=== PATIENT | female | born 1950 | race Caucasian/White ===

== ENCOUNTER 2017-04-24 10:08 | Inpatient (IN) | payer MEDICARE ==
[~2017-04-24] VITALS: Ht 157.5 cm; Wt 69.5 kg
[2017-04-24] VITALS (17 sets, daily range): BP systolic 115–152; BP diastolic 60–78; PULSE 86–97; RESP 18–38; TEMP 97.7–100.3; O2SAT 85–96
[~2017-04-24 10:08] MED LIST: AMLO5TAB2 PO; CYAN1DRO SL; FERR1TAB58 PO; FLUT50SP EACH NARE; LABE100T2 PO; LEVOTAB PO; LOSA100T PO; MACR100C2 PO; OMEP20TA PO; VITA500C9 CHEW; ZOSTINJ SQ
[2017-04-24] MEDS ORDERED: SODIUM CHLORIDE 0.9% FLUSH 10 ML FLUSH IVF PRN (10:30)
[2017-04-24] MEDS ORDERED: VITA250T3 PO (10:36)
[2017-04-24] MEDS ORDERED: FERR200T PO (10:36)
--- NOTE | 2017-04-24 10:42 | PD ---
HPI Chief Complaint: Respiratory Distress Time Seen by Provider: 10:21 Travel History International Travel<30 days: No Contact w/Intl Traveler<30days: No Traveled to known affect area: No History of Present Illness HPI 66yo F with PMH of HTN presents to the ED with c/o sob for 3 days. Also with midsternal chest tightness that is nonradiating. Intermittent fever. +Cough. Denies any n/v, abdominal pain, focal weakness or numbness. Pt went to urgent care on 04/21/17 and was diagnosed with sinusitis and bronchitis. Pt was discharged with cipro, albuterol and benzonatate. Pt has not been using albuterol because it makes her more anxious. Pt denies history of COPD and does not smoke cig. Denies any history of PE/DVT, recent travel or surgery. PFSH Past Medical History GERD: Yes Hypertension: Yes ?: Not Past Surgical History Surgical History: No Previous Surgery Social History Alcohol Use: No Tobacco Use: No Substance Use: No Allergies-Medications (Allergen,Severity, Reaction): Coded Allergies: Sulfa (Verified Allergy, Severe, rash, 04/24/17) Amoxicillin (Verified Allergy, Intermediate, Rash, 04/24/17) Dilaudid (Verified Adverse Reaction, Intermediate, short of breath when given IV push , 04/24/17) Reported Meds & Prescriptions Reported Meds & Active Scripts Active Levocetirizine 5 Mg Tab 5 Mg PO DAILY Losartan (Losartan Potassium) 100 Mg Tab 100 Mg PO HS needs to call office and speak with provider prior to more refills Omeprazole 20 Mg Tab 20 Mg PO DAILY Labetalol (Labetalol HCl) 100 Mg Tab 100 Mg PO BID Amlodipine (Amlodipine Besylate) 5 Mg Tab 5 Mg PO DAILY Reported Vitamin C (Ascorbic Acid) 250 Mg Tab 250 Mg PO DAILY Feosol (Ferrous Sulfate) 200 Mg Tab 200 Mg PO BIDPC Review of Systems Except as stated in HPI: all other systems reviewed are Neg Physical Exam Narrative GENERAL: 66yo F in moderate distress. SKIN: Focused skin assessment warm/dry. HEAD: Atraumatic. Normocephalic. EYES: Pupils equal and round. No scleral icterus. No injection or drainage. ENT: No nasal bleeding or discharge. Mucous membranes pink and moist. NECK: Trachea midline. No JVD. CARDIOVASCULAR: Regular rate and rhythm. No murmur appreciated. RESPIRATORY: + accessory muscle use. Clear to auscultation. Breath sounds equal bilaterally. GASTROINTESTINAL: Abdomen soft, non-tender, nondistended. MUSCULOSKELETAL: No obvious deformities. No clubbing. No cyanosis. Trace bilateral lower ext edema. NEUROLOGICAL: Awake and alert. No obvious cranial nerve deficits. Motor grossly within normal limits. Normal speech. PSYCHIATRIC: Appropriate mood and affect; insight and judgment normal. Data Data Last Documented VS Vital Signs Date Time Temp Pulse Resp B/P Pulse Ox O2 Delivery O2 Flow Rate FiO2 04/24/17 11:22 98.3 95 20 128/60 94 Nasal Cannula 3 Orders Complete Blood Count With Diff (04/24/17 10:29) Basic Metabolic Panel (Bmp) (04/24/17 10:29) Act Partial Throm Time (Ptt) (04/24/17 10:29) Prothrombin Time / Inr (Pt) (04/24/17 10:29) Ckmb (Isoenzyme) Profile (04/24/17 10:29) Troponin I (04/24/17 10:29) Arterial Blood Gas (Abg) (04/24/17 10:29) Blood Culture (04/24/17 10:29) Iv Access Insert/Monitor (04/24/17 10:29) Ecg Monitoring (04/24/17 10:29) Oximetry (04/24/17 10:29) Oxygen Administration (04/24/17 10:29) Chest, Single Ap (04/24/17 10:29) Sodium Chloride 0.9% Flush (Ns Flush) (04/24/17 10:30) Lactic Acid Sepsis Protocol (04/24/17 10:29) B-Type Natriuretic Peptide (04/24/17 11:20) Electrocardiogram (04/24/17 10:27) Type And Screen (04/24/17 11:38) Red Blood Cells (Rbc) (04/24/17 11:38) Blood Product Administration .UPON TRANSFUSION (04/24/17 11:38) Sodium Chlor 0.9% 250 Ml Inj (Ns 250 Ml (04/24/17 11:45) Admit Order (Ed Use Only) (04/24/17 11:51) Labs Laboratory Tests Test 04/24/17 04/24/17 04/24/17 10:43 10:45 11:50 White Blood Count 10.8 TH/MM3 Red Blood Count 3.06 MIL/MM3 Hemoglobin 7.9 GM/DL Hematocrit 24.9 % Mean Corpuscular Volume 81.3 FL Mean Corpuscular Hemoglobin 25.8 PG Mean Corpuscular Hemoglobin 31.7 % Concent Red Cell Distribution Width 16.1 % Platelet Count 352 TH/MM3 Mean Platelet Volume 7.2 FL Neutrophils (%) (Auto) % Lymphocytes (%) (Auto) % Monocytes (%) (Auto) % Eosinophils (%) (Auto) % Basophils (%) (Auto) % Neutrophils # (Auto) TH/MM3 Lymphocytes # (Auto) TH/MM3 Monocytes # (Auto) TH/MM3 Eosinophils # (Auto) TH/MM3 Basophils # (Auto) TH/MM3 CBC Comment AUTO DIFF Differential Total Cells 100 Counted Neutrophils % (Manual) 81 % Band Neutrophils % 2 % Lymphocytes % 13 % Monocytes % 1 % Eosinophils % 1 % Basophils % 2 % Neutrophils # (Manual) 9.0 TH/MM3 Differential Comment FINAL DIFF MANUAL Platelet Estimate NORMAL Platelet Morphology Comment NORMAL Ovalocytes 1+ Prothrombin Time 12.7 SEC Prothromb Time International 1.1 RATIO Ratio Activated Partial 24.4 SEC Thromboplast Time Sodium Level 138 MEQ/L Potassium Level 3.3 MEQ/L Chloride Level 100 MEQ/L Carbon Dioxide Level 25.8 MEQ/L Anion Gap 12 MEQ/L Blood Urea Nitrogen 9 MG/DL Creatinine 0.77 MG/DL Estimat Glomerular Filtration 75 ML/MIN Rate Random Glucose 251 MG/DL Lactic Acid Level 3.0 mmol/L Calcium Level 8.8 MG/DL Total Creatine Kinase 74 U/L Troponin I 1.58 NG/ML B-Type Natriuretic Peptide 582 PG/ML Blood Gas Puncture Site LT RADIAL Blood Gas Patient Temperature 98.6 Blood Gas HCO3 23 mmol/L Blood Gas Base Excess 0.5 mmol/L Blood Gas Oxygen Saturation 79 % Arterial Blood pH 7.51 Arterial Blood Partial 29 mmHG Pressure CO2 Arterial Blood Partial 48 mmHG Pressure O2 Arterial Blood Oxygen Content 8.5 Vol % Arterial Blood 3.3 % Carboxyhemoglobin Arterial Blood Methemoglobin 0.9 % Blood Gas Hemoglobin 7.6 G/DL Oxygen Delivery Device ROOM AIR Blood Gas Inspired Oxygen 21 % Blood Type A NEGATIVE Antibody Screen NEGATIVE Crossmatch Leukocyte-Reduced Red Blood Cells Blood Bank Comment MDM Medical Decision Making Medical Screen Exam Complete: Yes Emergency Medical Condition: Yes Interpretation(s) EKG: NSR 87bpm. LAD. Poor baseline. Q wave V1, V2. EKG: NSR 93bpm. LAD. ST depressions II, III, aVF, V5-V6. Differential Diagnosis Pneumonia vs. PE vs. COPD vs. ACS Narrative Course 66yo F with sob for a few days. Pt is hypoxic on room air in the high 70s but saturating at 96% on 4L NC. Labs reviewed, no leukocytosis. H/H 7.9/24.9. 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 Pt has not had endoscopy for a few years but gets iron transfusion and states last iron transfusion was last month. States hemoglobin was around 10. GI physician near [place]. ABG showed respiratory alkalosis, anemia with hemoglobin of 7.6. O2 sat 79%. Pt is tachypneic and CO2 is 29. Lactic acid is 3.0. Troponin is elevated at 1.58, likely from demand ischemia. BNP is elevated at 582. K: 3.3 , replaced orally. Glucose elevated at 251. Discussed with Dr. Chang and accepted to his service but with the elevated troponin, feel that pt should be transferred to [facility]. GI and cardiology consult placed. CT angio cancelled because I do not think pt is hypoxic from PE but rather from anemia from GI bleed. Hemaprompt positive. Place on prontix. Discussed with Dr. River who recommends transfer to [facility] and to inform Dr. Ashton when she arrives. Discussed with Dr. Hernandez from cardiology. Critical Care Narrative Aggregate critical care time was 60 minutes. Time to perform other separately billable procedures was not included in the critical care time. My time did not include minutes spent treating any other patients simultaneously or on activities that did not directly contribute to the patient's treatment. The services I provided to this patient were to treat and/or prevent clinically significant deterioration that could result in: cardiovascular collapse or . I provided critical care services requiring my management, as noted below: Chart data review, documentation time, medication orders and management, vital sign assessments/reviewing monitor data, ordering and reviewing lab tests, ordering and interpreting/reviewing x-rays and diagnostic studies, care of the patient and discussion of the patient with the admitting physicians. Diagnosis Primary Impression: GI bleed Qualified Code: K92.2 - Gastrointestinal hemorrhage, unspecified gastrointestinal hemorrhage type Admitting Information Admitting Physician Requests: Admit Olive Costa DO Apr 24, 2017 10:42 I provided critical care services requiring my management, as noted below: Chart data review, documentation time, medication orders and management, vital sign assessments/reviewing monitor data, ordering and reviewing lab tests, ordering and interpreting/reviewing x-rays and diagnostic studies, care of the patient and discussion of the patient with the admitting physicians. Diagnosis Primary Impression: GI bleed Olive Costa DO Apr 24, 2017 10:42
[2017-04-24 10:50] LABS: BLOOD GAS BASE EXCESS 0.5 mmol/L (-2-2); BLOOD GAS CARBOXYHEMOGLOBIN 3.3 % (0-4); BLOOD GAS HCO3 23 mmol/L (22-26); BLOOD GAS METHEMOGLOBIN 0.9 % (0-2); BLOOD GAS O2 HGB SATURATION 79 % (90-100); BLOOD GAS OXYGEN CONTENT 8.5 Vol % (12.0-20.0); BLOOD GAS PCO2 29 mmHG (38-42); BLOOD GAS PO2 48 mmHG (61-120); BLOOD GAS TOTAL HGB 7.6 G/DL (12.0-16.0); TEMP CORR TO 98.6
[2017-04-24 10:51] LABS: CRITICAL VALUE YES; DRAW SITE LT RADIAL; FIO2 21 %; NUMBER OF ARTERIAL PUNCTURES 1; OXYGEN DEVICE ROOM AIR; STAT YES; ULNAR PULSE PRESENT
[2017-04-24 10:54] LABS: HEMATOCRIT 24.9 % (35.0-46.0); MEAN CELL VOLUME 81.3 FL (80.0-100.0); MEAN CORPUSCULAR HEMOGLOBIN 25.8 PG (27.0-34.0); MEAN CORPUSCULAR HGB CONC 31.7 % (32.0-36.0); PLATELET COUNT 352 TH/MM3 (150-450); RED BLOOD COUNT 3.06 MIL/MM3 (4.00-5.30); RED CELL DISTRIBUTION WIDTH 16.1 % (11.6-17.2); WHITE BLOOD COUNT 10.8 TH/MM3 (4.0-11.0)
[2017-04-24 10:58] LABS: HEMO FLAGS AUTO DIFF
[2017-04-24 11:10] LABS: POTASSIUM 3.3 MEQ/L (3.5-5.1)
[2017-04-24 11:13] LABS: BICARBONATE 25.8 MEQ/L (21.0-32.0)
[2017-04-24 11:14] LABS: APTT (PATIENT) 24.4 SEC (24.3-30.1); INTERNATIONAL NORMALIZED RATIO 1.1 RATIO; PROTHROMBIN TIME - PATIENT 12.7 SEC (9.8-11.6)
--- NOTE | 2017-04-24 11:15 | RADHPO ---
EXAM DATE/TIME: 04/24/2017 10:53 [facility] COMPARISON: No previous studies available for comparison. INDICATIONS : Short of breath MEDICAL HISTORY : None. SURGICAL HISTORY : None. ENCOUNTER: Initial ACUITY: 3 days PAIN SCORE: 0/10 LOCATION: Bilateral chest FINDINGS: The heart is at the upper limits of normal in size. There is diffuse interstitial prominence and smal l effusions. Exam would suggest possible congestive failure. The visualized bony structures demonstra te degenerative changes but are otherwise intact. CONCLUSION: 1. Possible CHF. Max Capellan MD on April 24, 2017 at 11:12 Board Certified Radiologist. This report was verified electronically.
[2017-04-24] MEDS ORDERED: SODIUM CHLOR 0.9% 250 ML INJ 250 ML IV ONE (11:45)
[2017-04-24 11:50] LABS: BANDS 2 % (0-6); BASOPHILS 2 % (0-2); EOSINOPHILS 1 % (0-4); POLYS (SEG NEUTROPHILS) 81 % (16-70); WBC DIFF SAMPLE 100
[2017-04-24 11:51] LABS: OVALOCYTES 1+ (NORMAL)
[2017-04-24 11:52] LABS: PLATELET ESTIMATE SMEAR NORMAL (NORMAL); PLATELET MORPHOLOGY NORMAL (NORMAL); SCAN/DIFF FINAL DIFF MANUAL
[2017-04-24] MEDS ORDERED: SENNOSIDES 8.6 MG TAB PO PRN (12:00)
[2017-04-24] MEDS ORDERED: ONDANSETRON HCL 4 MG/2 ML VIAL IVP PRN (12:00)
[2017-04-24] MEDS ORDERED: MAGNESIUM HYDROXIDE SUSP 30 ML CUP PO PRN (12:00)
[2017-04-24] MEDS ORDERED: NALOXONE HCL 0.4 MG/ML AMP IV PRN (12:00)
[2017-04-24] MEDS ORDERED: BISACODYL 10 MG SUPP RECTAL PRN (12:00)
[2017-04-24] MEDS ORDERED: LACTULOSE SYRUP 20 GM/30 ML CUP PO PRN (12:00)
[2017-04-24] MEDS ORDERED: POTASSIUM CHLORIDE 20 MEQ CONTROLLED RELEASE TAB PO STA (12:09)
[2017-04-24 12:51] LABS: LACTIC ACID GHOST NOT REPORTABLE
[2017-04-24] MEDS: PANTOPRAZOLE INJ 80 MG in SODIUM CHLORIDE 0.9% INJ 100 ML IV SCH ×2 (13:21→23:40)
--- NOTE | 2017-04-24 13:38 | EKG ---
Date Performed: 04/24/2017 Time Performed: 11:46:34 PTAGE: 66 years EKG: Sinus rhythm NONSPECIFIC ST & T-WAVE ABNORMALITY ABNORMAL ECG INTERPRETATION BASED ON A DEFAULT AGE OF 40 YEARS W ithin the constraints of artifact no significant change. PREVIOUS TRACING : 04/24/2017 10.27 DOCTOR: Gio Preston Interpretating Date/Time 04/24/2017 13:37:08
--- NOTE | 2017-04-24 13:41 | EKG ---
Date Performed: 04/24/2017 Time Performed: 10:27:25 PTAGE: 66 years EKG: Marked baseline artifact Sinus rhythm SEPTAL MYOCARDIAL INFARCTION ABNORMAL ECG INTERPRETATION BASED ON A DEFAULT AGE OF 40 YEARS I cannot accurately compare EKGs because of the artifact NO PREVIOUS TRACING DOCTOR: Gio Preston Interpretating Date/Time 04/24/2017 13:39:36
--- NOTE | 2017-04-24 13:56 | HHI.HP ---
[facility] Service [facility] Physician Shahla Daniel, OBSTETRICS TECH Admission Diagnosis GI bleed, NSTEMI, symptomatic anemia Diagnoses: (1) GAVE (gastric antral vascular ectasia) (2) Hypertension (3) GI bleed (4) Elevated troponin I level (5) Hypokalemia (6) Anemia Chief Complaint: Dyspnea Travel History International Travel<30 Days: No Contact w/Intl Traveler <30 Da: No Traveled to Known Affected Are: No History of Present Illness The patient is a 66-year-old female who recently [place] She states for the last few days she has had worsening shortness of breath. She went to urgent care on 04/21/17 and was diagnosed with bronchitis. She was given prescription for ciprofloxacin and benzonatate. She was also given albuterol, stopped using it because of tachycardia. She states that this morning she was at work and became significantly short of breath. She contacted her PCP, who recommended that she go to the ER. She denies chest pain, but does report a pressure sensation throughout her chest. She has worsening of her shortness of breath with any exertion. Denies headache or blurred vision. Denies fever, chills, night sweats. No nausea, vomiting, abdominal pain. Review of Systems Constitutional: DENIES: Fever, Chills, Night Sweats Eyes: DENIES: Blurred vision, Vision loss Ears, nose, mouth, throat: DENIES: Hearing loss Respiratory: COMPLAINS OF: Cough, Sputum production, Shortness of breath, DENIES: Wheezing Cardiovascular: COMPLAINS OF: Dyspnea on Exertion, DENIES: Chest pain ( patient does report chest pressure as described in history of present illness), Palpitations, Lower Extremity Edema Gastrointestinal: DENIES: Abdominal pain, Constipation, Diarrhea, Nausea, Vomiting Genitourinary: DENIES: Urinary frequency, Urinary incontinence, Urgency, Hematuria, Dysuria, Nocturia Musculoskeletal: DENIES: Joint pain, Muscle aches Integumentary: DENIES: Pruritus, Rash Hematologic/lymphatic: DENIES: Bruising Neurologic: DENIES: Headache Past Family Social History Past Medical History GAVE syndrome Hypertension Past Surgical History Multiple endoscopies with cauterization Cervical spine surgery Reported Medications Levocetirizine 5 Mg Tab 5 Mg PO DAILY Losartan (Losartan Potassium) 100 Mg Tab 100 Mg PO HS needs to call office and speak with provider prior to more refills Omeprazole 20 Mg Tab 20 Mg PO DAILY Labetalol (Labetalol HCl) 100 Mg Tab 100 Mg PO BID Amlodipine (Amlodipine Besylate) 5 Mg Tab 5 Mg PO DAILY Vitamin C (Ascorbic Acid) 250 Mg Tab 250 Mg PO DAILY Feosol (Ferrous Sulfate) 200 Mg Tab 200 Mg PO BIDPC Allergies: Coded Allergies: Sulfa (Verified Allergy, Severe, rash, 04/24/17) Amoxicillin (Verified Allergy, Intermediate, Rash, 04/24/17) Dilaudid (Verified Adverse Reaction, Intermediate, short of breath when given IV push , 04/24/17) Family History Heart disease COPD Social History Denies alcohol, tobacco, or illicit drug use. Physical Exam Vital Signs Vital Signs Date Time Temp Pulse Resp B/P Pulse Ox O2 Delivery O2 Flow Rate FiO2 04/24/17 13:22 91 18 143/78 94 Nasal Cannula 3 04/24/17 12:05 95 Nasal Cannula 3.00 04/24/17 11:22 98.3 95 20 128/60 94 Nasal Cannula 3 04/24/17 10:50 94 Nasal Cannula 3 04/24/17 10:50 94 Nasal Cannula 3 04/24/17 10:28 97 22 115/64 96 Nasal Cannula 2 04/24/17 10:28 96 Nasal Cannula 2 04/24/17 10:13 97.7 96 20 134/68 85 Physical Exam GENERAL: Well-nourished, well-developed female in no acute distress. HEENT: Normocephalic, atraumatic. Pupils equal, round and reactive. Extraocular movements intact. No scleral icterus. No injection or drainage. Oropharynx is clear. Mucous membranes are moist. CARDIOVASCULAR: Regular rate and rhythm without murmurs, gallops, or rubs. RESPIRATORY: Clear to auscultation. No wheezes, rales, or rhonchi. Breathing is non-labored. GASTROINTESTINAL: Abdomen soft, non-tender, nondistended. EXTREMITIES: No lower extremity edema. No calf tenderness. PSYCH: Alert and oriented x 3. Laboratory Laboratory Tests Test 04/24/17 04/24/17 10:43 10:45 White Blood Count 10.8 Red Blood Count 3.06 Hemoglobin 7.9 Hematocrit 24.9 Mean Corpuscular Volume 81.3 Mean Corpuscular Hemoglobin 25.8 Mean Corpuscular Hemoglobin 31.7 Concent Red Cell Distribution Width 16.1 Platelet Count 352 Mean Platelet Volume 7.2 Neutrophils (%) (Auto) Lymphocytes (%) (Auto) Monocytes (%) (Auto) Eosinophils (%) (Auto) Basophils (%) (Auto) Neutrophils # (Auto) Lymphocytes # (Auto) Monocytes # (Auto) Eosinophils # (Auto) Basophils # (Auto) CBC Comment AUTO DIFF Differential Total Cells 100 Counted Neutrophils % (Manual) 81 Band Neutrophils % 2 Lymphocytes % 13 Monocytes % 1 Eosinophils % 1 Basophils % 2 Neutrophils # (Manual) 9.0 Differential Comment FINAL DIFF MANUAL Platelet Estimate NORMAL Platelet Morphology Comment NORMAL Ovalocytes 1+ Prothrombin Time 12.7 Prothromb Time International 1.1 Ratio Activated Partial 24.4 Thromboplast Time Sodium Level 138 Potassium Level 3.3 Chloride Level 100 Carbon Dioxide Level 25.8 Anion Gap 12 Blood Urea Nitrogen 9 Creatinine 0.77 Estimat Glomerular Filtration 75 Rate Random Glucose 251 Lactic Acid Level 3.0 Calcium Level 8.8 Total Creatine Kinase 74 Troponin I 1.58 B-Type Natriuretic Peptide 582 Blood Gas Puncture Site LT RADIAL Blood Gas Patient Temperature 98.6 Blood Gas HCO3 23 Blood Gas Base Excess 0.5 Blood Gas Oxygen Saturation 79 Arterial Blood pH 7.51 Arterial Blood Partial 29 Pressure CO2 Arterial Blood Partial 48 Pressure O2 Arterial Blood Oxygen Content 8.5 Arterial Blood 3.3 Carboxyhemoglobin Arterial Blood Methemoglobin 0.9 Blood Gas Hemoglobin 7.6 Oxygen Delivery Device ROOM AIR Blood Gas Inspired Oxygen 21 Date/Time Procedure Status Source Growth 04/24/17 10:49 Aerobic Blood Culture Received Blood Peripheral Pending 04/24/17 10:49 Anaerobic Blood Culture Received Blood Peripheral Pending Result Diagram: 04/24/17 1043 04/24/17 1043 Imaging Last Impressions Chest X-Ray 04/24/17 1029 Signed Impressions: Service Date/Time: Monday, April 24, 2017 10:53 - CONCLUSION: 1. Possible CHF. Max Capellan MD Assessment and Plan Assessment and Plan 1. Dyspnea: Likely secondary to anemia. Continue supplemental oxygen. 2. GI bleed with symptomatic anemia: Patient has history of gastric antral vascular ectasia syndrome. Last endoscopy with cautery was about 2 years ago. Stool occult blood is positive. Gastroenterology has been consulted. ER physician spoke with the exceptional children's teacher on-call. Continue Protonix drip. Transfuse 2 units PRBCs. Monitor H&H. 3. Hypertension: Continue home medications. 4. Elevated troponin: Likely NSTEMI from demand ischemia. Cardiology consult requested. ER physician spoke with inspector assemblies and installations. 5. DVT prophylaxis: KRISTY Jiménez. Avoid chemical prophylaxis secondary to GI bleed, anemia. Anselmo Mas MD Apr 24, 2017 13:56
[2017-04-24] MEDS: FERROUS SULFATE 300 MG /5ML UDC PO SCH (20:27)
[2017-04-24] MEDS: DOCUSATE SODIUM 50 MG/SENNA 8.6 MG TAB PO SCH (20:27)
[2017-04-24] MEDS: LOSARTAN 50 MG TAB PO SCH (20:27)
[2017-04-24] MEDS: LABETALOL HCL 100 MG TAB PO SCH (20:28)
--- NOTE | 2017-04-24 21:58 | EKG ---
Date Performed: 04/24/2017 Time Performed: 16:28:41 PTAGE: 66 years EKG: Sinus rhythm SEPTAL MYOCARDIAL INFARCTION Nonspecific ST-T wave changes NO SIGNIFICANT CHANGE FROM PRIOR ELECTROC ARDIOGRAM. PREVIOUS TRACING : 04/24/2017 11.46 DOCTOR: Gio Preston Interpretating Date/Time 04/24/2017 21:57:35
[2017-04-24] MEDS ORDERED: BUMETANIDE INJ 1 MG/4 ML VIAL IV PUSH ONE (23:30)
--- NOTE | 2017-04-24 23:58 | RADRPT ---
EXAM DATE/TIME: 04/24/2017 23:35 [facility] COMPARISON: CHEST SINGLE AP, April 24, 2017, 10:53. INDICATIONS : Shortness of breath. MEDICAL HISTORY : None. SURGICAL HISTORY : None. ENCOUNTER: Subsequent ACUITY: 4 - 6 days PAIN SCORE: Non-responsive. LOCATION: Bilateral chest FINDINGS: There is worsening airspace process bilaterally probably worsening pulmonary edema. Heart and mediast inum are unremarkable for technique. There are atherosclerotic calcifications of the aorta due to chr onic atherosclerotic disease. CONCLUSION: Worsening airspace process bilaterally. Nickie Grubbs MD on April 24, 2017 at 23:56 Board Certified Radiologist. This report was verified electronically.
[2017-04-25] VITALS (16 sets, daily range): BP systolic 118–190; BP diastolic 60–89; PULSE 78–97; RESP 26–33; TEMP 97.6–98.9; O2SAT 82–97
[2017-04-25] MEDS ORDERED: MORPHINE SULFATE 8 MG/ML INJ ONE (00:04)
[2017-04-25] MEDS ORDERED: LORazepam 2 MG/ML VIAL IV PUSH ONE (00:15)
[2017-04-25] MEDS ORDERED: MORPHINE SULFATE 4 MG/ML INJ IV PUSH ONE (00:15)
[2017-04-25] MEDS ORDERED: BUMETANIDE INJ 1 MG/4 ML VIAL IV PUSH ONE (00:30)
--- NOTE | 2017-04-25 00:58 | HHI.PR ---
Addendum to Inpatient Note Addendum Reason: Additional Documentation Additional Information I was called by patient's nurse at around 2325 that patient was anxious and that she was desaturating and requiring 100% nonrebreather. She was saturating only about 92% on nonrebreather. Nurse reported the patient is claustrophobic and is quite anxious as well. Chart reviewed. Patient with pulmonary edema on initial chest x-ray. Patient was being managed for GI bleed and received 2 units of PRBC. According to the nurse, patient did not have this much of respiratory distress after receiving her first unit. She stated the patient did come in with dyspnea although it wasn't this severe and that this dyspnea was attributed to anemia. Therefore at that time, I had ordered for Bumex 1 mg IV stat with a chest x-ray stat. I then came to see patient at around 2350 patient is in acute respiratory distress Respiratory rate around 45. Saturating 78% on nonrebreather. Heart rate is around 100. She was able to complete sentences but she is profusely diaphoretic. So far she also has not urinated yet. Therefore nurse had tried to place bed virgen on her and when she tries to put the bed to less than 60, patient became severely short of breath. On exam, her heart rate is regular, tachycardic. Lung exam reveals bilateral coarse rales all throughout. Abdomen is soft and nontender. No calf asymmetry or edema noted. Impression: Acute pulmonary edema/fluid overload Hypoxic respiratory failure GI bleed Plan: Discussed with patient in detail as to the need of stabilization of her respiratory status. Patient is claustrophobic but is willing to try BiPAP at this point. Give Ativan 1 mg IV. Mike catheter once patient respiratory status is stabilized. Put BiPAP 12 over 5, FiO2 to keep O2 sat greater than 93%. Patient denies history of smoking. No history of COPD. Not on oxygen at home. We'll give additional Bumex 1 mg IV after Mike catheter is placed again. Patient is quite comfortable after BiPAP administration. She is saturating 100% on BiPAP. She is no longer diaphoretic. However her respiratory rate still remains to be around 40. Charge nurse still trying to place Mike catheter. Strict I's and O's. Echocardiogram in a.m. I do not believe that this is TRALI from the presentation of the symptoms and also given the patient already has pulmonary edema on initial chest x-ray. Case discussed with strategic planner group segment consultant for transfer of care. Juan Antonio Dunaway MD Apr 25, 2017 00:58
[2017-04-25 01:17] LABS: HEMATOCRIT 36.2 % (35.0-46.0); REVIEW FLAG FINAL
--- NOTE | 2017-04-25 02:43 | PD.CONS ---
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 For the last few days she has had worsening shortness of breath. She went to urgent care on 04/21/17 and was diagnosed with bronchitis. She was given prescription for ciprofloxacin and benzonatate. She was also given albuterol, stopped using it because of tachycardia. In the morning prior to admission she was at work and became significantly short of breath. She contacted her PCP, who recommended that she go to the ER. She denied chest pain , but does report a pressure sensation throughout her chest. Her hemoglobin was borderline at the level of 7.9, and due to her history of gave syndrome she was transfused with 2 units of PRBCs. Her shortness of breath became worse and she was transferred to ICU in respiratory distress, her chest x-ray showed worsening pulmonary vascular congestion. Review of Systems ROS Unable to obtain patient's on facemask BiPAP Past Family Social History Allergies: Coded Allergies: Sulfa (Verified Allergy, Severe, rash, 04/24/17) Amoxicillin (Verified Allergy, Intermediate, Rash, 04/24/17) Dilaudid (Verified Adverse Reaction, Intermediate, short of breath when given IV push , 04/24/17) Past Medical History Hypertension GAVE syndrome Past Surgical History Unable to obtain Reported Medications Reported Meds & Active Scripts Active Levocetirizine 5 Mg Tab 5 Mg PO DAILY Losartan (Losartan Potassium) 100 Mg Tab 100 Mg PO HS needs to call office and speak with provider prior to more refills Omeprazole 20 Mg Tab 20 Mg PO DAILY Labetalol (Labetalol HCl) 100 Mg Tab 100 Mg PO BID Amlodipine (Amlodipine Besylate) 5 Mg Tab 5 Mg PO DAILY Reported Vitamin C (Ascorbic Acid) 250 Mg Tab 250 Mg PO DAILY Feosol (Ferrous Sulfate) 200 Mg Tab 200 Mg PO BIDPC Active Ordered Medications Current Medications Medications (Trade) Dose Ordered Sig/Adilia Route PRN Reason Start Time Stop Time Status Last Admin Dose Admin Sodium Chloride 2 ml 2 ml UNSCH PRN IVF FLUSH AFTER USING IV ACCESS 04/24/17 10:30 Sodium Chloride (NS 250 ml Inj) 250 ml @ 15 mls/hr ONCE ONCE IV 04/24/17 11:45 04/25/17 04:24 04/24/17 11:45 Acetaminophen (Tylenol) 650 mg Q4H PRN PO TEMP > 100.4 04/24/17 12:00 Ondansetron HCl (Zofran Inj) 4 mg Q6H PRN IVP NAUSEA OR VOMITING 04/24/17 12:00 Naloxone HCl (Narcan Inj) 0.4 mg UNSCH PRN IV SEE LABEL COMMENTS 04/24/17 12:00 Senna/Docusate Sodium (Marcelina-Colace) 1 tab BID PO 04/24/17 21:00 04/24/17 20:27 Magnesium Hydroxide (Milk Of Magnesia Liq) 30 ml Q12H PRN PO MILD - MODERATE CONSTIPATION 04/24/17 12:00 Sennosides (Senokot) 17.2 mg Q12H PRN PO MODERATE - SEVERE CONSTIPATION 04/24/17 12:00 Bisacodyl (Dulcolax Supp) 10 mg DAILY PRN RECTAL SEVERE CONSITIPATION 04/24/17 12:00 Lactulose 30 ml 30 ml DAILY PRN PO SEVERE CONSITIPATION 04/24/17 12:00 Pantoprazole Sodium/Sodium Chloride (Protonix Inj/NS Inj) 100 ml @ 10 mls/hr Q10H IV 04/24/17 12:15 04/24/17 23:40 Amlodipine Besylate (Norvasc) 5 mg DAILY PO 04/25/17 09:00 Ferrous Sulfate (Ferrous Sulfate Liq) 200 mg BIDPC PO 04/24/17 18:00 04/24/17 20:27 Labetalol HCl (Trandate) 100 mg BID PO 04/24/17 21:00 04/24/17 20:28 Losartan Potassium (Cozaar) 100 mg HS PO 04/24/17 21:00 04/24/17 20:27 Family History Noncontributory Social History Unable to obtain Physical Exam Vital Signs Vital Signs Date Time Temp Pulse Resp B/P Pulse Ox O2 Delivery O2 Flow Rate FiO2 04/25/17 00:19 95 100 04/25/17 00:00 97.6 97 30 190/89 82 04/25/17 00:00 97 04/24/17 23:44 90 Non-Rebreather 15.00 04/24/17 23:12 92 Simple Mask 10.00 04/24/17 22:00 86 04/24/17 20:00 98.5 96 38 132/69 90 04/24/17 20:00 96 04/24/17 19:23 91 3.00 04/24/17 19:00 89 35 138/64 92 04/24/17 19:00 89 04/24/17 18:15 99.6 87 24 136/65 94 04/24/17 18:00 89 04/24/17 18:00 99.6 89 31 136/65 92 04/24/17 17:31 100.3 93 26 152/70 92 04/24/17 17:00 100.3 89 20 152/72 92 04/24/17 16:35 78 20 148/68 96 Nasal Cannula 4 04/24/17 14:14 95 Nasal Cannula 3 04/24/17 13:22 91 18 143/78 94 Nasal Cannula 3 04/24/17 12:05 95 Nasal Cannula 3.00 04/24/17 11:22 98.3 95 20 128/60 94 Nasal Cannula 3 04/24/17 10:50 94 Nasal Cannula 3 04/24/17 10:50 94 Nasal Cannula 3 04/24/17 10:28 97 22 115/64 96 Nasal Cannula 2 04/24/17 10:28 96 Nasal Cannula 2 04/24/17 10:13 97.7 96 20 134/68 85 Physical Exam GENERAL: Well-nourished, well-developed patient. On the facemask BiPAP SKIN: Warm and dry. HEAD: Normocephalic. EYES: No scleral icterus. No injection or drainage. NECK: Supple, trachea midline. No JVD or lymphadenopathy. CARDIOVASCULAR: Regular rate and rhythm without murmurs, gallops, or rubs. RESPIRATORY: Breath sounds equal bilaterally. No accessory muscle use. GASTROINTESTINAL: Abdomen soft, non-tender, nondistended. MUSCULOSKELETAL: No cyanosis, or edema. BACK: Nontender without obvious deformity. No CVA tenderness. EXTREMITIES: No clubbing cyanosis or edema Laboratory Laboratory Tests Test 04/24/17 04/24/17 04/24/17 04/24/17 10:43 10:45 11:50 12:49 White Blood Count 10.8 Red Blood Count 3.06 Hemoglobin 7.9 Hematocrit 24.9 Mean Corpuscular Volume 81.3 Mean Corpuscular Hemoglobin 25.8 Mean Corpuscular Hemoglobin 31.7 Concent Red Cell Distribution Width 16.1 Platelet Count 352 Mean Platelet Volume 7.2 Neutrophils (%) (Auto) Lymphocytes (%) (Auto) Monocytes (%) (Auto) Eosinophils (%) (Auto) Basophils (%) (Auto) Neutrophils # (Auto) Lymphocytes # (Auto) Monocytes # (Auto) Eosinophils # (Auto) Basophils # (Auto) CBC Comment AUTO DIFF Differential Total Cells 100 Counted Neutrophils % (Manual) 81 Band Neutrophils % 2 Lymphocytes % 13 Monocytes % 1 Eosinophils % 1 Basophils % 2 Neutrophils # (Manual) 9.0 Differential Comment FINAL DIFF MANUAL Platelet Estimate NORMAL Platelet Morphology Comment NORMAL Ovalocytes 1+ Prothrombin Time 12.7 Prothromb Time International 1.1 Ratio Activated Partial 24.4 Thromboplast Time Sodium Level 138 Potassium Level 3.3 Chloride Level 100 Carbon Dioxide Level 25.8 Anion Gap 12 Blood Urea Nitrogen 9 Creatinine 0.77 Estimat Glomerular Filtration 75 Rate Random Glucose 251 Lactic Acid Level 3.0 Calcium Level 8.8 Total Creatine Kinase 74 Troponin I 1.58 B-Type Natriuretic Peptide 582 Blood Gas Puncture Site LT RADIAL Blood Gas Patient Temperature 98.6 Blood Gas HCO3 23 Blood Gas Base Excess 0.5 Blood Gas Oxygen Saturation 79 Arterial Blood pH 7.51 Arterial Blood Partial 29 Pressure CO2 Arterial Blood Partial 48 Pressure O2 Arterial Blood Oxygen Content 8.5 Arterial Blood 3.3 Carboxyhemoglobin Arterial Blood Methemoglobin 0.9 Blood Gas Hemoglobin 7.6 Oxygen Delivery Device ROOM AIR Blood Gas Inspired Oxygen 21 Blood Type A NEGATIVE A NEGATIVE Antibody Screen NEGATIVE Crossmatch Leukocyte-Reduced Red Blood Cells Blood Bank Comment Test 04/24/17 04/24/17 04/24/17 04/25/17 13:19 16:26 17:20 01:09 Lactic Acid Level 2.0 Total Creatine Kinase 79 107 Troponin I 2.38 3.16 Nasal Screen MRSA (PCR) MRSA NOT DETECTED Hemoglobin 11.6 Hematocrit 36.2 Date/Time Procedure Status Source Growth 04/24/17 10:49 Aerobic Blood Culture Received Blood Peripheral Pending 04/24/17 10:49 Anaerobic Blood Culture Received Blood Peripheral Pending Result Diagram: 04/25/17 0109 04/24/17 1043 Imaging Last 24 hours Impressions Chest X-Ray 04/24/17 1029 Signed Impressions: Service Date/Time: Monday, April 24, 2017 10:53 - CONCLUSION: 1. Possible CHF. Max Capellan MD Assessment and Plan Assessment and Plan Respiratory failure - Fluid overload - Continue BiPAP - Repeat CXR and ABG a.m. - IV diuretics CHF - Non-STEMI - Cannot use antiplatelets or anticoagulation due to GI bleed - Gastroenterology evaluation pending - Cardiology consult - 2-D echo - Lopressor, statins, diuretics GI bleed - Protonix drip - Underlying gave syndrome - GI eval pending Anemia - Due to above - Transfuse 2 units of PRBCs with proper improvement in hemoglobin - Monitor H&H DVT GI prophylaxis - Teds SCDs - No pharmacological DVT prophylaxis due to GI bleed - IV Protonix Critical Care: The total critical care time was 35 minutes. Time to perform other separately billable procedures was not included in the critical care time. Willian Patricia MD Apr 25, 2017 02:43
[2017-04-25] MEDS: METOPROLOL TARTRATE 5 MG/5 ML VIAL IV PUSH SCH ×4 (03:52→20:41)
[2017-04-25 04:51] LABS: BACTERIA, URINE RARE /hpf; BLOOD, URINE NEG (NEG); COMMENT (UR) CATH-CULTURE IND; CULTURE IF INDICATED CATH CULTURE IND; GLUCOSE,URINE NEG (NEG); KETONE, URINE TRACE mg/dL (NEG); MUCUS URINE FEW /lpf (OCC); NITRITE,URINE NEG (NEG); SQUAMOUS EPITHELIAL CELL URINE <1 /hpf (0-5); URINE COLOR LIGHT-YELLOW (YELLW/STRAW)
--- NOTE | 2017-04-25 04:55 | EKG ---
Date Performed: 04/24/2017 Time Performed: 21:58:03 PTAGE: 66 years EKG: Sinus rhythm SEPTAL MYOCARDIAL INFARCTION , OF INDETERMINATE AGE Nonspecific ST-T changes. ABNORMAL ECG PREVIOUS TRACING : 04/24/2017 16.28 No significant change. DOCTOR: Gio Preston Interpretating Date/Time 04/25/2017 04:54:49
[2017-04-25 05:38] LABS: BLOOD GAS BASE EXCESS 1.8 mmol/L (-2-2); BLOOD GAS CARBOXYHEMOGLOBIN 2.5 % (0-4); BLOOD GAS HCO3 25 mmol/L (22-26); BLOOD GAS METHEMOGLOBIN 1.1 % (0-2); BLOOD GAS O2 HGB SATURATION 93 % (90-100); BLOOD GAS OXYGEN CONTENT 15.2 Vol % (12.0-20.0); BLOOD GAS PCO2 34 mmHg (38-42); BLOOD GAS PO2 82 mmHg (61-120); BLOOD GAS TOTAL HGB 11.6 G/DL (12.0-16.0); CRITICAL VALUE NO; OXYGEN DEVICE BiPAP; TEMP CORR TO 98.6
[2017-04-25 05:39] LABS: DRAW SITE RT RADIAL; FIO2 50 %; NUMBER OF ARTERIAL PUNCTURES 1; STAT NO; ULNAR PULSE PRESENT; VENT SETTINGS IPAP12/EPAP5
[2017-04-25 06:02] LABS: AUTOMATED NEUTROPHIL # 12.6 TH/MM3 (1.8-7.7); BASOPHIL % 0.2 % (0.0-2.0); EOSINOPHIL % 0.1 % (0.0-4.0); HEMO FLAGS DIFF FINAL; LYMPH % 7.1 % (9.0-44.0); MONO % 6.9 % (0.0-8.0); NEUT % 85.7 % (16.0-70.0); PLATELET COUNT 299 TH/MM3 (150-450); RED BLOOD COUNT 4.44 MIL/MM3 (4.00-5.30); RED CELL DISTRIBUTION WIDTH 16.8 % (11.6-17.2); WHITE BLOOD COUNT 14.7 TH/MM3 (4.0-11.0)
--- NOTE | 2017-04-25 08:13 | PD.CONS ---
HPI Service CV Consult Requested By Reason for Consult NSTEMI Primary Care Physician ALTA Parisi History of Present Illness Here with GAVE syndrome for anemia and shortness of breath. She denies any chest pain. She has had a transfusion Review of Systems Consitutional: DENIES: Fatigue, Fever, Chills, Weight gain, Weight loss Eyes: DENIES: Amaurosis Fugax, Change in vision HEENT: DENIES: Lightheadedness, Change in hearing Respiratory: DENIES: See HPI, Cough, Snoring, Shortness of breath, Wheezing, Sputum production Cardiovascular: COMPLAINS OF: See HPI Gastrointestinal: DENIES: Nausea, Vomiting, Change in bowel habits, Reflux, Bloody stools, Melena Genitourinary: DENIES: Urinary incontinence, Difficulty voiding Integumentary: DENIES: Rash Neurologic: COMPLAINS OF: Tingling or numbness, Memory problems, Poor Balance, Stroke symptoms Musculoskeletal: DENIES: Joint pain, Muscle pain, Limited range of motion, Back pain Psychiatric: DENIES: Anxiety, Depression, Sleep disturbances Hematologic: DENIES: Bruising tendencies, Bleeding tendencies Endocrine: DENIES: Weight gain, Weight loss, Thyroid disease Past Family Social History Allergies: Coded Allergies: Sulfa (Verified Allergy, Severe, rash, 04/24/17) Amoxicillin (Verified Allergy, Intermediate, Rash, 04/24/17) Dilaudid (Verified Adverse Reaction, Intermediate, short of breath when given IV push , 04/24/17) Past Medical History see HPI Past Surgical History Multiple endoscopies with cauterization Cervical spine surgery Reported Medications Reported Meds & Active Scripts Active Levocetirizine 5 Mg Tab 5 Mg PO DAILY Losartan (Losartan Potassium) 100 Mg Tab 100 Mg PO HS needs to call office and speak with provider prior to more refills Omeprazole 20 Mg Tab 20 Mg PO DAILY Labetalol (Labetalol HCl) 100 Mg Tab 100 Mg PO BID Amlodipine (Amlodipine Besylate) 5 Mg Tab 5 Mg PO DAILY Reported Vitamin C (Ascorbic Acid) 250 Mg Tab 250 Mg PO DAILY Feosol (Ferrous Sulfate) 200 Mg Tab 200 Mg PO BIDPC Active Ordered Medications Current Medications Medications (Trade) Dose Ordered Sig/Adilia Route Start Time Stop Time Status Last Admin (NS Flush) 2 ml UNSCH PRN IVF 04/24/17 10:30 (Tylenol) 650 mg Q4H PRN PO 04/24/17 12:00 (Zofran Inj) 4 mg Q6H PRN IVP 04/24/17 12:00 (Narcan Inj) 0.4 mg UNSCH PRN IV 04/24/17 12:00 (Marcelina-Colace) 1 tab BID PO 04/24/17 21:00 04/24/17 20:27 (Milk Of Magnesia Liq) 30 ml Q12H PRN PO 04/24/17 12:00 (Senokot) 17.2 mg Q12H PRN PO 04/24/17 12:00 (Dulcolax Supp) 10 mg DAILY PRN RECTAL 04/24/17 12:00 Lactulose 30 ml 30 ml DAILY PRN PO 04/24/17 12:00 (Protonix Inj/NS Inj) 100 ml @ 10 mls/hr Q10H IV 04/24/17 12:15 04/24/17 23:40 (Norvasc) 5 mg DAILY PO 04/25/17 09:00 (Ferrous Sulfate Liq) 200 mg BIDPC PO 04/24/17 18:00 04/24/17 20:27 (Trandate) 100 mg BID PO 04/24/17 21:00 04/24/17 20:28 (Cozaar) 100 mg HS PO 04/24/17 21:00 04/24/17 20:27 (Lopressor Inj) 2.5 mg Q6H IV PUSH 04/25/17 03:00 04/25/17 03:52 (Lipitor) 40 mg DAILY PO 04/25/17 09:00 Family History noncontributory Social History Denies alcohol, tobacco, or illicit drug use. Physical Exam Vital Signs Vital Signs Date Time Temp Pulse Resp B/P Pulse Ox O2 Delivery O2 Flow Rate FiO2 04/25/17 06:00 83 04/25/17 04:12 96 50 04/25/17 04:00 98.2 80 33 145/77 97 04/25/17 04:00 80 04/25/17 02:00 84 04/25/17 00:19 95 100 04/25/17 00:00 97.6 97 30 190/89 82 04/25/17 00:00 97 04/24/17 23:44 90 Non-Rebreather 15.00 04/24/17 23:12 92 Simple Mask 10.00 04/24/17 22:00 86 04/24/17 20:00 98.5 96 38 132/69 90 04/24/17 20:00 96 04/24/17 19:23 91 3.00 04/24/17 19:00 89 35 138/64 92 04/24/17 19:00 89 04/24/17 18:15 99.6 87 24 136/65 94 04/24/17 18:00 89 04/24/17 18:00 99.6 89 31 136/65 92 04/24/17 17:31 100.3 93 26 152/70 92 04/24/17 17:00 100.3 89 20 152/72 92 04/24/17 16:35 78 20 148/68 96 Nasal Cannula 4 04/24/17 14:14 95 Nasal Cannula 3 04/24/17 13:22 91 18 143/78 94 Nasal Cannula 3 04/24/17 12:05 95 Nasal Cannula 3.00 04/24/17 11:22 98.3 95 20 128/60 94 Nasal Cannula 3 04/24/17 10:50 94 Nasal Cannula 3 04/24/17 10:50 94 Nasal Cannula 3 04/24/17 10:28 97 22 115/64 96 Nasal Cannula 2 04/24/17 10:28 96 Nasal Cannula 2 04/24/17 10:13 97.7 96 20 134/68 85 Physical Exam GENERAL: Well-nourished, well-developed patient in no apparent distress. NECK: No JVD. No carotid bruit. CARDIOVASCULAR: Regular rate and rhythm. S1/S2 no murmur, rub, or gallop. RESPIRATORY: No accessory muscle use. Clear to auscultation. Breath sounds equal bilaterally. GASTROINTESTINAL: Abdomen soft, non-tender, nondistended. MUSCULOSKELETAL: Extremities without clubbing, cyanosis, or edema. Laboratory Laboratory Tests Test 04/24/17 04/24/17 04/24/17 04/24/17 10:43 10:45 11:50 12:49 White Blood Count 10.8 Red Blood Count 3.06 Hemoglobin 7.9 Hematocrit 24.9 Mean Corpuscular Volume 81.3 Mean Corpuscular Hemoglobin 25.8 Mean Corpuscular Hemoglobin 31.7 Concent Red Cell Distribution Width 16.1 Platelet Count 352 Mean Platelet Volume 7.2 Neutrophils (%) (Auto) Lymphocytes (%) (Auto) Monocytes (%) (Auto) Eosinophils (%) (Auto) Basophils (%) (Auto) Neutrophils # (Auto) Lymphocytes # (Auto) Monocytes # (Auto) Eosinophils # (Auto) Basophils # (Auto) CBC Comment AUTO DIFF Differential Total Cells 100 Counted Neutrophils % (Manual) 81 Band Neutrophils % 2 Lymphocytes % 13 Monocytes % 1 Eosinophils % 1 Basophils % 2 Neutrophils # (Manual) 9.0 Differential Comment FINAL DIFF MANUAL Platelet Estimate NORMAL Platelet Morphology Comment NORMAL Ovalocytes 1+ Prothrombin Time 12.7 Prothromb Time International 1.1 Ratio Activated Partial 24.4 Thromboplast Time Sodium Level 138 Potassium Level 3.3 Chloride Level 100 Carbon Dioxide Level 25.8 Anion Gap 12 Blood Urea Nitrogen 9 Creatinine 0.77 Estimat Glomerular Filtration 75 Rate Random Glucose 251 Lactic Acid Level 3.0 Calcium Level 8.8 Total Creatine Kinase 74 Troponin I 1.58 B-Type Natriuretic Peptide 582 Blood Gas Puncture Site LT RADIAL Blood Gas Patient Temperature 98.6 Blood Gas HCO3 23 Blood Gas Base Excess 0.5 Blood Gas Oxygen Saturation 79 Arterial Blood pH 7.51 Arterial Blood Partial 29 Pressure CO2 Arterial Blood Partial 48 Pressure O2 Arterial Blood Oxygen Content 8.5 Arterial Blood 3.3 Carboxyhemoglobin Arterial Blood Methemoglobin 0.9 Blood Gas Hemoglobin 7.6 Oxygen Delivery Device ROOM AIR Blood Gas Inspired Oxygen 21 Blood Type A NEGATIVE A NEGATIVE Antibody Screen NEGATIVE Crossmatch Leukocyte-Reduced Red Blood Cells Blood Bank Comment Test 04/24/17 04/24/17 04/24/17 04/25/17 13:19 16:26 17:20 01:06 Lactic Acid Level 2.0 Total Creatine Kinase 79 Troponin I 2.38 Nasal Screen MRSA (PCR) MRSA NOT DETECTED Urine Color LIGHT-YELLOW Urine Turbidity CLEAR Urine pH 5.0 Urine Specific [place] 1.008 Urine Protein NEG Urine Glucose (UA) NEG Urine Ketones TRACE Urine Occult Blood NEG Urine Nitrite NEG Urine Bilirubin NEG Urine Urobilinogen LESS THAN 2.0 Urine Leukocyte Esterase NEG Urine RBC LESS THAN 1 Urine WBC LESS THAN 1 Urine Squamous Epithelial <1 Cells Urine Bacteria RARE Urine Mucus FEW Microscopic Urinalysis Comment CATH-CULTURE IND Test 04/25/17 04/25/17 04/25/17 01:09 04:37 05:26 Hemoglobin 11.6 11.5 Hematocrit 36.2 36.0 Total Creatine Kinase 107 Troponin I 3.16 White Blood Count 14.7 Red Blood Count 4.44 Mean Corpuscular Volume 81.0 Mean Corpuscular Hemoglobin 26.0 Mean Corpuscular Hemoglobin 32.0 Concent Red Cell Distribution Width 16.8 Platelet Count 299 Mean Platelet Volume 8.0 Neutrophils (%) (Auto) 85.7 Lymphocytes (%) (Auto) 7.1 Monocytes (%) (Auto) 6.9 Eosinophils (%) (Auto) 0.1 Basophils (%) (Auto) 0.2 Neutrophils # (Auto) 12.6 Lymphocytes # (Auto) 1.0 Monocytes # (Auto) 1.0 Eosinophils # (Auto) 0.0 Basophils # (Auto) 0.0 CBC Comment DIFF FINAL Differential Comment Blood Gas Puncture Site RT RADIAL Blood Gas Patient Temperature 98.6 Blood Gas HCO3 25 Blood Gas Base Excess 1.8 Blood Gas Oxygen Saturation 93 Arterial Blood pH 7.48 Arterial Blood Partial 34 Pressure CO2 Arterial Blood Partial 82 Pressure O2 Arterial Blood Oxygen Content 15.2 Arterial Blood 2.5 Carboxyhemoglobin Arterial Blood Methemoglobin 1.1 Blood Gas Hemoglobin 11.6 Oxygen Delivery Device BiPAP Blood Gas Ventilator Setting [id number] Blood Gas Inspired Oxygen 50 Date/Time Procedure Status Source Growth 04/25/17 01:06 Urine Culture Received Urine Catheterized Urine Pending 04/24/17 10:49 Aerobic Blood Culture Received Blood Peripheral Pending 04/24/17 10:49 Anaerobic Blood Culture Received Blood Peripheral Pending Result Diagram: 04/25/17 0437 04/24/17 1043 Assessment and Plan Problem List: (1) NSTEMI (non-ST elevation myocardial infarction) (2) Anemia (3) GAVE (gastric antral vascular ectasia) Assessment and Plan She is cardiac clear for any GI procedure. After that we can determine from GI the possibility of antiplatelet therapy should she have to have coronary intervention. Will get 2D echo Chun Arteaga Apr 25, 2017 08:13
[2017-04-25] MEDS: FERROUS SULFATE 300 MG /5ML UDC PO SCH ×2 (08:50→17:26)
[2017-04-25] MEDS: PANTOPRAZOLE INJ 80 MG in SODIUM CHLORIDE 0.9% INJ 100 ML IV SCH ×2 (08:50→18:33)
[2017-04-25] MEDS: amLODIPine BESYLATE 5 MG TAB PO SCH (08:51)
[2017-04-25] MEDS: ATORVASTATIN 40 MG TAB PO SCH (08:51)
[2017-04-25] MEDS: LABETALOL HCL 100 MG TAB PO SCH ×2 (08:52→20:40)
[2017-04-25] MEDS: DOCUSATE SODIUM 50 MG/SENNA 8.6 MG TAB PO SCH ×2 (08:55→20:40)
--- NOTE | 2017-04-25 08:59 | RADRPT ---
EXAM DATE/TIME: 04/25/2017 07:23 [place] COMPARISON: CHEST SINGLE AP, April 24, 2017, 23:35. INDICATIONS : Patient is short of breath since yesterday. MEDICAL HISTORY : None. SURGICAL HISTORY : None. ENCOUNTER: Initial ACUITY: 2 days PAIN SCORE: 0/10 LOCATION: Bilateral chest FINDINGS: Improved aeration with decreasing interstitial alveolar infiltrate is noted throughout both lungs. Th e heart and mediastinal structures are stable. CONCLUSION: Resolving pulmonary edema. Patchy airspace disease remains evident bilaterally Con Rodriguez MD on April 25, 2017 at 8:56 Board Certified Radiologist. This report was verified electronically.
[2017-04-25 09:54] LABS: AUTOMATED NEUTROPHIL # 10.8 TH/MM3 (1.8-7.7); BASOPHIL % 0.3 % (0.0-2.0); EOSINOPHIL % 0.4 % (0.0-4.0); HEMATOCRIT 35.7 % (35.0-46.0); HEMO FLAGS DIFF FINAL; LYMPH % 8.4 % (9.0-44.0); LYMPHOCYTE # 1.1 TH/MM3 (1.0-4.8); MEAN CELL VOLUME 80.8 FL (80.0-100.0); MEAN CORPUSCULAR HEMOGLOBIN 25.9 PG (27.0-34.0); MONO % 7.8 % (0.0-8.0); NEUT % 83.1 % (16.0-70.0); PLATELET COUNT 300 TH/MM3 (150-450); RED BLOOD COUNT 4.41 MIL/MM3 (4.00-5.30); RED CELL DISTRIBUTION WIDTH 16.9 % (11.6-17.2)
[2017-04-25 10:06] LABS: ANION GAP 13 MEQ/L (5-15); AST (GOT) 31 U/L (15-37); BICARBONATE 27.9 MEQ/L (21.0-32.0); BLOOD UREA NITROGEN 12 MG/DL (7-18); CHLORIDE 98 MEQ/L (98-107); GLOMERULAR FILTRATION RATE 69 ML/MIN (>89); MAGNESIUM 1.9 MG/DL (1.5-2.5); POTASSIUM 3.5 MEQ/L (3.5-5.1); SODIUM (NA) 139 MEQ/L (136-145)
[2017-04-25 10:11] LABS: ALKALINE PHOSPHATASE 75 U/L (45-117); ALT (GPT) 17 U/L (10-53); TOTAL BILIRUBIN ADULT 1.2 MG/DL (0.2-1.0)
[2017-04-25] MEDS ORDERED: DEXTROSE 50% IN WATER 50 ML VIAL(D50) IV PRN (10:15)
[2017-04-25] MEDS ORDERED: GLUCAGON 1 MG/ML VIAL OTHER PRN (10:15)
[2017-04-25] MEDS: INSULIN NovoLIN REGULAR SUPPLEMENTAL SCALE SQ SCH ×3 (11:00→20:51)
[2017-04-25] MEDS: PIPERACIL-TAZO 4.5 GM PREMIX 100 ML IV SCH ×3 (11:15→22:52)
[2017-04-25 11:47] LABS: HEMATOCRIT 34.4 % (35.0-46.0); REVIEW FLAG FINAL
--- NOTE | 2017-04-25 12:48 | PD.CONS ---
HPI History of Present Illness This is a 66 year old lady with hx GAVE who presented to ER with anemia, hgb 7.9 on admission, SOB. Stool was heme pos. She had been treated previous Monday at urgent care for bronchitis and sinusitis and given cipro, benzonatate. Monday at work she felt SOB and coughing still and went to ER. She last had EGD with "cautery" 2 years ago. She has had dark but not black stools but says she takes iron daily and had noticed no change and no red blood either. Denies abd pain, n/v, hematemesis, any bleeding. (April Sanchez) PFSH Past Medical History GAVE syndrome Hypertension Past Surgical History Multiple endoscopies with cauterization Cervical spine surgery (April Sanchez) Coded Allergies: Sulfa (Verified Allergy, Severe, rash, 04/24/17) Amoxicillin (Verified Allergy, Intermediate, Rash, 04/24/17) Dilaudid (Verified Adverse Reaction, Intermediate, short of breath when given IV push , 04/24/17) Family History Heart disease COPD Social History Denies alcohol, tobacco, or illicit drug use. (April Sanchez) Review of Systems Constitutional: COMPLAINS OF: Fever Eyes: DENIES: Blurred vision Ears, nose, mouth, throat: DENIES: Hearing loss Respiratory: COMPLAINS OF: Cough, DENIES: Hemoptysis Cardiovascular: DENIES: Chest pain Gastrointestinal: DENIES: Abdominal pain, Black stools, Bloody stools, Diarrhea , Nausea, Vomiting, Hematemesis Genitourinary: DENIES: Hematuria Musculoskeletal: DENIES: Muscle aches Integumentary: DENIES: Abnormal pigmentation Neurologic: DENIES: Abnormal gait Psychiatric: DENIES: Confusion (April Sanchez) GI Exam Vitals I&O Vital Signs Date Time Temp Pulse Resp B/P Pulse Ox O2 Delivery O2 Flow Rate FiO2 04/25/17 09:20 95 Nasal Cannula 3.00 04/25/17 06:00 83 04/25/17 04:12 96 50 04/25/17 04:00 98.2 80 33 145/77 97 04/25/17 04:00 80 04/25/17 02:00 84 04/25/17 00:19 95 100 04/25/17 00:00 97.6 97 30 190/89 82 04/25/17 00:00 97 04/24/17 23:44 90 Non-Rebreather 15.00 04/24/17 23:12 92 Simple Mask 10.00 04/24/17 22:00 86 04/24/17 20:00 98.5 96 38 132/69 90 04/24/17 20:00 96 04/24/17 19:23 91 3.00 04/24/17 19:00 89 35 138/64 92 04/24/17 19:00 89 04/24/17 18:15 99.6 87 24 136/65 94 04/24/17 18:00 89 04/24/17 18:00 99.6 89 31 136/65 92 04/24/17 17:31 100.3 93 26 152/70 92 04/24/17 17:00 100.3 89 20 152/72 92 04/24/17 16:35 78 20 148/68 96 Nasal Cannula 4 04/24/17 14:14 95 Nasal Cannula 3 04/24/17 13:22 91 18 143/78 94 Nasal Cannula 3 I/O 04/24/17 04/24/17 04/24/17 04/25/17 04/25/17 04/25/17 07:00 15:00 23:00 07:00 15:00 23:00 Intake Total 704 ml 170 ml Output Total 225 ml 2350 ml Balance 479 ml -2180 ml Intake IV Total 20 ml 170 ml Packed Cells 684 ml Output Urine Total 225 ml 2350 ml # Voids 1 Imaging Last Impressions Chest X-Ray 04/25/17 0000 Signed Impressions: Service Date/Time: Tuesday, April 25, 2017 07:23 - CONCLUSION: Resolving pulmonary edema. Patchy airspace disease remains evident bilaterally Con Rodriguez MD Laboratory Test 04/24/17 04/24/17 04/24/17 04/24/17 12:49 13:19 16:26 17:20 Blood Type A NEGATIVE Lactic Acid Level 2.0 mmol/L Total Creatine Kinase 79 U/L Troponin I 2.38 NG/ML Nasal Screen MRSA (PCR) MRSA NOT DETECTED Test 04/25/17 04/25/17 04/25/17 04/25/17 01:06 01:09 04:37 05:26 Urine Color LIGHT-YELLOW Urine Turbidity CLEAR Urine pH 5.0 Urine Specific [place] 1.008 Urine Protein NEG mg/dL Urine Glucose (UA) NEG mg/dL Urine Ketones TRACE mg/dL Urine Occult Blood NEG Urine Nitrite NEG Urine Bilirubin NEG Urine Urobilinogen LESS THAN 2.0 MG/DL Urine Leukocyte Esterase NEG Urine RBC LESS THAN 1 /hpf Urine WBC LESS THAN 1 /hpf Urine Squamous Epithelial <1 /hpf Cells Urine Bacteria RARE /hpf Urine Mucus FEW /lpf Microscopic Urinalysis Comment CATH-CULTURE IND Hemoglobin 11.6 GM/DL 11.5 GM/DL Hematocrit 36.2 % 36.0 % Total Creatine Kinase 107 U/L Troponin I 3.16 NG/ML White Blood Count 14.7 TH/MM3 Red Blood Count 4.44 MIL/MM3 Mean Corpuscular Volume 81.0 FL Mean Corpuscular Hemoglobin 26.0 PG Mean Corpuscular Hemoglobin 32.0 % Concent Red Cell Distribution Width 16.8 % Platelet Count 299 TH/MM3 Mean Platelet Volume 8.0 FL Neutrophils (%) (Auto) 85.7 % Lymphocytes (%) (Auto) 7.1 % Monocytes (%) (Auto) 6.9 % Eosinophils (%) (Auto) 0.1 % Basophils (%) (Auto) 0.2 % Neutrophils # (Auto) 12.6 TH/MM3 Lymphocytes # (Auto) 1.0 TH/MM3 Monocytes # (Auto) 1.0 TH/MM3 Eosinophils # (Auto) 0.0 TH/MM3 Basophils # (Auto) 0.0 TH/MM3 CBC Comment DIFF FINAL Differential Comment Blood Gas Puncture Site RT RADIAL Blood Gas Patient Temperature 98.6 Blood Gas HCO3 25 mmol/L Blood Gas Base Excess 1.8 mmol/L Blood Gas Oxygen Saturation 93 % Arterial Blood pH 7.48 Arterial Blood Partial 34 mmHg Pressure CO2 Arterial Blood Partial 82 mmHg Pressure O2 Arterial Blood Oxygen Content 15.2 Vol % Arterial Blood 2.5 % Carboxyhemoglobin Arterial Blood Methemoglobin 1.1 % Blood Gas Hemoglobin 11.6 G/DL Oxygen Delivery Device BiPAP Blood Gas Ventilator Setting [id number]/[id number] Blood Gas Inspired Oxygen 50 % Test 04/25/17 04/25/17 08:59 11:25 White Blood Count 13.0 TH/MM3 Red Blood Count 4.41 MIL/MM3 Hemoglobin 11.4 GM/DL 11.3 GM/DL Hematocrit 35.7 % 34.4 % Mean Corpuscular Volume 80.8 FL Mean Corpuscular Hemoglobin 25.9 PG Mean Corpuscular Hemoglobin 32.0 % Concent Red Cell Distribution Width 16.9 % Platelet Count 300 TH/MM3 Mean Platelet Volume 7.9 FL Neutrophils (%) (Auto) 83.1 % Lymphocytes (%) (Auto) 8.4 % Monocytes (%) (Auto) 7.8 % Eosinophils (%) (Auto) 0.4 % Basophils (%) (Auto) 0.3 % Neutrophils # (Auto) 10.8 TH/MM3 Lymphocytes # (Auto) 1.1 TH/MM3 Monocytes # (Auto) 1.0 TH/MM3 Eosinophils # (Auto) 0.0 TH/MM3 Basophils # (Auto) 0.0 TH/MM3 CBC Comment DIFF FINAL Differential Comment Sodium Level 139 MEQ/L Potassium Level 3.5 MEQ/L Chloride Level 98 MEQ/L Carbon Dioxide Level 27.9 MEQ/L Anion Gap 13 MEQ/L Blood Urea Nitrogen 12 MG/DL Creatinine 0.83 MG/DL Estimat Glomerular Filtration 69 ML/MIN Rate Random Glucose 230 MG/DL Calcium Level 9.0 MG/DL Phosphorus Level 4.2 MG/DL Magnesium Level 1.9 MG/DL Total Bilirubin 1.2 MG/DL Aspartate Amino Transf 31 U/L (AST/SGOT) Alanine Aminotransferase 17 U/L (ALT/SGPT) Alkaline Phosphatase 75 U/L Troponin I 5.76 NG/ML Total Protein 7.0 GM/DL Albumin 3.2 GM/DL Date/Time Procedure Status Source Growth 04/25/17 01:06 Urine Culture Received Urine Catheterized Urine Pending 04/24/17 10:49 Aerobic Blood Culture - Preliminary Resulted Blood Peripheral NO GROWTH IN 1 DAY 04/24/17 10:49 Anaerobic Blood Culture - Preliminary Resulted Blood Peripheral NO GROWTH IN 1 DAY Physical Examination HEENT: EOMI; normocephalic; atraumatic; no jaundice. CHEST: CTA CARDIAC: RRR ABDOMEN: Soft, nondistended, nontender; no hepatosplenomegaly; bowel sounds are present in all four quadrants. EXTREMITIES: No clubbing, cyanosis, or edema. SKIN: Normal; no rash; no jaundice. INSTRUCTOR PHYSICAL: No focal deficits; alert and oriented times three. (Apirl Sanchez) Assessment and Plan Plan ASSESSMENT - anemia - 7.4 on admission, s/p 2 x PRBC and hgb up to 11.3. heme pos stool, hx GAVE. last EGD 2 y ago. cleared by cardiology for GI procedures. PLAN - EGD w/ poss APC - NPO - obtain consents - monitor HH - transfuse prn - further recommendations to follow This pt seen by myself and Dr Le and this note is written on his behalf ( April Sanchez) Physician Comments Seen and examined with LITIGATION DOCKET MANAGER, admitted for melena and NSTEMI. Needs egd prior to any cardiac brown. EGD with APC planned for today. Protonix daily and monitor labs. Will follow, thank you (Pam Le MD) April Sanchez Apr 25, 2017 12:48 Pam Le MD Apr 25, 2017 15:33
--- NOTE | 2017-04-25 13:03 | ECHRPT ---
Indication: HEART FAILURE CONCLUSIONS Mildly dilated left ventricle. Wall thickness is normal. The left ventricular systolic function is low normal with an estimated ejection fraction in the rang e of 50- 55%. Doppler parameters are consistent with impaired left ventricular relaxtion (grade 1 diastolic dysfun ction). BP: 190 / 89 HR: 82 Rhythm: Other MEASUREMENTS (Male / Female) Normal Values Technical Quality:Fair 2D ECHO LV Diastolic Diameter PLAX 4.4 cm 4.2 - 5.9 / 3.9 - 5.3 cm LV Systolic Diameter PLAX 3.5 cm IVS Diastolic Thickness 1.3 cm 0.6 - 1.0 / 0.6 - 0.9 cm LVPW Diastolic Thickness 1.2 cm 0.6 - 1.0 / 0.6 - 0.9 cm LV Relative Wall Thickness 0.6 LVOT Diameter 2.0 cm M-MODE Aortic Root Diameter MM 3.0 cm LA Systolic Diameter MM 2.7 cm LA Ao Ratio MM 0.9 AV Cusp Separation MM 2.0 cm DOPPLER AV Peak Velocity 117.0 cm/s AV Peak Gradient 5.5 mmHg LVOT Peak Velocity 85.9 cm/s LVOT Peak Gradient 3.0 mmHg AV Area Cont Eq pk 2.3 cm Mitral E Point Velocity 63.2 cm/s Mitral A Point Velocity 78.0 cm/s Mitral E to A Ratio 0.8 LV E' Lateral Velocity 5.7 cm/s Mitral E to LV E' Lateral Ratio 11.2 LV E' Septal Velocity 4.4 cm/s Mitral E to LV E' Septal Ratio 14.4 PV Peak Velocity 100.0 cm/s PV Peak Gradient 4.0 mmHg FINDINGS LEFT VENTRICLE Mildly dilated left ventricle. Wall thickness is normal. The left ventricular systolic function is low normal with an estimated ejection fraction in the rang e of 50- 55%. Doppler parameters are consistent with impaired left ventricular relaxtion (grade 1 diastolic dysfun ction). RIGHT VENTRICLE Normal right ventricular size and systolic function. LEFT ATRIUM The left atrial size is normal. RIGHT ATRIUM The right atrial size is normal. ATRIAL SEPTUM Normal atrial septal thickness without atrial level shunting by limited color doppler interrogation. AORTA The aortic root and proximal ascending aorta are normal in size on limited imaging. MITRAL VALVE Structurally normal mitral valve. No mitral valve stenosis or regurgitation. AORTIC VALVE Trileaflet aortic valve. No aortic valve stenosis or regurgitation. TRICUSPID VALVE Structurally normal tricuspid valve. No tricuspid valve stenosis or regurgitation. PULMONARY VALVE The pulmonary valve is not well visualized. VESSELS The inferior vena cava is normal in size. PERICARDIUM No pericardial effusion. Bhaskar Hernandez MD, FACC (Electronically Signed) Final Date:25 April 2017 13:02
[2017-04-25] MEDS ORDERED: PROPOFOL 200 MG/20 ML AMP IV ONE (14:40)
--- NOTE | 2017-04-25 14:51 | GIPROC ---
[facility] [address] [facility]. [facility], [address] EGD PROCEDURE REPORT EXAM DATE: 04/25/2017 PATIENT NAME: Rosi Severino MR #: [id number] BIRTHDATE: 1950 ATTENDING: Pam Le MD ORDER #: [id number] SPEECH PATHOLOGY TEACHER: Alvina Smyth and Lizbet Mayorga STATUS: inpatient INDICATIONS: The patient is a 66 yr old female here for an EGD due to acute post hemorrhagic anemia and iron deficiency anemia PROCEDURE PERFORMED: EGD w/ biopsy EGD w/ ablation MEDICATIONS: Per Anesthesia and None. TOPICAL ANESTHETIC: CONSENT: The patient understands the risks and benefits of the procedure and understands that these risks include, but are not limited to: sedation, allergic reaction, infection, perforation and/or bleeding. Alternative means of evaluation and treatment include, among others: physical exam, x-rays, and/or surgical intervention. The patient elects to proceed with this endoscopic procedure. medical equipment was checked for proper function. Hand hygiene and appropriate measures for infection prevention was taken. After the risks, benefits and alternatives of the procedure were thoroughly explained, Informed consent was verified, confirmed and timeout was successfully executed by the treatment team. The patient was anesthetized with topical anesthesia and the Pentax EG-[id number] endoscope was introduced through the mouth and advanced to the second portion of the duodenum. Retroflexed views revealed no abnormalities The gastroscope was then slowly withdrawn and removed. 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 The length of circumferential Grubbs's was 1cm ([place] C1) and the length of Maximal extent of Grubbs's was 1cm ([place] M1). There was no nodular mucosa noted in the Grubbs's segment. A biopsy was performed using cold forceps. Sample sent for histology. STOMACH: A large bleeding angioectasia was found in the gastric antrum. APC of vascular ectasia in the stomach. DUODENUM: The duodenal mucosa appeared normal. ADVERSE EVENTS: There were no complications. IMPRESSIONS: 1. 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 Bleeding angioectasia in the gastric antrum 3. Normal duodenal mucosa 4. Retroflexed views revealed no abnormalities RECOMMENDATIONS: 1. Await biopsy results. Biopsy results will not be ready for 7-10 days. If you don't hear from us in two weeks, call our office for biopsy results. 2. Anti-reflux regimen 3. Continue PPI 4. Avoid NSAIDS PATIENT CONDITION: stable DISPOSITION: Inpatient REPEAT EXAM: Return 1 year EGD pending biopsy results Pam Le MD eSigned: Pam Le MD 04/25/2017 2:51 PM cc: PATIENT NAME: Rosi Severino MR#: [id number]
[2017-04-25] MEDS ORDERED: DO NOT ADM ANY ANTICOAGULANT DRUGS PRN (14:58)
[2017-04-25 19:36] LABS: HEMATOCRIT 33.4 % (35.0-46.0); REVIEW FLAG FINAL
[2017-04-25] MEDS: LOSARTAN 50 MG TAB PO SCH (20:40)
[2017-04-26] VITALS (15 sets, daily range): BP systolic 120–140; BP diastolic 61–82; PULSE 76–92; RESP 24–32; TEMP 97.8–98.6; O2SAT 91–98
[2017-04-26 01:08] LABS: HEMATOCRIT 33.7 % (35.0-46.0); REVIEW FLAG FINAL
[2017-04-26] MEDS: METOPROLOL TARTRATE 5 MG/5 ML VIAL IV PUSH SCH ×4 (03:00→21:53)
[2017-04-26] MEDS: PIPERACIL-TAZO 4.5 GM PREMIX 100 ML IV SCH ×4 (05:37→21:52)
[2017-04-26] MEDS: PANTOPRAZOLE INJ 80 MG in SODIUM CHLORIDE 0.9% INJ 100 ML IV SCH (05:37)
[2017-04-26] MEDS: INSULIN NovoLIN REGULAR SUPPLEMENTAL SCALE SQ SCH ×4 (06:41→21:54)
[2017-04-26 06:49] LABS: AUTOMATED NEUTROPHIL # 9.6 TH/MM3 (1.8-7.7); BASOPHIL % 0.4 % (0.0-2.0); EOSINOPHIL # 0.2 TH/MM3 (0-0.4); EOSINOPHIL % 1.9 % (0.0-4.0); HEMATOCRIT 33.2 % (35.0-46.0); HEMO FLAGS DIFF FINAL; LYMPHOCYTE # 1.2 TH/MM3 (1.0-4.8); MEAN CORPUSCULAR HEMOGLOBIN 25.5 PG (27.0-34.0); MEAN CORPUSCULAR HGB CONC 31.4 % (32.0-36.0); MONO % 7.3 % (0.0-8.0); NEUT % 80.4 % (16.0-70.0); PLATELET COUNT 244 TH/MM3 (150-450); RED CELL DISTRIBUTION WIDTH 16.7 % (11.6-17.2); WHITE BLOOD COUNT 11.9 TH/MM3 (4.0-11.0)
[2017-04-26 07:11] LABS: BICARBONATE 27.8 MEQ/L (21.0-32.0); POTASSIUM 3.1 MEQ/L (3.5-5.1)
--- NOTE | 2017-04-26 07:55 | PD.CARD.PN ---
Subjective Subjective Remarks denies chest pain (Cuhn Arteaga) Objective Vital Signs / I&O Vital Signs Date Time Temp Pulse Resp B/P Pulse Ox O2 Delivery O2 Flow Rate FiO2 04/26/17 07:22 97 Venturi Mask 50 04/26/17 06:00 86 04/26/17 04:00 98.1 81 32 140/66 94 04/26/17 04:00 81 04/26/17 02:00 83 04/26/17 00:00 81 04/26/17 00:00 98.2 81 30 132/61 94 04/25/17 22:00 89 04/25/17 21:04 95 Venturi Mask 6.00 50 04/25/17 20:00 97.7 86 30 129/60 89 04/25/17 20:00 86 04/25/17 19:20 96 Nasal Cannula 3.00 04/25/17 18:00 85 04/25/17 16:00 78 04/25/17 16:00 98.9 78 32 130/61 94 04/25/17 15:15 74 23 115/57 92 Nasal Cannula 4 04/25/17 15:00 72 20 100/53 97 Nasal Cannula 4 04/25/17 14:58 98.9 72 14 95/50 93 Nasal Cannula 4 04/25/17 14:00 83 04/25/17 12:00 79 04/25/17 12:00 98.3 79 26 122/61 92 04/25/17 09:20 95 Nasal Cannula 3.00 04/25/17 08:00 98.0 86 30 118/65 94 04/25/17 08:00 86 I/O 04/25/17 04/25/17 04/25/17 04/26/17 04/26/17 04/26/17 07:00 15:00 23:00 07:00 15:00 23:00 Intake Total 170 ml 575 ml 685 ml 680 ml Output Total 2350 ml 375 ml 400 ml 525 ml Balance -2180 ml 200 ml 285 ml 155 ml Intake Oral 600 ml 480 ml IV Total 170 ml 175 ml 85 ml 200 ml Other 400 ml Output Urine Total 2350 ml 375 ml 400 ml 525 ml # Bowel Movements 0 1 Physical Exam GENERAL: Well-nourished, well-developed patient in no apparent distress. NECK: No JVD. No carotid bruit. CARDIOVASCULAR: Regular rate and rhythm. S1/S2 no murmur, rub, or gallop. RESPIRATORY: No accessory muscle use. Clear to auscultation. Breath sounds equal bilaterally. GASTROINTESTINAL: Abdomen soft, non-tender, nondistended. MUSCULOSKELETAL: Extremities without clubbing, cyanosis, or edema. Laboratory Laboratory Tests Test 04/25/17 04/25/17 04/25/17 04/25/17 08:59 11:25 15:37 19:02 White Blood Count 13.0 TH/MM3 Red Blood Count 4.41 MIL/MM3 Hemoglobin 11.4 GM/DL 11.3 GM/DL 10.7 GM/DL Hematocrit 35.7 % 34.4 % 33.4 % Mean Corpuscular Volume 80.8 FL Mean Corpuscular Hemoglobin 25.9 PG Mean Corpuscular Hemoglobin 32.0 % Concent Red Cell Distribution Width 16.9 % Platelet Count 300 TH/MM3 Mean Platelet Volume 7.9 FL Neutrophils (%) (Auto) 83.1 % Lymphocytes (%) (Auto) 8.4 % Monocytes (%) (Auto) 7.8 % Eosinophils (%) (Auto) 0.4 % Basophils (%) (Auto) 0.3 % Neutrophils # (Auto) 10.8 TH/MM3 Lymphocytes # (Auto) 1.1 TH/MM3 Monocytes # (Auto) 1.0 TH/MM3 Eosinophils # (Auto) 0.0 TH/MM3 Basophils # (Auto) 0.0 TH/MM3 CBC Comment DIFF FINAL Differential Comment Sodium Level 139 MEQ/L Potassium Level 3.5 MEQ/L Chloride Level 98 MEQ/L Carbon Dioxide Level 27.9 MEQ/L Anion Gap 13 MEQ/L Blood Urea Nitrogen 12 MG/DL Creatinine 0.83 MG/DL Estimat Glomerular Filtration 69 ML/MIN Rate Random Glucose 230 MG/DL Calcium Level 9.0 MG/DL Phosphorus Level 4.2 MG/DL Magnesium Level 1.9 MG/DL Total Bilirubin 1.2 MG/DL Aspartate Amino Transf 31 U/L (AST/SGOT) Alanine Aminotransferase 17 U/L (ALT/SGPT) Alkaline Phosphatase 75 U/L Troponin I 5.76 NG/ML 4.69 NG/ML 5.50 NG/ML Total Protein 7.0 GM/DL Albumin 3.2 GM/DL Test 04/26/17 04/26/17 00:20 04:42 Hemoglobin 10.5 GM/DL 10.4 GM/DL Hematocrit 33.7 % 33.2 % White Blood Count 11.9 TH/MM3 Red Blood Count 4.10 MIL/MM3 Mean Corpuscular Volume 81.0 FL Mean Corpuscular Hemoglobin 25.5 PG Mean Corpuscular Hemoglobin 31.4 % Concent Red Cell Distribution Width 16.7 % Platelet Count 244 TH/MM3 Mean Platelet Volume 8.0 FL Neutrophils (%) (Auto) 80.4 % Lymphocytes (%) (Auto) 10.0 % Monocytes (%) (Auto) 7.3 % Eosinophils (%) (Auto) 1.9 % Basophils (%) (Auto) 0.4 % Neutrophils # (Auto) 9.6 TH/MM3 Lymphocytes # (Auto) 1.2 TH/MM3 Monocytes # (Auto) 0.9 TH/MM3 Eosinophils # (Auto) 0.2 TH/MM3 Basophils # (Auto) 0.0 TH/MM3 CBC Comment DIFF FINAL Differential Comment Sodium Level 137 MEQ/L Potassium Level 3.1 MEQ/L Chloride Level 97 MEQ/L Carbon Dioxide Level 27.8 MEQ/L Anion Gap 12 MEQ/L Blood Urea Nitrogen 19 MG/DL Creatinine 0.89 MG/DL Estimat Glomerular Filtration 63 ML/MIN Rate Random Glucose 209 MG/DL Calcium Level 8.6 MG/DL (Chun Arteaga) Assessment and Plan Problem List: (1) NSTEMI (non-ST elevation myocardial infarction) (2) Anemia (3) GAVE (gastric antral vascular ectasia) Assessment and Plan GI found bleeding angioectasia. Therefore we cannot entertain antiplatelets. Echo shows normal systolic function and grade 1 diastolic dysfunction (Chun Arteaga) Assessment and Plan NSTEMI - troponin fairly elevated, more than would be anticipated wiht hemoglobin drop alone. Will need to discuss with GI what options are in terms of anticoagulant or antiplatelet options moving forward. Depending upon this, we may decide medical mgt alone vs LHC. Tried to contact Dr. Le, but was unable to reach him. Will try again later. (Bhaskar Hernandez MD) Chun Arteaga Apr 26, 2017 07:55 Bhaskar Hernandez MD Apr 26, 2017 08:12
[2017-04-26] MEDS: ATORVASTATIN 40 MG TAB PO SCH (08:52)
[2017-04-26] MEDS: FERROUS SULFATE 300 MG /5ML UDC PO SCH ×2 (08:52→18:34)
[2017-04-26] MEDS: DOCUSATE SODIUM 50 MG/SENNA 8.6 MG TAB PO SCH ×2 (08:52→21:00)
[2017-04-26] MEDS: amLODIPine BESYLATE 5 MG TAB PO SCH (08:52)
[2017-04-26] MEDS: LABETALOL HCL 100 MG TAB PO SCH ×2 (11:12→21:52)
--- NOTE | 2017-04-26 13:00 | HHI.GIFU ---
Subjective Remarks Pt resting in bed. Denies pain, n/v, bleeding. (April Sanchez) Objective Vitals I&O Vital Signs Date Time Temp Pulse Resp B/P Pulse Ox O2 Delivery O2 Flow Rate FiO2 04/26/17 12:00 87 04/26/17 10:00 86 04/26/17 09:00 81 04/26/17 08:57 92 Nasal Cannula 6.00 04/26/17 08:00 81 04/26/17 08:00 97.8 81 26 138/65 94 04/26/17 07:22 97 Venturi Mask 50 04/26/17 06:00 86 04/26/17 04:00 98.1 81 32 140/66 94 04/26/17 04:00 81 04/26/17 02:00 83 04/26/17 00:00 81 04/26/17 00:00 98.2 81 30 132/61 94 04/25/17 22:00 89 04/25/17 21:04 95 Venturi Mask 6.00 50 04/25/17 20:00 97.7 86 30 129/60 89 04/25/17 20:00 86 04/25/17 19:20 96 Nasal Cannula 3.00 04/25/17 18:00 85 04/25/17 16:00 78 04/25/17 16:00 98.9 78 32 130/61 94 04/25/17 15:15 74 23 115/57 92 Nasal Cannula 4 04/25/17 15:00 72 20 100/53 97 Nasal Cannula 4 04/25/17 14:58 98.9 72 14 95/50 93 Nasal Cannula 4 04/25/17 14:00 83 I/O 04/25/17 04/25/17 04/25/17 04/26/17 04/26/17 04/26/17 07:00 15:00 23:00 07:00 15:00 23:00 Intake Total 170 ml 575 ml 685 ml 680 ml Output Total 2350 ml 375 ml 400 ml 525 ml Balance -2180 ml 200 ml 285 ml 155 ml Intake Oral 600 ml 480 ml IV Total 170 ml 175 ml 85 ml 200 ml Other 400 ml Output Urine Total 2350 ml 375 ml 400 ml 525 ml # Bowel Movements 0 1 Laboratory Laboratory Tests Test 04/25/17 04/25/17 04/26/1704/26/17 15:37 19:02 00:20 04:42 Troponin I 4.69 5.50 Hemoglobin 10.7 10.5 10.4 Hematocrit 33.4 33.7 33.2 White Blood Count 11.9 Red Blood Count 4.10 Mean Corpuscular Volume 81.0 Mean Corpuscular Hemoglobin 25.5 Mean Corpuscular Hemoglobin 31.4 Concent Red Cell Distribution Width 16.7 Platelet Count 244 Mean Platelet Volume 8.0 Neutrophils (%) (Auto) 80.4 Lymphocytes (%) (Auto) 10.0 Monocytes (%) (Auto) 7.3 Eosinophils (%) (Auto) 1.9 Basophils (%) (Auto) 0.4 Neutrophils # (Auto) 9.6 Lymphocytes # (Auto) 1.2 Monocytes # (Auto) 0.9 Eosinophils # (Auto) 0.2 Basophils # (Auto) 0.0 CBC Comment DIFF FINAL Differential Comment Sodium Level 137 Potassium Level 3.1 Chloride Level 97 Carbon Dioxide Level 27.8 Anion Gap 12 Blood Urea Nitrogen 19 Creatinine 0.89 Estimat Glomerular Filtration 63 Rate Random Glucose 209 Calcium Level 8.6 Date/Time Procedure Status Source Growth 04/25/17 01:06 Urine Culture Received Urine Catheterized Urine Pending 04/25/17 01:06 Legionella Antigen - Final Complete Urine Catheterized Urine PRESUMPTIVE NEGATIVE FOR LEGIONELLA P... 04/25/17 01:06 Streptococcus pneumoniae Antigen (M - Final Complete Urine Catheterized Urine PRESUMPTIVE NEGATIVE FOR STREPTOCOCCU... 04/24/17 10:49 Aerobic Blood Culture - Preliminary Resulted Blood Peripheral NO GROWTH IN 2 DAYS 04/24/17 10:49 Anaerobic Blood Culture - Preliminary Resulted Blood Peripheral NO GROWTH IN 2 DAYS Imaging Last Impressions Chest X-Ray 04/25/17 0000 Signed Impressions: Service Date/Time: Tuesday, April 25, 2017 07:23 - CONCLUSION: Resolving pulmonary edema. Patchy airspace disease remains evident bilaterally Con Rodriguez MD Physical Exam HEENT: EOMI; normocephalic; atraumatic; no jaundice. CHEST: CTA CARDIAC: RRR ABDOMEN: Soft, nondistended, nontender; no hepatosplenomegaly; bowel sounds are present in all four quadrants. EXTREMITIES: No clubbing, cyanosis, or edema. SKIN: Normal; no rash; no jaundice. PATTERN MAKER PROGRAMER: No focal deficits; alert and oriented times three. (April Sanchez) Assessment and Plan Plan ASSESSMENT - anemia - 7.4 on admission, s/p 2 x PRBC heme pos stool, hx GAVE. S/P EGD w/ APC --> sh ort segment Grubbs's distal esophagus, bleedign angioectasia bastric antrum. cleared by cardiology for GI procedures. PLAN - protonix PO BID 40mg - heart healthy diet - monitor HH - transfuse prn - further recommendations to follow This pt seen by myself and Dr Le and this note is written on his behalf ( April Sanchez) Physician Comments Seen and examined with ALTA, no bleeding. S/P egd with APC. Cleared for cardiac brown. Gi will sign off, reconsult as needed. Thank you (Pam Le MD) April Sanchez Apr 26, 2017 13:00 Pam Le MD Apr 26, 2017 14:19
[2017-04-26] MEDS ORDERED: POTASSIUM CHLORIDE 10 MEQ CONTROLLED RELEASE TAB PO ONE (15:00)
--- NOTE | 2017-04-26 21:30 | HHI.PR ---
Subjective Remarks Patient sitting at bedside Denies melena, chest pain stable vital signs Objective Vitals Vital Signs Date Time Temp Pulse Resp B/P Pulse Ox O2 Delivery O2 Flow Rate FiO2 04/26/17 19:08 98 Nasal Cannula 6.00 04/26/17 18:00 86 04/26/17 16:00 84 04/26/17 16:00 97.9 84 26 126/72 91 04/26/17 14:00 76 04/26/17 12:00 98.1 87 24 120/82 94 04/26/17 12:00 87 04/26/17 10:00 86 04/26/17 09:00 81 04/26/17 08:57 92 Nasal Cannula 6.00 04/26/17 08:00 81 04/26/17 08:00 97.8 81 26 138/65 94 04/26/17 07:22 97 Venturi Mask 50 04/26/17 06:00 86 04/26/17 04:00 98.1 81 32 140/66 94 04/26/17 04:00 81 04/26/17 02:00 83 04/26/17 00:00 81 04/26/17 00:00 98.2 81 30 132/61 94 04/25/17 22:00 89 I/O 04/25/17 04/25/17 04/25/17 04/26/17 04/26/17 04/26/17 07:00 15:00 23:00 07:00 15:00 23:00 Intake Total 170 ml 575 ml 685 ml 680 ml 732 ml Output Total 2350 ml 375 ml 400 ml 525 ml 250 ml Balance -2180 ml 200 ml 285 ml 155 ml 482 ml Intake Oral 600 ml 480 ml 480 ml IV Total 170 ml 175 ml 85 ml 200 ml 252 ml Other 400 ml Output Urine Total 2350 ml 375 ml 400 ml 525 ml 250 ml # Bowel Movements 0 1 Result Diagram: 04/26/17 0442 04/26/17 0442 Imaging Last Impressions Chest X-Ray 04/25/17 0000 Signed Impressions: Service Date/Time: Tuesday, April 25, 2017 07:23 - CONCLUSION: Resolving pulmonary edema. Patchy airspace disease remains evident bilaterally Con Rodriguez MD Medications and IVs Current Medications Medications (Trade) Dose Ordered Sig/Adilia Route Start Time Stop Time Status Last Admin (NS Flush) 2 ml UNSCH PRN IVF 04/24/17 10:30 (Tylenol) 650 mg Q4H PRN PO 04/24/17 12:00 (Zofran Inj) 4 mg Q6H PRN IVP 04/24/17 12:00 (Narcan Inj) 0.4 mg UNSCH PRN IV 04/24/17 12:00 (Marcelina-Colace) 1 tab BID PO 04/24/17 21:00 04/26/17 08:52 (Milk Of Magnesia Liq) 30 ml Q12H PRN PO 04/24/17 12:00 (Senokot) 17.2 mg Q12H PRN PO 04/24/17 12:00 (Dulcolax Supp) 10 mg DAILY PRN RECTAL 04/24/17 12:00 (Lactulose Liq) 30 ml DAILY PRN PO 04/24/17 12:00 (Norvasc) 5 mg DAILY PO 04/25/17 09:00 04/26/17 08:52 (Ferrous Sulfate Liq) 200 mg BIDPC PO 04/24/17 18:00 04/26/17 18:34 (Trandate) 100 mg BID PO 04/24/17 21:00 04/26/17 21:52 (Cozaar) 100 mg HS PO 04/24/17 21:00 04/26/17 21:52 Atorvastatin Calcium 40 mg 40 mg DAILY PO 04/25/17 09:00 04/26/17 08:52 (Zosyn 4.5 Gm Premix) 100 ml @ 200 mls/hr Q6H IV 04/25/17 11:00 04/27/17 04:03 (D50w (Vial) Inj) 50 ml UNSCH PRN IV 04/25/17 10:15 (Glucagon Inj) 1 mg UNSCH PRN OTHER 04/25/17 10:15 (Protonix) 40 mg Q12HR PO 04/26/17 21:00 04/26/17 21:52 A/P Problem List: (1) GAVE (gastric antral vascular ectasia) ICD Code: K31.819 Status: Acute (2) Hypertension ICD Code: I10 Status: Acute (3) GI bleed ICD Code: K92.2 Status: Acute (4) Elevated troponin I level ICD Code: R74.8 Status: Acute (5) Hypokalemia ICD Code: E87.6 Status: Acute (6) Anemia ICD Code: D64.9 Status: Acute Assessment and Plan 1. Dyspnea: Likely secondary to anemia. Continue supplemental oxygen. 04/26 dyspnea much improved. 2. GI bleed with symptomatic anemia: Patient has history of gastric antral vascular ectasia syndrome. Last endoscopy with cautery was about 2 years ago. Stool occult blood is positive. Gastroenterology has been consulted. ER physician spoke with the track repair person on-call. Continue Protonix drip. Transfuse 2 units PRBCs. Monitor H&H. 04/26 sp transfusion of 2 units PRBC with appropriate response. 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 As per cardiology troponin drop is farmore than what it would be expected for anemia alone. Due to bleeding angioectasia antiplatelet therapy cannot be entertained. 3. Hypertension: Continue home medications. 04/26 BP stable. Continue antihypertensive medications 4. Elevated troponin: Likely NSTEMI from demand ischemia. Cardiology consult requested. ER physician spoke with nurse practitioner physician assistant. 5. DVT prophylaxis: SCDs, KRISTY hose. Avoid chemical prophylaxis secondary to GI bleed, anemia. Discharge Planning ok to transfer to medical floor. Problem Qualifiers (1) GI bleed: Qualified Code: K92.2 - Gastrointestinal hemorrhage, unspecified gastrointestinal hemorrhage type Max Clemens MD Apr 26, 2017 21:30
[2017-04-26] MEDS: LOSARTAN 50 MG TAB PO SCH (21:52)
[2017-04-26] MEDS: PANTOPRAZOLE SOD 40 MG DELAYED RELEASE TAB PO SCH (21:52)
[2017-04-26 23:27] LABS: HEMATOCRIT 32.8 % (35.0-46.0); MEAN CORPUSCULAR HEMOGLOBIN 25.7 PG (27.0-34.0); MEAN CORPUSCULAR HGB CONC 31.3 % (32.0-36.0); PLATELET COUNT 241 TH/MM3 (150-450); REVIEW FLAG FINAL; WHITE BLOOD COUNT 11.9 TH/MM3 (4.0-11.0)
[2017-04-27] VITALS (11 sets, daily range): BP systolic 110–136; BP diastolic 55–65; PULSE 75–86; RESP 18–28; TEMP 97.3–99.6; O2SAT 91–98
[2017-04-27] MEDS: PIPERACIL-TAZO 4.5 GM PREMIX 100 ML IV SCH ×4 (04:03→22:10)
[2017-04-27] MEDS: INSULIN NovoLIN REGULAR SUPPLEMENTAL SCALE SQ SCH ×4 (06:28→20:29)
--- NOTE | 2017-04-27 07:34 | PD.CARD.PN ---
Subjective Subjective Remarks chest heaviness improving (Chun Arteaga) Objective Vital Signs / I&O Vital Signs Date Time Temp Pulse Resp B/P Pulse Ox O2 Delivery O2 Flow Rate FiO2 04/27/17 03:14 80 04/27/17 00:00 75 04/27/17 00:00 97.4 75 28 113/59 91 04/26/17 20:00 92 04/26/17 20:00 98.6 92 32 134/71 98 04/26/17 19:08 98 Nasal Cannula 6.00 04/26/17 18:00 86 04/26/17 16:00 84 04/26/17 16:00 97.9 84 26 126/72 91 04/26/17 14:00 76 04/26/17 12:00 98.1 87 24 120/82 94 04/26/17 12:00 87 04/26/17 10:00 86 04/26/17 09:00 81 04/26/17 08:57 92 Nasal Cannula 6.00 04/26/17 08:00 81 04/26/17 08:00 97.8 81 26 138/65 94 I/O 04/26/17 04/26/17 04/26/17 04/27/17 04/27/17 04/27/17 07:00 15:00 23:00 07:00 15:00 23:00 Intake Total 680 ml 732 ml 423 ml Output Total 525 ml 250 ml 800 ml Balance 155 ml 482 ml -377 ml Intake Oral 480 ml 480 ml 250 ml IV Total 200 ml 252 ml 173 ml Output Urine Total 525 ml 250 ml 800 ml # Bowel Movements 1 Physical Exam GENERAL: Well-nourished, well-developed patient in no apparent distress. NECK: No JVD. No carotid bruit. CARDIOVASCULAR: Regular rate and rhythm. S1/S2 no murmur, rub, or gallop. RESPIRATORY: No accessory muscle use. Clear to auscultation. Breath sounds equal bilaterally. GASTROINTESTINAL: Abdomen soft, non-tender, nondistended. MUSCULOSKELETAL: Extremities without clubbing, cyanosis, or edema. Laboratory Laboratory Tests Test 04/26/17 22:37 White Blood Count 11.9 TH/MM3 Red Blood Count 4.00 MIL/MM3 Hemoglobin 10.2 GM/DL Hematocrit 32.8 % Mean Corpuscular Volume 82.0 FL Mean Corpuscular Hemoglobin 25.7 PG Mean Corpuscular Hemoglobin 31.3 % Concent Red Cell Distribution Width 17.0 % Platelet Count 241 TH/MM3 Mean Platelet Volume 8.2 FL (Chun Arteaga) Assessment and Plan Problem List: (1) NSTEMI (non-ST elevation myocardial infarction) (2) Anemia (3) GAVE (gastric antral vascular ectasia) Assessment and Plan GI gave clearance for cardiac workup, yet we still need to get there feeling of the possibility of antiplatelet drugs. Echo shows normal systolic function and grade 1 diastolic dysfunction (Chun Arteaga) Assessment and Plan NSTEMI - discussed with Dr. Le. Clear from GI for antiplatelet and/or anticoagulant, if needed. Discussed options with patient. Will plan for LHC via radial tomorrow. NPO p MN start ASA 81 daily cont statin cont bb (Bhaskar Hernandez MD) Chun Arteaga Apr 27, 2017 07:34 Bhaskar Hernandez MD Apr 27, 2017 10:52
[2017-04-27] MEDS: PANTOPRAZOLE SOD 40 MG DELAYED RELEASE TAB PO SCH ×2 (08:14→20:15)
[2017-04-27] MEDS: ATORVASTATIN 40 MG TAB PO SCH (08:14)
[2017-04-27] MEDS: amLODIPine BESYLATE 5 MG TAB PO SCH (08:15)
[2017-04-27] MEDS: DOCUSATE SODIUM 50 MG/SENNA 8.6 MG TAB PO SCH (08:15)
[2017-04-27] MEDS: LABETALOL HCL 100 MG TAB PO SCH ×2 (08:15→20:15)
[2017-04-27] MEDS: FERROUS SULFATE 300 MG /5ML UDC PO SCH ×2 (08:16→17:01)
[2017-04-27 09:19] LABS: AUTOMATED NEUTROPHIL # 8.3 TH/MM3 (1.8-7.7); BASOPHIL # 0.1 TH/MM3 (0-0.2); BASOPHIL % 0.5 % (0.0-2.0); EOSINOPHIL # 0.4 TH/MM3 (0-0.4); EOSINOPHIL % 3.8 % (0.0-4.0); HEMATOCRIT 33.1 % (35.0-46.0); HEMO FLAGS DIFF FINAL; LYMPH % 10.7 % (9.0-44.0); LYMPHOCYTE # 1.2 TH/MM3 (1.0-4.8); MEAN CELL VOLUME 79.9 FL (80.0-100.0); MEAN CORPUSCULAR HEMOGLOBIN 26.1 PG (27.0-34.0); MEAN CORPUSCULAR HGB CONC 32.7 % (32.0-36.0); MONO % 8.3 % (0.0-8.0); NEUT % 76.7 % (16.0-70.0); PLATELET COUNT 258 TH/MM3 (150-450); RED BLOOD COUNT 4.15 MIL/MM3 (4.00-5.30); RED CELL DISTRIBUTION WIDTH 17.2 % (11.6-17.2); WHITE BLOOD COUNT 10.9 TH/MM3 (4.0-11.0)
[2017-04-27 09:43] LABS: ANION GAP 13 MEQ/L (5-15); AST (GOT) 36 U/L (15-37); BICARBONATE 26.5 MEQ/L (21.0-32.0); BLOOD UREA NITROGEN 15 MG/DL (7-18); CHLORIDE 97 MEQ/L (98-107); GLOMERULAR FILTRATION RATE 74 ML/MIN (>89); POTASSIUM 3.1 MEQ/L (3.5-5.1); SODIUM (NA) 136 MEQ/L (136-145)
[2017-04-27 09:45] LABS: ALT (GPT) 17 U/L (10-53)
[2017-04-27 09:57] LABS: ALKALINE PHOSPHATASE 63 U/L (45-117)
[2017-04-27] MEDS: ASPIRIN EC 81 MG TABEC PO SCH (11:00)
[2017-04-27] MEDS ORDERED: POTASSIUM CHLORIDE 10 MEQ CONTROLLED RELEASE TAB PO ONE (13:00)
[2017-04-27 13:14] LABS: C. DIFF EPI 027 PRESUMPTIVE NEGATIVE (NEGATIVE); C. DIFF TOXIN PCR NEGATIVE (NEGATIVE)
--- NOTE | 2017-04-27 18:59 | HHI.PR ---
Subjective Remarks Deferred entry - patient seen at 4:45 PM States she has some chest discomfort Denies shortness of breath Patient satting 98% on room air. Vital signs stable Objective Vitals Vital Signs Date Time Temp Pulse Resp B/P Pulse Ox O2 Delivery O2 Flow Rate FiO2 04/27/17 16:59 97.3 86 20 132/61 04/27/17 12:32 99.1 78 20 110/55 98 04/27/17 10:34 94 21 04/27/17 08:08 97.5 82 20 131/61 04/27/17 08:05 79 04/27/17 04:00 98.7 82 22 122/58 93 04/27/17 03:14 80 04/27/17 01:00 98.1 81 24 136/65 94 04/27/17 00:00 75 04/27/17 00:00 97.4 75 28 113/59 91 04/26/17 20:00 92 04/26/17 20:00 98.6 92 32 134/71 98 04/26/17 19:08 98 Nasal Cannula 6.00 I/O 04/26/17 04/26/17 04/26/17 04/27/17 04/27/17 04/27/17 07:00 15:00 23:00 07:00 15:00 23:00 Intake Total 680 ml 732 ml 423 ml 125 ml 720 ml Output Total 525 ml 250 ml 800 ml 300 ml 300 ml Balance 155 ml 482 ml -377 ml -175 ml 420 ml Intake Oral 480 ml 480 ml 250 ml 720 ml IV Total 200 ml 252 ml 173 ml 125 ml Output Urine Total 525 ml 250 ml 800 ml 300 ml 300 ml # Voids 1 # Bowel Movements 1 1 1 Result Diagram: 04/27/17 0835 04/27/17 0835 Imaging Last Impressions Chest X-Ray 04/25/17 0000 Signed Impressions: Service Date/Time: Tuesday, April 25, 2017 07:23 - CONCLUSION: Resolving pulmonary edema. Patchy airspace disease remains evident bilaterally Con Rodriguez MD Objective Remarks GENERAL: Patient is well-nourished and well-developed. SKIN: Warm and dry. HEAD: Normocephalic. EYES: No scleral icterus. No injection or drainage. NECK: Supple, trachea midline. No JVD or lymphadenopathy. CARDIOVASCULAR: Regular rate and rhythm without murmurs, gallops, or rubs. RESPIRATORY: Breath sounds equal bilaterally. No accessory muscle use. GASTROINTESTINAL: Abdomen soft, non-tender, nondistended. MUSCULOSKELETAL: No cyanosis, or edema. BACK: Nontender without obvious deformity. No CVA tenderness. Medications and IVs Current Medications Medications (Trade) Dose Ordered Sig/Adilia Route Start Time Stop Time Status Last Admin (NS Flush) 2 ml UNSCH PRN IVF 04/24/17 10:30 (Tylenol) 650 mg Q4H PRN PO 04/24/17 12:00 (Zofran Inj) 4 mg Q6H PRN IVP 04/24/17 12:00 (Narcan Inj) 0.4 mg UNSCH PRN IV 04/24/17 12:00 (Milk Of Magnesia Liq) 30 ml Q12H PRN PO 04/24/17 12:00 (Senokot) 17.2 mg Q12H PRN PO 04/24/17 12:00 (Dulcolax Supp) 10 mg DAILY PRN RECTAL 04/24/17 12:00 (Lactulose Liq) 30 ml DAILY PRN PO 04/24/17 12:00 (Ferrous Sulfate Liq) 200 mg BIDPC PO 04/24/17 18:00 04/27/17 17:01 (Trandate) 100 mg BID PO 04/24/17 21:00 04/27/17 08:15 (Cozaar) 100 mg HS PO 04/24/17 21:00 04/26/17 21:52 Atorvastatin Calcium 40 mg 40 mg DAILY PO 04/25/17 09:00 04/27/17 08:14 (Zosyn 4.5 Gm Premix) 100 ml @ 200 mls/hr Q6H IV 04/25/17 11:00 04/27/17 17:01 (D50w (Vial) Inj) 50 ml UNSCH PRN IV 04/25/17 10:15 (Glucagon Inj) 1 mg UNSCH PRN OTHER 04/25/17 10:15 (Protonix) 40 mg Q12HR PO 04/26/17 21:00 04/27/17 08:14 (Ecotrin Ec) 81 mg DAILY PO 04/27/17 11:00 04/27/17 11:00 Urinary Catheter: No Vascular Central Line Catheter: No A/P Problem List: (1) GAVE (gastric antral vascular ectasia) ICD Code: K31.819 Status: Acute (2) Hypertension ICD Code: I10 Status: Acute (3) GI bleed ICD Code: K92.2 Status: Acute (4) Elevated troponin I level ICD Code: R74.8 Status: Acute (5) Hypokalemia ICD Code: E87.6 Status: Acute (6) Anemia ICD Code: D64.9 Status: Acute Assessment and Plan This is a 66-year-old female with history of gave syndrome who presented to [facility] on complaining of worsening shortness of breath. The patient was found to have a hemoglobin of 7.9 on admission and was Hemoccult positive. The patient has history of gastric antral vascular ectasia syndrome. 1. GI bleed with Symptomatic anemia: Patient has history of gastric antral vascular ectasia syndrome. Last endoscopy with cautery was about 2 years ago. Stool occult blood is positive. Gastroenterology has been consulted. ER physician spoke with the paper folder on-call. Continue Protonix drip. Transfuse 2 units PRBCs. The patient is S/P EGD w/ APC --> sh ort segment Grubbs's distal esophagus, bleeding angioectasia in gastric antrum. Continue Protonix twice a day, continue to monitor H&H. Follow-up GI recommendations. 2. Shortness of breath: Likely secondary to symptomatic anemia. Status post fusion of 2 units of packed red blood cells. 3. NSTEMI: Patient had elevation of cardiac enzymes. Due to GI bleed and the platelets could not be used initially. Aspirin started today as per cardiology. Continue statin, beta blockers. Patient will have a left heart catheterization in a.m. Keep nothing by mouth at midnight. 4. Hypokalemia: I will replace orally and continue to monitor BMP. 5. Acute hypoxemic respiratory failure with pulmonary edema: After receiving 2 units of packed red blood cells. Treated with IV diuretics and BiPAP. The patient was transferred to the intensive care unit where he was managed by the automat watcher. The patient improved and then was taken off BiPAP and transferred out of the intensive care unit. His x-ray obtained on 04/25/17 and also reviewed by me shows resolving pulmonary edema and persistent patchy airspace disease. Continue IV Zosyn for possible pneumonia. 6. Acute diastolic heart failure: Mildly dilated left ventricle with an EF of 55%.Chest x-ray on admission and reviewed by me showed worsening airspace process concordant with pulmonary edema. Acute diastolic heart failure has resolved. 7. Hypertension: Seems to be stable. Continue current antihypertensive medications. The patient is currently on labetalol 100 mg by mouth twice a day , losartan 100 mg by mouth at bedtime. 8. GI prophylaxis: Patient on Protonix twice a day. 9. DVT prophylaxis: Continue SCDs. No chemoprophylaxis given due to GI bleed. Discharge Planning Continue to monitor in the medical floor. The patient is going for left heart catheterization in a.m. Problem Qualifiers (1) GI bleed: Qualified Code: K92.2 - Gastrointestinal hemorrhage, unspecified gastrointestinal hemorrhage type Max Clemens MD Apr 27, 2017 18:59
[2017-04-27] MEDS: LOSARTAN 50 MG TAB PO SCH (20:15)
[2017-04-28] VITALS (12 sets, daily range): BP systolic 124–148; BP diastolic 60–76; PULSE 77–99; RESP 16–20; TEMP 96.9–101.3; O2SAT 90–92
[2017-04-28] MEDS: PIPERACIL-TAZO 4.5 GM PREMIX 100 ML IV SCH ×3 (03:50→17:38)
[2017-04-28] MEDS: ACETAMINOPHEN 325 MG TAB PO PRN ×2 (04:12→21:16)
[2017-04-28] MEDS: INSULIN NovoLIN REGULAR SUPPLEMENTAL SCALE SQ SCH ×4 (06:05→20:41)
--- NOTE | 2017-04-28 07:45 | PD.CARD.PN ---
Subjective Subjective Remarks continues with chest heaviness with movement Objective Vital Signs / I&O Vital Signs Date Time Temp Pulse Resp B/P Pulse Ox O2 Delivery O2 Flow Rate FiO2 04/28/17 03:50 100.1 87 18 126/61 90 04/28/17 00:03 96.9 78 20 124/60 92 04/27/17 21:55 99.6 84 18 133/62 94 04/27/17 19:30 86 04/27/17 16:59 97.3 86 20 132/61 04/27/17 12:32 99.1 78 20 110/55 98 04/27/17 10:34 94 21 04/27/17 08:08 97.5 82 20 131/61 04/27/17 08:05 79 I/O 04/27/17 04/27/17 04/27/17 04/28/17 04/28/17 04/28/17 07:00 15:00 23:00 07:00 15:00 23:00 Intake Total 125 ml 720 ml Output Total 300 ml 300 ml Balance -175 ml 420 ml Intake Oral 720 ml IV Total 125 ml Output Urine Total 300 ml 300 ml # Voids 1 5 # Bowel Movements 1 1 2 Physical Exam GENERAL: Well-nourished, well-developed patient in no apparent distress. NECK: No JVD. No carotid bruit. CARDIOVASCULAR: Regular rate and rhythm. S1/S2 no murmur, rub, or gallop. RESPIRATORY: No accessory muscle use. Clear to auscultation. Breath sounds equal bilaterally. GASTROINTESTINAL: Abdomen soft, non-tender, nondistended. MUSCULOSKELETAL: Extremities without clubbing, cyanosis, or edema. Laboratory Laboratory Tests Test 04/27/17 04/27/17 08:35 10:45 White Blood Count 10.9 TH/MM3 Red Blood Count 4.15 MIL/MM3 Hemoglobin 10.8 GM/DL Hematocrit 33.1 % Mean Corpuscular Volume 79.9 FL Mean Corpuscular Hemoglobin 26.1 PG Mean Corpuscular Hemoglobin 32.7 % Concent Red Cell Distribution Width 17.2 % Platelet Count 258 TH/MM3 Mean Platelet Volume 8.4 FL Neutrophils (%) (Auto) 76.7 % Lymphocytes (%) (Auto) 10.7 % Monocytes (%) (Auto) 8.3 % Eosinophils (%) (Auto) 3.8 % Basophils (%) (Auto) 0.5 % Neutrophils # (Auto) 8.3 TH/MM3 Lymphocytes # (Auto) 1.2 TH/MM3 Monocytes # (Auto) 0.9 TH/MM3 Eosinophils # (Auto) 0.4 TH/MM3 Basophils # (Auto) 0.1 TH/MM3 CBC Comment DIFF FINAL Differential Comment Sodium Level 136 MEQ/L Potassium Level 3.1 MEQ/L Chloride Level 97 MEQ/L Carbon Dioxide Level 26.5 MEQ/L Anion Gap 13 MEQ/L Blood Urea Nitrogen 15 MG/DL Creatinine 0.78 MG/DL Estimat Glomerular Filtration 74 ML/MIN Rate Random Glucose 185 MG/DL Calcium Level 7.9 MG/DL Phosphorus Level 3.0 MG/DL Magnesium Level 2.0 MG/DL Total Bilirubin 1.0 MG/DL Aspartate Amino Transf 36 U/L (AST/SGOT) Alanine Aminotransferase 17 U/L (ALT/SGPT) Alkaline Phosphatase 63 U/L Total Protein 6.6 GM/DL Albumin 2.9 GM/DL Stool C. difficile Toxin (PCR) NEGATIVE Stl C. difficile Toxin PRESUMPTIVE Epiderm 027 NEGATIVE Assessment and Plan Problem List: (1) NSTEMI (non-ST elevation myocardial infarction) (2) Anemia (3) GAVE (gastric antral vascular ectasia) Assessment and Plan Coronary angiogram planned for this morning, further recommendations will depend upon that outcome Chun Arteaga Apr 28, 2017 07:45
[2017-04-28] MEDS: ATORVASTATIN 40 MG TAB PO SCH (08:12)
[2017-04-28] MEDS: LABETALOL HCL 100 MG TAB PO SCH ×2 (08:12→20:43)
[2017-04-28] MEDS: ASPIRIN EC 81 MG TABEC PO SCH (08:12)
[2017-04-28] MEDS: PANTOPRAZOLE SOD 40 MG DELAYED RELEASE TAB PO SCH ×2 (08:13→20:37)
[2017-04-28] MEDS: FERROUS SULFATE 300 MG /5ML UDC PO SCH ×2 (08:13→18:00)
--- NOTE | 2017-04-28 09:26 | HHI.PR ---
Subjective Remarks In bed, Says she has chest pressure. No palpitations. Denies n/v/d/c. No diaphoresis. Plan for cath today. NPO Objective Vitals Vital Signs Date Time Temp Pulse Resp B/P Pulse Ox O2 Delivery O2 Flow Rate FiO2 04/28/17 08:00 99.0 85 16 148/65 92 04/28/17 03:50 100.1 87 18 126/61 90 04/28/17 00:03 96.9 78 20 124/60 92 04/27/17 21:55 99.6 84 18 133/62 94 04/27/17 19:30 86 04/27/17 16:59 97.3 86 20 132/61 04/27/17 12:32 99.1 78 20 110/55 98 04/27/17 10:34 94 21 I/O 04/27/17 04/27/17 04/27/17 04/28/17 04/28/17 04/28/17 07:00 15:00 23:00 07:00 15:00 23:00 Intake Total 125 ml 720 ml Output Total 300 ml 300 ml Balance -175 ml 420 ml Intake Oral 720 ml IV Total 125 ml Output Urine Total 300 ml 300 ml # Voids 1 5 # Bowel Movements 1 1 2 Result Diagram: 04/27/17 0835 04/27/17 0835 Imaging Last Impressions Chest X-Ray 04/25/17 0000 Signed Impressions: Service Date/Time: Tuesday, April 25, 2017 07:23 - CONCLUSION: Resolving pulmonary edema. Patchy airspace disease remains evident bilaterally Con Rodriguez MD Objective Remarks GENERAL: Patient is a very pleasant 66 yo F, well-nourished and well-developed. NECK: Supple, trachea midline. No JVD or lymphadenopathy. CARDIOVASCULAR: Regular rate and rhythm without murmurs, gallops, or rubs. RESPIRATORY: Breath sounds equal bilaterally. No accessory muscle use. GASTROINTESTINAL: Abdomen soft, non-tender, nondistended. MUSCULOSKELETAL: No cyanosis, or edema. BACK: Nontender without obvious deformity. No CVA tenderness. A/P Problem List: (1) GAVE (gastric antral vascular ectasia) ICD Code: K31.819 Status: Acute (2) Hypertension ICD Code: I10 Status: Acute (3) GI bleed ICD Code: K92.2 Status: Acute (4) Elevated troponin I level ICD Code: R74.8 Status: Acute (5) Hypokalemia ICD Code: E87.6 Status: Acute (6) Anemia ICD Code: D64.9 Status: Acute Assessment and Plan This is a 66-year-old female with history of gave syndrome who presented to [facility] on complaining of worsening shortness of breath. The patient was found to have a hemoglobin of 7.9 on admission and was Hemoccult positive. The patient has history of gastric antral vascular ectasia syndrome. NSTEMI: Patient had elevation of cardiac enzymes. Due to GI bleed and the platelets could not be used initially. Aspirin started today as per cardiology. Continue statin, beta blockers. Patient will have a left heart catheterization in a.m. NPO, plan for cardiac cath 04/28/17 GI bleed with Symptomatic anemia: Patient has history of gastric antral vascular ectasia syndrome. Last endoscopy with cautery was about 2 years ago. Stool occult blood is positive. Gastroenterology has been consulted. ER physician spoke with the crucible packer on-call. Continue Protonix drip. Transfuse 2 units PRBCs. The patient is S/P EGD w/ APC --> short segment Grubbs's distal esophagus, bleeding angioectasia in gastric antrum. Continue Protonix twice a day, continue to monitor H&H. Follow-up GI recommendations. Shortness of breath: Likely secondary to symptomatic anemia. Status post fusion of 2 units of packed red blood cells. H/H stable. Monitor and transfuse as indicated. Hypokalemia: Replaced, continue to monitor BMP. Acute hypoxemic respiratory failure with pulmonary edema: After receiving 2 units of packed red blood cells. Treated with IV diuretics and BiPAP. The patient was transferred to the intensive care unit where he was managed by the loft rigger. The patient improved and then was taken off BiPAP and transferred out of the intensive care unit. His x-ray obtained on 04/25/17 and also reviewed by me shows resolving pulmonary edema and persistent patchy airspace disease. Continue IV Zosyn for possible pneumonia. Acute diastolic heart failure: Mildly dilated left ventricle with an EF of 55% .Chest x-ray on admission and reviewed by me showed worsening airspace process concordant with pulmonary edema. Acute diastolic heart failure has resolved. Hypertension: Seems to be stable. Monitor closely. Continue current antihypertensive medications. The patient is currently on labetalol 100 mg by mouth twice a day, losartan 100 mg by mouth at bedtime. GI prophylaxis: Patient on Protonix twice a day. DVT prophylaxis: Continue SCDs. No chemoprophylaxis given due to GI bleed. Discharge Planning pending improvement and clearance by consultants. Plan for left heart catheterization 04/28/17 Problem Qualifiers (1) GI bleed: Qualified Code: K92.2 - Gastrointestinal hemorrhage, unspecified gastrointestinal hemorrhage type Bailey Siegel MD Apr 28, 2017 09:26
[2017-04-28] MEDS ORDERED: CHLORHEXIDINE GLUCONATE 2 % 1 PACK (2 CLOTHS) TOPICAL PRN (11:00)
[2017-04-28] MEDS ORDERED: METOPROLOL TARTRATE 25 MG TAB PO PRN (11:00)
[2017-04-28] MEDS ORDERED: POVIDONE IODINE 5% (ANTISEPSIS KIT) 4 APPLICATIONS EACH NARE PRN (11:00)
[2017-04-28] MEDS ORDERED: LACTATED RINGER'S 1000 ML IV PRN (11:00)
[2017-04-28 11:47] LABS: BICARBONATE 28.3 MEQ/L (21.0-32.0); POTASSIUM 3.6 MEQ/L (3.5-5.1)
[2017-04-28] MEDS ORDERED: HEPARIN-NS/PF INJ 500 ML ONE (11:50)
[2017-04-28] MEDS ORDERED: HEPARIN SODIUM - IV 10,000 UNITS/10 ML VIAL ONE (11:51)
[2017-04-28] MEDS ORDERED: NITROGLYCERIN INJ 5 ML ONE (11:51)
[2017-04-28] MEDS ORDERED: MIDAZOLAM HCL 2 MG/2 ML VIAL ONE (11:51)
[2017-04-28 12:09] LABS: C. DIFF EPI 027 PRESUMPTIVE NEGATIVE (NEGATIVE); C. DIFF TOXIN PCR NEGATIVE (NEGATIVE)
[2017-04-28] MEDS ORDERED: MISC INFORMATION XX ONE (12:45)
[2017-04-28] MEDS ORDERED: BACITRACIN OINT 0.9 GM PKT TOP ONE (12:45)
--- NOTE | 2017-04-28 12:45 | CATHPROC ---
RootsRated HIS Report Study Information Study Number Admission Scheduled Start Study Start [id number] 04/24/2017 04/28/2017 Apr 28 2017 11:52AM Referring Institution Admit Source Facility Department 1 Other [facility] - Associate Project Manager Physician and Clinical Staff Initial Bhaskar Sosa Security Guard Supervisor Floridalma Eastman,RN Security Guard Supervisor Nicole Adkins,RT(R) Other cathlab, cathlab Recorder Avni Roberts RCIS(BS) Recorder Spring Bryant,RADIOLOGY RN TECH2 Scrub Nicole AdkinsRT(R) Procedures Performed Procedure Location (Site) Vessel Name Coronary Angiograms LCA Left Coronary Coronary Angiograms RCA Right Coronary L Heart Cath Wire insertion Radial (right) Radial Art. Equipment Time Heel Emery Buffer Description Size Mfg Part Number Used/Scraped TRANSDUCER, TRUWAVE [id number] 12:03 CADENA MANUEL * Used W/STOCKCOCK *[id number] *[id number] *[id number] 12:03 [employer]co PACK, CCL CUSTOM * Used *[id number] 12:03 [employer] SUPPORT, ARTERIAL ADULT [id number] Used [id number] 12:03 [email or web address] PACER PEN, SKIN DUAL W/ RULER * Used *[id number] BAND, RADIAL COMPRESSION TR [id number] 12:33 Mipso 24CM Used SHORT 24 *[id number] SHEATH, FR6 RADIAL PRELUDE 12:11 Mipso FR 6 [id number] Used EASE 11CM [id number] 12:03 [employer]ipso WIRE, EXCHANGE 260CM 3MMJ 260CM Used *[id number] 12:03 NYCOMED OMNIPAQUE, 350 MG, 150ML 150ML [id number] Used [id number] 12:03 [employer] BLANKET,WARM AIR CCL * Used *[id number] SHEATH, FR6 TRANSRADIAL 12:09 [employer] FR 6 [id number] Used SLENDER 10CM Equipment Model, Serial, Lot Number and Expiration Data Description Model Number Serial Number Lot Number Expiration Date SHEATH, FR6 RADIAL PRELUDE [id number] 03-12-2020 EASE 11CM History: Allergies Allergy Reaction Amoxicillin Rash Dilaudid short of breath when given IV push Sulfa rash History: Risk Factors Family History of Hypertension Dyslipidemia Previous KS Previous Heart Failure Premature CAD Yes No No Yes No Prior Valve Prior PCI Prior CABG Surgery No No No Cerebrovascular Peripheral Artery Chronic Lung On Dialysis Diabetes Disease Disease Disease No No No Yes No History: Symptoms/Diagnosis Selection Items SOB History: Stress Tests Stress or Imaging Studies Performed No History: Other Disease Selection Items COPD History: Other Current Smoker No Labs Hgb (g/dl) Hct (%) RBC (MIL/MM3) WBC (l/cumm) Platelets (thousands) 12.00-18.00 37.00-55.00 4.80-6.20 4.80-10.80 140.00-450.00 10.8 35.7 4.1 10.9 258 Glucose (mg/dl) BUN (mg/dl) Creatinine (mg/dl) BUN:Creatinine (1:x) 60.00-110.00 8.00-20.00 0.10-9.00 10.00-20.00 209 12.8 0.6 21.3 Na (meq/l) K (meq/l) Cl (meq/l) CO2 (mmol/L) Ca (mg/dl) 138.00-146.00 3.80-5.10 101.00-111.00 23.00-30.00 9.00-10.50 137 3.6 101 28.3 8.4 PT (sec) PTT (sec) INR (PTT:PT) 9.40-11.40 25.10-32.70 0.50-2.00 12.7 24.4 1.1 Medication Medication Total Dose (Bolus/Oral) Medication Total Dosage/Unit 1% XYLOCAINE 10 mL FENTANYL 50 mcg HEPARIN 3000 units RADIAL COCKTAIL 200 mL (Bolus) VERSED 1.5 mg Medications (Bolus/Oral) Medication Time Given Dosage/Unit Administered By Reason VERSED 04/28/2017 12:14:50 PM 1 mg MracheDianneFloridalma 1 mg VERSED given in lab by Floridalma Eastman, CHECO in Left Forearm via Peripheral IV. Ordered by Bhaskar Hernandez. FENTANYL 04/28/2017 12:15:15 PM 50 mcg Dianne Eastmanaret 50 mcg FENTANYL given in lab by Floridalma Eastman, RN in Left Forearm via Peripheral IV. Ordered by Bhaskar Albert. 1% XYLOCAINE 04/28/2017 12:18:56 PM 10 mL Bhaskar Hernandez 10 mL 1% XYLOCAINE given in lab by Bhaskar Hernandez in Right Radial via Subcutaneous. Ordered by Bhaskar Hernandez. RADIAL COCKTAIL 04/28/2017 12:20:07 PM 200 mL (Bolus) Bhaskar Hernandez 200 mL (Bolus) RADIAL COCKTAIL given in lab by Bhaskar Hernandez via Radial. Using [Solution Name]. Orde red by Bhaskar Hernandez. 200 nitro HEPARIN 04/28/2017 12:21:15 PM 3000 units Floridalma Eastman 3000 units HEPARIN given in lab by Floridalma Eastman RN in Left Forearm via Peripheral IV. Ordered by Bhaskar Hernandez. VERSED 04/28/2017 12:22:04 PM 0.5 mg Floridalma Eastman 0.5 mg VERSED given in lab by Floridalma Eastman RN in Left Forearm via Peripheral IV. Ordered by Bhaskar Cassidy. Medication (Drip) Medication Time Given Dosage/Unit Concentration/Unit Diluent (ml) Solution IV Solutions 04/28/2017 11:59:18 AM 0 mL (IV) 500 NaCl .9 Patient arrived on IV Solutions given by cathgala cathgala in Left Forearm via Peripheral IV. Pump/Dri p Flow = 20 ml/hr using NaCl .9. Ordered by Bhaskar Hernandez. Initial Case Assessment Cardiovascular HR NIBP 82 133/69 Edema Present Skin color Skin None Normal Warm Circulatory - Right Pulses Dorsalis Pedis Femoral Radial 2 2 2 Scale (0,1,2,3,4,d) Circulatory - Left Pulses Dorsalis Pedis Femoral Radial 2 2 Scale (0,1,2,3,4,d) Neurological State Oriented to time-place- Alert Moves all extremities person Respiration - General Respiration Rate SpO2 (%) O2 (lpm) (B/min) 19 97 3 Final Case Assessment Cardiovascular HR NIBP 84 133/67 Edema Present Skin color Skin None Normal Warm Circulatory - Right Pulses Dorsalis Pedis Femoral Radial 2 2 2 Scale (0,1,2,3,4,d) Circulatory - Left Pulses Dorsalis Pedis Femoral Radial 2 2 Scale (0,1,2,3,4,d) Neurological State Oriented to time-place- Alert Moves all extremities person Respiration - General Respiration Rate SpO2 (%) O2 (lpm) (B/min) 15 92 3 Chronological Log Time Study Chronological Log 11:52:18 Patient arrived via Bed. 11:52:18 Patient Name, D.O.B, / Armband Verified By R.N. 11:52:19 Consent signed by the physician and the patient and verified by the Associate Project Manager staff. 11:52:20 Pre-op and post- op instructions given; patient acknowledges understanding of instructions. 11:59:04 Reference ECG taken Vitals capture started with the following parameters, Patient=Adult, Interval=5 min, Initial Pr lhbrih=974 mmHg, 11:59:05 Deflation Rate=5 mmHg 11:59:10 Patient has been NPO for More than 6Hrs. 11:59:11 Allens test performed on the right radial and ulnar artery. 11:59:12 NO Skin Breakdown- 11:59:14 Patient Warmer Placed on the Table. 11:59:17 A # 20 IV was noted in the Forearm (left). Grade = 0 Patient arrived on IV Solutions given by cathlab, cathlab in Left Forearm via Peripheral IV. Pu mp/Drip Flow = 20 ml/hr 11:59:18 using NaCl .9. Ordered by Bhaskar Hernandez. 11:59:18 History and physical on the chart or being dictated. 11:59:40 HR=82 bpm, QOGM=197/69 mmhg, SpO2=97.0 %, Resp=19 B/min, Pain=0, Hayes=10, Buckner=2 Assessment: Initial Case, HR=82 BPM, XGMX=074/69 mmhg, Edema=None, Color=Normal, Skin = Warm Right Pulses: Shane Ped=2, Femoral=2, Radial=2 12:01:10 Left Pulses: Shane Ped=2, Femoral=2 Neurological: State=Alert, Ox3, AGUILAR Respiration: Resp=19 B/min, SpO2=97 %, O2=3 lpm 12:04:41 HR=78 bpm, CBLC=866/69 mmhg, SpO2=95.0 %, Resp=12 B/min, Pain=0, Hayes=10, Buckner=2 12:09:40 HR=78 bpm, GQNC=277/63 mmhg, SpO2=94.0 %, Resp=11 B/min, Pain=0, Hayes=10, Buckner=2 12:14:36 Right Radial and right groin prepped with 2% chlorhexidine, and with a 3 min. waiting time. 12:14:42 HR=81 bpm, YJUM=115/70 mmhg, SpO2=94.0 %, Resp=14 B/min, Pain=0, Hayes=10, Buckner=2 12:14:50 1 mg VERSED given in lab by Floridalma Eastman RN in Left Forearm via Peripheral IV. Ordered by Bhaskar Hernandez. 12:15:15 50 mcg FENTANYL given in lab by Floridalma Eastman RN in Left Forearm via Peripheral IV. Ord ered by Bhaskar Hernandez. 12:15:33 Pressure channel 1 zeroed. Time Out. Correct patient, correct procedure,correct physician, power injector not loaded with contrast with surgical 12:18:15 team present. Time Out Concurred by MD, individual staff in procedure 12:18:53 Case Start 12:18:56 10 mL 1% XYLOCAINE given in lab by Bhaskar Hernandez in Right Radial via Subcutaneous. Ordered by Bhaskar Hernandez. 12:19:07 Access site was Right Femoral Artery. A SHEATH, FR6 RADIAL PRELUDE EASE 11CM FR 6 was advanced into the Radial (right) using the Nicki fied Seldinger 12:19:24 technique. 12:19:45 HR=80 bpm, NIBP=97/59 mmhg, SpO2=92 %, Resp=13 B/min, Pain=0, Hayes=10, Buckner=2 200 mL (Bolus) RADIAL COCKTAIL given in lab by Bhaskar Hernandez via Radial. Using [Solution Name] . Ordered by David, 12:20:07 Bhaskar. 200 nitro A JR 5.0 INFINITI CATHETER FR 6 was advanced over a wire. OMNIPAQUE, 350 MG, 150ML 150ML was us ed for 12:21:11 injections. 3000 units HEPARIN given in lab by Floridalma Eastman, CHECO in Left Forearm via Peripheral IV. Orde red by David, 12:21:15 Bhaskar. 12:22:04 0.5 mg VERSED given in lab by Floridalma Eastman RN in Left Forearm via Peripheral IV. Order ed by Bhaskar Hernandez. Recorded Pressure: LV, HR=78, Condition=Condition 1 12:22:16 (Left Ventricle) LV 125/6/17 Recorded Pressure: LV, Ao, HR=79, Condition=Condition 1 12:22:20 (Left Ventricle) LV 126/7/14, (Aorta) Ao 126/60/87 Recorded Pressure: Ao, HR=77, Condition=Condition 1 12:22:59 (Aorta) Ao 128/64/90 12:23:25 The RCA was injected and visualized at various angles. OMNIPAQUE, 350 MG, 150ML 150ML used . After removing the current catheter a JL 3.5 INFINITI CATHETER FR 6 was advanced over a WIRE, E XCHANGE 260CM 12:24:19 3MMJ 260CM. 12:25:12 HR=83 bpm, KKQI=919/66 mmhg, SpO2=92 %, Resp=14 B/min, Pain=0, Hayes=10, Buckner=2 12:27:11 The LCA was injected and visualized at various angles. OMNIPAQUE, 350 MG, 150ML 150ML used . 12:28:39 A WIRE, EXCHANGE 260CM 3MMJ 260CM was inserted via Radial (right). 12:29:43 HR=83 bpm, XIUR=739/66 mmhg, SpO2=94.0 %, Resp=15 B/min, Pain=0, Hayes=10, Buckner=2 12:31:15 Catheter was removed 12:31:18 Case End 12:32:16 Catheter(s) removed without difficulty Radial Compression Device Used. 15 mLs of air placed in BAND, RADIAL COMPRESSION TR SHORT 24 24 CM. Affected 12:32:21 hand 94 % O2 saturation. 12:33:04 No case complications noted. 12:33:07 Cine recording checked. 12:34:46 HR=84 bpm, TCFW=311/67 mmhg, SpO2=92 %, Resp=15 B/min, Pain=0, Hayes=10, Buckner=2 Assessment: Final Case, HR=84 BPM, CNXJ=160/67 mmhg, Edema=None, Color=Normal, Skin = Warm Right Pulses: Shane Ped=2, Femoral=2, Radial=2 12:38:15 Left Pulses: Shane Ped=2, Femoral=2 Neurological: State=Alert, Ox3, AGUILAR Respiration: Resp=15 B/min, SpO2=92 %, O2=3 lpm 12:38:27 Vitals capture stopped. 12:39:13 Contrast Scanned 12:39:15 Bedside Report will be given. 12:41:08 A Left Heart Cath was performed. 12:41:13 Patient moved to stretcher 12:41:15 Clinical correlaton risk stratification. End Study - Contrast Media Used In Study Contrast Total Opened (mL) Total Used (mL) Total Wasted (mL) Omnipaque 90 90 0 End Study - Maximum Contrast Load Max Contrast Load (mL) 584.8 End Study - Radiation Exposure Fluoro Time (minutes) 5.6 End Study - Patient Disposition Complications Transferred To Telemetry Bed
[2017-04-28] MEDS ORDERED: IOHEXOL 350 MG/ML 100 ML BTL (for Cath Lab) OTHER ONE (13:25)
--- NOTE | 2017-04-28 17:06 | PD.CAR.PN ---
CVT Progress Note Subjective/Hospital Course: sts data discussed with pt , pt seen and eval full consult dictated RISK SCORES About the STS Risk Calculator Procedure: CAB Only Risk of Mortality: 0.991% Morbidity or Mortality: 9.959% Long Length of Stay: 3.795% Short Length of Stay: 48.035% Permanent Stroke: 1.002% Prolonged Ventilation: 7.028% DSW Infection: 0.229% Renal Failure: 1.002% Reoperation: 4.142% Objective: Vital Signs Date Time Temp Pulse Resp B/P Pulse Ox O2 Delivery O2 Flow Rate FiO2 04/28/17 16:01 90 04/28/17 16:00 98.3 90 20 143/76 90 04/28/17 12:57 92 Nasal Cannula 3.00 04/28/17 08:05 77 04/28/17 08:00 99.0 85 16 148/65 92 04/28/17 03:50 100.1 87 18 126/61 90 04/28/17 00:03 96.9 78 20 124/60 92 04/27/17 21:55 99.6 84 18 133/62 94 04/27/17 19:30 86 Labs: Laboratory Tests Test 04/28/17 04/28/17 04/28/17 08:20 09:45 10:47 Stool C. difficile Toxin (PCR) NEGATIVE (NEGATIVE) Stl C. difficile Toxin PRESUMPTIVE Epiderm 027 NEGATIVE (NEGATIVE) Hemoglobin 9.9 GM/DL (11.6-15.3) Sodium Level 137 MEQ/L (136-145) Potassium Level 3.6 MEQ/L (3.5-5.1) Chloride Level 101 MEQ/L (98-107) Carbon Dioxide Level 28.3 MEQ/L (21.0-32.0) Anion Gap 8 MEQ/L (5-15) Blood Urea Nitrogen 13 MG/DL (7-18) Creatinine 0.64 MG/DL (0.50-1.00) Estimat Glomerular Filtration 93 ML/MIN (>89) Rate Random Glucose 156 MG/DL (74-106) Calcium Level 8.4 MG/DL (8.5-10.1) Result Diagram: 04/28/17 0945 04/28/17 1047 (1) NSTEMI (non-ST elevation myocardial infarction) (2) Anemia (3) GAVE (gastric antral vascular ectasia) Ksenia Bello Apr 28, 2017 17:06
[2017-04-28] MEDS ORDERED: SODIUM CHLORIDE 0.9% FLUSH 10 ML FLUSH IV FLUSH PRN (17:30)
[2017-04-28] MEDS ORDERED: VANCOMYCIN INJ 1,250 MG in SODIUM CHLOR 0.9% 250 ML INJ 250 ML IV SCH (17:30)
[2017-04-28] MEDS ORDERED: VANCOMYCIN INJ 1,000 MG in SODIUM CHLORIDE 0.9% IRR BTL 1,000 ML IRRIGATION SCH (17:30)
[2017-04-28] MEDS ORDERED: CHLORHEXIDINE GLUCONATE 4% SOLN 120 ML BTL TOPICAL SCH (17:30)
[2017-04-28] MEDS ORDERED: METOPROLOL TARTRATE 25 MG TAB PO SCH (17:30)
[2017-04-28] MEDS ORDERED: PAPAVERINE INJ 60 MG, NITROGLYCERIN INJ 100 MCG, DILTIAZEM INJ 100 MG in SODIUM CHLORID... IRRIGATION SCH (17:30)
[2017-04-28] MEDS ORDERED: INSULIN REGULAR (IV INFUSION) 100 UNITS in SODIUM CHLORIDE 0.9% INJ 100 ML IV SCH (17:30)
[2017-04-28] MEDS: SODIUM CHLORIDE 0.9% FLUSH 10 ML FLUSH IV FLUSH SCH (20:38)
--- NOTE | 2017-04-28 20:49 | MB ---
cc: GRETCHEN PITTMAN MD DATE OF CONSULTATION 04/28/17 DATE OF 48 HISTORY OF PRESENT ILLNESS A 66-year-old female recently moved from the [facility] area and was seen in an Urgent Care on April 21 diagnosed with bronchitis, given a prescription for Cipro and Benonate, also some albuterol, but she stopped using it because of tachycardia. The morning of admission she became more short of breath. The primary care recommended she come into the emergency room. She also reported having some pressure in her chest. She has a history of GAVE or gastric antral vascular ectasia anesthesia and has had history of prior anemia in the past where she was given IV iron. She was found to have a hemoglobin of 7.9. She was transfused with two units of packed RBCs. She was seen by GI, underwent EGD due to post hemorrhagic anemia, iron deficiency anemia, was found to have a short segment Grubbs's esophagus, was found in the distal esophagus, bleeding angioectasia in the gastric antrum. Recommended avoiding NSAIDs, proper proton pump inhibitor. She was apparently cleared by gastroenterology for cardiac workup. They signed off at this time with outpatient followup. She underwent cardiac cath today due to elevated troponins non STEMI. Cardiac cath revealed a 95% proximal LAD, mid distal LAD 30%, diagonal 30%. The circ was 75%. The RCA was 80%. EF was noted at 55%. She had an echocardiogram which showed some grade 1 diastolic dysfunction, mildly dilated left ventricle, no aortic valve stenosis or regurgitation. The tricuspid had no stenosis or regurgitation. No pericardial effusion. We were consulted to evaluate for coronary artery bypass grafting. PAST MEDICAL HISTORY 1. GAVE syndrome, 2. Hypertension, 3. Chronic deficiency anemia PAST SURGICAL HISTORY 1. Deviated septal repair. 2. EGD ALLERGIES AMOXICILLIN DILAUDID SULFA MEDICATIONS Home meds 1. Losartan. 2. Labetalol. 3. Amlodipine. 4. Ferrous sulfate 5. Omeprazole 6. Claritin. 7. Vitamin C. FAMILY HISTORY Heart disease, COPD. SOCIAL HISTORY The patient lives alone, has a sister who lives nearby, rare alcohol. No tobacco. 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 REVIEW OF SYSTEMS GENERAL: No night sweats, fever, heat and cold intolerance. SKIN: No psoriasis, itching or hives. HEENT: No blurred vision, hearing loss. RESPIRATORY: Mild shortness of breath, cough. CARDIOVASCULAR: Some chest pressure. No paroxysmal nocturnal dyspnea. No orthopnea. GASTROINTESTINAL: Some occasional diarrhea. GENITOURINARY: No burning, frequency, urgency DIRECTOR DISTRIBUTION: No history of TIA, CVA, seizure disorder. ENDOCRINE: No diabetes or hyperthyroidism PHYSICAL EXAMINATION VITAL SIGNS: Blood pressure 140/70, heart rate 90, temperature max 98.3. GENERAL: Patient is awake, alert in no acute distress. HEENT: Head is normocephalic, atraumatic. Pupils equal and reactive. Oral mucosa pink, moist. NECK: Supple. No JVD. CARDIAC: Heart sounds S1-S2, regular rate and rhythm. No rubs, murmurs, gallops. LUNGS: Clear to auscultation. No wheezes, rales or rhonchi. ABDOMEN: Soft, nontender. No masses or organomegaly. EXTREMITIES: No cyanosis, clubbing or edema. LABORATORY FINDINGS Hemoglobin 10.8, hematocrit 33, white cell count 10.9, platelet count 258. Sodium 137, potassium 3.6, BUN of 13, creatinine 0.64, glucose 156, INR 1.1. Urine unremarkable. They did check stool for C diff which was negative. MRSA was negative. She had an initial blood gas when she came into the emergency room which showed a pO2 of 79%, pH 7.51, CO2 29, pO2 of 48. IMAGING STUDIES X-rays apparently also did show some pulmonary vascular congestion and she was treated on IV antibiotics and BiPap therapy and had improved and then was able to be stepped down to Med. Surg Unit. Chest x-ray on the - resolving pulmonary edema, some patchy airspace disease bilaterally. CARDIOLOGY STUDIES EKG - Normal sinus rhythm. IMPRESSION This is a 66-year-old female admitted with 1. Initial GI bleed with history GAVE disease, underwent EGD was then cleared by GI. Also status post two units of packed RBCs, on proton pump inhibitor and to avoid NSAIDs at this time. 2. Non STEMI with elevated troponins, three-vessel disease. Coronary films have been evaluated by Dr. Gretchen Pittman. Plan will be for coronary artery bypass grafting on Monday the . She did have some mild low grade temperature, has been treated with some antibiotics for probable bronchitis. Urine is negative. Blood cultures are negative. Further workup is pending but tentatively scheduled for Monday, . Dictated by Roslyn Bello, ALTA Gretchen DONNELLY/ /4:57 PM /8:50 AM
[2017-04-28 21:41] LABS: BLOOD, URINE NEG (NEG); COMMENT (UR) CULT NOT INDICATED; CULTURE IF INDICATED CULT NOT INDICATED; GLUCOSE,URINE NEG (NEG); KETONE, URINE NEG (NEG); NITRITE,URINE NEG (NEG); SQUAMOUS EPITHELIAL CELL URINE 5 /hpf (0-5); URINE COLOR YELLOW (YELLW/STRAW)
--- NOTE | 2017-04-28 22:52 | RADRPT ---
EXAM DATE/TIME: 04/28/2017 21:55 [facility] COMPARISON: No previous studies available for comparison. INDICATIONS : Preop cardiac surgery. MEDICAL HISTORY : Hypertension. Gastroesophageal reflux disease. Gastric antral vascular ectasia. Anemia. Hay fever. B jacoby cell carcinoma. SURGICAL HISTORY : Hysterectomy. Deviated septum. Disc replacement. Basal cell excision. Blood transfusions. Cardiac cat h. ENCOUNTER: Initial ACUITY: 1 day PAIN SCORE: 0/10 LOCATION: Bilateral leg. TECHNIQUE: Venous ultrasound of the left and right leg was performed from the inguinal ligament to the proximal calf. Real-time, color Doppler and spectral tracing, compression and augmentation techniques were us ed. FINDINGS: RIGHT LEG: There is normal compressibility of the deep venous system from the inguinal region to the proximal ca lf. No echogenic clot is seen in the lumen of the common femoral, femoral, popliteal, and posterior tibial veins. There is a normal response of the venous system to proximal and distal augmentation an d respiration. LEFT LEG: There is nonocclusive deep venous thrombosis in the left posterior tibial vein. Left common femoral, femoral, popliteal and peroneal veins are patent. CONCLUSION: 1. Positive for deep venous thrombosis in the left posterior tibial vein. Right lower extremity negat peggy for deep venous thrombosis. Avel Kay MD on April 28, 2017 at 22:47 Board Certified Radiologist. This report was verified electronically.
--- NOTE | 2017-04-28 22:53 | RADRPT ---
EXAM DATE/TIME: 04/28/2017 22:04 [facility] COMPARISON: No previous studies available for comparison. INDICATIONS : Preop cardiac surgery. MEDICAL HISTORY : Hypertension. Gastroesophageal reflux disease. Gastric antral vascular ectasia. Anemia. Hay fever. B jacoby cell carcinoma. SURGICAL HISTORY : Hysterectomy. Deviated septum. Disc replacement. Basal cell excision. Blood transfusions. Cardiac cath. ENCOUNTER: Initial ACUITY: 1 day PAIN SCORE: 0/10 LOCATION: Bilateral leg. GREATER SAPHENOUS VEIN THIGH: PROXIMAL: Right 4 mm Left 4 mm MID: Right 3 mm Left 3 mm DISTAL: Right 3 mm Left 3 mm CALF: PROXIMAL: Right 2 mm Left 2 mm MID: Right 3 mm Left 3 mm DISTAL: Right 2 mm Left 3 mm FINDINGS: The saphenous venous system of the lower extremities are patent by color Doppler imaging. Measuremen ts of the leg veins (in mm) are listed above. CONCLUSION: Normal examination. Avel Kay MD on April 28, 2017 at 22:50 Board Certified Radiologist. This report was verified electronically.
--- NOTE | 2017-04-28 23:09 | RADRPT ---
EXAM DATE/TIME: 04/28/2017 21:40 [facility] COMPARISON: No previous studies available for comparison. INDICATIONS : Preop cardiac surgery. MEDICAL HISTORY : Hypertension. Gastroesophageal reflux disease. Gastric antral vascular ectasia. Anemia. Hay fever. Basal cell carcinoma. SURGICAL HISTORY : Hysterectomy. Deviated septum. Disc replacement. Basal cell excision. Blood transfusions. Cardiac cath. ENCOUNTER: Initial ACUITY: 1 day PAIN SCORE: 0/10 LOCATION: Bilateral neck PEAK SYSTOLIC VELOCITIES (cm/sec): ICA/CCA RATIO: Right: 0.7 Left: 1.1 ICA: Right: 66 Left: 106 CCA: Right: 89 Left: 96 ECA: Right: 92 Left: 106 VERTEBRAL: Right: 58 antegrade Left: 77 antegrade Elevated flow velocities and ICA/CCA ratios have been found to correlate with increased degrees of vessel stenosis, calculated as percentage of diameter relative to a normal segment of distal ICA/CCA FINDINGS: RIGHT CAROTID: No significant stenosis is visualized. The waveforms are within normal limits. LEFT CAROTID: No significant stenosis is visualized. The waveforms are within normal limits. VERTEBRAL ARTERIES: Antegrade flow is seen in both vertebral arteries. MISCELLANEOUS: None. CONCLUSION: Moderate severity calcified plaque at the carotid bulbs bilaterally. No evidence of hemodynamically s ignificant carotid stenosis by peak systolic velocity criteria. Lg Mitchell MD on April 28, 2017 at 23:02 Board Certified Radiologist. This report was verified electronically.
[2017-04-29] VITALS (26 sets, daily range): BP systolic 124–140; BP diastolic 64–74; PULSE 78–91; RESP 18–22; TEMP 97.8–100; O2SAT 90–95
[2017-04-29] MEDS: PIPERACIL-TAZO 4.5 GM PREMIX 100 ML IV SCH ×5 (00:10→21:48)
[2017-04-29] MEDS: INSULIN NovoLIN REGULAR SUPPLEMENTAL SCALE SQ SCH ×4 (05:53→21:46)
[2017-04-29 05:56] LABS: AUTOMATED NEUTROPHIL # 6.8 TH/MM3 (1.8-7.7); BASOPHIL % 0.4 % (0.0-2.0); EOSINOPHIL # 0.4 TH/MM3 (0-0.4); EOSINOPHIL % 4.6 % (0.0-4.0); HEMATOCRIT 30.7 % (35.0-46.0); HEMO FLAGS DIFF FINAL; LYMPH % 12.2 % (9.0-44.0); LYMPHOCYTE # 1.1 TH/MM3 (1.0-4.8); MEAN CELL VOLUME 79.3 FL (80.0-100.0); MEAN CORPUSCULAR HEMOGLOBIN 25.6 PG (27.0-34.0); MEAN CORPUSCULAR HGB CONC 32.3 % (32.0-36.0); MONO % 7.5 % (0.0-8.0); NEUT % 75.3 % (16.0-70.0); PLATELET COUNT 215 TH/MM3 (150-450); RED BLOOD COUNT 3.87 MIL/MM3 (4.00-5.30); RED CELL DISTRIBUTION WIDTH 16.7 % (11.6-17.2)
[2017-04-29 06:20] LABS: POTASSIUM 3.2 MEQ/L (3.5-5.1)
--- NOTE | 2017-04-29 07:27 | HHI.PR ---
Subjective Remarks Patient seen and examined this am. Has some SOB, worse when she is ambulatory. Does walk to bathroom but no further. Denies actual chest pain. Tolerating her heart healthy diet, but wants to know if she should have diabetic diet given per elevated sugar and need for sliding scale. Wants to know if her iron supplementation can be changed from liquid to pill. No other complaints or concerns this am. Objective Vital Signs Date Time Temp Pulse Resp B/P Pulse Ox O2 Delivery O2 Flow Rate FiO2 04/29/17 06:00 83 04/29/17 05:00 82 04/29/17 04:00 80 04/29/17 03:39 Nasal Cannula 4.00 04/29/17 03:39 98.9 80 22 140/74 93 04/29/17 03:00 84 04/29/17 02:00 90 04/29/17 01:00 89 04/29/17 00:37 95 Nasal Cannula 4.50 04/29/17 00:00 91 04/29/17 00:00 100.0 91 18 130/74 91 04/29/17 00:00 Nasal Cannula 3.00 04/28/17 23:00 96 04/28/17 22:00 98 04/28/17 21:00 98 04/28/17 20:00 99 04/28/17 20:00 101.3 99 20 139/76 91 04/28/17 18:01 94 04/28/17 17:00 88 04/28/17 16:01 90 04/28/17 16:00 98.3 90 20 143/76 90 04/28/17 12:57 92 Nasal Cannula 3.00 04/28/17 08:05 77 04/28/17 08:00 99.0 85 16 148/65 92 I/O 04/28/17 04/28/17 04/28/17 04/29/17 04/29/17 04/29/17 07:00 15:00 23:00 07:00 15:00 23:00 Intake Total 340 ml 440 ml Output Total 400 ml 800 ml Balance -60 ml -360 ml Intake Oral 240 ml 240 ml IV Total 100 ml 200 ml Output Urine Total 400 ml 800 ml # Voids 5 1 2 # Bowel Movements 2 1 0 0 Result Diagram: 04/29/1728 04/29/17527 Imaging Last Impressions Lower Extremity Ultrasound 04/28/17 0000 Signed Impressions: Service Date/Time: Friday, April 28, 2017 22:04 - CONCLUSION: Normal examination. Avel Kay MD Carotid Artery Ultrasound 04/28/17 0000 Signed Impressions: Service Date/Time: Friday, April 28, 2017 21:40 - CONCLUSION: Moderate severity calcified plaque at the carotid bulbs bilaterally. No evidence of hemodynamically significant carotid stenosis by peak systolic velocity criteria. Lg Mitchell MD Chest X-Ray 04/25/17 0000 Signed Impressions: Service Date/Time: Tuesday, April 25, 2017 07:23 - CONCLUSION: Resolving pulmonary edema. Patchy airspace disease remains evident bilaterally Con Rodriguez MD Objective Remarks GENERAL: well appearing, nad, poor dentition SKIN: Warm and dry. HEAD: Normocephalic. EYES: No scleral icterus. No injection or drainage. NECK: Supple, trachea midline. No JVD or lymphadenopathy. CARDIOVASCULAR: Regular rate and rhythm without murmurs, gallops, or rubs. RESPIRATORY: Breath sounds equal bilaterally. No accessory muscle use. GASTROINTESTINAL: Abdomen soft, non-tender, nondistended. MUSCULOSKELETAL: No cyanosis, or edema. BACK: Nontender without obvious deformity. No CVA tenderness. A/P Problem List: (1) GI bleed ICD Code: K92.2 (2) GAVE (gastric antral vascular ectasia) ICD Code: K31.819 (3) NSTEMI (non-ST elevation myocardial infarction) ICD Code: I21.4 (4) Anemia ICD Code: D64.9 Assessment and Plan This is a 66-year-old female with history of GAVE syndrome who presented to [facility] complaining of worsening shortness of breath. The patient was found to have a hemoglobin of 7.9 on admission and was Hemoccult positive. The patient has history of gastric antral vascular ectasia syndrome and ACS workup was positive. NSTEMI: s/p heart cath on 04/28 showed three vessel disease. plan for CABAG next week. CT surgery and cardiology following. con't statin, ASA, and beta block. Cleared by GI for blood products. GI bleed with Symptomatic anemia: Patient has history of gastric antral vascular ectasia syndrome. Last endoscopy with cautery was about 2 years ago. Stool occult blood is positive. Gastroenterology following: Continue Protonix drip. S/P EGD w/ APC --> short segment Grubbs's distal esophagus, bleeding angioectasia in gastric antrum. Continue Protonix twice a day, continue to monitor H&H. Follow-up GI recommendations. Continue fe supplementation. Shortness of breath: persistent. PFTs are pending. No history of lung disease and she is not a smoker. Her lungs are clear to auscultation. Unclear etiology at this point. This was her primary complaint on admission, and per patient is unchanged. This is likely related to her heart disease. Hypokalemia: Replaced, continue to monitor BMP. Acute hypoxemic respiratory failure with pulmonary edema: HX: "After receiving 2 units of packed red blood cells. Treated with IV diuretics and BiPAP. The patient was transferred to the intensive care unit where he was managed by the manager residential. The patient improved and then was taken off BiPAP and transferred out of the intensive care unit. His x-ray obtained on 04/25/17 shows resolving pulmonary edema and persistent patchy airspace disease." - Continue IV Zosyn 04/25 for possible pneumonia, leukocytosis is improving and the patient is without fevers Acute diastolic heart failure: Mildly dilated left ventricle with an EF of 55% . Grade 1 diastolic heart failure on heart cath. Hypertension: Seems to be stable. Monitor closely. Continue current antihypertensive medications. The patient is currently on labetalol 100 mg by mouth twice a day, losartan 100 mg by mouth at bedtime. GI prophylaxis: Patient on Protonix twice a day. DVT prophylaxis: Continue SCDs. No chemoprophylaxis given due to GI bleed. Discharge Planning d/c pending further workup, pre op and CABG tentatively scheduled for next Mon. Case discussed with nurse. Problem Qualifiers (1) GI bleed: Qualified Code: K92.2 - Gastrointestinal hemorrhage, unspecified gastrointestinal hemorrhage type Roxane Villarreal MD R3 Apr 29, 2017 07:27
[2017-04-29] MEDS: ASPIRIN EC 81 MG TABEC PO SCH (08:26)
[2017-04-29] MEDS: FERROUS SULFATE 300 MG /5ML UDC PO SCH (08:26)
[2017-04-29] MEDS: ATORVASTATIN 40 MG TAB PO SCH (08:27)
[2017-04-29] MEDS: LABETALOL HCL 100 MG TAB PO SCH ×2 (08:27→20:58)
[2017-04-29] MEDS: SODIUM CHLORIDE 0.9% FLUSH 10 ML FLUSH IV FLUSH SCH ×2 (08:27→20:58)
[2017-04-29] MEDS: PANTOPRAZOLE SOD 40 MG DELAYED RELEASE TAB PO SCH ×2 (08:27→20:58)
--- NOTE | 2017-04-29 12:10 | PD.CARD.PN ---
Subjective Subjective Remarks Pt without complaints Objective Medications Current Medications Medications (Trade) Dose Ordered Sig/Adilia Route Start Time Stop Time Status Last Admin (NS Flush) 2 ml UNSCH PRN IVF 04/24/17 10:30 (Tylenol) 650 mg Q4H PRN PO 04/24/17 12:00 04/28/17 21:16 (Zofran Inj) 4 mg Q6H PRN IVP 04/24/17 12:00 (Narcan Inj) 0.4 mg UNSCH PRN IV 04/24/17 12:00 (Milk Of Magnesia Liq) 30 ml Q12H PRN PO 04/24/17 12:00 (Senokot) 17.2 mg Q12H PRN PO 04/24/17 12:00 (Dulcolax Supp) 10 mg DAILY PRN RECTAL 04/24/17 12:00 (Lactulose Liq) 30 ml DAILY PRN PO 04/24/17 12:00 (Ferrous Sulfate Liq) 200 mg BIDPC PO 04/24/17 18:00 04/29/17 08:26 (Trandate) 100 mg BID PO 04/24/17 21:00 04/29/17 08:27 Atorvastatin Calcium 40 mg 40 mg DAILY PO 04/25/17 09:00 04/29/17 08:27 (Zosyn 4.5 Gm Premix) 100 ml @ 200 mls/hr Q6H IV 04/25/17 11:00 04/29/17 11:42 (D50w (Vial) Inj) 50 ml UNSCH PRN IV 04/25/17 10:15 (Glucagon Inj) 1 mg UNSCH PRN OTHER 04/25/17 10:15 (Protonix) 40 mg Q12HR PO 04/26/17 21:00 04/29/17 08:27 Aspirin 81 mg 81 mg DAILY PO 04/27/17 11:00 04/29/17 08:26 (Lr 1000 ml Inj) 1,000 ml @ 30 mls/hr Q24H PRN IV 04/28/17 11:00 05/01/17 10:59 (NS Flush) 2 ml BID IV FLUSH 04/28/17 21:00 04/29/17 08:27 (NS Flush) 2 ml UNSCH PRN IV FLUSH 04/28/17 17:30 Vital Signs / I&O Vital Signs Date Time Temp Pulse Resp B/P Pulse Ox O2 Delivery O2 Flow Rate FiO2 04/29/17 12:00 82 04/29/17 11:02 98.0 81 22 135/72 94 04/29/17 11:02 81 04/29/17 10:29 79 04/29/17 09:48 79 04/29/17 08:17 90 Nasal Cannula 4.00 04/29/17 08:17 78 04/29/17 08:17 98.3 88 22 132/64 90 04/29/17 07:42 79 04/29/17 06:00 83 04/29/17 05:00 82 04/29/17 04:00 80 04/29/17 03:39 Nasal Cannula 4.00 04/29/17 03:39 98.9 80 22 140/74 93 04/29/17 03:00 84 04/29/17 02:00 90 04/29/17 01:00 89 04/29/17 00:37 95 Nasal Cannula 4.50 04/29/17 00:00 91 04/29/17 00:00 100.0 91 18 130/74 91 04/29/17 00:00 Nasal Cannula 3.00 04/28/17 23:00 96 04/28/17 22:00 98 04/28/17 21:00 98 04/28/17 20:00 99 04/28/17 20:00 101.3 99 20 139/76 91 04/28/17 18:01 94 04/28/17 17:00 88 04/28/17 16:01 90 04/28/17 16:00 98.3 90 20 143/76 90 04/28/17 12:57 92 Nasal Cannula 3.00 I/O 04/28/17 04/28/17 04/28/17 04/29/17 04/29/17 04/29/17 07:00 15:00 23:00 07:00 15:00 23:00 Intake Total 340 ml 440 ml Output Total 400 ml 800 ml Balance -60 ml -360 ml Intake Oral 240 ml 240 ml IV Total 100 ml 200 ml Output Urine Total 400 ml 800 ml # Voids 5 1 2 # Bowel Movements 2 1 0 0 Physical Exam GENERAL: Well developed, well nourished. No acute distress. HEENT: Jugular venous pressure is normal. CHEST: Lungs clear to auscultation bilaterally. Unlabored respiratory effort. CARDIAC: Regular rate and rhythm without S3, S4, or murmur. ABDOMEN: Soft, nontender, no hepatosplenomegaly. Bowel sounds present. EXTREMITIES: No clubbing, cyanosis, or edema. Right wrist looks great no e/h Laboratory Laboratory Tests Test 04/28/17 04/29/17 17:17 05:28 Urine Color YELLOW Urine Turbidity CLEAR Urine pH 7.0 Urine Specific [place] 1.037 Urine Protein TRACE mg/dL Urine Glucose (UA) NEG mg/dL Urine Ketones NEG mg/dL Urine Occult Blood NEG Urine Nitrite NEG Urine Bilirubin NEG Urine Urobilinogen LESS THAN 2.0 MG/DL Urine Leukocyte Esterase SMALL Urine WBC 1 /hpf Urine Squamous Epithelial 5 /hpf Cells Microscopic Urinalysis Comment CULT NOT INDICATED White Blood Count 9.0 TH/MM3 Red Blood Count 3.87 MIL/MM3 Hemoglobin 9.9 GM/DL Hematocrit 30.7 % Mean Corpuscular Volume 79.3 FL Mean Corpuscular Hemoglobin 25.6 PG Mean Corpuscular Hemoglobin 32.3 % Concent Red Cell Distribution Width 16.7 % Platelet Count 215 TH/MM3 Mean Platelet Volume 8.3 FL Neutrophils (%) (Auto) 75.3 % Lymphocytes (%) (Auto) 12.2 % Monocytes (%) (Auto) 7.5 % Eosinophils (%) (Auto) 4.6 % Basophils (%) (Auto) 0.4 % Neutrophils # (Auto) 6.8 TH/MM3 Lymphocytes # (Auto) 1.1 TH/MM3 Monocytes # (Auto) 0.7 TH/MM3 Eosinophils # (Auto) 0.4 TH/MM3 Basophils # (Auto) 0.0 TH/MM3 CBC Comment DIFF FINAL Differential Comment Sodium Level 137 MEQ/L Potassium Level 3.2 MEQ/L Chloride Level 100 MEQ/L Carbon Dioxide Level 26.0 MEQ/L Anion Gap 11 MEQ/L Blood Urea Nitrogen 14 MG/DL Creatinine 0.64 MG/DL Estimat Glomerular Filtration 93 ML/MIN Rate Random Glucose 166 MG/DL Calcium Level 8.2 MG/DL Assessment and Plan Problem List: (1) NSTEMI (non-ST elevation myocardial infarction) Assessment and Plan: awaiting CABG next week -stable and asymptomatic currently, continue present meds (2) Anemia (3) GAVE (gastric antral vascular ectasia) (4) Hypertension (5) GI bleed (6) Hyperlipidemia Assessment and Plan: on statin, check lipids Problem Qualifiers (1) GI bleed: Qualified Code: K92.2 - Gastrointestinal hemorrhage, unspecified gastrointestinal hemorrhage type Kendy Gooden MD Apr 29, 2017 12:09
[2017-04-29 13:26] LABS: HDL CHOLESTEROL 24.1 MG/DL (40.0-60.0)
[2017-04-29] MEDS ORDERED: POTASSIUM CHLORIDE 10 MEQ CONTROLLED RELEASE TAB PO ONE (13:45)
[2017-04-29] MEDS: FERROUS SULFATE 325 MG (65 MG ELEMENTAL IRON) TAB PO SCH (20:58)
[2017-04-30] VITALS (24 sets, daily range): BP systolic 123–140; BP diastolic 70–78; PULSE 75–96; RESP 18–22; TEMP 98–99.1; O2SAT 91–96
[2017-04-30] MEDS: PIPERACIL-TAZO 4.5 GM PREMIX 100 ML IV SCH ×4 (04:20→22:38)
[2017-04-30] MEDS: INSULIN NovoLIN REGULAR SUPPLEMENTAL SCALE SQ SCH ×4 (06:32→20:18)
[2017-04-30] MEDS: ATORVASTATIN 40 MG TAB PO SCH (08:07)
[2017-04-30] MEDS: FERROUS SULFATE 325 MG (65 MG ELEMENTAL IRON) TAB PO SCH ×2 (08:07→20:12)
[2017-04-30] MEDS: PANTOPRAZOLE SOD 40 MG DELAYED RELEASE TAB PO SCH ×2 (08:07→20:15)
[2017-04-30] MEDS: LABETALOL HCL 100 MG TAB PO SCH ×2 (08:07→20:12)
[2017-04-30] MEDS: ASPIRIN EC 81 MG TABEC PO SCH (08:08)
[2017-04-30] MEDS: SODIUM CHLORIDE 0.9% FLUSH 10 ML FLUSH IV FLUSH SCH ×2 (08:10→20:12)
[2017-04-30] MEDS ORDERED: POTASSIUM CHLORIDE 20 MEQ PWD PACKET PO ONE (10:30)
[2017-04-30] MEDS ORDERED: POTASSIUM CHLORIDE 10 MEQ CONTROLLED RELEASE TAB PO ONE (10:30)
--- NOTE | 2017-04-30 10:31 | HHI.PR ---
Subjective Remarks Patient seen and examined this am. Continues to be SOB with ambulation, requiring 4 L by nasal canula. Denies feeling SOB sitting in chair or in bed. Tolerating diet. Denies CP or abdominal pain. Objective Vital Signs Date Time Temp Pulse Resp B/P Pulse Ox O2 Delivery O2 Flow Rate FiO2 04/30/17 10:00 78 04/30/17 09:00 85 04/30/17 08:14 91 04/30/17 07:57 92 Nasal Cannula 4.00 04/30/17 07:55 75 04/30/17 07:00 98.9 92 22 129/71 91 04/30/17 07:00 Nasal Cannula 4.00 04/30/17 05:00 83 04/30/17 04:00 85 04/30/17 04:00 98.1 85 20 140/78 92 04/30/17 04:00 Nasal Cannula 4.00 04/30/17 03:00 81 04/30/17 02:00 80 04/30/17 01:00 83 04/30/17 00:00 80 04/30/17 00:00 Nasal Cannula 4.00 04/30/17 00:00 98.0 80 20 137/72 91 04/29/17 23:00 83 04/29/17 22:00 80 04/29/17 21:00 82 04/29/17 20:50 93 Nasal Cannula 4.00 04/29/17 20:00 Nasal Cannula 4.00 04/29/17 20:00 97.8 79 20 137/72 93 04/29/17 20:00 79 04/29/17 18:14 87 04/29/17 17:03 83 04/29/17 16:12 84 04/29/17 15:31 88 04/29/17 15:31 98.8 88 20 124/70 94 04/29/17 14:02 80 04/29/17 13:03 85 04/29/17 12:00 82 04/29/17 11:02 98.0 81 22 135/72 94 04/29/17 11:02 81 04/29/17 10:29 79 I/O 04/29/17 04/29/17 04/29/17 04/30/17 04/30/17 04/30/17 07:00 15:00 23:00 07:00 15:00 23:00 Intake Total 440 ml 620 ml 440 ml Output Total 800 ml 800 ml Balance -360 ml 620 ml -360 ml Intake Oral 240 ml 620 ml 240 ml IV Total 200 ml 200 ml Output Urine Total 800 ml 800 ml # Voids 4 # Bowel Movements 0 1 0 Result Diagram: 04/29/17 0528 04/29/17 0528 Imaging Last 72 hours Impressions Lower Extremity Ultrasound 04/28/17 Signed Impressions: Service Date/Time: Friday, April 28, 2017 22:04 - CONCLUSION: Normal examination. Avel Kay MD Lower Extremity Ultrasound 04/28/17 Signed Impressions: Service Date/Time: Friday, April 28, 2017 21:55 - CONCLUSION: 1. Positive for deep venous thrombosis in the left posterior tibial vein. Right lower extremity negative for deep venous thrombosis. Avel Kay MD Carotid Artery Ultrasound 04/28/17 0000 Signed Impressions: Service Date/Time: Friday, April 28, 2017 21:40 - CONCLUSION: Moderate severity calcified plaque at the carotid bulbs bilaterally. No evidence of hemodynamically significant carotid stenosis by peak systolic velocity criteria. Lg Mitchell MD Objective Remarks GENERAL: well appearing, nad, poor dentition SKIN: Warm and dry. HEAD: Normocephalic. EYES: No scleral icterus. No injection or drainage. NECK: Supple, trachea midline. No JVD or lymphadenopathy. CARDIOVASCULAR: Regular rate and rhythm without murmurs, gallops, or rubs. RESPIRATORY: Breath sounds equal bilaterally. No accessory muscle use. GASTROINTESTINAL: Abdomen soft, non-tender, nondistended. MUSCULOSKELETAL: No cyanosis, or edema. No LE pain or swelling, no palpable cords. BACK: Nontender without obvious deformity. No CVA tenderness. A/P Problem List: (1) GI bleed ICD Code: K92.2 (2) GAVE (gastric antral vascular ectasia) ICD Code: K31.819 (3) NSTEMI (non-ST elevation myocardial infarction) ICD Code: I21.4 (4) Anemia ICD Code: D64.9 (5) DVT (deep venous thrombosis) ICD Code: I82.409 Assessment and Plan This is a 66-year-old female with history of GAVE syndrome who presented to [facility] complaining of worsening shortness of breath. The patient was found to have a hemoglobin of 7.9 on admission and was Hemoccult positive. The patient has history of gastric antral vascular ectasia syndrome and ACS workup was positive. NSTEMI: s/p heart cath on 04/28 showed three vessel disease. plan for CABAG next week. CT surgery and cardiology following. con't statin, ASA, and beta block. Cleared by GI for blood products. GI bleed with Symptomatic anemia: Patient has history of gastric antral vascular ectasia syndrome. Last endoscopy with cautery was about 2 years ago. Stool occult blood is positive. Gastroenterology following: Continue Protonix drip. S/P EGD w/ APC --> short segment Grubbs's distal esophagus, bleeding angioectasia in gastric antrum. Continue Protonix twice a day, continue to monitor H&H. Follow-up GI recommendations. Continue fe supplementation. Left Lower Extremity DVT: US ordered by CT surgery reveals left LE DVT. Will place consult to hematology to see what is the best way to manage and treat her DVT. Shortness of breath: persistent. PFTs are pending. No history of lung disease and she is not a smoker. Her lungs are clear to auscultation. Unclear etiology at this point. This was her primary complaint on admission, and per patient is unchanged. This is likely related to her heart disease but in [place] of DVT concern now is also for PE. - CTA to r/o PE Hypokalemia: Replaced, continue to monitor BMP. Acute hypoxemic respiratory failure with pulmonary edema: HX: "After receiving 2 units of packed red blood cells. Treated with IV diuretics and BiPAP. The patient was transferred to the intensive care unit where he was managed by the lehr attendant. The patient improved and then was taken off BiPAP and transferred out of the intensive care unit. His x-ray obtained on 04/25/17 shows resolving pulmonary edema and persistent patchy airspace disease." - Continue IV Zosyn 04/25 for possible pneumonia, leukocytosis is improving and the patient is without fevers Acute diastolic heart failure: Mildly dilated left ventricle with an EF of 55% . Grade 1 diastolic heart failure on heart cath. Hypertension: Seems to be stable. Monitor closely. Continue current antihypertensive medications. The patient is currently on labetalol 100 mg by mouth twice a day, losartan 100 mg by mouth at bedtime. GI prophylaxis: Patient on Protonix twice a day. DVT prophylaxis: Continue SCDs. No chemoprophylaxis given due to GI bleed. Discharge Planning d/c pending further workup, pre op and CABG tentatively scheduled for next Wed. Case discussed with nurse. Problem Qualifiers (1) GI bleed: Qualified Code: K92.2 - Gastrointestinal hemorrhage, unspecified gastrointestinal hemorrhage type Roxane Villarreal MD R3 Apr 30, 2017 10:31
[2017-04-30 11:37] LABS: AUTOMATED NEUTROPHIL # 9.6 TH/MM3 (1.8-7.7); BASOPHIL # 0.1 TH/MM3 (0-0.2); BASOPHIL % 0.4 % (0.0-2.0); EOSINOPHIL # 0.3 TH/MM3 (0-0.4); EOSINOPHIL % 2.5 % (0.0-4.0); HEMATOCRIT 34.2 % (35.0-46.0); HEMO FLAGS DIFF FINAL; LYMPH % 8.7 % (9.0-44.0); MEAN CELL VOLUME 80.1 FL (80.0-100.0); MEAN CORPUSCULAR HEMOGLOBIN 25.1 PG (27.0-34.0); MEAN CORPUSCULAR HGB CONC 31.3 % (32.0-36.0); MONO % 6.7 % (0.0-8.0); NEUT % 81.7 % (16.0-70.0); PLATELET COUNT 270 TH/MM3 (150-450); RED BLOOD COUNT 4.27 MIL/MM3 (4.00-5.30); RED CELL DISTRIBUTION WIDTH 16.7 % (11.6-17.2); WHITE BLOOD COUNT 11.8 TH/MM3 (4.0-11.0)
[2017-04-30 12:05] LABS: ANION GAP 12 MEQ/L (5-15); BICARBONATE 23.7 MEQ/L (21.0-32.0); BLOOD UREA NITROGEN 11 MG/DL (7-18); CHLORIDE 98 MEQ/L (98-107); GLOMERULAR FILTRATION RATE 91 ML/MIN (>89); POTASSIUM 3.3 MEQ/L (3.5-5.1); SODIUM (NA) 134 MEQ/L (136-145)
[2017-04-30] MEDS ORDERED: IOHEXOL 350 MG/ML 10 ML VIAL (for RAD DIAG) IV ONE (13:52)
--- NOTE | 2017-04-30 14:14 | RADRPT ---
EXAM DATE/TIME: 04/30/2017 13:41 [place] COMPARISON: CHEST SINGLE AP, April 25, 2017, 7:23. INDICATIONS : Shortness of breath for one week. IV CONTRAST: 70 cc Omnipaque 350 (iohexol) IV RADIATION DOSE: 14.41 CTDIvol (mGy) MEDICAL HISTORY : Hypertension. Gastroesophageal reflux disease. SURGICAL HISTORY : spinal surgery ENCOUNTER: Initial ACUITY: 1 day PAIN SCALE: 0/10 LOCATION: Bilateral chest TECHNIQUE: Volumetric scanning of the chest was performed using a pulmonary embolism protocol MIP images were re constructed. Using automated exposure control and adjustment of the mA and/or kV according to patien t size, radiation dose was kept as low as reasonably achievable to obtain optimal diagnostic quality images. FINDINGS: Examination is abnormal. There are intraluminal filling defects involving multiple distal segmental a nd subsegmental branches of the right lower and left lower lobe pulmonary arteries. Overall thrombus burden is mild to moderate. Main renal artery is normal in caliber and there is no evidence for right heart strain by CT. Diffuse lower lobe predominant groundglass opacities consistent with previous ra diographs like reflecting overt edema. There is trace left-sided pleural effusion. Dense coronary art kamilah cavitations are noted no significant pericardial effusion. Mild mediastinal and bilateral hilar n odes are likely reactive. Visualized upper abdomen is grossly unremarkable. No abnormal focal lytic or blastic bony lesions. . CONCLUSION: 1. Abnormal examination demonstrating emboli in the distal segmental and subsegmental lower lobe pulm onary artery branches bilaterally. Overall thrombus burden is [id number]. There is no right hea rt strain or pulmonary artery enlargement at this time. 2. Diffuse patchy bilateral lower lobe predominant groundglass opacities consistent with pulmonary ed dinora. However, differential considerations include atypical/diffuse infection versus developing ARDS i n the appropriate clinical setting. 3. Dense coronary artery calcifications. Juan Kennedy MD on April 30, 2017 at 14:01 Board Certified Radiologist. This report was verified electronically.
--- NOTE | 2017-04-30 16:53 | MB ---
cc: ARNOLDBREN DATE OF CONSULTATION: 04/30/2017. 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 PATIENT PROFILE: The patient is a 66-year white female. She is . She has no children. She lives alone except for her dog. She was born in [place], [place] and has lived in [place] since 1995. 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 She has a part-time job at [employer]. She does not smoke and does not drink. HISTORY OF PRESENT ILLNESS: The patient is a 66-year-old female who developed shortness of breath which was progressive over approximately two weeks. She was initially treated with an antibiotic for what was presumed to be a respiratory tract infection. Her shortness of breath worsened and she went to the emergency room at [facility] where she was admitted on 04/24 2017. She underwent routine laboratory studies. She was found have a hemoglobin of 7.9, white count 10,800 and platelets of 352,000 with a normal differential. She was given 2 units of packed cells. She has a previous history of GI bleeding. 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 She has angiodysplasia involving the stomach. On 04/25/2017, she had upper endoscopy. She was found to have bleeding due to angioectasia in the gastric antrum. She had APC of the vascular ectasia in the stomach. She subsequently underwent cardiac catheterization and was found to have severe coronary artery disease and it was anticipated that in about three days she is to undergo bypass surgery. She was not given any anticoagulants because of her recent GI bleeding. She has continued to have shortness of breath and today, 04/30/2017, she had a CT angiogram showing emboli in the distal segmental and subsegmental lower lobe pulmonary artery branches bilateral. Overall thrombus burden is mild to moderate. There was no right heart strain. I am called to see the patient for the above reason. On looking at her CBC and platelet counts, they have been quite stable since her original transfusions. Hemoglobin is 10.7, white count 11,800 and platelets 270,000. She is not aware when she is having GI bleeding. She has had to previous cauterizations of the stomach which apparently have lasted for several years, one approximately 2 years ago and other approximately 4 years ago. PAST SURGICAL HISTORY: 1. Deviated septum. 2. Cervical disk disease. 3. Basal cell cancer. PAST MEDICAL HISTORY: 1. Watermelon stomach which involves vascular ectasia, other name GAVE disease with most recent cauterization by Dr. Le on 04/25/2017. 2. Severe coronary artery disease. 3. Hypertension. 4. Recent congestive heart failure. 5. NSTEMI myocardial infarction. 6. Anemia secondary to GI bleeding. CURRENT MEDICATIONS: 1. Iron sulfate 325 p.o. twice a day . 2. Piperacillin /tazobactam. 3. Trandate. 4. Lipitor. 5. Protonix. ALLERGIES: 1. AMOXICILLIN. 2. DILAUDID. 3. SULFA. FAMILY HISTORY: Mother age 85 of cardiac disease. Father age 82. The patient has a sister and a brother who are well. REVIEW OF SYSTEMS: Her health as been excellent until the current event. No change in vision or hearing. No chest pain but shortness of breath over the past two weeks. No abdominal or pelvic pain. She is not aware that she has had melena. Her stools have been dark partly because of oral iron. : No dysuria, frequency. MUSCULOSKELETAL: Mild arthritic pains. NEUROLOGIC: No focal weakness. PHYSICAL EXAMINATION: GENERAL: Physical exam reveals a pleasant female. She is on nasal cannula. She is mildly short of breath on minimal activity. VITAL SIGNS: Blood pressure 120/70, respiratory rate 20, she is afebrile. O2 sat 96%. HEAD, EYES, EARS, NOSE, THROAT: Head is normocephalic. The sclerae and conjunctivae are unremarkable. Oropharynx unremarkable. LYMPHATIC: There is no cervical, supraclavicular, axillary or inguinal adenopathy. BREASTS: Without masses. HEART: Regular rhythm. LUNGS: Clear. ABDOMEN: Abdomen without hepatosplenomegaly. EXTREMITIES: Trace edema. MUSCULOSKELETAL: No bone pain. NEUROLOGIC: No weakness. RECTAL: Stool brown and heme-positive. ADDITIONAL TESTS: Ultrasound of the lower extremities bilaterally on 04/28 positive for DVT involving the left posterior tibial vein, right lower extremity is negative. CT angiogram is indicated above and shows pulmonary emboli. ASSESSMENT: 1. The patient is a 66-year-old female. She has severe coronary artery disease and is in need of bypass surgery. She has pulmonary emboli. She had a recent GI bleed secondary to vascular ectasia in the stomach but did undergo a successful cauterization. She has limited options. One option is anticoagulation and the other option is to place an umbrella. I contacted Dr. Deleon, who is the sales engineering manager supervisor purification. He reviewed the upper endoscopy findings and what was done and feels that it would be very reasonable to anticoagulate her with heparin by continuous infusion. If she has bleeding and this is not successful, the heparin can be discontinued. It will take only several hours for the effect of the heparin to resolve. If there is significant bleeding, then an umbrella will be placed and she will not receive heparin PLAN: 1. Continuous IV heparin. 2. Daily CBC and platelet count. 3. In the future if there is not significant bleeding, she can go on an oral anticoagulant such as apixaban. 4. If there is significant bleeding and heparin is stopped, an umbrella will be placed. 5. I have ordered iron studies. She is on oral iron and I am not sure they will be accurate. When she came in, her MCV was 81. I may give her some IV iron, but will not do this today. The risks of anticoagulation were discussed with the patient. She understands there is a risk of bleeding. She also understands that if one places an IVC filter, it may well protect the lungs but the risk of thrombosis in the lower extremities will be increased because of the resistance that the umbrella places. MD LALITHA Michaels/JAZMÍN /4:21 PM /4:40 PM KWAME
--- NOTE | 2017-04-30 17:03 | HHI.GIFU ---
Subjective Remarks Patient comfortable in bed denies any pain denies any active bleeding she does use chronically iron supplements and so she sees black stools but not tarry she' s never experienced any obvious GI bleed in the past although she's had this diagnosis of watermelon stomach for a couple of years now and apart from the anemia there has been no obvious GI bleed Objective Vitals I&O Vital Signs Date Time Temp Pulse Resp B/P Pulse Ox O2 Delivery O2 Flow Rate FiO2 04/30/17 16:03 85 04/30/17 15:50 87 04/30/17 15:36 98.3 89 20 125/72 96 04/30/17 12:24 85 04/30/17 11:00 99.1 85 18 123/70 92 04/30/17 11:00 82 04/30/17 10:00 78 04/30/17 09:00 85 04/30/17 08:14 91 04/30/17 07:57 92 Nasal Cannula 4.00 04/30/17 07:55 75 04/30/17 07:00 98.9 92 22 129/71 91 04/30/17 07:00 Nasal Cannula 4.00 04/30/17 05:00 83 04/30/17 04:00 85 04/30/17 04:00 98.1 85 20 140/78 92 04/30/17 04:00 Nasal Cannula 4.00 04/30/17 03:00 81 04/30/17 02:00 80 04/30/17 01:00 83 04/30/17 00:00 80 04/30/17 00:00 Nasal Cannula 4.00 04/30/17 00:00 98.0 80 20 137/72 91 04/29/17 23:00 83 04/29/17 22:00 80 04/29/17 21:00 82 04/29/17 20:50 93 Nasal Cannula 4.00 04/29/17 20:00 Nasal Cannula 4.00 04/29/17 20:00 97.8 79 20 137/72 93 04/29/17 20:00 79 04/29/17 18:14 87 04/29/17 17:03 83 I/O 04/29/17 04/29/17 04/29/17 04/30/17 04/30/17 04/30/17 07:00 15:00 23:00 07:00 15:00 23:00 Intake Total 440 ml 620 ml 440 ml Output Total 800 ml 800 ml Balance -360 ml 620 ml -360 ml Intake Oral 240 ml 620 ml 240 ml IV Total 200 ml 200 ml Output Urine Total 800 ml 800 ml # Voids 4 # Bowel Movements 0 1 0 Laboratory Laboratory Tests Test 04/30/17 10:57 White Blood Count 11.8 Red Blood Count 4.27 Hemoglobin 10.7 Hematocrit 34.2 Mean Corpuscular Volume 80.1 Mean Corpuscular Hemoglobin 25.1 Mean Corpuscular Hemoglobin 31.3 Concent Red Cell Distribution Width 16.7 Platelet Count 270 Mean Platelet Volume 8.4 Neutrophils (%) (Auto) 81.7 Lymphocytes (%) (Auto) 8.7 Monocytes (%) (Auto) 6.7 Eosinophils (%) (Auto) 2.5 Basophils (%) (Auto) 0.4 Neutrophils # (Auto) 9.6 Lymphocytes # (Auto) 1.0 Monocytes # (Auto) 0.8 Eosinophils # (Auto) 0.3 Basophils # (Auto) 0.1 CBC Comment DIFF FINAL Differential Comment Sodium Level 134 Potassium Level 3.3 Chloride Level 98 Carbon Dioxide Level 23.7 Anion Gap 12 Blood Urea Nitrogen 11 Creatinine 0.65 Estimat Glomerular Filtration 91 Rate Random Glucose 186 Calcium Level 8.9 Imaging Last [address] Angiography 04/30/17 1031 Signed Impressions: Service Date/Time: Sunday, April 30, 2017 13:41 - CONCLUSION: 1. Abnormal examination demonstrating emboli in the distal segmental and subsegmental lower lobe pulmonary artery branches bilaterally. Overall thrombus burden is lflu-or-abbchsxa. There is no right heart strain or pulmonary artery enlargement at this time. 2. Diffuse patchy bilateral lower lobe predominant groundglass opacities consistent with pulmonary edema. However, differential considerations include atypical/diffuse infection versus developing ARDS in the appropriate clinical setting. 3. Dense coronary artery calcifications. Juan Kennedy MD Physical Exam HEENT: EOMI; normocephalic; atraumatic; no jaundice. CHEST: CTA CARDIAC: RRR ABDOMEN: Soft, nondistended, nontender; no hepatosplenomegaly; bowel sounds are present in all four quadrants. EXTREMITIES: No clubbing, cyanosis, or edema. SKIN: Normal; no rash; no jaundice. MECHANICAL OPERATOR: No focal deficits; alert and oriented times three. Assessment and Plan Plan ASSESSMENT - anemia - 7.4 on admission, s/p 2 x PRBC heme pos stool, hx GAVE. S/P EGD w/ APC --> short segment Grubbs's distal esophagus, bleedign angioectasia bastric antrum. Status post cautery Pulmonary embolism PLAN - protonix PO BID 40mg - heart healthy diet - monitor HH - transfuse prn -I discussed the case with Dr. Tellez and the patient there has been no prior history of any major bleed the pictures of the endoscopy did not reveal any extensive watermelon changes and this was cauterized and at this point the risk of bleeding from watermelon stomach would be minimal I would agree to starting short acting anticoagulant such as heparin this is easily reversible if need be and if she is able to tolerate it then I would say may graduate to a longer acting anticoagulant Patient was made aware of things to look for as far as anemia or bleeding Further recommendations shall depend on her hospital course Brijesh Deleon MD Apr 30, 2017 17:03
[2017-04-30 17:07] LABS: HEMATOCRIT 32.6 % (35.0-46.0); MEAN CORPUSCULAR HEMOGLOBIN 25.6 PG (27.0-34.0); MEAN CORPUSCULAR HGB CONC 32.4 % (32.0-36.0); PLATELET COUNT 303 TH/MM3 (150-450); RED BLOOD COUNT 4.13 MIL/MM3 (4.00-5.30); RED CELL DISTRIBUTION WIDTH 16.6 % (11.6-17.2); REVIEW FLAG FINAL
[2017-04-30 17:17] LABS: APTT (PATIENT) 24.8 SEC (24.3-30.1); INTERNATIONAL NORMALIZED RATIO 1.1 RATIO; PROTHROMBIN TIME - PATIENT 12.7 SEC (9.8-11.6)
[2017-04-30] MEDS: HEPARIN-D5W INJ 250 ML IV SCH (17:19)
[2017-04-30 17:34] LABS: FERRITIN 574 NG/ML (8-252); TRANSFERRIN IRON PROFILE 224 MG/DL (200-360)
[2017-05-01] VITALS (23 sets, daily range): BP systolic 126–144; BP diastolic 60–75; PULSE 75–93; RESP 18–20; TEMP 98.1–100; O2SAT 92–96
[2017-05-01 00:39] LABS: APTT (PATIENT) 32.8 SEC (24.3-30.1)
[2017-05-01] MEDS: PIPERACIL-TAZO 4.5 GM PREMIX 100 ML IV SCH ×4 (05:19→21:49)
[2017-05-01] MEDS: INSULIN NovoLIN REGULAR SUPPLEMENTAL SCALE SQ SCH ×4 (06:01→21:00)
[2017-05-01 06:16] LABS: HEMATOCRIT 30.9 % (35.0-46.0); MEAN CELL VOLUME 79.2 FL (80.0-100.0); MEAN CORPUSCULAR HGB CONC 31.5 % (32.0-36.0); PLATELET COUNT 285 TH/MM3 (150-450); RED CELL DISTRIBUTION WIDTH 16.5 % (11.6-17.2); REVIEW FLAG FINAL; WHITE BLOOD COUNT 9.3 TH/MM3 (4.0-11.0)
[2017-05-01 06:21] LABS: APTT (PATIENT) 39.5 SEC (24.3-30.1)
--- NOTE | 2017-05-01 07:58 | PD.CARD.PN ---
Subjective Subjective Remarks no CV complaints (Chun Arteaga) Objective Vital Signs / I&O Vital Signs Date Time Temp Pulse Resp B/P Pulse Ox O2 Delivery O2 Flow Rate FiO2 05/01/17 06:00 75 05/01/17 05:00 80 05/01/17 04:00 79 05/01/17 04:00 100.0 79 18 135/73 96 05/01/17 04:00 Nasal Cannula 4.00 05/01/17 03:00 84 05/01/17 02:00 77 05/01/17 01:00 90 05/01/17 00:00 98.4 84 20 140/75 93 05/01/17 00:00 82 04/30/17 23:00 79 04/30/17 22:00 77 04/30/17 21:00 80 04/30/17 20:15 96 Nasal Cannula 4.00 04/30/17 20:00 98.1 82 20 133/72 95 04/30/17 20:00 Nasal Cannula 4.00 04/30/17 20:00 84 04/30/17 18:08 87 04/30/17 17:08 96 04/30/17 16:03 85 04/30/17 15:50 87 04/30/17 15:36 98.3 89 20 125/72 96 04/30/17 12:24 85 04/30/17 11:00 99.1 85 18 123/70 92 04/30/17 11:00 82 04/30/17 10:00 78 04/30/17 09:00 85 04/30/17 08:14 91 04/30/17 07:57 92 Nasal Cannula 4.00 I/O 04/30/17 04/30/17 04/30/17 05/01/17 05/01/17 05/01/17 07:00 15:00 23:00 07:00 15:00 23:00 Intake Total 440 ml 620 ml 540 ml Output Total 800 ml 650 ml 800 ml Balance -360 ml -30 ml -260 ml Intake Oral 240 ml 620 ml 240 ml IV Total 200 ml 300 ml Output Urine Total 800 ml 650 ml 800 ml # Voids 3 # Bowel Movements 0 1 0 Physical Exam GENERAL: Well-nourished, well-developed patient in no apparent distress. NECK: No JVD. No carotid bruit. CARDIOVASCULAR: Regular rate and rhythm. S1/S2 no murmur, rub, or gallop. RESPIRATORY: No accessory muscle use. Clear to auscultation. Breath sounds equal bilaterally. GASTROINTESTINAL: Abdomen soft, non-tender, nondistended. MUSCULOSKELETAL: Extremities without clubbing, cyanosis, or edema. Laboratory Laboratory Tests Test 04/30/17 04/30/17 04/30/17 05/01/17 10:57 17:00 23:58 05:37 White Blood Count 11.8 TH/MM3 11.0 TH/MM3 9.3 TH/MM3 Red Blood Count 4.27 MIL/MM3 4.13 MIL/MM3 3.90 MIL/MM3 Hemoglobin 10.7 GM/DL 10.6 GM/DL 9.7 GM/DL Hematocrit 34.2 % 32.6 % 30.9 % Mean Corpuscular Volume 80.1 FL 79.0 FL 79.2 FL Mean Corpuscular Hemoglobin 25.1 PG 25.6 PG 25.0 PG Mean Corpuscular Hemoglobin 31.3 % 32.4 % 31.5 % Concent Red Cell Distribution Width 16.7 % 16.6 % 16.5 % Platelet Count 270 TH/MM3 303 TH/MM3 285 TH/MM3 Mean Platelet Volume 8.4 FL 7.9 FL 8.5 FL Neutrophils (%) (Auto) 81.7 % Lymphocytes (%) (Auto) 8.7 % Monocytes (%) (Auto) 6.7 % Eosinophils (%) (Auto) 2.5 % Basophils (%) (Auto) 0.4 % Neutrophils # (Auto) 9.6 TH/MM3 Lymphocytes # (Auto) 1.0 TH/MM3 Monocytes # (Auto) 0.8 TH/MM3 Eosinophils # (Auto) 0.3 TH/MM3 Basophils # (Auto) 0.1 TH/MM3 CBC Comment DIFF FINAL Differential Comment Sodium Level 134 MEQ/L Potassium Level 3.3 MEQ/L Chloride Level 98 MEQ/L Carbon Dioxide Level 23.7 MEQ/L Anion Gap 12 MEQ/L Blood Urea Nitrogen 11 MG/DL Creatinine 0.65 MG/DL Estimat Glomerular Filtration 91 ML/MIN Rate Random Glucose 186 MG/DL Calcium Level 8.9 MG/DL Prothrombin Time 12.7 SEC Prothromb Time International 1.1 RATIO Ratio Activated Partial 24.8 SEC 32.8 SEC 39.5 SEC Thromboplast Time Iron Level 24 MCG/DL Total Iron Binding Capacity 314 MCG/DL Percent Iron Saturation 7.7 % Ferritin 574 NG/ML Test 05/01/17 05:43 Blood Type A NEGATIVE Antibody Screen NEGATIVE Crossmatch Leukocyte-Reduced Red Blood Cells Blood Bank Comment (Chun Arteaga) Assessment and Plan Problem List: (1) NSTEMI (non-ST elevation myocardial infarction) (2) Anemia (3) GAVE (gastric antral vascular ectasia) (4) Hypertension (5) GI bleed (6) Hyperlipidemia Assessment and Plan She is now waiting on CABG. With her PE she is contiuing on heparin for now. Continue present medical regimen (Chun Arteaga) Assessment and Plan agree with above NSTEMI - 3 Vz CAD. For CABG in near future. Dr Franco following Dyspnea - + pulmonary emboli. Heparin gtt. monitor for bleeding. If necessary , I will place IVC filter, but lets see how she tolerates anticoagulation. GI bleed - anemia stable. no further bleeding (Bhaskar Hernandez MD) Problem Qualifiers (1) GI bleed: Qualified Code: K92.2 - Gastrointestinal hemorrhage, unspecified gastrointestinal hemorrhage type Chun Arteaga May 01, 2017 07:58 Bhaskar Hernandez MD May 01, 2017 08:06
[2017-05-01] MEDS: FERROUS SULFATE 325 MG (65 MG ELEMENTAL IRON) TAB PO SCH ×2 (09:16→21:19)
[2017-05-01] MEDS: ASPIRIN EC 81 MG TABEC PO SCH (09:16)
[2017-05-01] MEDS: PANTOPRAZOLE SOD 40 MG DELAYED RELEASE TAB PO SCH ×2 (09:17→21:19)
[2017-05-01] MEDS: ATORVASTATIN 40 MG TAB PO SCH (09:17)
[2017-05-01] MEDS: LABETALOL HCL 100 MG TAB PO SCH ×2 (09:17→21:19)
[2017-05-01] MEDS: SODIUM CHLORIDE 0.9% FLUSH 10 ML FLUSH IV FLUSH SCH ×2 (09:17→21:20)
[2017-05-01] MEDS: HEPARIN-D5W INJ 250 ML IV SCH (10:11)
--- NOTE | 2017-05-01 10:51 | PD.ONC.PN ---
Subjective Subjective Remarks Afebrile overnight. Patient resting in bed in nad. Denies pain at present. Tolerating heparin drip. Objective Data Date Time Temp Pulse Resp B/P Pulse Ox O2 Delivery O2 Flow Rate FiO2 05/01/17 10:21 76 05/01/17 09:27 78 05/01/17 08:19 85 05/01/17 07:14 86 05/01/17 07:14 92 Nasal Cannula 4.00 05/01/17 07:14 98.8 85 18 131/70 92 05/01/17 06:00 75 05/01/17 05:00 80 05/01/17 04:00 79 05/01/17 04:00 100.0 79 18 135/73 96 05/01/17 04:00 Nasal Cannula 4.00 05/01/17 03:00 84 05/01/17 02:00 77 05/01/17 01:00 90 05/01/17 00:00 98.4 84 20 140/75 93 05/01/17 00:00 82 04/30/17 23:00 79 04/30/17 22:00 77 04/30/17 21:00 80 04/30/17 20:15 96 Nasal Cannula 4.00 04/30/17 20:00 98.1 82 20 133/72 95 04/30/17 20:00 Nasal Cannula 4.00 04/30/17 20:00 84 04/30/17 18:08 87 04/30/17 17:08 96 04/30/17 16:03 85 04/30/17 15:50 87 04/30/17 15:36 98.3 89 20 125/72 96 04/30/17 12:24 85 04/30/17 11:00 99.1 85 18 123/70 92 04/30/17 11:00 82 05/01/17 05/01/17 05/01/17 07:00 15:00 23:00 Intake Total 540 ml Output Total 800 ml Balance -260 ml Result Diagram: 05/01/17 0537 04/30/17 1057 Laboratory Results Laboratory Tests Test 04/30/17 04/30/17 04/30/17 05/01/17 10:57 17:00 23:58 05:37 White Blood Count 11.8 TH/MM3 11.0 TH/MM3 9.3 TH/MM3 Red Blood Count 4.27 MIL/MM3 4.13 MIL/MM3 3.90 MIL/MM3 Hemoglobin 10.7 GM/DL 10.6 GM/DL 9.7 GM/DL Hematocrit 34.2 % 32.6 % 30.9 % Mean Corpuscular Volume 80.1 FL 79.0 FL 79.2 FL Mean Corpuscular Hemoglobin 25.1 PG 25.6 PG 25.0 PG Mean Corpuscular Hemoglobin 31.3 % 32.4 % 31.5 % Concent Red Cell Distribution Width 16.7 % 16.6 % 16.5 % Platelet Count 270 TH/MM3 303 TH/MM3 285 TH/MM3 Mean Platelet Volume 8.4 FL 7.9 FL 8.5 FL Neutrophils (%) (Auto) 81.7 % Lymphocytes (%) (Auto) 8.7 % Monocytes (%) (Auto) 6.7 % Eosinophils (%) (Auto) 2.5 % Basophils (%) (Auto) 0.4 % Neutrophils # (Auto) 9.6 TH/MM3 Lymphocytes # (Auto) 1.0 TH/MM3 Monocytes # (Auto) 0.8 TH/MM3 Eosinophils # (Auto) 0.3 TH/MM3 Basophils # (Auto) 0.1 TH/MM3 CBC Comment DIFF FINAL Differential Comment Sodium Level 134 MEQ/L Potassium Level 3.3 MEQ/L Chloride Level 98 MEQ/L Carbon Dioxide Level 23.7 MEQ/L Anion Gap 12 MEQ/L Blood Urea Nitrogen 11 MG/DL Creatinine 0.65 MG/DL Estimat Glomerular Filtration 91 ML/MIN Rate Random Glucose 186 MG/DL Calcium Level 8.9 MG/DL Prothrombin Time 12.7 SEC Prothromb Time International 1.1 RATIO Ratio Activated Partial 24.8 SEC 32.8 SEC 39.5 SEC Thromboplast Time Iron Level 24 MCG/DL Total Iron Binding Capacity 314 MCG/DL Percent Iron Saturation 7.7 % Ferritin 574 NG/ML Test 05/01/17 05:43 Blood Type A NEGATIVE Antibody Screen NEGATIVE Crossmatch Leukocyte-Reduced Red Blood Cells Blood Bank Comment Administered Medications Medications (Trade) Dose Ordered Sig/Adilia Route PRN Reason Start Time Stop Time Status Last Admin Dose Admin Acetaminophen (Tylenol) 650 mg Q4H PRN PO TEMP > 100.4 04/24/17 12:00 04/28/17 21:16 Labetalol HCl (Trandate) 100 mg BID PO 04/24/17 21:00 05/01/17 09:17 Atorvastatin Calcium 40 mg 40 mg DAILY PO 04/25/17 09:00 05/01/17 09:17 Piperacillin Sod/ Tazobactam Sod (Zosyn 4.5 Gm Premix) 100 ml @ 200 mls/hr Q6H IV 04/25/17 11:00 05/01/17 05:19 Pantoprazole Sodium (Protonix) 40 mg Q12HR PO 04/26/17 21:00 05/01/17 09:17 Aspirin (Ecotrin Ec) 81 mg DAILY PO 04/27/17 11:00 05/01/17 09:16 Sodium Chloride (NS Flush) 2 ml BID IV FLUSH 04/28/17 21:00 05/01/17 09:17 Ferrous Sulfate 325 mg 325 mg BID PO 04/29/17 21:00 05/01/17 09:16 Heparin Sodium/ Dextrose (Heparin-D5W Inj) 250 ml @ 0 mls/hr TITRATE IV 04/30/17 16:00 05/01/17 10:11 Objective Remarks GENERAL: Middle aged female, sitting up in bed in [facility]. SKIN: Warm and dry. HEAD: Normocephalic. EYES: No injection or drainage. NECK: Supple, trachea midline. CARDIOVASCULAR: Regular rate and rhythm RESPIRATORY: Breath sounds equal bilaterally. No accessory muscle use. GASTROINTESTINAL: Abdomen soft, non-tender, nondistended. EXTREMITIES: No cyanosis NEUROLOGICAL: awake and alert, normal speech. Assessment/Plan Assessment 66y/o female with CAD, PE, GIB Plan 1. iron studies somewhat mixed picture--her ferritin is significantly elevated, but iron and percent saturation are low. She told me she received IV iron with her principal java developer in March. For now will not give any further IV iron. will follow along. continue oral ferrous sulfate. 2. continue IV heparin. 3. monitor for bleeding. Malia Gibbs May 01, 2017 10:51 Adal Tellez MD May 02, 2017 20:30
[2017-05-01 12:58] LABS: APTT (PATIENT) 36.5 SEC (24.3-30.1)
--- NOTE | 2017-05-01 13:03 | HHI.PR ---
Subjective Remarks This is a pleasant 66 y/o Female with Gastric Antral Vascular Ectasia syndrome, who came with SOB, She went to urgent care on 04/21/17 and was diagnosed with bronchitis. She was given prescription for ciprofloxacin and benzonatate. She was also given albuterol, stopped using it because of tachycardia. In the morning prior to admission she was at work and became significantly short of breath. She contacted her PCP, who recommended that she go to the ER. She denied chest pain, but does report a pressure sensation throughout her chest. Her hemoglobin was borderline at the level of 7.9, and due to her history of gave syndrome she was transfused with 2 units of PRBCs. Her shortness of breath became worse and she was transferred to ICU in respiratory distress, her chest x-ray showed worsening pulmonary vascular congestion. found with increased Cardiac enzymes, with diagnosis of NSTEMI had initially EGD then cleared by GI for Cardiac catheterization, found three vessel coronary artery disease, awaiting for CABG on 05/03/17, has Pulmonary Emboli on Heparin drip. Seen in her bedroom stable but has Shortness of breath, tachycardia, no nausea, vomit or diarrhea. Objective Vital Signs Date Time Temp Pulse Resp B/P Pulse Ox O2 Delivery O2 Flow Rate FiO2 05/01/17 12:12 76 05/01/17 11:26 98.1 80 18 126/74 96 05/01/17 11:26 76 05/01/17 10:21 76 05/01/17 09:27 78 05/01/17 08:19 85 05/01/17 07:14 86 05/01/17 07:14 92 Nasal Cannula 4.00 05/01/17 07:14 98.8 85 18 131/70 92 05/01/17 06:00 75 05/01/17 05:00 80 05/01/17 04:00 79 05/01/17 04:00 100.0 79 18 135/73 96 05/01/17 04:00 Nasal Cannula 4.00 05/01/17 03:00 84 05/01/17 02:00 77 05/01/17 01:00 90 05/01/17 00:00 98.4 84 20 140/75 93 05/01/17 00:00 82 04/30/17 23:00 79 04/30/17 22:00 77 04/30/17 21:00 80 04/30/17 20:15 96 Nasal Cannula 4.00 04/30/17 20:00 98.1 82 20 133/72 95 04/30/17 20:00 Nasal Cannula 4.00 04/30/17 20:00 84 04/30/17 18:08 87 04/30/17 17:08 96 04/30/17 16:03 85 04/30/17 15:50 87 04/30/17 15:36 98.3 89 20 125/72 96 I/O 04/30/17 04/30/17 04/30/17 05/01/17 05/01/17 05/01/17 06:59 14:59 22:59 06:59 14:59 22:59 Intake Total 440 ml 620 ml 540 ml Output Total 800 ml 650 ml 800 ml Balance -360 ml -30 ml -260 ml Intake Oral 240 ml 620 ml 240 ml IV Total 200 ml 300 ml Output Urine Total 800 ml 650 ml 800 ml # Voids 3 # Bowel Movements 0 1 0 Result Diagram: 05/01/17 0537 04/30/17 [address] Angiography 04/30/17 1031 Signed Impressions: Service Date/Time: Sunday, April 30, 2017 13:41 - CONCLUSION: 1. Abnormal examination demonstrating emboli in the distal segmental and subsegmental lower lobe pulmonary artery branches bilaterally. Overall thrombus burden is [id number]. There is no right heart strain or pulmonary artery enlargement at this time. 2. Diffuse patchy bilateral lower lobe predominant groundglass opacities consistent with pulmonary edema. However, differential considerations include atypical/diffuse infection versus developing ARDS in the appropriate clinical setting. 3. Dense coronary artery calcifications. Juan Kennedy MD Lower Extremity Ultrasound 04/28/17 0000 Signed Impressions: Service Date/Time: Friday, April 28, 2017 22:04 - CONCLUSION: Normal examination. Avel Kay MD Carotid Artery Ultrasound 04/28/17 0000 Signed Impressions: Service Date/Time: Friday, April 28, 2017 21:40 - CONCLUSION: Moderate severity calcified plaque at the carotid bulbs bilaterally. No evidence of hemodynamically significant carotid stenosis by peak systolic velocity criteria. Lg Mitchell MD Chest X-Ray 04/25/17 0000 Signed Impressions: Service Date/Time: Tuesday, April 25, 2017 07:23 - CONCLUSION: Resolving pulmonary edema. Patchy airspace disease remains evident bilaterally Con Rodriguez MD Procedures EGD Cardiac Cath Other Results Laboratory Tests Test 04/27/17 04/28/17 04/28/17 04/29/17 08:35 08:20 17:17 05:28 Phosphorus Level 3.0 MG/DL Magnesium Level 2.0 MG/DL Total Bilirubin 1.0 MG/DL Aspartate Amino Transf 36 U/L (AST/SGOT) Alanine Aminotransferase 17 U/L (ALT/SGPT) Alkaline Phosphatase 63 U/L Total Protein 6.6 GM/DL Albumin 2.9 GM/DL Stool C. difficile Toxin (PCR) NEGATIVE Stl C. difficile Toxin PRESUMPTIVE Epiderm 027 NEGATIVE Urine Color YELLOW Urine Turbidity CLEAR Urine pH 7.0 Urine Specific [place] 1.037 Urine Protein TRACE mg/dL Urine Glucose (UA) NEG mg/dL Urine Ketones NEG mg/dL Urine Occult Blood NEG Urine Nitrite NEG Urine Bilirubin NEG Urine Urobilinogen LESS THAN 2.0 MG/DL Urine Leukocyte Esterase SMALL Urine WBC 1 /hpf Urine Squamous Epithelial 5 /hpf Cells Microscopic Urinalysis Comment CULT NOT INDICATED Triglycerides Level 130 MG/DL Cholesterol Level 130 MG/DL LDL Cholesterol 80 MG/DL HDL Cholesterol 24.1 MG/DL Cholesterol/HDL Ratio 5.39 RATIO Test 04/30/17 04/30/17 05/01/17 05/01/17 10:57 17:00 05:37 05:43 Neutrophils (%) (Auto) 81.7 % Lymphocytes (%) (Auto) 8.7 % Monocytes (%) (Auto) 6.7 % Eosinophils (%) (Auto) 2.5 % Basophils (%) (Auto) 0.4 % Neutrophils # (Auto) 9.6 TH/MM3 Lymphocytes # (Auto) 1.0 TH/MM3 Monocytes # (Auto) 0.8 TH/MM3 Eosinophils # (Auto) 0.3 TH/MM3 Basophils # (Auto) 0.1 TH/MM3 CBC Comment DIFF FINAL Differential Comment Sodium Level 134 MEQ/L Potassium Level 3.3 MEQ/L Chloride Level 98 MEQ/L Carbon Dioxide Level 23.7 MEQ/L Anion Gap 12 MEQ/L Blood Urea Nitrogen 11 MG/DL Creatinine 0.65 MG/DL Estimat Glomerular Filtration 91 ML/MIN Rate Random Glucose 186 MG/DL Calcium Level 8.9 MG/DL Prothrombin Time 12.7 SEC Prothromb Time International 1.1 RATIO Ratio Iron Level 24 MCG/DL Total Iron Binding Capacity 314 MCG/DL Percent Iron Saturation 7.7 % Ferritin 574 NG/ML White Blood Count 9.3 TH/MM3 Red Blood Count 3.90 MIL/MM3 Hemoglobin 9.7 GM/DL Hematocrit 30.9 % Mean Corpuscular Volume 79.2 FL Mean Corpuscular Hemoglobin 25.0 PG Mean Corpuscular Hemoglobin 31.5 % Concent Red Cell Distribution Width 16.5 % Platelet Count 285 TH/MM3 Mean Platelet Volume 8.5 FL Blood Type A NEGATIVE Antibody Screen NEGATIVE Crossmatch Leukocyte-Reduced Red Blood Cells Blood Bank Comment Test 05/01/17 12:14 Activated Partial 36.5 SEC Thromboplast Time Objective Remarks GENERAL: well appearing, nad, poor dentition SKIN: Warm and dry. HEAD: Normocephalic. EYES: No scleral icterus. No injection or drainage. NECK: Supple, trachea midline. No JVD or lymphadenopathy. CARDIOVASCULAR: Regular rate and rhythm without murmurs, gallops, or rubs. RESPIRATORY: Breath sounds equal bilaterally. No accessory muscle use. GASTROINTESTINAL: Abdomen soft, non-tender, nondistended. MUSCULOSKELETAL: No cyanosis, or edema. No LE pain or swelling, no palpable cords. BACK: Nontender without obvious deformity. No CVA tenderness. Medications and IVs Current Medications Medications (Trade) Dose Ordered Sig/Adilia Route Start Time Stop Time Status Last Admin (Tylenol) 650 mg Q4H PRN PO 04/24/17 12:00 04/28/17 21:16 (Zofran Inj) 4 mg Q6H PRN IVP 04/24/17 12:00 (Narcan Inj) 0.4 mg UNSCH PRN IV 04/24/17 12:00 (Milk Of Magnesia Liq) 30 ml Q12H PRN PO 04/24/17 12:00 (Senokot) 17.2 mg Q12H PRN PO 04/24/17 12:00 (Dulcolax Supp) 10 mg DAILY PRN RECTAL 04/24/17 12:00 (Lactulose Liq) 30 ml DAILY PRN PO 04/24/17 12:00 (Trandate) 100 mg BID PO 04/24/17 21:00 05/01/17 09:17 Atorvastatin Calcium 40 mg 40 mg DAILY PO 04/25/17 09:00 05/01/17 09:17 (Zosyn 4.5 Gm Premix) 100 ml @ 200 mls/hr Q6H IV 04/25/17 11:00 05/01/17 10:49 (D50w (Vial) Inj) 50 ml UNSCH PRN IV 04/25/17 10:15 (Glucagon Inj) 1 mg UNSCH PRN OTHER 04/25/17 10:15 (Protonix) 40 mg Q12HR PO 04/26/17 21:00 05/01/17 09:17 (Ecotrin Ec) 81 mg DAILY PO 04/27/17 11:00 05/01/17 09:16 (NS Flush) 2 ml BID IV FLUSH 04/28/17 21:00 05/01/17 09:17 (NS Flush) 2 ml UNSCH PRN IV FLUSH 04/28/17 17:30 Ferrous Sulfate 325 mg 325 mg BID PO 04/29/17 21:00 05/01/17 09:16 (Heparin-D5W Inj) 250 ml @ 0 mls/hr TITRATE IV 04/30/17 16:00 05/01/17 10:11 A/P Assessment and Plan This is a 66-year-old female with history of GAVE syndrome who presented to [facility] complaining of worsening shortness of breath. The patient was found to have a hemoglobin of 7.9 on admission and was Hemoccult positive. The patient has history of gastric antral vascular ectasia syndrome and ACS workup was positive. NSTEMI: s/p heart cath on 04/28 showed three vessel disease. plan for CABAG for 05/03/17. con't statin, ASA, and beta block. Cleared by GI for blood products. GI bleed with Symptomatic anemia: Patient has history of gastric antral vascular ectasia syndrome. Last endoscopy with cautery was about 2 years ago. Stool occult blood is positive. Gastroenterology following: Continue Protonix drip. S/P EGD w/ APC --> short segment Grubbs's distal esophagus, bleeding angio ectasia in gastric antrum. Continue Protonix twice a day, continue to monitor H&H. Follow-up GI recommendations. Continue fe supplementation. Left Lower Extremity DVT: US ordered by CT surgery reveals left LE DVT. Will place consult to hematology to see what is the best way to manage and treat her DVT. Pulmonary Emboli: green marketing specialist following recommended to continue Heparin drip. Hypokalemia: Replaced, continue to monitor BMP. Acute hypoxemic respiratory failure with pulmonary edema: HX: "After receiving 2 units of packed red blood cells. Treated with IV diuretics and BiPAP. The patient was transferred to the intensive care unit where he was managed by the joiners supervisor. The patient improved and then was taken off BiPAP and transferred out of the intensive care unit. His x-ray obtained on 04/25/17 shows resolving pulmonary edema and persistent patchy airspace disease." has Pulmonary Emboli. - Continue IV Zosyn 04/25 for possible pneumonia, leukocytosis is improving and the patient is without fevers Acute diastolic heart failure: Mildly dilated left ventricle with an EF of 55%. Grade 1 diastolic heart failure on heart cath. Hypertension: Controlled. GI prophylaxis: Patient on Protonix twice a day. DVT prophylaxis: Heparin. Discharge Planning not yet ready for discharge. Ibrahima Mendez MD May 01, 2017 13:03 Discharge Planning not yet ready for discharge. Ibrahima Mendez MD May 01, 2017 13:03
[2017-05-01] MEDS ORDERED: SODIUM CHLORID 0.9% 500 ML INJ 500 ML IV SCH (13:15)
[2017-05-01 13:34] LABS: BICARBONATE 27.4 MEQ/L (21.0-32.0); POTASSIUM 3.4 MEQ/L (3.5-5.1)
--- NOTE | 2017-05-01 13:48 | PD.CAR.PN ---
CVT Progress Note Subjective/Hospital Course: 05/01 pt dx with left lower leg DVT, and PE, on heparin gtt/ no chest pain over the weekend H&H stable at 9.7 tentatively scheduled for surgery on mon on room air Objective: GENERAL: SKIN: Warm and dry. HEAD: Normocephalic. EYES: No scleral icterus. No injection or drainage. NECK: Supple, trachea midline. No JVD or lymphadenopathy. CARDIOVASCULAR: Regular rate and rhythm without murmurs, gallops, or rubs. RESPIRATORY: diminished in bases , otherwise few scattered rhonchi Breath sounds equal bilaterally. No accessory muscle use. GASTROINTESTINAL: Abdomen soft, non-tender, nondistended. MUSCULOSKELETAL: No cyanosis, or edema. BACK: Nontender without obvious deformity. No CVA tenderness. Vital Signs Date Time Temp Pulse Resp B/P Pulse Ox O2 Delivery O2 Flow Rate FiO2 05/01/17 13:09 76 05/01/17 12:12 76 05/01/17 11:26 98.1 80 18 126/74 96 05/01/17 11:26 76 05/01/17 10:21 76 05/01/17 09:27 78 05/01/17 08:19 85 05/01/17 07:14 86 05/01/17 07:14 92 Nasal Cannula 4.00 05/01/17 07:14 98.8 85 18 131/70 92 05/01/17 06:00 75 05/01/17 05:00 80 05/01/17 04:00 79 05/01/17 04:00 100.0 79 18 135/73 96 05/01/17 04:00 Nasal Cannula 4.00 05/01/17 03:00 84 05/01/17 02:00 77 05/01/17 01:00 90 05/01/17 00:00 98.4 84 20 140/75 93 05/01/17 00:00 82 04/30/17 23:00 79 04/30/17 22:00 77 04/30/17 21:00 80 04/30/17 20:15 96 Nasal Cannula 4.00 04/30/17 20:00 98.1 82 20 133/72 95 04/30/17 20:00 Nasal Cannula 4.00 04/30/17 20:00 84 04/30/17 18:08 87 04/30/17 17:08 96 04/30/17 16:03 85 04/30/17 15:50 87 04/30/17 15:36 98.3 89 20 125/72 96 Labs: Laboratory Tests Test 05/01/17 05/01/17 05/01/17 05:37 05:43 12:14 White Blood Count 9.3 TH/MM3 (4.0-11.0) Red Blood Count 3.90 MIL/MM3 (4.00-5.30) Hemoglobin 9.7 GM/DL (11.6-15.3) Hematocrit 30.9 % (35.0-46.0) Mean Corpuscular Volume 79.2 FL (80.0-100.0) Mean Corpuscular Hemoglobin 25.0 PG (27.0-34.0) Mean Corpuscular Hemoglobin 31.5 % Concent (32.0-36.0) Red Cell Distribution Width 16.5 % (11.6-17.2) Platelet Count 285 TH/MM3 (150-450) Mean Platelet Volume 8.5 FL (7.0-11.0) Activated Partial 39.5 SEC 36.5 SEC Thromboplast Time (24.3-30.1) (24.3-30.1) Blood Type A NEGATIVE Antibody Screen NEGATIVE Crossmatch Leukocyte-Reduced Red Blood Cells Blood Bank Comment Sodium Level 137 MEQ/L (136-145) Potassium Level 3.4 MEQ/L (3.5-5.1) Chloride Level 100 MEQ/L (98-107) Carbon Dioxide Level 27.4 MEQ/L (21.0-32.0) Anion Gap 10 MEQ/L (5-15) Blood Urea Nitrogen 13 MG/DL (7-18) Creatinine 0.69 MG/DL (0.50-1.00) Estimat Glomerular Filtration 85 ML/MIN (>89) Rate Random Glucose 158 MG/DL (74-106) Calcium Level 9.1 MG/DL (8.5-10.1) Result Diagram: 05/01/17 0537 05/01/17 1214 Telemetry: NSr (1) NSTEMI (non-ST elevation myocardial infarction) Plan: awaiting CABG wed -stable and asymptomatic currently, continue present meds (2) Anemia Plan: s/p transfusion, H&H 9.7 (3) GAVE (gastric antral vascular ectasia) (4) Hypertension (5) GI bleed (6) Hyperlipidemia Plan: on statin, check lipids (7) DVT (deep venous thrombosis) Plan: on Heparin gtt (8) Pulmonary emboli Problem Qualifiers (1) GI bleed: Qualified Code: K92.2 - Gastrointestinal hemorrhage, unspecified gastrointestinal hemorrhage type Ksenia Bello May 01, 2017 13:48
[2017-05-01] MEDS ORDERED: POTASSIUM CHLORIDE 20 MEQ CONTROLLED RELEASE TAB PO ONE (14:00)
[2017-05-01] MEDS ORDERED: IRON DEXTRAN INJ 25 MG in SODIUM CHLORIDE 0.9% INJ 50 ML IV ONE (14:00)
[2017-05-01] MEDS ORDERED: POTASSIUM CHLORIDE 25 MEQ EFFERVESCENT TAB PO ONE (14:00)
[2017-05-01] MEDS ORDERED: IRON DEXTRAN INJ 100 MG in SODIUM CHLORIDE 0.9% INJ 100 ML IV ONE (14:05)
[2017-05-01] MEDS ORDERED: FAMOTIDINE 20 MG/2 ML VIAL IV ONE (14:30)
[2017-05-01] MEDS ORDERED: diphenhydrAMINE HCL 50 MG/ML VIAL IV ONE (14:30)
[2017-05-01] MEDS ORDERED: DEXAMETHASONE SOD PHOS 20 MG/5 ML VIAL IV ONE (14:30)
[2017-05-01] MEDS ORDERED: SODIUM CHLOR 0.9% IV SCH (15:00)
[2017-05-01] MEDS ORDERED: IRON DEXTRAN IV SCH (15:00)
[2017-05-01 16:49] LABS: HEMOGLOBIN A1a 2.3 %; HEMOGLOBIN A1b 1.9 %; HEMOGLOBIN Ao 83.9 %; HEMOGLOBIN LA1C 1.7 %; HEMOGLOBIN P3 3.7 %
[2017-05-01 23:02] LABS: APTT (PATIENT) 37.2 SEC (24.3-30.1)
[2017-05-02] VITALS (25 sets, daily range): BP systolic 120–142; BP diastolic 65–73; PULSE 65–90; RESP 18–20; TEMP 98.3–98.9; O2SAT 93–98
[2017-05-02] MEDS: PIPERACIL-TAZO 4.5 GM PREMIX 100 ML IV SCH ×4 (04:51→23:39)
[2017-05-02] MEDS: HEPARIN-D5W INJ 250 ML IV SCH ×2 (04:54→20:23)
[2017-05-02 05:19] LABS: AUTOMATED NEUTROPHIL # 7.3 TH/MM3 (1.8-7.7); BASOPHIL # 0.1 TH/MM3 (0-0.2); EOSINOPHIL # 0.4 TH/MM3 (0-0.4); EOSINOPHIL % 3.8 % (0.0-4.0); HEMATOCRIT 28.9 % (35.0-46.0); HEMO FLAGS DIFF FINAL; LYMPH % 7.2 % (9.0-44.0); LYMPHOCYTE # 0.7 TH/MM3 (1.0-4.8); MEAN CELL VOLUME 78.5 FL (80.0-100.0); MEAN CORPUSCULAR HEMOGLOBIN 25.4 PG (27.0-34.0); MEAN CORPUSCULAR HGB CONC 32.4 % (32.0-36.0); MONO % 11.8 % (0.0-8.0); NEUT % 76.2 % (16.0-70.0); PLATELET COUNT 328 TH/MM3 (150-450); RED BLOOD COUNT 3.68 MIL/MM3 (4.00-5.30); RED CELL DISTRIBUTION WIDTH 16.9 % (11.6-17.2); WHITE BLOOD COUNT 9.6 TH/MM3 (4.0-11.0)
[2017-05-02 05:25] LABS: ALT (GPT) 35 U/L (10-53); ANION GAP 9 MEQ/L (5-15); APTT (PATIENT) 32.7 SEC (24.3-30.1); AST (GOT) 32 U/L (15-37); BICARBONATE 26.7 MEQ/L (21.0-32.0); BLOOD UREA NITROGEN 13 MG/DL (7-18); CHLORIDE 102 MEQ/L (98-107); GLOMERULAR FILTRATION RATE 80 ML/MIN (>89); INTERNATIONAL NORMALIZED RATIO 1.1 RATIO; POTASSIUM 3.9 MEQ/L (3.5-5.1); PROTHROMBIN TIME - PATIENT 11.9 SEC (9.8-11.6); SODIUM (NA) 138 MEQ/L (136-145)
[2017-05-02 05:28] LABS: ALKALINE PHOSPHATASE 97 U/L (45-117); TOTAL BILIRUBIN ADULT 0.4 MG/DL (0.2-1.0)
[2017-05-02] MEDS: INSULIN NovoLIN REGULAR SUPPLEMENTAL SCALE SQ SCH ×4 (06:14→20:24)
--- NOTE | 2017-05-02 07:57 | PD.CARD.PN ---
Subjective Subjective Remarks denies any CV complaints (Chun Arteaga) Objective Vital Signs / I&O Vital Signs Date Time Temp Pulse Resp B/P Pulse Ox O2 Delivery O2 Flow Rate FiO2 05/02/17 07:48 98.3 65 18 124/65 93 05/02/17 07:48 93 Nasal Cannula 4.00 05/02/17 07:48 84 05/02/17 06:00 82 05/02/17 05:00 82 05/02/17 04:00 94 Nasal Cannula 4.00 05/02/17 04:00 98.7 81 18 123/68 94 05/02/17 04:00 71 05/02/17 03:00 86 05/02/17 02:00 78 05/02/17 01:00 76 05/02/17 00:00 78 05/02/17 00:00 98.6 88 20 142/68 96 05/02/17 00:00 96 Nasal Cannula 4.00 05/01/17 23:00 88 05/01/17 21:00 86 05/01/17 20:00 98.8 93 18 144/70 94 05/01/17 20:00 94 Nasal Cannula 4.00 05/01/17 20:00 84 05/01/17 19:00 90 05/01/17 18:09 87 05/01/17 17:04 81 05/01/17 16:05 87 05/01/17 15:02 82 05/01/17 15:02 98.2 82 20 138/60 96 05/01/17 14:42 79 05/01/17 13:09 76 05/01/17 12:12 76 05/01/17 11:26 98.1 80 18 126/74 96 05/01/17 11:26 76 05/01/17 10:21 76 05/01/17 09:27 78 05/01/17 08:19 85 I/O 05/01/17 05/01/17 05/01/17 05/02/17 05/02/17 05/02/17 07:00 15:00 23:00 07:00 15:00 23:00 Intake Total 540 ml 1416 ml 560 ml Output Total 800 ml 950 ml Balance -260 ml 1416 ml -390 ml Intake Oral 240 ml 960 ml 200 ml IV Total 300 ml 456 ml 360 ml Output Urine Total 800 ml 950 ml # Voids 4 # Bowel Movements 0 1 Physical Exam GENERAL: Well-nourished, well-developed patient in no apparent distress. NECK: No JVD. No carotid bruit. CARDIOVASCULAR: Regular rate and rhythm. S1/S2 no murmur, rub, or gallop. RESPIRATORY: No accessory muscle use. Clear to auscultation. Breath sounds equal bilaterally. GASTROINTESTINAL: Abdomen soft, non-tender, nondistended. MUSCULOSKELETAL: Extremities without clubbing, cyanosis, or edema. Laboratory Laboratory Tests Test 05/01/17 05/01/17 05/02/17 12:14 21:48 04:42 Activated Partial 36.5 SEC 37.2 SEC 32.7 SEC Thromboplast Time Sodium Level 137 MEQ/L 138 MEQ/L Potassium Level 3.4 MEQ/L 3.9 MEQ/L Chloride Level 100 MEQ/L 102 MEQ/L Carbon Dioxide Level 27.4 MEQ/L 26.7 MEQ/L Anion Gap 10 MEQ/L 9 MEQ/L Blood Urea Nitrogen 13 MG/DL 13 MG/DL Creatinine 0.69 MG/DL 0.73 MG/DL Estimat Glomerular Filtration 85 ML/MIN 80 ML/MIN Rate Random Glucose 158 MG/DL 142 MG/DL Calcium Level 9.1 MG/DL 8.4 MG/DL White Blood Count 9.6 TH/MM3 Red Blood Count 3.68 MIL/MM3 Hemoglobin 9.4 GM/DL Hematocrit 28.9 % Mean Corpuscular Volume 78.5 FL Mean Corpuscular Hemoglobin 25.4 PG Mean Corpuscular Hemoglobin 32.4 % Concent Red Cell Distribution Width 16.9 % Platelet Count 328 TH/MM3 Mean Platelet Volume 8.1 FL Neutrophils (%) (Auto) 76.2 % Lymphocytes (%) (Auto) 7.2 % Monocytes (%) (Auto) 11.8 % Eosinophils (%) (Auto) 3.8 % Basophils (%) (Auto) 1.0 % Neutrophils # (Auto) 7.3 TH/MM3 Lymphocytes # (Auto) 0.7 TH/MM3 Monocytes # (Auto) 1.1 TH/MM3 Eosinophils # (Auto) 0.4 TH/MM3 Basophils # (Auto) 0.1 TH/MM3 CBC Comment DIFF FINAL Differential Comment Prothrombin Time 11.9 SEC Prothromb Time International 1.1 RATIO Ratio Total Bilirubin 0.4 MG/DL Aspartate Amino Transf 32 U/L (AST/SGOT) Alanine Aminotransferase 35 U/L (ALT/SGPT) Alkaline Phosphatase 97 U/L Total Protein 6.9 GM/DL Albumin 2.7 GM/DL (Chun Arteaga) Assessment and Plan Problem List: (1) NSTEMI (non-ST elevation myocardial infarction) (2) Anemia (3) GAVE (gastric antral vascular ectasia) (4) Hypertension (5) GI bleed (6) Hyperlipidemia (7) DVT (deep venous thrombosis) (8) Pulmonary emboli Assessment and Plan She is now waiting on CABG which is planned for Monday. Continue present medical regimen (Chun Arteaga) Assessment and Plan nstemi - clinically stable. dr veloz to evaluate for surgical candidacy vs high risk pci anemia - no active bleeding. pe - anticoagulation. (Bhaskar Hernandez MD) Problem Qualifiers (1) GI bleed: Qualified Code: K92.2 - Gastrointestinal hemorrhage, unspecified gastrointestinal hemorrhage type Chun Arteaga May 02, 2017 07:57 Bhaskar Hernandez MD May 02, 2017 14:15
[2017-05-02] MEDS: SODIUM CHLORIDE 0.9% FLUSH 10 ML FLUSH IV FLUSH SCH ×2 (09:00→20:17)
[2017-05-02] MEDS: LABETALOL HCL 100 MG TAB PO SCH ×2 (09:04→20:17)
[2017-05-02] MEDS: FERROUS SULFATE 325 MG (65 MG ELEMENTAL IRON) TAB PO SCH ×2 (09:04→20:17)
[2017-05-02] MEDS: PANTOPRAZOLE SOD 40 MG DELAYED RELEASE TAB PO SCH ×2 (09:04→20:16)
[2017-05-02] MEDS: ATORVASTATIN 40 MG TAB PO SCH (09:04)
[2017-05-02] MEDS: ASPIRIN EC 81 MG TABEC PO SCH (09:04)
--- NOTE | 2017-05-02 09:44 | RSPPFT ---
DATE OF PROCEDURE: 05/01/17 COMMENTS: Spirometry with FVC of 0.8 at 31% of predicted, FEV1 at 38%, FEV1/FVC ratio is normal. Flow is decreased at FEF 25-75. Flow volume loop is not interpretable. IMPRESSION: 1. Flow volume loop is indicative of severe restrictive lung disease. 2. Patient will need a complete pulmonary function study for further evaluation.
--- NOTE | 2017-05-02 10:58 | HHI.PR ---
Subjective Remarks This is a pleasant 66 y/o Female with Gastric Antral Vascular Ectasia syndrome, who came with SOB, She went to urgent care on 04/21/17 and was diagnosed with bronchitis. She was given prescription for ciprofloxacin and benzonatate. She was also given albuterol, stopped using it because of tachycardia. In the morning prior to admission she was at work and became significantly short of breath. She contacted her PCP, who recommended that she go to the ER. She denied chest pain, but does report a pressure sensation throughout her chest. Her hemoglobin was borderline at the level of 7.9, and due to her history of gave syndrome she was transfused with 2 units of PRBCs. Her shortness of breath became worse and she was transferred to ICU in respiratory distress, her chest x-ray showed worsening pulmonary vascular congestion. found with increased Cardiac enzymes, with diagnosis of NSTEMI had initially EGD then cleared by GI for Cardiac catheterization, found three vessel coronary artery disease, awaiting for CABG on 05/03/17, has Pulmonary Emboli on Heparin drip. 05/02: at this time working with Respiratory Therapy specialist, she will repeat the PFT for probable procedure tomorrow no nausea, vomit or diarrhea. Objective Vital Signs Date Time Temp Pulse Resp B/P Pulse Ox O2 Delivery O2 Flow Rate FiO2 05/02/17 10:04 85 05/02/17 09:00 87 05/02/17 08:01 86 05/02/17 07:48 98.3 65 18 124/65 93 05/02/17 07:48 93 Nasal Cannula 4.00 05/02/17 07:48 84 05/02/17 06:00 82 05/02/17 05:00 82 05/02/17 04:00 94 Nasal Cannula 4.00 05/02/17 04:00 98.7 81 18 123/68 94 05/02/17 04:00 71 05/02/17 03:00 86 05/02/17 02:00 78 05/02/17 01:00 76 05/02/17 00:00 78 05/02/17 00:00 98.6 88 20 142/68 96 05/02/17 00:00 96 Nasal Cannula 4.00 05/01/17 23:00 88 05/01/17 21:00 86 05/01/17 20:00 98.8 93 18 144/70 94 05/01/17 20:00 94 Nasal Cannula 4.00 05/01/17 20:00 84 05/01/17 19:00 90 05/01/17 18:09 87 05/01/17 17:04 81 05/01/17 16:05 87 05/01/17 15:02 82 05/01/17 15:02 98.2 82 20 138/60 96 05/01/17 14:42 79 05/01/17 13:09 76 05/01/17 12:12 76 05/01/17 11:26 98.1 80 18 126/74 96 05/01/17 11:26 76 I/O 05/01/17 05/01/17 05/01/17 05/02/17 05/02/17 05/02/17 07:00 15:00 23:00 07:00 15:00 23:00 Intake Total 540 ml 1416 ml 560 ml Output Total 800 ml 950 ml Balance -260 ml 1416 ml -390 ml Intake Oral 240 ml 960 ml 200 ml IV Total 300 ml 456 ml 360 ml Output Urine Total 800 ml 950 ml # Voids 4 # Bowel Movements 0 1 Result Diagram: 05/02/17 0442 05/02/17 [address] Angiography 04/30/17 1031 Signed Impressions: Service Date/Time: Sunday, April 30, 2017 13:41 - CONCLUSION: 1. Abnormal examination demonstrating emboli in the distal segmental and subsegmental lower lobe pulmonary artery branches bilaterally. Overall thrombus burden is [id number]. There is no right heart strain or pulmonary artery enlargement at this time. 2. Diffuse patchy bilateral lower lobe predominant groundglass opacities consistent with pulmonary edema. However, differential considerations include atypical/diffuse infection versus developing ARDS in the appropriate clinical setting. 3. Dense coronary artery calcifications. Juan Kennedy MD Lower Extremity Ultrasound 04/28/17 0000 Signed Impressions: Service Date/Time: Friday, April 28, 2017 22:04 - CONCLUSION: Normal examination. Avle Kay MD Carotid Artery Ultrasound 04/28/17 0000 Signed Impressions: Service Date/Time: Friday, April 28, 2017 21:40 - CONCLUSION: Moderate severity calcified plaque at the carotid bulbs bilaterally. No evidence of hemodynamically significant carotid stenosis by peak systolic velocity criteria. Lg Mitchell MD Chest X-Ray 04/25/17 0000 Signed Impressions: Service Date/Time: Tuesday, April 25, 2017 07:23 - CONCLUSION: Resolving pulmonary edema. Patchy airspace disease remains evident bilaterally Con Rodriguez MD Procedures EGD Cardiac Cath Other Results Laboratory Tests Test 04/28/17 04/28/17 04/29/17 04/30/17 08:20 17:17 05:28 10:57 Stool C. difficile Toxin (PCR) NEGATIVE Stl C. difficile Toxin PRESUMPTIVE Epiderm 027 NEGATIVE Urine Color YELLOW Urine Turbidity CLEAR Urine pH 7.0 Urine Specific [place] 1.037 Urine Protein TRACE mg/dL Urine Glucose (UA) NEG mg/dL Urine Ketones NEG mg/dL Urine Occult Blood NEG Urine Nitrite NEG Urine Bilirubin NEG Urine Urobilinogen LESS THAN 2.0 MG/DL Urine Leukocyte Esterase SMALL Urine WBC 1 /hpf Urine Squamous Epithelial 5 /hpf Cells Microscopic Urinalysis Comment CULT NOT INDICATED Triglycerides Level 130 MG/DL Cholesterol Level 130 MG/DL LDL Cholesterol 80 MG/DL HDL Cholesterol 24.1 MG/DL Cholesterol/HDL Ratio 5.39 RATIO Hemoglobin A1c 6.4 % Test 04/30/17 05/01/17 05/02/17 17:00 05:43 04:42 Iron Level 24 MCG/DL Total Iron Binding Capacity 314 MCG/DL Percent Iron Saturation 7.7 % Ferritin 574 NG/ML Blood Type A NEGATIVE Antibody Screen NEGATIVE Crossmatch Leukocyte-Reduced Red Blood Cells Blood Bank Comment White Blood Count 9.6 TH/MM3 Red Blood Count 3.68 MIL/MM3 Hemoglobin 9.4 GM/DL Hematocrit 28.9 % Mean Corpuscular Volume 78.5 FL Mean Corpuscular Hemoglobin 25.4 PG Mean Corpuscular Hemoglobin 32.4 % Concent Red Cell Distribution Width 16.9 % Platelet Count 328 TH/MM3 Mean Platelet Volume 8.1 FL Neutrophils (%) (Auto) 76.2 % Lymphocytes (%) (Auto) 7.2 % Monocytes (%) (Auto) 11.8 % Eosinophils (%) (Auto) 3.8 % Basophils (%) (Auto) 1.0 % Neutrophils # (Auto) 7.3 TH/MM3 Lymphocytes # (Auto) 0.7 TH/MM3 Monocytes # (Auto) 1.1 TH/MM3 Eosinophils # (Auto) 0.4 TH/MM3 Basophils # (Auto) 0.1 TH/MM3 CBC Comment DIFF FINAL Differential Comment Prothrombin Time 11.9 SEC Prothromb Time International 1.1 RATIO Ratio Activated Partial 32.7 SEC Thromboplast Time Sodium Level 138 MEQ/L Potassium Level 3.9 MEQ/L Chloride Level 102 MEQ/L Carbon Dioxide Level 26.7 MEQ/L Anion Gap 9 MEQ/L Blood Urea Nitrogen 13 MG/DL Creatinine 0.73 MG/DL Estimat Glomerular Filtration 80 ML/MIN Rate Random Glucose 142 MG/DL Calcium Level 8.4 MG/DL Total Bilirubin 0.4 MG/DL Aspartate Amino Transf 32 U/L (AST/SGOT) Alanine Aminotransferase 35 U/L (ALT/SGPT) Alkaline Phosphatase 97 U/L Total Protein 6.9 GM/DL Albumin 2.7 GM/DL Objective Remarks GENERAL: well appearing, nad, poor dentition SKIN: Warm and dry. HEAD: Normocephalic. EYES: No scleral icterus. No injection or drainage. NECK: Supple, trachea midline. No JVD or lymphadenopathy. CARDIOVASCULAR: Regular rate and rhythm without murmurs, gallops, or rubs. RESPIRATORY: Breath sounds equal bilaterally. No accessory muscle use. GASTROINTESTINAL: Abdomen soft, non-tender, nondistended. MUSCULOSKELETAL: No cyanosis, or edema. No LE pain or swelling, no palpable cords. BACK: Nontender without obvious deformity. No CVA tenderness. Medications and IVs Current Medications Medications (Trade) Dose Ordered Sig/Adilia Route Start Time Stop Time Status Last Admin (Tylenol) 650 mg Q4H PRN PO 04/24/17 12:00 04/28/17 21:16 (Zofran Inj) 4 mg Q6H PRN IVP 04/24/17 12:00 (Narcan Inj) 0.4 mg UNSCH PRN IV 04/24/17 12:00 (Milk Of Magnesia Liq) 30 ml Q12H PRN PO 04/24/17 12:00 (Senokot) 17.2 mg Q12H PRN PO 04/24/17 12:00 (Dulcolax Supp) 10 mg DAILY PRN RECTAL 04/24/17 12:00 (Lactulose Liq) 30 ml DAILY PRN PO 04/24/17 12:00 (Trandate) 100 mg BID PO 04/24/17 21:00 05/02/17 09:04 Atorvastatin Calcium 40 mg 40 mg DAILY PO 04/25/17 09:00 05/02/17 09:04 (Zosyn 4.5 Gm Premix) 100 ml @ 200 mls/hr Q6H IV 04/25/17 11:00 05/02/17 04:51 (D50w (Vial) Inj) 50 ml UNSCH PRN IV 04/25/17 10:15 (Glucagon Inj) 1 mg UNSCH PRN OTHER 04/25/17 10:15 (Protonix) 40 mg Q12HR PO 04/26/17 21:00 05/02/17 09:04 (Ecotrin Ec) 81 mg DAILY PO 04/27/17 11:00 05/02/17 09:04 (NS Flush) 2 ml BID IV FLUSH 04/28/17 21:00 05/02/17 09:00 (NS Flush) 2 ml UNSCH PRN IV FLUSH 04/28/17 17:30 Ferrous Sulfate 325 mg 325 mg BID PO 04/29/17 21:00 05/02/17 09:04 (Heparin-D5W Inj) 250 ml @ 0 mls/hr TITRATE IV 04/30/17 16:00 05/02/17 04:54 A/P Assessment and Plan This is a 66-year-old female with history of GAVE syndrome who presented to [facility] complaining of worsening shortness of breath. The patient was found to have a hemoglobin of 7.9 on admission and was Hemoccult positive. The patient has history of gastric antral vascular ectasia syndrome and ACS workup was positive. NSTEMI: s/p heart cath on 04/28 showed three vessel disease. plan for CABAG for 05/03/17. con't statin, ASA, and beta block. Cleared by GI for blood products. GI bleed with Symptomatic anemia: Patient has history of gastric antral vascular ectasia syndrome. Last endoscopy with cautery was about 2 years ago. Stool occult blood is positive. Gastroenterology following: Continue Protonix drip. S/P EGD w/ APC --> short segment Grubbs's distal esophagus, bleeding angio ectasia in gastric antrum. Continue Protonix twice a day, continue to monitor H&H. Follow-up GI recommendations. Continue fe supplementation. Left Lower Extremity DVT: US ordered by CT surgery reveals left LE DVT. Will place consult to hematology to see what is the best way to manage and treat her DVT. Pulmonary Emboli: photogrammetric compilation specialist following recommended to continue Heparin drip. Hypokalemia: Replaced, continue to monitor BMP. Acute hypoxemic respiratory failure with pulmonary edema: HX: "After receiving 2 units of packed red blood cells. Treated with IV diuretics and BiPAP. The patient was transferred to the intensive care unit where he was managed by the gear nicker. The patient improved and then was taken off BiPAP and transferred out of the intensive care unit. His x-ray obtained on 04/25/17 shows resolving pulmonary edema and persistent patchy airspace disease." has Pulmonary Emboli. - Continue IV Zosyn 04/25 for possible pneumonia, leukocytosis is improving and the patient is without fevers Acute diastolic heart failure: Mildly dilated left ventricle with an EF of 55%. Grade 1 diastolic heart failure on heart cath. Hypertension: Controlled. GI prophylaxis: Patient on Protonix twice a day. DVT prophylaxis: Heparin. No changes to anterior assessment. Discharge Planning Not yet cleared for discharge. Ibrahima Mendez MD May 02, 2017 10:58
--- NOTE | 2017-05-02 11:32 | HHI.GIFU ---
Subjective Remarks Pt resting in bed. To have CABG tomorrow. Denies bleeding, abd pain. Objective Vitals I&O Vital Signs Date Time Temp Pulse Resp B/P Pulse Ox O2 Delivery O2 Flow Rate FiO2 05/02/17 11:02 82 05/02/17 11:02 98.5 84 18 120/68 96 05/02/17 10:04 85 05/02/17 09:00 87 05/02/17 08:01 86 05/02/17 07:48 98.3 65 18 124/65 93 05/02/17 07:48 93 Nasal Cannula 4.00 05/02/17 07:48 84 05/02/17 06:00 82 05/02/17 05:00 82 05/02/17 04:00 94 Nasal Cannula 4.00 05/02/17 04:00 98.7 81 18 123/68 94 05/02/17 04:00 71 05/02/17 03:00 86 05/02/17 02:00 78 05/02/17 01:00 76 05/02/17 00:00 78 05/02/17 00:00 98.6 88 20 142/68 96 05/02/17 00:00 96 Nasal Cannula 4.00 05/01/17 23:00 88 05/01/17 21:00 86 05/01/17 20:00 98.8 93 18 144/70 94 05/01/17 20:00 94 Nasal Cannula 4.00 05/01/17 20:00 84 05/01/17 19:00 90 05/01/17 18:09 87 05/01/17 17:04 81 05/01/17 16:05 87 05/01/17 15:02 82 05/01/17 15:02 98.2 82 20 138/60 96 05/01/17 14:42 79 05/01/17 13:09 76 05/01/17 12:12 76 I/O 05/01/17 05/01/17 05/01/17 05/02/17 05/02/17 05/02/17 07:00 15:00 23:00 07:00 15:00 23:00 Intake Total 540 ml 1416 ml 560 ml Output Total 800 ml 950 ml Balance -260 ml 1416 ml -390 ml Intake Oral 240 ml 960 ml 200 ml IV Total 300 ml 456 ml 360 ml Output Urine Total 800 ml 950 ml # Voids 4 # Bowel Movements 0 1 Laboratory Laboratory Tests Test 05/01/17 05/01/17 05/02/17 12:14 21:48 04:42 Activated Partial 36.5 37.2 32.7 Thromboplast Time Sodium Level 137 138 Potassium Level 3.4 3.9 Chloride Level 100 102 Carbon Dioxide Level 27.4 26.7 Anion Gap 10 9 Blood Urea Nitrogen 13 13 Creatinine 0.69 0.73 Estimat Glomerular Filtration 85 80 Rate Random Glucose 158 142 Calcium Level 9.1 8.4 White Blood Count 9.6 Red Blood Count 3.68 Hemoglobin 9.4 Hematocrit 28.9 Mean Corpuscular Volume 78.5 Mean Corpuscular Hemoglobin 25.4 Mean Corpuscular Hemoglobin 32.4 Concent Red Cell Distribution Width 16.9 Platelet Count 328 Mean Platelet Volume 8.1 Neutrophils (%) (Auto) 76.2 Lymphocytes (%) (Auto) 7.2 Monocytes (%) (Auto) 11.8 Eosinophils (%) (Auto) 3.8 Basophils (%) (Auto) 1.0 Neutrophils # (Auto) 7.3 Lymphocytes # (Auto) 0.7 Monocytes # (Auto) 1.1 Eosinophils # (Auto) 0.4 Basophils # (Auto) 0.1 CBC Comment DIFF FINAL Differential Comment Prothrombin Time 11.9 Prothromb Time International 1.1 Ratio Total Bilirubin 0.4 Aspartate Amino Transf 32 (AST/SGOT) Alanine Aminotransferase 35 (ALT/SGPT) Alkaline Phosphatase 97 Total Protein 6.9 Albumin 2.7 Date/Time Procedure Status Source Growth 05/01/17 13:22 Stool Occult Blood (DANNA) - Final Complete Stool Stool HEMOCCULT POSITIVE Imaging Last Impressions CT Angiography 04/30/17 1031 Signed Impressions: Service Date/Time: Sunday, April 30, 2017 13:41 - CONCLUSION: 1. Abnormal examination demonstrating emboli in the distal segmental and subsegmental lower lobe pulmonary artery branches bilaterally. Overall thrombus burden is [id number]. There is no right heart strain or pulmonary artery enlargement at this time. 2. Diffuse patchy bilateral lower lobe predominant groundglass opacities consistent with pulmonary edema. However, differential considerations include atypical/diffuse infection versus developing ARDS in the appropriate clinical setting. 3. Dense coronary artery calcifications. Juan Kennedy MD Lower Extremity Ultrasound 04/28/17 0000 Signed Impressions: Service Date/Time: Friday, April 28, 2017 22:04 - CONCLUSION: Normal examination. Avel Kay MD Carotid Artery Ultrasound 04/28/17 0000 Signed Impressions: Service Date/Time: Friday, April 28, 2017 21:40 - CONCLUSION: Moderate severity calcified plaque at the carotid bulbs bilaterally. No evidence of hemodynamically significant carotid stenosis by peak systolic velocity criteria. Lg Mitchell MD Chest X-Ray 04/25/17 Signed Impressions: Service Date/Time: Tuesday, April 25, 2017 07:23 - CONCLUSION: Resolving pulmonary edema. Patchy airspace disease remains evident bilaterally Con Rodriguez MD Physical Exam HEENT: EOMI; normocephalic; atraumatic; no jaundice. CHEST: CTA CARDIAC: RRR ABDOMEN: Soft, nondistended, nontender; no hepatosplenomegaly; bowel sounds are present in all four quadrants. EXTREMITIES: No clubbing, cyanosis, or edema. SKIN: Normal; no rash; no jaundice. EKG MANAGER: No focal deficits; alert and oriented times three. Assessment and Plan Plan ASSESSMENT - anemia - 7.4 on admission, s/p 2 x PRBC heme pos stool, hx GAVE. S/P EGD w/ APC --> short segment Grubbs's distal esophagus, bleedign angioectasia bastric antrum. Status post cautery Pulmonary embolism, pt scheduled for CABG tomorrow. on Heparin. D/w Dr Tellez. PLAN - protonix PO BID 40mg - heart healthy diet - monitor HH - transfuse prn - ok for heparin - if tolerates heparin w/o GI bleeding okay to graduate to longer term anticoag This pt seen by myself and DR Felix and this note is written on his behalf April Sanchez May 02, 2017 11:32
--- NOTE | 2017-05-02 12:06 | PD.ONC.PN ---
Subjective Subjective Remarks Afebrile overnight. Patient frustrated that surgery was canceled for tomorrow. No bleeding. Tolerating heparin gtt. PTT's have been consistent subtherapeutic. Objective Data Date Time Temp Pulse Resp B/P Pulse Ox O2 Delivery O2 Flow Rate FiO2 05/02/17 11:02 82 05/02/17 11:02 98.5 84 18 120/68 96 05/02/17 10:04 85 05/02/17 09:00 87 05/02/17 08:01 86 05/02/17 07:48 98.3 65 18 124/65 93 05/02/17 07:48 93 Nasal Cannula 4.00 05/02/17 07:48 84 05/02/17 06:00 82 05/02/17 05:00 82 05/02/17 04:00 94 Nasal Cannula 4.00 05/02/17 04:00 98.7 81 18 123/68 94 05/02/17 04:00 71 05/02/17 03:00 86 05/02/17 02:00 78 05/02/17 01:00 76 05/02/17 00:00 78 05/02/17 00:00 98.6 88 20 142/68 96 05/02/17 00:00 96 Nasal Cannula 4.00 05/01/17 23:00 88 05/01/17 21:00 86 05/01/17 20:00 98.8 93 18 144/70 94 05/01/17 20:00 94 Nasal Cannula 4.00 05/01/17 20:00 84 05/01/17 19:00 90 05/01/17 18:09 87 05/01/17 17:04 81 05/01/17 16:05 87 05/01/17 15:02 82 05/01/17 15:02 98.2 82 20 138/60 96 05/01/17 14:42 79 05/01/17 13:09 76 05/01/17 12:12 76 05/02/17 05/02/17 05/02/17 07:00 15:00 23:00 Intake Total 560 ml Output Total 950 ml Balance -390 ml Result Diagram: 05/02/17 0442 05/02/17 0442 Laboratory Results Laboratory Tests Test 6/19/17 6/19/17 6/20/17 12:14 21:48 04:42 Activated Partial 36.5 SEC 37.2 SEC 32.7 SEC Thromboplast Time Sodium Level 137 MEQ/L 138 MEQ/L Potassium Level 3.4 MEQ/L 3.9 MEQ/L Chloride Level 100 MEQ/L 102 MEQ/L Carbon Dioxide Level 27.4 MEQ/L 26.7 MEQ/L Anion Gap 10 MEQ/L 9 MEQ/L Blood Urea Nitrogen 13 MG/DL 13 MG/DL Creatinine 0.69 MG/DL 0.73 MG/DL Estimat Glomerular Filtration 85 ML/MIN 80 ML/MIN Rate Random Glucose 158 MG/DL 142 MG/DL Calcium Level 9.1 MG/DL 8.4 MG/DL White Blood Count 9.6 TH/MM3 Red Blood Count 3.68 MIL/MM3 Hemoglobin 9.4 GM/DL Hematocrit 28.9 % Mean Corpuscular Volume 78.5 FL Mean Corpuscular Hemoglobin 25.4 PG Mean Corpuscular Hemoglobin 32.4 % Concent Red Cell Distribution Width 16.9 % Platelet Count 328 TH/MM3 Mean Platelet Volume 8.1 FL Neutrophils (%) (Auto) 76.2 % Lymphocytes (%) (Auto) 7.2 % Monocytes (%) (Auto) 11.8 % Eosinophils (%) (Auto) 3.8 % Basophils (%) (Auto) 1.0 % Neutrophils # (Auto) 7.3 TH/MM3 Lymphocytes # (Auto) 0.7 TH/MM3 Monocytes # (Auto) 1.1 TH/MM3 Eosinophils # (Auto) 0.4 TH/MM3 Basophils # (Auto) 0.1 TH/MM3 CBC Comment DIFF FINAL Differential Comment Prothrombin Time 11.9 SEC Prothromb Time International 1.1 RATIO Ratio Total Bilirubin 0.4 MG/DL Aspartate Amino Transf 32 U/L (AST/SGOT) Alanine Aminotransferase 35 U/L (ALT/SGPT) Alkaline Phosphatase 97 U/L Total Protein 6.9 GM/DL Albumin 2.7 GM/DL Culture Results Microbiology Date/Time Procedure Status Source Growth 05/01/17 13:22 Stool Occult Blood (DANNA) - Final Complete Stool Stool HEMOCCULT POSITIVE Administered Medications Medications (Trade) Dose Ordered Sig/Adilia Route PRN Reason Start Time Stop Time Status Last Admin Dose Admin Acetaminophen (Tylenol) 650 mg Q4H PRN PO TEMP > 100.4 04/24/17 12:00 04/28/17 21:16 Labetalol HCl (Trandate) 100 mg BID PO 04/24/17 21:00 05/02/17 09:04 Atorvastatin Calcium 40 mg 40 mg DAILY PO 04/25/17 09:00 05/02/17 09:04 Piperacillin Sod/ Tazobactam Sod (Zosyn 4.5 Gm Premix) 100 ml @ 200 mls/hr Q6H IV 04/25/17 11:00 05/02/17 11:22 Pantoprazole Sodium (Protonix) 40 mg Q12HR PO 04/26/17 21:00 05/02/17 09:04 Aspirin (Ecotrin Ec) 81 mg DAILY PO 04/27/17 11:00 05/02/17 09:04 Sodium Chloride (NS Flush) 2 ml BID IV FLUSH 04/28/17 21:00 05/02/17 09:00 Ferrous Sulfate 325 mg 325 mg BID PO 04/29/17 21:00 05/02/17 09:04 Heparin Sodium/ Dextrose (Heparin-D5W Inj) 250 ml @ 0 mls/hr TITRATE IV 04/30/17 16:00 05/02/17 04:54 Objective Remarks GENERAL: Pleasant female, upright in bed in nad. SKIN: Warm and dry. HEAD: Normocephalic. EYES: No injection or drainage. NECK: Supple, trachea midline. CARDIOVASCULAR: Regular rate and rhythm RESPIRATORY: diminished at bases, scattered rhonchi. On 4L O2 via NC GASTROINTESTINAL: Abdomen soft, non-tender, nondistended. EXTREMITIES: No cyanosis NEUROLOGICAL: awake and alert, normal speech. Assessment/Plan Assessment 66y/o female with CAD, PE, GIB Plan 1. PTT has been consistent subtherapeutic. discussed with nursing to increase heparin gtt to 1900units/hr and then check PTT in 6 hours. 2. monitor CBC 3. monitor clinically for bleeding Attending Statement The exam, history, and the medical decision-making described in the above note were completed with the assistance of the mid-level provider. I reviewed and agree with the findings presented. I attest that I had a [id number] encounter with the patient on the same day, and personally performed and documented my assessment and findings in the medical record. patient feeling better and less sob. She tells me that surgery will take place tomorrow. will need to stop heparin at least 4 hours before surgery and should resume heparin as soon as surgery feels safe even if it is not full dose heparin and has to be escalated over several days to limit risk of further PE. will need to follow cbc plat closely due to risk of gi bleeding and continue proton pump inhibitor. Malia Gibbs May 02, 2017 12:06 Adal Tellez MD May 02, 2017 20:13
--- NOTE | 2017-05-02 16:06 | PD.CAR.PN ---
CVT Progress Note Subjective/Hospital Course: 05/01 pt dx with left lower leg DVT, and PE, on heparin gtt/ no chest pain over the weekend H&H stable at 9.7 tentatively scheduled for surgery on mon on room air 05/02 FEv1 08 yesterday/ rechecked today 1.2 scheduled for surgery in am will need NOAC after surgery and when chest tubes removed Objective: GENERAL: SKIN: Warm and dry. HEAD: Normocephalic. EYES: No scleral icterus. No injection or drainage. NECK: Supple, trachea midline. No JVD or lymphadenopathy. CARDIOVASCULAR: Regular rate and rhythm without murmurs, gallops, or rubs. RESPIRATORY: Breath sounds equal bilaterally. No accessory muscle use. diminished in bases GASTROINTESTINAL: Abdomen soft, non-tender, nondistended. MUSCULOSKELETAL: No cyanosis, or edema. BACK: Nontender without obvious deformity. No CVA tenderness. Vital Signs Date Time Temp Pulse Resp B/P Pulse Ox O2 Delivery O2 Flow Rate FiO2 05/02/17 16:02 81 05/02/17 15:44 98.7 80 18 133/70 97 05/02/17 15:44 75 05/02/17 14:15 79 05/02/17 13:01 79 05/02/17 12:25 82 05/02/17 11:02 82 05/02/17 11:02 98.5 84 18 120/68 96 05/02/17 10:04 85 05/02/17 09:00 87 05/02/17 08:01 86 05/02/17 07:48 98.3 65 18 124/65 93 05/02/17 07:48 93 Nasal Cannula 4.00 05/02/17 07:48 84 05/02/17 06:00 82 05/02/17 05:00 82 05/02/17 04:00 94 Nasal Cannula 4.00 05/02/17 04:00 98.7 81 18 123/68 94 05/02/17 04:00 71 05/02/17 03:00 86 05/02/17 02:00 78 05/02/17 01:00 76 05/02/17 00:00 78 05/02/17 00:00 98.6 88 20 142/68 96 05/02/17 00:00 96 Nasal Cannula 4.00 05/01/17 23:00 88 05/01/17 21:00 86 05/01/17 20:00 98.8 93 18 144/70 94 05/01/17 20:00 94 Nasal Cannula 4.00 05/01/17 20:00 84 05/01/17 19:00 90 05/01/17 18:09 87 05/01/17 17:04 81 05/01/17 16:05 87 Labs: Laboratory Tests Test 05/02/17 04:42 White Blood Count 9.6 TH/MM3 (4.0-11.0) Red Blood Count 3.68 MIL/MM3 (4.00-5.30) Hemoglobin 9.4 GM/DL (11.6-15.3) Hematocrit 28.9 % (35.0-46.0) Mean Corpuscular Volume 78.5 FL (80.0-100.0) Mean Corpuscular Hemoglobin 25.4 PG (27.0-34.0) Mean Corpuscular Hemoglobin 32.4 % Concent (32.0-36.0) Red Cell Distribution Width 16.9 % (11.6-17.2) Platelet Count 328 TH/MM3 (150-450) Mean Platelet Volume 8.1 FL (7.0-11.0) Neutrophils (%) (Auto) 76.2 % (16.0-70.0) Lymphocytes (%) (Auto) 7.2 % (9.0-44.0) Monocytes (%) (Auto) 11.8 % (0.0-8.0) Eosinophils (%) (Auto) 3.8 % (0.0-4.0) Basophils (%) (Auto) 1.0 % (0.0-2.0) Neutrophils # (Auto) 7.3 TH/MM3 (1.8-7.7) Lymphocytes # (Auto) 0.7 TH/MM3 (1.0-4.8) Monocytes # (Auto) 1.1 TH/MM3 (0-0.9) Eosinophils # (Auto) 0.4 TH/MM3 (0-0.4) Basophils # (Auto) 0.1 TH/MM3 (0-0.2) CBC Comment DIFF FINAL Differential Comment Prothrombin Time 11.9 SEC (9.8-11.6) Prothromb Time International 1.1 RATIO Ratio Activated Partial 32.7 SEC Thromboplast Time (24.3-30.1) Sodium Level 138 MEQ/L (136-145) Potassium Level 3.9 MEQ/L (3.5-5.1) Chloride Level 102 MEQ/L (98-107) Carbon Dioxide Level 26.7 MEQ/L (21.0-32.0) Anion Gap 9 MEQ/L (5-15) Blood Urea Nitrogen 13 MG/DL (7-18) Creatinine 0.73 MG/DL (0.50-1.00) Estimat Glomerular Filtration 80 ML/MIN (>89) Rate Random Glucose 142 MG/DL (74-106) Calcium Level 8.4 MG/DL (8.5-10.1) Total Bilirubin 0.4 MG/DL (0.2-1.0) Aspartate Amino Transf 32 U/L (15-37) (AST/SGOT) Alanine Aminotransferase 35 U/L (10-53) (ALT/SGPT) Alkaline Phosphatase 97 U/L (45-117) Total Protein 6.9 GM/DL (6.4-8.2) Albumin 2.7 GM/DL (3.4-5.0) Result Diagram: 05/02/1744105/02/17441 (1) NSTEMI (non-ST elevation myocardial infarction) Plan: awaiting CABG wed -stable and asymptomatic currently, continue present meds (2) Anemia Plan: s/p transfusion, H&H 9.7 >9.4 (3) GAVE (gastric antral vascular ectasia) (4) Hypertension (5) GI bleed Plan: stable , on PPI (6) Hyperlipidemia Plan: on statin, check lipids (7) DVT (deep venous thrombosis) Plan: on Heparin gtt (8) Pulmonary emboli Plan: on Heparin Problem Qualifiers (1) GI bleed: Qualified Code: K92.2 - Gastrointestinal hemorrhage, unspecified gastrointestinal hemorrhage type Ksenia Bello May 02, 2017 16:05
[2017-05-02 17:02] LABS: HEMOGLOBIN A1a 1.3 %; HEMOGLOBIN A1b 1.6 %; HEMOGLOBIN Ao 85.1 %; HEMOGLOBIN LA1C 1.8 %; HEMOGLOBIN P3 3.7 %
[2017-05-02 18:06] LABS: APTT (PATIENT) 64.4 SEC (24.3-30.1)
[2017-05-03] VITALS (15 sets, daily range): BP systolic 95–142; BP diastolic 48–80; PULSE 66–85; RESP 12–18; TEMP 97.8–99.8; O2SAT 92–99
[2017-05-03 01:38] LABS: APTT (PATIENT) 75.2 SEC (24.3-30.1)
[2017-05-03] MEDS: LABETALOL HCL 100 MG TAB PO SCH ×2 (05:06→20:35)
[2017-05-03] MEDS: PIPERACIL-TAZO 4.5 GM PREMIX 100 ML IV SCH ×4 (05:07→22:32)
[2017-05-03 05:42] LABS: HEMATOCRIT 27.9 % (35.0-46.0); MEAN CELL VOLUME 77.7 FL (80.0-100.0); MEAN CORPUSCULAR HEMOGLOBIN 25.5 PG (27.0-34.0); MEAN CORPUSCULAR HGB CONC 32.8 % (32.0-36.0); PLATELET COUNT 400 TH/MM3 (150-450); RED BLOOD COUNT 3.59 MIL/MM3 (4.00-5.30); RED CELL DISTRIBUTION WIDTH 16.4 % (11.6-17.2); REVIEW FLAG FINAL; WHITE BLOOD COUNT 7.8 TH/MM3 (4.0-11.0)
[2017-05-03] MEDS: INSULIN NovoLIN REGULAR SUPPLEMENTAL SCALE SQ SCH ×4 (05:49→21:00)
[2017-05-03] MEDS ORDERED: HEPARIN SODIUM - IV 10,000 UNITS/10 ML VIAL ONE (06:30)
[2017-05-03] MEDS ORDERED: HEPARIN SODIUM - SQ 10,000 UNITS/ML VIAL ONE (06:42)
[2017-05-03] MEDS: VANCOMYCIN HCL 1000 MG VIAL ONE ×2 (07:40→08:04)
[2017-05-03] MEDS: ATORVASTATIN 40 MG TAB PO SCH (09:00)
[2017-05-03] MEDS: FERROUS SULFATE 325 MG (65 MG ELEMENTAL IRON) TAB PO SCH ×2 (09:00→20:35)
[2017-05-03] MEDS ORDERED: POTASSIUM CHLOR 40 MEQ PREMIX 100 ML ONE (09:10)
[2017-05-03] MEDS ORDERED: ACETAMINOPHEN 1000 MG/100 ML VIAL IV ONE ×2 (11:09→12:00)
[2017-05-03] MEDS ORDERED: VANCOMYCIN HCL 1000 MG VIAL ONE (11:27)
[2017-05-03] MEDS ORDERED: DOBUTamine PREMIX DRIP 250 ML IV SCH (11:52)
[2017-05-03] MEDS ORDERED: LACTATED RINGER'S 1000 ML INJ 500 ML IV PRN (11:52)
[2017-05-03] MEDS ORDERED: DOPamine INJ PREMIX 500 ML IV SCH (12:00)
[2017-05-03] MEDS ORDERED: NITROGLYCERIN 50 MG/DEXTROSE 5% SOLN 250 ML BTL IV ONE (12:00)
[2017-05-03] MEDS ORDERED: ONDANSETRON HCL 4 MG/2 ML VIAL IV PUSH PRN (12:00)
[2017-05-03] MEDS ORDERED: ALBUMIN HUMAN 5% 12.5 GM/250 ML BOTTLE IV PRN (12:00)
[2017-05-03] MEDS ORDERED: INSULIN REGULAR (IV INFUSION) 100 UNITS in SODIUM CHLORIDE 0.9% INJ 99 ML IV SCH (12:00)
[2017-05-03] MEDS ORDERED: NORMOSOL R INJ 2,000 ML IV ONE (12:00)
[2017-05-03] MEDS ORDERED: HEPARIN SODIUM - IV 10,000 UNITS/10 ML VIAL IV ONE (12:00)
[2017-05-03] MEDS ORDERED: METOPROLOL TARTRATE 5 MG/5 ML VIAL IV PUSH PRN (12:00)
[2017-05-03] MEDS ORDERED: EPINEPHrine (1:1000) INJ 4 MG in DEXTROSE 5% IN WATER INJ 246 ML IV SCH ×2 (12:00)
[2017-05-03] MEDS ORDERED: POTASSIUM CHLORIDE 20 MEQ CONTROLLED RELEASE TAB PO PRN ×2 (12:00)
[2017-05-03] MEDS ORDERED: VECURONIUM BROMIDE 20 MG VIAL IV ONE (12:00)
[2017-05-03] MEDS ORDERED: AMINOCAPROIC ACID INJ 250 MG/ML 20 ML VIAL IV ONE (12:00)
[2017-05-03] MEDS ORDERED: MAGNESIUM SULFATE INJ 2 GM in SODIUM CHLORIDE 0.9% INJ 100 ML IV PRN ×4 (12:00)
[2017-05-03] MEDS ORDERED: CALCIUM CHLORIDE INJ 1 GM in SODIUM CHLORIDE 0.9% INJ 100 ML IV PRN (12:00)
[2017-05-03] MEDS ORDERED: POTASSIUM CHLOR 20 MEQ PREMIX 100 ML IV PRN ×3 (12:00)
[2017-05-03] MEDS ORDERED: SODIUM CHLORIDE 0.9% FLUSH 10 ML FLUSH IV FLUSH PRN (12:00)
[2017-05-03] MEDS ORDERED: hydrALAZINE HCL 20 MG/ML VIAL IV PRN (12:00)
[2017-05-03] MEDS ORDERED: ACETAMINOPHEN 325 MG TAB PO PRN (12:00)
[2017-05-03] MEDS ORDERED: ACETAMINOPHEN 650 MG SUPP RECTAL PRN (12:00)
[2017-05-03] MEDS ORDERED: MORPHINE SULFATE 4 MG/ML INJ IV PRN (12:00)
[2017-05-03] MEDS ORDERED: PROTAMINE SULFATE 250 MG/25 ML VIAL IV ONE (12:00)
[2017-05-03] MEDS ORDERED: LACTATED RINGER'S 1000 ML INJ 1,000 ML IV ONE (12:00)
[2017-05-03] MEDS ORDERED: RESP: RACEPINEPHRINE 2.25% 0.5 ML NEB NEB PRN ×2 (12:00→14:00)
[2017-05-03] MEDS ORDERED: ONDANSETRON HCL 4 MG/2 ML VIAL IV PUSH ONE (12:00)
[2017-05-03] MEDS ORDERED: NITROGLYCERIN-DEXTROSE INJ 250 ML IV SCH (12:00)
[2017-05-03] MEDS ORDERED: DEXTROSE 50% IN WATER 50 ML VIAL(D50) IV PUSH PRN (12:00)
[2017-05-03] MEDS ORDERED: SODIUM CHLORIDE 0.9% INJ 500 ML IV ONE (12:00)
[2017-05-03] MEDS ORDERED: DEXMEDETOMIDINE INJ 200 MCG in SODIUM CHLORIDE 0.9% INJ 50 ML IV SCH (12:00)
[2017-05-03] MEDS ORDERED: PHENYLEPHRINE INJ 40 MG in DEXTROSE 5% IN WATE 500 ML INJ 496 ML IV SCH ×2 (12:00)
[2017-05-03] MEDS ORDERED: ACETAMINOPHEN/HYDROcodone 325 MG/5 MG TAB PO PRN (12:00)
[2017-05-03] MEDS ORDERED: MEPERIDINE HCL 25 MG/ML VIAL IV PRN (12:00)
[2017-05-03] MEDS ORDERED: RESP: ALBUTEROL 2.5 MG/IPRATROPIUM 0.5 MG NEB (PRN) NEB ×2 (12:00→14:00)
[2017-05-03] MEDS ORDERED: Post-op Orders (for Pharmacy) MISC OTHER ONE (12:00)
[2017-05-03] MEDS ORDERED: CALCIUM CHLORIDE 10% 1 GRAM/10 ML VIAL IV PRN (12:00)
[2017-05-03] MEDS ORDERED: CLEVIDIPINE INJ 50 ML IV SCH (12:00)
[2017-05-03] MEDS ORDERED: fentaNYL CITRATE 1000 MCG/20 ML VIAL ONE (12:39)
[2017-05-03] MEDS ORDERED: MIDAZOLAM HCL 5 MG/5 ML VIAL ONE (12:39)
--- NOTE | 2017-05-03 13:19 | RADRPT ---
EXAM DATE/TIME: 05/03/2017 12:19 [facility] COMPARISON: CT PULMONARY ANGIOGRAM, April 30, 2017, 13:41. CHEST SINGLE AP, April 25, 2017, 7:23. INDICATIONS : Post op heart surgery. MEDICAL HISTORY : Hypertension. Gastroesophageal reflux disease. SURGICAL HISTORY : None. ENCOUNTER: Initial ACUITY: 1 day PAIN SCORE: Non-responsive. LOCATION: Bilateral chest FINDINGS: The patient is status-post sternotomy. The ET tube, NG tube, mediastinal drain, left chest tube and right internal jugular central line all appear well placed. The heart size is borderline large. The lungs demonstrate diffuse mixed interstitial and alveolar consolidation being worse on the right luann ecially in the right mid lung. The costophrenic angles are clear on this frontal view. CONCLUSION: 1. Status-post sternotomy. The tubes and lines appear well placed. 2. Diffuse consolidation or some form of diffuse processes such as edema. Roc Valadez MD on May 03, 2017 at 13:01 Board Certified Radiologist. This report was verified electronically.
[2017-05-03] MEDS ORDERED: FUROSEMIDE 40 MG/4 ML VIAL ONE (13:40)
[2017-05-03] MEDS ORDERED: FUROSEMIDE 40 MG/4 ML VIAL IV PUSH ONE (14:00)
[2017-05-03] MEDS ORDERED: RESP: ALBUTEROL 2.5 MG/IPRATROPIUM 0.5 MG NEB (SCH) NEB (16:00)
--- NOTE | 2017-05-03 16:24 | HHI.FF ---
Face to Face Verification Diagnosis: (1) GAVE (gastric antral vascular ectasia) (2) GI bleed (3) NSTEMI (non-ST elevation myocardial infarction) (4) Hyperlipidemia (5) DVT (deep venous thrombosis) (6) Pulmonary emboli (7) S/P CABG x 3 Home Health Nursing Order: Signs/symptoms of disease process Medication education-adverse effect Wound care and dressing changes Nursing assessment with vital signs Instructions: Heart and Vascular Surgery patients *Special attention to sternal dressing Mandatory frequency Assess and evaluation, 4 days in a row The next week 3X week 2 times a week for 4 weeks 1 time a week for 5 weeks Schedule Heart and Vascular patients for full 60 day certification period Initial visit Review Open Heart Surgery Discharge Instructions (Sternal precautions, Activity, Elastic hose, Incision care, Driving, Incentive spirometry, Smoking, Bell, Work and other) Need Betadine to paint incision Medication reconciliation Importance of follow up care/ check on appointments Make calendar record temperature daily When to call [facility] nurse, review instructions, phone list Incentive Spirometry, demonstration Visit 1- Begin discharge instruction for patient family and/ or caregiver using teach back method- Signs and symptoms of infection Disease characteristics Medicines and side effects Foods and nutrition/ appetite Infection control/ hand washing/ hygiene Visit 2- Continue teaching Discharge instructions- include additional information on smoking cessation , sternal dressing (sternal vac) Visit 3- Continue teaching- Cough and deep breathing, incision monitoring. Choose my plate Visit 4- Continue teaching- Discuss limitations Discuss how they are feeling Discuss progress toward goals Remaining visits- continue teaching and monitoring PREVENA Single Use Negative Wound Therapy System Caregiver Instruction Sheet 1. A Prevena dressing system was applied to the chest incision during surgery , to promote wound healing. It works via a suction device (negative pressure wound therapy) to remove low to moderate levels of exudate (drainage) and infectious materials. We recommend that the device stay in place for up to seven days, from day of surgery. 2. Day of Surgery____/ Day of Removal __05/10/17 3. The dressing should only be removed by a health career development director. Please arrange removal of device to coincide with Home Health visit and or with Nursing staff at Rehab 4. If skin reddening or irritation of skin occurs, or excessive drainage, please notify the Cardiovascular Surgeons office at [phone]. 5. Light showering is permissible; however the pump should be disconnected and placed in safe location, where it will not get wet. The dressing should not be exposed to direct spray or submerged in water. No bath tub / shower only. Ensure the end of the tubing attached to the dressing is facing down so that water does not enter the top of the tube. 6. To remove Prevena dressing: press purple button to turn off device / remove the suction. Then disconnect the tubing from the pump. The fixation strips should be stretched away from the skin and the dressing lifted at one corner and peeled back until it has been fully removed. 7. After removal, it is ok to shower daily using liquid dial soap and clean wash cloth, rinse and pat dry, and leave incision open to air dry. For any concerns regarding Prevena dressing, and or wounds, please contact Leslie Flowers, patient navigator at [phone] or notify the Cardiovascular Surgeons office at [phone]. Incentive spirometry Q1 hr x 10, while awake, also use acapella device hourly whole awake Sternal Breast Bone Precautions: NO pushing or pulling, ( pt must use sternal pillow to support chest with all activities and with coughing ( takes up to 3 months breast bone to heal ) All females to wear sternal bra , launder as needed Daily incision care: ok to shower daily, no tub bath. Wash all incisions with liquid dial soap, clean wash cloth to each site, rinse and pat dry. Observe for any signs of infection, such as drainage which is dark yellow, abreu, green or foul smelling. Immediately report to the surgeon any drainage from the chest incision, or legs, and for any abnormal drainage from the chest tube sites. Notify surgeon if any temp >101.5 degrees F. When specialty dressing removed/ or if you do not have one, continue to shower daily as above, then rinse and pat incision dry and paint with betadine daily x 5 days. Allow steri strips to fall off if you have any. Avoid lotions, creams, salves, oils, etc. for the first month Please see attached forms for additional instructions regarding post Open Heart specialty wound vacuum dressings. HAILE or Prevena , Dressing to be removed by Nursing staff on __05/10/17 F/U appointment: as per DC instructions: PCP in 2 weeks, CV surgeon 2 weeks, Machine Hoop Maker 3-4 weeks For any questions regarding incisions/ dressing / meds / post op care or above Symptoms, Monday 8am-5pm Heart & Vascular Surgery Office ( Dr. Franco & Dr. [place]), After Hours / Nights (5pm -8am) Weekends and Holidays Please call [facility] ([facility]) Charge Nurse I have seen patient Rosi Severino on 05/03/17. My clinical findings support the need for the requested home health care services because: Deconditioned w/ increased weakness I certify that my clinical findings support that this patient is homebound because: Post-op weakness Ksenia Bello May 03, 2017 16:24
[2017-05-03] MEDS: ACETAMINOPHEN 1000 MG/100 ML VIAL IV SCH ×2 (17:08→22:32)
[2017-05-03] MEDS: RESP: ALBUTEROL 2.5 MG/IPRATROPIUM 0.5 MG NEB (SCH) NEB ×2 (17:13→22:31)
--- NOTE | 2017-05-03 18:31 | PD.OP ---
cc: Juan C Franco MD; Bhaskar Hernandez MD Operative Report Date of Surgery: May 03, 2017 Preoperative Diagnosis: Postoperative Diagnosis: Procedure: 1. Off-pump Coronary Artery Bypass Grafting x 3 with left internal mammary artery (ERNANDEZ) to left anterior descending (LAD), reverse saphenous vein graft to OM2, reverse saphenous vein graft to the RPDA 2. Right Leg Endoscopic Vein [place] 3. Intraoperative Vein Mapping. . Surgeon: Juan C Franco Supervisor Sheet Manufacturing(s): Shan Salgado Operation and Findings: PREPROCEDURE DIAGNOSES 1. Severe Multi-Vessel Coronary Artery Disease. 2. Acute Myocardial Infarction (NSTEMI) 3. Pulmonary Embolus 4. DVT 5. COPD POSTPROCEDURE DIAGNOSES Same SURGICAL PROCEDURE 1. Off-pump Coronary Artery Bypass Grafting x 3 with left internal mammary artery (ERNANDEZ) to left anterior descending (LAD), reverse saphenous vein graft to OM2, reverse saphenous vein graft to the RPDA 2. Right Leg Endoscopic Vein [place] 3. Intraoperative Vein Mapping. SURGEON Juan C Franco MD MANAGER FINANCE HERNESTO Montes [facility] AN[facility] General endotracheal ECHOCARDIOGRAPH TECHNICIAN BRADY Alvarez MD PREPARATION ChloraPrep. COUNTS Needle, sponge, and instrument counts were correct. DRAINS Two 32-Uzbek mediastinal tubes. COMPLICATIONS None. INDICATIONS FOR PROCEDURE The patient is a 66 year-old lady presenting with chest pain and AMI with PE & DVT. The patient is being brought to the operating room for surgical revascularization therapy. PROCEDURE Patient was brought to the operating room and placed supine on the OR table. Following the induction of adequate general endotracheal anesthesia and placement of appropriate monitoring devices, intraoperative vein mapping was performed which revealed usable-caliber conduit in the right thigh with DVT and non-usable saphenous vein in the left. The patient was then prepped and draped in standard sterile fashion. Next, 2500 units of intravenous heparin was given. The right greater saphenous vein was harvested endoscopically. This appeared to be a useable-caliber conduit in the thigh portion. Simultaneously, a median sternotomy was performed and the left internal mammary artery dissected free off the posterior sternal table. The patient was systemically heparinized and anticoagulation monitored by serial ACT measurements. The internal mammary artery had excellent pulsatile flow in it and was a good-caliber conduit. The pericardium was then divided in the midline, the cradle created and targets analyzed. At this point, all anastomoses were performed in a beating-heart fashion using the Maquet stabilizing system. The left internal mammary artery was anastomosed to the mid LAD (1.75 mm) in an end-to-side fashion using 7-0 Prolene. Segment of saphenous vein graft was then anastomosed to the OM1 (1.75 mm) in an end-to-side fashion using 7-0 Prolene. The final segment was anastomosed to the RPDA (2 mm) branch of the RCA in an end-to-side fashion using a running 7-0 Prolene. The proximal anastomoses were then constructed to the ascending aorta in a running manner using 6-0 Prolene. All anastomotic sites were inspected and appeared to be hemostatic and patent. Protamine solution was given. Strict hemostasis was assured. The closure was undertaken. 2 chest tubes were placed. The pericardium was reapproximated in the midline. The sternum was approximated using sternal wires. The muscular and fascial layer were then closed in 3 layers. The endoscopic vein harvest site was closed in 2 layers. The patient tolerated the procedure well and was transferred to CVICU in stable condition. Juan C Franco MD May 03, 2017 18:31
[2017-05-03] MEDS: VANCOMYCIN INJ 1,000 MG in SODIUM CHLOR 0.9% 250 ML INJ 250 ML IV SCH (20:35)
[2017-05-03] MEDS: AMIODARONE 200 MG TAB PO SCH (20:35)
[2017-05-03] MEDS: SODIUM CHLORIDE 0.9% FLUSH 10 ML FLUSH IV FLUSH SCH (20:36)
[2017-05-04] VITALS (19 sets, daily range): BP systolic 119–161; BP diastolic 66–85; PULSE 75–102; RESP 18–20; TEMP 97.4–99.3; O2SAT 97–99
[2017-05-04] MEDS: KETOROLAC TROMETHAMINE 30 MG/ML (IVP) VIAL IV PUSH PRN ×2 (03:09→11:25)
[2017-05-04] MEDS: RESP: ALBUTEROL 2.5 MG/IPRATROPIUM 0.5 MG NEB (SCH) NEB ×4 (03:24→22:00)
[2017-05-04] MEDS: ACETAMINOPHEN/HYDROcodone 325 MG/5 MG TAB PO PRN ×3 (03:36→22:15)
[2017-05-04] MEDS: PIPERACIL-TAZO 4.5 GM PREMIX 100 ML IV SCH ×4 (04:47→23:28)
[2017-05-04] MEDS: ACETAMINOPHEN 1000 MG/100 ML VIAL IV SCH (04:47)
[2017-05-04 04:53] LABS: HEMATOCRIT 32.4 % (35.0-46.0); MEAN CORPUSCULAR HGB CONC 32.5 % (32.0-36.0); PLATELET COUNT 407 TH/MM3 (150-450); RED BLOOD COUNT 4.05 MIL/MM3 (4.00-5.30); RED CELL DISTRIBUTION WIDTH 16.4 % (11.6-17.2); REVIEW FLAG FINAL; WHITE BLOOD COUNT 12.9 TH/MM3 (4.0-11.0)
[2017-05-04 05:07] LABS: POTASSIUM 3.9 MEQ/L (3.5-5.1)
--- NOTE | 2017-05-04 05:33 | RADRPT ---
EXAM DATE/TIME: 05/04/2017 03:48 [facility] COMPARISON: No previous studies available for comparison. INDICATIONS : Shortness of breath, possible pulmonary disease. MEDICAL HISTORY : Hypertension. Gastroesophageal reflux disease. SURGICAL HISTORY : CABG. ENCOUNTER: Subsequent ACUITY: 2 days PAIN SCORE: 8/10 LOCATION: Bilateral chest FINDINGS: Mid and lower lung consolidation persists on both sides, slightly improved in the interim. Small pleu ral effusion likely, especially on the left. I don't see a pneumothorax. Left chest tube remains in p lace. Heart size stable, upper limits of normal. Median sternotomy changes are again noted. Mediastinal drain remains in place. Right internal jugular central venous catheter with tip in the superior vena cava again noted. Interim extubation. Nasogast beatrice tube also removed. CONCLUSION: 1. Persistent but slightly improved bilateral mid and lower lung pulmonary opacities. 2. Endotracheal tube and nasogastric tube out. Other lines and tubes unchanged, including mediastinal drain and left chest tube. No pneumothorax. Roc Benson MD on May 04, 2017 at 5:30 Board Certified Radiologist. This report was verified electronically.
[2017-05-04] MEDS: PANTOPRAZOLE SOD 40 MG DELAYED RELEASE TAB PO SCH (06:34)
[2017-05-04] MEDS: INSULIN NovoLIN REGULAR SUPPLEMENTAL SCALE SQ SCH ×2 (06:35→12:09)
--- NOTE | 2017-05-04 07:22 | PD.CAR.PN ---
CVT Progress Note Subjective/Hospital Course: 05/01 pt dx with left lower leg DVT, and PE, on heparin gtt/ no chest pain over the weekend H&H stable at 9.7 tentatively scheduled for surgery on mon on room air 05/02 FEv1 08 yesterday/ rechecked today 1.2 scheduled for surgery in am will need NOAC after surgery and when chest tubes removed 05/03 SURGICAL PROCEDURE 1. Off-pump Coronary Artery Bypass Grafting x 3 with left internal mammary artery (ERNANDEZ) to left anterior descending (LAD), reverse saphenous vein graft to OM2, reverse saphenous vein graft to the RPDA 2. Right Leg Endoscopic Vein [place] 3. Intraoperative Vein Mapping. 05/04 Doing well Transfer CIC Pulmonary toiletry Beta celi Maintain CT Objective: Vital Signs Date Time Temp Pulse Resp B/P Pulse Ox O2 Delivery O2 Flow Rate FiO2 05/04/17 05:20 18 05/04/17 04:50 20 05/04/17 03:00 78 05/04/17 03:00 99 Simple Mask 6.00 05/04/17 03:00 99.3 76 18 140/76 99 154/68 05/03/17 23:00 99 Simple Mask 10.00 05/03/17 23:00 99.8 76 18 114/59 99 138/60 05/03/17 23:00 76 05/03/17 22:29 98 Simple Mask 10.00 05/03/17 19:00 99 Simple Mask 10.00 05/03/17 19:00 98.8 83 18 119/48 96 138/60 05/03/17 19:00 83 05/03/17 15:00 97.8 84 18 125/69 98 129/60 05/03/17 15:00 85 05/03/17 15:00 98 Simple Mask 10.00 05/03/17 13:30 95 Mask 10 05/03/17 13:30 94 Simple Mask 10.00 05/03/17 13:00 83 05/03/17 13:00 50 05/03/17 12:25 98.7 73 12 95/50 92 106/51 05/03/17 12:25 60 05/03/17 12:25 92 Mechanical Ventilator 60 05/03/17 12:20 96 60 Labs: Laboratory Tests Test 05/04/17 04:10 White Blood Count 12.9 TH/MM3 (4.0-11.0) Red Blood Count 4.05 MIL/MM3 (4.00-5.30) Hemoglobin 10.5 GM/DL (11.6-15.3) Hematocrit 32.4 % (35.0-46.0) Mean Corpuscular Volume 80.0 FL (80.0-100.0) Mean Corpuscular Hemoglobin 26.0 PG (27.0-34.0) Mean Corpuscular Hemoglobin 32.5 % Concent (32.0-36.0) Red Cell Distribution Width 16.4 % (11.6-17.2) Platelet Count 407 TH/MM3 (150-450) Mean Platelet Volume 8.1 FL (7.0-11.0) Sodium Level 136 MEQ/L (136-145) Potassium Level 3.9 MEQ/L (3.5-5.1) Chloride Level 103 MEQ/L (98-107) Carbon Dioxide Level 21.0 MEQ/L (21.0-32.0) Anion Gap 12 MEQ/L (5-15) Blood Urea Nitrogen 15 MG/DL (7-18) Creatinine 0.59 MG/DL (0.50-1.00) Estimat Glomerular Filtration 102 ML/MIN Rate (>89) Random Glucose 104 MG/DL (74-106) Calcium Level 8.0 MG/DL (8.5-10.1) Magnesium Level 2.0 MG/DL (1.5-2.5) Result Diagram: 05/04/1740905/04/17409 (1) NSTEMI (non-ST elevation myocardial infarction) Plan: awaiting CABG wed -stable and asymptomatic currently, continue present meds (2) Anemia Plan: s/p transfusion, H&H 9.7 >9.4 (3) GAVE (gastric antral vascular ectasia) (4) Hypertension (5) GI bleed Plan: stable , on PPI (6) Hyperlipidemia Plan: on statin, check lipids (7) DVT (deep venous thrombosis) Plan: on Heparin gtt (8) Pulmonary emboli Plan: on Heparin Problem Qualifiers (1) GI bleed: Qualified Code: K92.2 - Gastrointestinal hemorrhage, unspecified gastrointestinal hemorrhage type Juan C Franco MD May 04, 2017 07:22
[2017-05-04] MEDS ORDERED: SOD PHOSPHATE/SOD BIPHOSPHATE (ADULT) ENEMA 133ML RECTAL PRN (07:30)
[2017-05-04] MEDS ORDERED: GLUCAGON 1 MG/ML VIAL OTHER PRN (07:30)
[2017-05-04] MEDS ORDERED: DEXTROSE 50% IN WATER 50 ML VIAL(D50) IV PRN (07:30)
[2017-05-04] MEDS ORDERED: diphenhydrAMINE HCL 50 MG CAP PO PRN (07:30)
[2017-05-04] MEDS: VANCOMYCIN INJ 1,000 MG in SODIUM CHLOR 0.9% 250 ML INJ 250 ML IV SCH ×2 (08:06→20:37)
--- NOTE | 2017-05-04 08:28 | PD.CARD.PN ---
Subjective Subjective Remarks s/p CABG doing well Objective Vital Signs / I&O Vital Signs Date Time Temp Pulse Resp B/P Pulse Ox O2 Delivery O2 Flow Rate FiO2 05/04/17 07:41 97.8 86 20 133/74 99 154/68 05/04/17 07:40 86 05/04/17 07:39 99 Nasal Cannula 4.00 05/04/17 05:20 18 05/04/17 04:50 20 05/04/17 03:00 78 05/04/17 03:00 99 Simple Mask 6.00 05/04/17 03:00 99.3 76 18 140/76 99 154/68 05/03/17 23:00 99 Simple Mask 10.00 05/03/17 23:00 99.8 76 18 114/59 99 138/60 05/03/17 23:00 76 05/03/17 22:29 98 Simple Mask 10.00 05/03/17 19:00 99 Simple Mask 10.00 05/03/17 19:00 98.8 83 18 119/48 96 138/60 05/03/17 19:00 83 05/03/17 15:00 97.8 84 18 125/69 98 129/60 05/03/17 15:00 85 05/03/17 15:00 98 Simple Mask 10.00 05/03/17 13:30 95 Mask 10 05/03/17 13:30 94 Simple Mask 10.00 05/03/17 13:00 83 05/03/17 13:00 50 05/03/17 12:25 98.7 73 12 95/50 92 106/51 05/03/17 12:25 60 05/03/17 12:25 92 Mechanical Ventilator 60 05/03/17 12:20 96 60 I/O 05/03/17 05/03/17 05/03/17 05/04/17 05/04/17 05/04/17 07:00 15:00 23:00 07:00 15:00 23:00 Intake Total 490 ml 1355 ml 1017 ml Output Total 425 ml 2350 ml 500 ml Balance 65 ml -995 ml 517 ml Intake Oral 490 ml 0 ml 360 ml IV Total 1355 ml 657 ml Output Urine Total 425 ml 2050 ml 400 ml Gastric Drainage Total 0 ml Chest Tube Drainage Total 300 ml 100 ml # Bowel Movements 0 0 Physical Exam GENERAL: Well-nourished, well-developed patient in no apparent distress. NECK: No JVD. No carotid bruit. CARDIOVASCULAR: Regular rate and rhythm. S1/S2 no murmur, rub, or gallop. RESPIRATORY: No accessory muscle use. Clear to auscultation. Breath sounds equal bilaterally. GASTROINTESTINAL: Abdomen soft, non-tender, nondistended. MUSCULOSKELETAL: Extremities without clubbing, cyanosis, or edema. Laboratory Laboratory Tests Test 05/03/17 05/04/17 09:51 04:10 Blood Type A NEGATIVE Crossmatch Leukocyte-Reduced Red Blood Cells Blood Bank Comment White Blood Count 12.9 TH/MM3 Red Blood Count 4.05 MIL/MM3 Hemoglobin 10.5 GM/DL Hematocrit 32.4 % Mean Corpuscular Volume 80.0 FL Mean Corpuscular Hemoglobin 26.0 PG Mean Corpuscular Hemoglobin 32.5 % Concent Red Cell Distribution Width 16.4 % Platelet Count 407 TH/MM3 Mean Platelet Volume 8.1 FL Sodium Level 136 MEQ/L Potassium Level 3.9 MEQ/L Chloride Level 103 MEQ/L Carbon Dioxide Level 21.0 MEQ/L Anion Gap 12 MEQ/L Blood Urea Nitrogen 15 MG/DL Creatinine 0.59 MG/DL Estimat Glomerular Filtration 102 ML/MIN Rate Random Glucose 104 MG/DL Calcium Level 8.0 MG/DL Magnesium Level 2.0 MG/DL Assessment and Plan Problem List: (1) NSTEMI (non-ST elevation myocardial infarction) (2) Anemia (3) GAVE (gastric antral vascular ectasia) (4) Hypertension (5) GI bleed (6) Hyperlipidemia (7) DVT (deep venous thrombosis) (8) Pulmonary emboli Assessment and Plan CAD s/p CABG X 3 vessels. Continue present medical regimen. Sign off call with further questions Problem Qualifiers (1) GI bleed: Qualified Code: K92.2 - Gastrointestinal hemorrhage, unspecified gastrointestinal hemorrhage type Chun Arteaga May 04, 2017 08:28
[2017-05-04] MEDS: SODIUM CHLORIDE 0.9% FLUSH 10 ML FLUSH IV FLUSH SCH ×2 (09:08→20:37)
[2017-05-04] MEDS: MAGNESIUM HYDROXIDE SUSP 30 ML CUP PO SCH (09:08)
[2017-05-04] MEDS: LABETALOL HCL 100 MG TAB PO SCH ×2 (09:08→20:36)
[2017-05-04] MEDS: ATORVASTATIN 40 MG TAB PO SCH (09:08)
[2017-05-04] MEDS: AMIODARONE 200 MG TAB PO SCH ×2 (09:08→20:37)
[2017-05-04] MEDS: MULTIVITAMINS/MINERALS THERAPEUTIC TAB PO SCH (09:08)
[2017-05-04] MEDS: CLOPIDOGREL 75 MG TAB PO SCH (09:08)
[2017-05-04] MEDS: ASPIRIN 81 MG CHEW TAB PO SCH (09:09)
[2017-05-04] MEDS: FERROUS SULFATE 325 MG (65 MG ELEMENTAL IRON) TAB PO SCH ×2 (09:09→20:37)
[2017-05-04] MEDS: INSULIN ASPART SUPPLEMENTAL SCALE SQ SCH ×4 (10:30→22:00)
--- NOTE | 2017-05-04 14:26 | EKG ---
Date Performed: 05/04/2017 Time Performed: 03:47:54 PTAGE: 66 years EKG: Sinus rhythm Extensive T wave changes are nonspecific Borderline ECG Compared to PREVIOUS TRACING , there has been improvement in the QT prolongation and improvement in t he diffuse nonspecific ST-T wave changes but clinical correlation remains important. PREVIOUS TRACING : 04/24/2017 21.58 DOCTOR: Susan Blackmon Interpretating Date/Time 05/04/2017 14:25:13
[2017-05-04] MEDS: SENNOSIDES 8.6 MG TAB PO SCH (20:37)
[2017-05-05] VITALS (28 sets, daily range): BP systolic 123–139; BP diastolic 66–71; PULSE 72–102; RESP 16–22; TEMP 97.6–99.2; O2SAT 96–100
[2017-05-05] MEDS: INSULIN ASPART SUPPLEMENTAL SCALE SQ SCH ×6 (02:02→21:00)
[2017-05-05] MEDS: ACETAMINOPHEN/HYDROcodone 325 MG/5 MG TAB PO PRN ×5 (02:12→23:03)
[2017-05-05] MEDS: RESP: ALBUTEROL 2.5 MG/IPRATROPIUM 0.5 MG NEB (SCH) NEB ×4 (03:45→19:25)
[2017-05-05] MEDS: PIPERACIL-TAZO 4.5 GM PREMIX 100 ML IV SCH ×4 (04:31→22:13)
[2017-05-05] MEDS: PANTOPRAZOLE SOD 40 MG DELAYED RELEASE TAB PO SCH (06:29)
[2017-05-05 07:07] LABS: AUTOMATED NEUTROPHIL # 9.7 TH/MM3 (1.8-7.7); BASOPHIL # 0.1 TH/MM3 (0-0.2); BASOPHIL % 0.6 % (0.0-2.0); EOSINOPHIL # 0.4 TH/MM3 (0-0.4); EOSINOPHIL % 3.4 % (0.0-4.0); HEMATOCRIT 30.9 % (35.0-46.0); HEMO FLAGS DIFF FINAL; LYMPH % 9.5 % (9.0-44.0); LYMPHOCYTE # 1.2 TH/MM3 (1.0-4.8); MEAN CELL VOLUME 79.6 FL (80.0-100.0); MEAN CORPUSCULAR HEMOGLOBIN 25.9 PG (27.0-34.0); MEAN CORPUSCULAR HGB CONC 32.6 % (32.0-36.0); MONO % 9.3 % (0.0-8.0); NEUT % 77.2 % (16.0-70.0); PLATELET COUNT 450 TH/MM3 (150-450); RED BLOOD COUNT 3.88 MIL/MM3 (4.00-5.30); RED CELL DISTRIBUTION WIDTH 16.8 % (11.6-17.2); WHITE BLOOD COUNT 12.6 TH/MM3 (4.0-11.0)
[2017-05-05 07:18] LABS: BICARBONATE 26.4 MEQ/L (21.0-32.0); MAGNESIUM 2.2 MG/DL (1.5-2.5); POTASSIUM 4.1 MEQ/L (3.5-5.1)
[2017-05-05] MEDS: AMIODARONE 200 MG TAB PO SCH ×2 (09:00→22:12)
[2017-05-05] MEDS: MAGNESIUM HYDROXIDE SUSP 30 ML CUP PO SCH (09:00)
--- NOTE | 2017-05-05 09:25 | PD.ONC.PN ---
Subjective Subjective Remarks Afebrile overnight. Feeling well. Some slight post-surgical chest discomfort. Objective Data Date Time Temp Pulse Resp B/P Pulse Ox O2 Delivery O2 Flow Rate FiO2 05/05/17 08:10 21 05/05/17 07:00 98.1 91 21 131/68 98 05/05/17 07:00 98 Nasal Cannula 2.00 05/05/17 07:00 93 05/05/17 06:00 98 05/05/17 05:00 80 05/05/17 04:00 84 05/05/17 03:50 96 Nasal Cannula 2.00 05/05/17 03:50 97.6 88 18 131/69 96 05/05/17 03:00 85 05/05/17 02:00 88 05/05/17 01:00 82 05/05/17 00:00 78 05/04/17 23:30 98 Nasal Cannula 2.00 05/04/17 23:30 98.8 83 18 135/69 98 05/04/17 23:00 80 05/04/17 22:00 86 05/04/17 21:00 102 05/04/17 20:17 99 Nasal Cannula 2.00 05/04/17 20:00 94 05/04/17 19:30 98 Nasal Cannula 2.00 05/04/17 19:30 97.8 96 18 152/75 98 05/04/17 19:00 87 05/04/17 18:11 94 05/04/17 16:13 85 05/04/17 15:10 98 Nasal Cannula 3.00 05/04/17 15:10 97.5 82 18 119/66 98 05/04/17 15:10 81 05/04/17 14:06 78 05/04/17 13:05 75 05/04/17 13:05 18 05/04/17 12:10 86 05/04/17 11:43 98 05/04/17 11:43 97.4 99 20 161/85 99 Arterial Line 05/04/17 11:43 99 Nasal Cannula 4.00 Result Diagram: 05/05/17 0630 05/05/17 0630 Laboratory Results Laboratory Tests Test 05/05/17 06:30 White Blood Count 12.6 TH/MM3 Red Blood Count 3.88 MIL/MM3 Hemoglobin 10.1 GM/DL Hematocrit 30.9 % Mean Corpuscular Volume 79.6 FL Mean Corpuscular Hemoglobin 25.9 PG Mean Corpuscular Hemoglobin 32.6 % Concent Red Cell Distribution Width 16.8 % Platelet Count 450 TH/MM3 Mean Platelet Volume 7.7 FL Neutrophils (%) (Auto) 77.2 % Lymphocytes (%) (Auto) 9.5 % Monocytes (%) (Auto) 9.3 % Eosinophils (%) (Auto) 3.4 % Basophils (%) (Auto) 0.6 % Neutrophils # (Auto) 9.7 TH/MM3 Lymphocytes # (Auto) 1.2 TH/MM3 Monocytes # (Auto) 1.2 TH/MM3 Eosinophils # (Auto) 0.4 TH/MM3 Basophils # (Auto) 0.1 TH/MM3 CBC Comment DIFF FINAL Differential Comment Sodium Level 137 MEQ/L Potassium Level 4.1 MEQ/L Chloride Level 103 MEQ/L Carbon Dioxide Level 26.4 MEQ/L Anion Gap 8 MEQ/L Blood Urea Nitrogen 17 MG/DL Creatinine 0.68 MG/DL Estimat Glomerular Filtration 86 ML/MIN Rate Random Glucose 124 MG/DL Calcium Level 8.6 MG/DL Magnesium Level 2.2 MG/DL Administered Medications Medications (Trade) Dose Ordered Sig/Adilia Route PRN Reason Start Time Stop Time Status Last Admin Dose Admin Labetalol HCl (Trandate) 100 mg BID PO 04/24/17 21:00 05/04/17 20:36 Atorvastatin Calcium 40 mg 40 mg DAILY PO 04/25/17 09:00 05/04/17 09:08 Piperacillin Sod/ Tazobactam Sod (Zosyn 4.5 Gm Premix) 100 ml @ 200 mls/hr Q6H IV 04/25/17 11:00 05/05/17 04:31 Ferrous Sulfate (Ferrous Sulfate) 325 mg BID PO 04/29/17 21:00 05/04/17 20:37 Sodium Chloride (NS Flush) 2 ml BID IV FLUSH 05/03/17 21:00 05/04/17 20:37 Aspirin (Aspirin Chew) 81 mg DAILY PO 05/04/17 09:00 05/04/17 09:09 Clopidogrel Bisulfate (Plavix) 75 mg DAILY PO 05/04/17 09:00 05/04/17 09:08 Pantoprazole Sodium (Protonix) 40 mg DAILY@06 PO 05/04/17 06:00 05/05/17 06:29 Amiodarone HCl (Cordarone) 200 mg Q12HR PO 05/03/17 21:00 05/04/17 20:37 Acetaminophen/ Hydrocodone Bitart ([place] 5-325 Mg) 1 tab Q3H PRN PO PAIN SCALE 1 TO 5 05/03/17 12:00 05/05/17 06:29 Ketorolac Tromethamine 15 mg 15 mg Q6H PRN IV PUSH SEE LABEL COMMENTS 05/03/17 12:00 05/05/17 11:59 05/04/17 11:25 Potassium Chloride (KCl 20 Meq Premix Inj) 100 ml @ 50 mls/hr UNSCH PRN IV SEE LABEL COMMENTS 05/03/17 12:00 05/04/17 06:45 Multivitamins/ Minerals Therapeutic (Theragran M Tab) 1 tab DAILY PO 05/04/17 09:00 05/04/17 09:08 Magnesium Hydroxide (Milk Of Magnliza Liq) 30 ml DAILY PO 05/04/17 09:00 05/04/17 09:08 Insulin Aspart (NovoLOG SUPPLEMENTAL SCALE) 1 02,06,10,14,18,22 SQ 05/04/17 10:00 05/05/17 06:28 Objective Remarks GENERAL: Middle aged female, sitting up in chair next to bed in [facility]. SKIN: Warm and dry. wound vac along chest. HEAD: Normocephalic. EYES: No injection or drainage. NECK: Supple, trachea midline. CARDIOVASCULAR: +S1/S2 RESPIRATORY: diminished at bases, a few rhonchi. on 2L O2 via [place] GASTROINTESTINAL: Abdomen soft, non-tender, nondistended. EXTREMITIES: No cyanosis NEUROLOGICAL: No obvious focal deficit. Awake, alert, and oriented x3. Assessment/Plan Assessment 66y/o female with CAD, PE, GIB, s/p CABG Plan 1. patient looks excellent. would recommend restarting heparin gtt without bolus when CT-surgery feels it is safe to do so. 2. monitor CBC, monitor clinically for bleeding. Attending Statement The exam, history, and the medical decision-making described in the above note were completed with the assistance of the mid-level provider. I reviewed and agree with the findings presented. I attest that I had a [id number] encounter with the patient on the same day, and personally performed and documented my assessment and findings in the medical record. patient doing well post op. would like to begin heparin as soon as thoracic surgery feels safe. If necessary can give less then full dose heparin and gradually increase the dose. she will require full dose anticoagulation for 3- 6 months if she tolerates, ie no significant bleeding. Malia Gibbs May 05, 2017 09:25 Adal Tellez MD May 05, 2017 21:48
[2017-05-05] MEDS: SODIUM CHLORIDE 0.9% FLUSH 10 ML FLUSH IV FLUSH SCH ×2 (09:37→22:12)
[2017-05-05] MEDS: ASPIRIN 81 MG CHEW TAB PO SCH (09:37)
[2017-05-05] MEDS: CLOPIDOGREL 75 MG TAB PO SCH (09:38)
[2017-05-05] MEDS: FERROUS SULFATE 325 MG (65 MG ELEMENTAL IRON) TAB PO SCH ×2 (09:38→22:12)
[2017-05-05] MEDS: ATORVASTATIN 40 MG TAB PO SCH (09:38)
[2017-05-05] MEDS: MULTIVITAMINS/MINERALS THERAPEUTIC TAB PO SCH (09:38)
[2017-05-05] MEDS: LABETALOL HCL 100 MG TAB PO SCH ×2 (10:06→22:12)
--- NOTE | 2017-05-05 15:05 | PD.CAR.PN ---
CVT Progress Note Subjective/Hospital Course: 05/01 pt dx with left lower leg DVT, and PE, on heparin gtt/ no chest pain over the weekend H&H stable at 9.7 tentatively scheduled for surgery on mon on room air 05/02 FEv1 08 yesterday/ rechecked today 1.2 scheduled for surgery in am will need NOAC after surgery and when chest tubes removed 05/03 SURGICAL PROCEDURE 1. Off-pump Coronary Artery Bypass Grafting x 3 with left internal mammary artery (ERNANDEZ) to left anterior descending (LAD), reverse saphenous vein graft to OM2, reverse saphenous vein graft to the RPDA 2. Right Leg Endoscopic Vein [place] 3. Intraoperative Vein Mapping. 05/04 Doing well Transfer [facility] Pulmonary toiletry Beta celi Maintain CT 05/05 Doing well Discharge home Objective: Vital Signs Date Time Temp Pulse Resp B/P Pulse Ox O2 Delivery O2 Flow Rate FiO2 05/05/17 13:06 100 05/05/17 12:07 98 05/05/17 11:52 18 05/05/17 11:00 100 Simple Mask 2.00 05/05/17 11:00 93 05/05/17 11:00 98.0 95 21 129/71 100 05/05/17 10:00 92 05/05/17 09:00 102 05/05/17 08:00 92 05/05/17 07:00 98.1 91 21 131/68 98 05/05/17 07:00 98 Nasal Cannula 2.00 05/05/17 07:00 93 05/05/17 06:00 98 05/05/17 05:00 80 05/05/17 04:00 84 05/05/17 03:50 96 Nasal Cannula 2.00 05/05/17 03:50 97.6 88 18 131/69 96 05/05/17 03:00 85 05/05/17 02:00 88 05/05/17 01:00 82 05/05/17 00:00 78 05/04/17 23:30 98 Nasal Cannula 2.00 05/04/17 23:30 98.8 83 18 135/69 98 05/04/17 23:00 80 05/04/17 22:00 86 05/04/17 21:00 102 05/04/17 20:17 99 Nasal Cannula 2.00 05/04/17 20:00 94 05/04/17 19:30 98 Nasal Cannula 2.00 05/04/17 19:30 97.8 96 18 152/75 98 05/04/17 19:00 87 05/04/17 18:11 94 05/04/17 16:13 85 05/04/17 15:10 98 Nasal Cannula 3.00 05/04/17 15:10 97.5 82 18 119/66 98 05/04/17 15:10 81 Labs: Laboratory Tests Test 05/05/17 06:30 White Blood Count 12.6 TH/MM3 (4.0-11.0) Red Blood Count 3.88 MIL/MM3 (4.00-5.30) Hemoglobin 10.1 GM/DL (11.6-15.3) Hematocrit 30.9 % (35.0-46.0) Mean Corpuscular Volume 79.6 FL (80.0-100.0) Mean Corpuscular Hemoglobin 25.9 PG (27.0-34.0) Mean Corpuscular Hemoglobin 32.6 % Concent (32.0-36.0) Red Cell Distribution Width 16.8 % (11.6-17.2) Platelet Count 450 TH/MM3 (150-450) Mean Platelet Volume 7.7 FL (7.0-11.0) Neutrophils (%) (Auto) 77.2 % (16.0-70.0) Lymphocytes (%) (Auto) 9.5 % (9.0-44.0) Monocytes (%) (Auto) 9.3 % (0.0-8.0) Eosinophils (%) (Auto) 3.4 % (0.0-4.0) Basophils (%) (Auto) 0.6 % (0.0-2.0) Neutrophils # (Auto) 9.7 TH/MM3 (1.8-7.7) Lymphocytes # (Auto) 1.2 TH/MM3 (1.0-4.8) Monocytes # (Auto) 1.2 TH/MM3 (0-0.9) Eosinophils # (Auto) 0.4 TH/MM3 (0-0.4) Basophils # (Auto) 0.1 TH/MM3 (0-0.2) CBC Comment DIFF FINAL Differential Comment Sodium Level 137 MEQ/L (136-145) Potassium Level 4.1 MEQ/L (3.5-5.1) Chloride Level 103 MEQ/L (98-107) Carbon Dioxide Level 26.4 MEQ/L (21.0-32.0) Anion Gap 8 MEQ/L (5-15) Blood Urea Nitrogen 17 MG/DL (7-18) Creatinine 0.68 MG/DL (0.50-1.00) Estimat Glomerular Filtration 86 ML/MIN (>89) Rate Random Glucose 124 MG/DL (74-106) Calcium Level 8.6 MG/DL (8.5-10.1) Magnesium Level 2.2 MG/DL (1.5-2.5) Result Diagram: 05/05/1762905/05/17629 (1) NSTEMI (non-ST elevation myocardial infarction) Plan: awaiting CABG wed -stable and asymptomatic currently, continue present meds (2) Anemia Plan: s/p transfusion, H&H 9.7 >9.4 (3) GAVE (gastric antral vascular ectasia) (4) Hypertension (5) GI bleed Plan: stable , on PPI (6) Hyperlipidemia Plan: on statin, check lipids (7) DVT (deep venous thrombosis) Plan: on Heparin gtt (8) Pulmonary emboli Plan: on Heparin Problem Qualifiers (1) GI bleed: Qualified Code: K92.2 - Gastrointestinal hemorrhage, unspecified gastrointestinal hemorrhage type Juan C Franco MD May 05, 2017 15:05
[2017-05-05] MEDS ORDERED: INSULIN ASPART SUPPLEMENTAL SCALE SQ SCH (21:00)
[2017-05-05] MEDS: SENNOSIDES 8.6 MG TAB PO SCH (21:00)
[2017-05-06] VITALS (30 sets, daily range): BP systolic 129–155; BP diastolic 69–97; PULSE 71–94; RESP 18–20; TEMP 98.2–99.1; O2SAT 92–96
[2017-05-06] MEDS: RESP: ALBUTEROL 2.5 MG/IPRATROPIUM 0.5 MG NEB (SCH) NEB ×4 (02:21→20:07)
[2017-05-06] MEDS: PIPERACIL-TAZO 4.5 GM PREMIX 100 ML IV SCH ×4 (05:00→23:00)
[2017-05-06] MEDS: PANTOPRAZOLE SOD 40 MG DELAYED RELEASE TAB PO SCH (06:15)
[2017-05-06] MEDS: INSULIN ASPART SUPPLEMENTAL SCALE SQ SCH ×4 (06:17→21:00)
[2017-05-06 07:04] LABS: AUTOMATED NEUTROPHIL # 8.1 TH/MM3 (1.8-7.7); BASOPHIL # 0.1 TH/MM3 (0-0.2); BASOPHIL % 0.7 % (0.0-2.0); EOSINOPHIL # 0.5 TH/MM3 (0-0.4); EOSINOPHIL % 4.4 % (0.0-4.0); HEMATOCRIT 30.1 % (35.0-46.0); HEMO FLAGS DIFF FINAL; LYMPH % 11.8 % (9.0-44.0); LYMPHOCYTE # 1.3 TH/MM3 (1.0-4.8); MEAN CELL VOLUME 81.1 FL (80.0-100.0); MEAN CORPUSCULAR HEMOGLOBIN 26.2 PG (27.0-34.0); MEAN CORPUSCULAR HGB CONC 32.3 % (32.0-36.0); MONO % 10.3 % (0.0-8.0); NEUT % 72.8 % (16.0-70.0); PLATELET COUNT 348 TH/MM3 (150-450); RED BLOOD COUNT 3.71 MIL/MM3 (4.00-5.30); RED CELL DISTRIBUTION WIDTH 16.5 % (11.6-17.2); WHITE BLOOD COUNT 11.1 TH/MM3 (4.0-11.0)
[2017-05-06] MEDS: SODIUM CHLORIDE 0.9% FLUSH 10 ML FLUSH IV FLUSH SCH ×2 (08:09→21:00)
[2017-05-06] MEDS: ATORVASTATIN 40 MG TAB PO SCH (08:10)
[2017-05-06] MEDS: FERROUS SULFATE 325 MG (65 MG ELEMENTAL IRON) TAB PO SCH ×2 (08:10→21:25)
[2017-05-06] MEDS: ASPIRIN 81 MG CHEW TAB PO SCH (08:10)
[2017-05-06] MEDS: AMIODARONE 200 MG TAB PO SCH ×2 (08:10→21:25)
--- NOTE | 2017-05-06 08:10 | PD.CAR.PN ---
CVT Progress Note CVT: POD #: 3 Subjective/Hospital Course: 05/01 pt dx with left lower leg DVT, and PE, on heparin gtt/ no chest pain over the weekend H&H stable at 9.7 tentatively scheduled for surgery on mon on room air 05/02 FEv1 08 yesterday/ rechecked today 1.2 scheduled for surgery in am will need NOAC after surgery and when chest tubes removed 05/03 SURGICAL PROCEDURE 1. Off-pump Coronary Artery Bypass Grafting x 3 with left internal mammary artery (ERNANDEZ) to left anterior descending (LAD), reverse saphenous vein graft to OM2, reverse saphenous vein graft to the RPDA 2. Right Leg Endoscopic Vein [place] 3. Intraoperative Vein Mapping. 05/04 Doing well Transfer [facility] Pulmonary toiletry Beta celi Maintain CT 05/05 Doing well Discharge home 05/06/17 No complaints today, continues on O2 Objective: Vital Signs Date Time Temp Pulse Resp B/P Pulse Ox O2 Delivery O2 Flow Rate FiO2 05/06/17 08:06 98.6 90 20 149/71 93 05/06/17 06:00 82 05/06/17 05:00 71 05/06/17 04:00 74 05/06/17 03:11 78 05/06/17 03:00 98.6 81 18 129/69 95 05/06/17 03:00 95 Nasal Cannula 1.00 05/06/17 02:00 71 05/06/17 01:00 72 05/06/17 00:30 16 05/06/17 00:00 71 05/05/17 23:00 72 05/05/17 23:00 96 Nasal Cannula 1.00 05/05/17 23:00 99.2 73 16 123/66 96 05/05/17 22:00 82 05/05/17 21:00 86 05/05/17 20:07 100 Nasal Cannula 1.00 05/05/17 20:00 80 05/05/17 19:00 80 05/05/17 19:00 99.0 90 20 139/69 100 05/05/17 19:00 100 Nasal Cannula 1.00 05/05/17 18:00 86 05/05/17 17:00 81 05/05/17 16:00 84 05/05/17 15:09 97 Nasal Cannula 1.00 05/05/17 15:06 97.7 83 22 137/70 97 05/05/17 15:00 83 05/05/17 14:00 94 05/05/17 13:06 100 05/05/17 12:07 98 05/05/17 11:00 100 Simple Mask 2.00 05/05/17 11:00 93 05/05/17 11:00 98.0 95 21 129/71 100 05/05/17 10:48 98 Nasal Cannula 1.00 05/05/17 10:00 92 05/05/17 09:00 102 Labs: Laboratory Tests Test 05/06/17 05:25 White Blood Count 11.1 TH/MM3 (4.0-11.0) Red Blood Count 3.71 MIL/MM3 (4.00-5.30) Hemoglobin 9.7 GM/DL (11.6-15.3) Hematocrit 30.1 % (35.0-46.0) Mean Corpuscular Volume 81.1 FL (80.0-100.0) Mean Corpuscular Hemoglobin 26.2 PG (27.0-34.0) Mean Corpuscular Hemoglobin 32.3 % Concent (32.0-36.0) Red Cell Distribution Width 16.5 % (11.6-17.2) Platelet Count 348 TH/MM3 (150-450) Mean Platelet Volume 7.8 FL (7.0-11.0) Neutrophils (%) (Auto) 72.8 % (16.0-70.0) Lymphocytes (%) (Auto) 11.8 % (9.0-44.0) Monocytes (%) (Auto) 10.3 % (0.0-8.0) Eosinophils (%) (Auto) 4.4 % (0.0-4.0) Basophils (%) (Auto) 0.7 % (0.0-2.0) Neutrophils # (Auto) 8.1 TH/MM3 (1.8-7.7) Lymphocytes # (Auto) 1.3 TH/MM3 (1.0-4.8) Monocytes # (Auto) 1.1 TH/MM3 (0-0.9) Eosinophils # (Auto) 0.5 TH/MM3 (0-0.4) Basophils # (Auto) 0.1 TH/MM3 (0-0.2) CBC Comment DIFF FINAL Differential Comment Result Diagram: 05/06/17 0525 05/05/17 0630 Cardiovascular: RRR Telemetry: NSR Pulmonary: CTA GI/: NABS, NT Incision: dry and intact Plan: Wean oxygen Encourage ambulation Anticipate d/c tomorrow (1) NSTEMI (non-ST elevation myocardial infarction) Plan: awaiting CABG wed -stable and asymptomatic currently, continue present meds (2) Anemia Plan: s/p transfusion, H&H 9.7 >9.4 (3) GAVE (gastric antral vascular ectasia) (4) Hypertension (5) GI bleed Plan: stable , on PPI (6) Hyperlipidemia Plan: on statin, check lipids (7) DVT (deep venous thrombosis) Plan: on Heparin gtt (8) Pulmonary emboli Plan: on Heparin Problem Qualifiers (1) GI bleed: Qualified Code: K92.2 - Gastrointestinal hemorrhage, unspecified gastrointestinal hemorrhage type Lauren Birmingham MD May 06, 2017 08:10
[2017-05-06] MEDS: MULTIVITAMINS/MINERALS THERAPEUTIC TAB PO SCH (08:11)
[2017-05-06] MEDS: LABETALOL HCL 100 MG TAB PO SCH ×2 (08:11→21:25)
[2017-05-06] MEDS: CLOPIDOGREL 75 MG TAB PO SCH (08:11)
[2017-05-06] MEDS: MAGNESIUM HYDROXIDE SUSP 30 ML CUP PO SCH (08:12)
--- NOTE | 2017-05-06 10:15 | PD.ONC.PN ---
Subjective Subjective Remarks Afebrile overnight. Anxious bc she thought she was going home today. Has not yet been resumed on anticoagulation. No bleeding. Objective Data Date Time Temp Pulse Resp B/P Pulse Ox O2 Delivery O2 Flow Rate FiO2 05/06/17 08:39 94 Nasal Cannula 1.00 05/06/17 08:06 98.6 90 20 149/71 93 05/06/17 06:00 82 05/06/17 05:00 71 05/06/17 04:00 74 05/06/17 03:11 78 05/06/17 03:00 98.6 81 18 129/69 95 05/06/17 03:00 95 Nasal Cannula 1.00 05/06/17 02:00 71 05/06/17 01:00 72 05/06/17 00:30 16 05/06/17 00:00 71 05/05/17 23:00 72 05/05/17 23:00 96 Nasal Cannula 1.00 05/05/17 23:00 99.2 73 16 123/66 96 05/05/17 22:00 82 05/05/17 21:00 86 05/05/17 20:07 100 Nasal Cannula 1.00 05/05/17 20:00 80 05/05/17 19:00 80 05/05/17 19:00 99.0 90 20 139/69 100 05/05/17 19:00 100 Nasal Cannula 1.00 05/05/17 18:00 86 05/05/17 17:00 81 05/05/17 16:00 84 05/05/17 15:09 97 Nasal Cannula 1.00 05/05/17 15:06 97.7 83 22 137/70 97 05/05/17 15:00 83 05/05/17 14:00 94 05/05/17 13:06 100 05/05/17 12:07 98 05/05/17 11:00 100 Simple Mask 2.00 05/05/17 11:00 93 05/05/17 11:00 98.0 95 21 129/71 100 05/05/17 10:48 98 Nasal Cannula 1.00 Result Diagram: 05/06/17 0525 05/05/17 0630 Laboratory Results Laboratory Tests Test 05/06/17 05:25 White Blood Count 11.1 TH/MM3 Red Blood Count 3.71 MIL/MM3 Hemoglobin 9.7 GM/DL Hematocrit 30.1 % Mean Corpuscular Volume 81.1 FL Mean Corpuscular Hemoglobin 26.2 PG Mean Corpuscular Hemoglobin 32.3 % Concent Red Cell Distribution Width 16.5 % Platelet Count 348 TH/MM3 Mean Platelet Volume 7.8 FL Neutrophils (%) (Auto) 72.8 % Lymphocytes (%) (Auto) 11.8 % Monocytes (%) (Auto) 10.3 % Eosinophils (%) (Auto) 4.4 % Basophils (%) (Auto) 0.7 % Neutrophils # (Auto) 8.1 TH/MM3 Lymphocytes # (Auto) 1.3 TH/MM3 Monocytes # (Auto) 1.1 TH/MM3 Eosinophils # (Auto) 0.5 TH/MM3 Basophils # (Auto) 0.1 TH/MM3 CBC Comment DIFF FINAL Differential Comment Administered Medications Medications (Trade) Dose Ordered Sig/Adilia Route PRN Reason Start Time Stop Time Status Last Admin Dose Admin Labetalol HCl (Trandate) 100 mg BID PO 04/24/17 21:00 05/06/17 08:11 Atorvastatin Calcium 40 mg 40 mg DAILY PO 04/25/17 09:00 05/06/17 08:10 Piperacillin Sod/ Tazobactam Sod (Zosyn 4.5 Gm Premix) 100 ml @ 200 mls/hr Q6H IV 04/25/17 11:00 05/06/17 05:00 Ferrous Sulfate (Ferrous Sulfate) 325 mg BID PO 04/29/17 21:00 05/06/17 08:10 Sodium Chloride (NS Flush) 2 ml BID IV FLUSH 05/03/17 21:00 05/06/17 08:09 Aspirin (Aspirin Chew) 81 mg DAILY PO 05/04/17 09:00 05/06/17 08:10 Clopidogrel Bisulfate (Plavix) 75 mg DAILY PO 05/04/17 09:00 05/06/17 08:11 Pantoprazole Sodium (Protonix) 40 mg DAILY@06 PO 05/04/17 06:00 05/06/17 06:15 Amiodarone HCl (Cordarone) 200 mg Q12HR PO 05/03/17 21:00 05/06/17 08:10 Acetaminophen/ Hydrocodone Bitart 1 tab 1 tab Q3H PRN PO PAIN SCALE 1 TO 5 05/03/17 12:00 05/05/17 23:03 Potassium Chloride (KCl 20 Meq Premix Inj) 100 ml @ 50 mls/hr UNSCH PRN IV SEE LABEL COMMENTS 05/03/17 12:00 05/04/17 06:45 Multivitamins/ Minerals Therapeutic (Theragran M Tab) 1 tab DAILY PO 05/04/17 09:00 05/06/17 08:11 Magnesium Hydroxide (Milk Of Magnesia Liq) 30 ml DAILY PO 05/04/17 09:00 05/04/17 09:08 Objective Remarks GENERAL: Middle aged female, sitting up in chair next to bed in [facility]. SKIN: Warm and dry. wound vac chest wall HEAD: Normocephalic. EYES: No injection or drainage. NECK: Supple, trachea midline. CARDIOVASCULAR: +S1/S2 RESPIRATORY: diminished at bases, anterior vitale clear. GASTROINTESTINAL: Abdomen soft, non-tender, nondistended. EXTREMITIES: No cyanosis NEUROLOGICAL: No obvious focal deficit. Awake, alert, and oriented x3. Assessment/Plan Assessment 66y/o female with CAD, PE, GIB, s/p CABG Plan 1. d/w Dr. Birmingham, CTS, he states it is safe from a CTS standpoint to begin anticoagulation for pulmonary embolism. d/t her h/o GIB and recent CABG, will start heparin gtt slowly without bolus and see how she tolerates it over the next 24 hours 2. monitor CBC Attending Statement The exam, history, and the medical decision-making described in the above note were completed with the assistance of the mid-level provider. I reviewed and agree with the findings presented. I attest that I had a [id number] encounter with the patient on the same day, and personally performed and documented my assessment and findings in the medical record. Pt seen and examined. UFH started and tolerating it well. Explained to patient her competing needs. Concern about transferring to rehab before therapeutic on anticoagulation. No bleeding so far. Monitor closely. Malia Gibbs May 06, 2017 10:15 Brit Adam MD May 06, 2017 22:21
[2017-05-06] MEDS: HEPARIN-D5W INJ 250 ML IV SCH (11:35)
[2017-05-06 12:14] LABS: MEAN CELL VOLUME 81.4 FL (80.0-100.0); MEAN CORPUSCULAR HEMOGLOBIN 25.7 PG (27.0-34.0); MEAN CORPUSCULAR HGB CONC 31.6 % (32.0-36.0); PLATELET COUNT 371 TH/MM3 (150-450); RED BLOOD COUNT 3.94 MIL/MM3 (4.00-5.30); REVIEW FLAG FINAL
[2017-05-06 12:23] LABS: APTT (PATIENT) 31.4 SEC (24.3-30.1); PROTHROMBIN TIME - PATIENT 22.3 SEC (9.8-11.6)
[2017-05-06 17:28] LABS: APTT (PATIENT) 37.3 SEC (24.3-30.1)
[2017-05-06] MEDS: SENNOSIDES 8.6 MG TAB PO SCH (21:00)
[2017-05-06] MEDS: ACETAMINOPHEN/HYDROcodone 325 MG/5 MG TAB PO PRN (21:24)
[2017-05-07] VITALS (28 sets, daily range): BP systolic 114–153; BP diastolic 67–76; PULSE 62–93; RESP 18–22; TEMP 98.4–99.5; O2SAT 94–98
[2017-05-07 01:36] LABS: APTT (PATIENT) 49.2 SEC (24.3-30.1)
[2017-05-07] MEDS: RESP: ALBUTEROL 2.5 MG/IPRATROPIUM 0.5 MG NEB (SCH) NEB ×2 (03:09→10:00)
[2017-05-07] MEDS: HEPARIN-D5W INJ 250 ML IV SCH (03:13)
[2017-05-07] MEDS: PIPERACIL-TAZO 4.5 GM PREMIX 100 ML IV SCH ×4 (04:56→23:00)
[2017-05-07 05:06] LABS: AUTOMATED NEUTROPHIL # 6.1 TH/MM3 (1.8-7.7); BASOPHIL # 0.1 TH/MM3 (0-0.2); BASOPHIL % 0.7 % (0.0-2.0); EOSINOPHIL # 0.4 TH/MM3 (0-0.4); HEMATOCRIT 27.6 % (35.0-46.0); HEMO FLAGS DIFF FINAL; LYMPH % 15.4 % (9.0-44.0); LYMPHOCYTE # 1.3 TH/MM3 (1.0-4.8); MEAN CORPUSCULAR HEMOGLOBIN 26.5 PG (27.0-34.0); MEAN CORPUSCULAR HGB CONC 33.1 % (32.0-36.0); MONO % 9.5 % (0.0-8.0); NEUT % 69.4 % (16.0-70.0); PLATELET COUNT 363 TH/MM3 (150-450); RED BLOOD COUNT 3.44 MIL/MM3 (4.00-5.30); RED CELL DISTRIBUTION WIDTH 16.9 % (11.6-17.2); WHITE BLOOD COUNT 8.7 TH/MM3 (4.0-11.0)
[2017-05-07] MEDS: PANTOPRAZOLE SOD 40 MG DELAYED RELEASE TAB PO SCH (05:51)
[2017-05-07] MEDS: INSULIN ASPART SUPPLEMENTAL SCALE SQ SCH ×4 (05:54→21:00)
[2017-05-07 08:40] LABS: APTT (PATIENT) 51.3 SEC (24.3-30.1)
--- NOTE | 2017-05-07 08:49 | PD.ONC.PN ---
Subjective Subjective Remarks Afebrile overnight. Tolerating heparin. Had BM yesterday but was not able to look at it, unsure if she is bleeding. Wants to stay in hospital. worried about leaving. Objective Data Date Time Temp Pulse Resp B/P Pulse Ox O2 Delivery O2 Flow Rate FiO2 05/07/17 06:00 77 05/07/17 05:00 76 05/07/17 05:00 99 Nasal Cannula 2.00 05/07/17 04:00 98.7 79 18 138/74 96 05/07/17 04:00 73 05/07/17 03:00 76 05/07/17 02:00 80 05/07/17 01:00 99 Nasal Cannula 2.00 05/07/17 01:00 77 05/07/17 00:00 98.6 81 18 114/69 96 05/07/17 00:00 71 05/06/17 23:00 72 05/06/17 22:00 92 05/06/17 21:00 94 05/06/17 20:08 94 Nasal Cannula 1.00 05/06/17 20:00 98 Nasal Cannula 2.00 05/06/17 20:00 99.1 92 18 154/70 96 05/06/17 20:00 92 05/06/17 19:00 94 05/06/17 18:13 92 Room Air 05/06/17 18:11 92 Room Air 1.00 05/06/17 18:00 76 05/06/17 17:00 80 05/06/17 16:30 92 Room Air 05/06/17 16:16 98.6 82 18 155/70 92 05/06/17 16:00 82 05/06/17 15:00 80 05/06/17 14:00 80 05/06/17 13:00 78 05/06/17 12:00 76 05/06/17 11:30 100 Nasal Cannula 1.00 05/06/17 11:09 98.2 78 18 142/97 05/06/17 11:00 78 05/06/17 10:00 80 05/06/17 09:00 78 05/07/17 05/07/17 05/07/17 07:00 15:00 23:00 Intake Total 240 ml Output Total 200 ml Balance 40 ml Result Diagram: 05/07/17 0325 05/05/17 0630 Laboratory Results Laboratory Tests Test 05/06/17 05/06/17 05/07/17 05/07/17 10:42 16:58 01:01 03:25 White Blood Count 11.0 TH/MM3 8.7 TH/MM3 Red Blood Count 3.94 MIL/MM3 3.44 MIL/MM3 Hemoglobin 10.1 GM/DL 9.1 GM/DL Hematocrit 32.0 % 27.6 % Mean Corpuscular Volume 81.4 FL 80.0 FL Mean Corpuscular Hemoglobin 25.7 PG 26.5 PG Mean Corpuscular Hemoglobin 31.6 % 33.1 % Concent Red Cell Distribution Width 17.0 % 16.9 % Platelet Count 371 TH/MM3 363 TH/MM3 Mean Platelet Volume 8.0 FL 8.0 FL Prothrombin Time 22.3 SEC Prothromb Time International 2.0 RATIO Ratio Activated Partial 31.4 SEC 37.3 SEC 49.2 SEC Thromboplast Time Neutrophils (%) (Auto) 69.4 % Lymphocytes (%) (Auto) 15.4 % Monocytes (%) (Auto) 9.5 % Eosinophils (%) (Auto) 5.0 % Basophils (%) (Auto) 0.7 % Neutrophils # (Auto) 6.1 TH/MM3 Lymphocytes # (Auto) 1.3 TH/MM3 Monocytes # (Auto) 0.8 TH/MM3 Eosinophils # (Auto) 0.4 TH/MM3 Basophils # (Auto) 0.1 TH/MM3 CBC Comment DIFF FINAL Differential Comment Test 05/07/17 08:03 Activated Partial 51.3 SEC Thromboplast Time Administered Medications Medications (Trade) Dose Ordered Sig/[place] Route PRN Reason Start Time Stop Time Status Last Admin Dose Admin Labetalol HCl (Trandate) 100 mg BID PO 04/24/17 21:00 05/06/17 21:25 Atorvastatin Calcium 40 mg 40 mg DAILY PO 04/25/17 09:00 05/06/17 08:10 Piperacillin Sod/ Tazobactam Sod (Zosyn 4.5 Gm Premix) 100 ml @ 200 mls/hr Q6H IV 04/25/17 11:00 05/07/17 04:56 Ferrous Sulfate (Ferrous Sulfate) 325 mg BID PO 04/29/17 21:00 05/06/17 21:25 Sodium Chloride (NS Flush) 2 ml BID IV FLUSH 05/03/17 21:00 05/06/17 21:00 Aspirin (Aspirin Chew) 81 mg DAILY PO 05/04/17 09:00 05/06/17 08:10 Clopidogrel Bisulfate (Plavix) 75 mg DAILY PO 05/04/17 09:00 05/06/17 08:11 Pantoprazole Sodium (Protonix) 40 mg DAILY@06 PO 05/04/17 06:00 05/07/17 05:51 Amiodarone HCl (Cordarone) 200 mg Q12HR PO 05/03/17 21:00 05/06/17 21:25 Acetaminophen/ Hydrocodone Bitart 1 tab 1 tab Q3H PRN PO PAIN SCALE 1 TO 5 05/03/17 12:00 05/06/17 21:24 Potassium Chloride (KCl 20 Meq Premix Inj) 100 ml @ 50 mls/hr UNSCH PRN IV SEE LABEL COMMENTS 05/03/17 12:00 05/04/17 06:45 Multivitamins/ Minerals Therapeutic (Theragran M Tab) 1 tab DAILY PO 05/04/17 09:00 05/06/17 08:11 Magnesium Hydroxide (Milk Of Magnliza Liq) 30 ml DAILY PO 05/04/17 09:00 05/04/17 09:08 Insulin Aspart 1 1 ACHS SQ 05/05/17 21:00 05/07/17 05:54 Heparin Sodium/ Dextrose (Heparin-D5W Inj) 250 ml @ 0 mls/hr TITRATE IV 05/06/17 09:30 05/07/17 03:13 Objective Remarks GENERAL: Middle aged female, upright in chair SKIN: Warm and dry. wound vac chest wall HEAD: Normocephalic. EYES: No injection or drainage. NECK: Supple, trachea midline. CARDIOVASCULAR: +S1/S2 RESPIRATORY: diminished at bases, anterior vitale clear. GASTROINTESTINAL: Abdomen soft, non-tender, nondistended. EXTREMITIES: No cyanosis NEUROLOGICAL: No obvious focal deficit. Awake, alert, and oriented x3. Assessment/Plan Assessment 66y/o female with CAD, PE, GIB, s/p CABG Plan 1. continue heparin gtt for now. 2. check stool occult blood--her hemoglobin did decrease a bit--some of this may be post-operative. 3. if she has bleeding, we may need to stop anticoagulation and place an umbrella, if her hgb remains stable, may be able to start Eliquis and d/c to rehab in next few days. Attending Statement The exam, history, and the medical decision-making described in the above note were completed with the assistance of the mid-level provider. I reviewed and agree with the findings presented. I attest that I had a [id number] encounter with the patient on the same day, and personally performed and documented my assessment and findings in the medical record. Pt seen and examined. No overt bleeding. Eating lunch, good appetite, noted decrease in hgb. No melena or BRBPR. Continue to follow on [facility]. Malia Gibbs May 07, 2017 08:49 Brit Adam MD May 07, 2017 14:03
[2017-05-07] MEDS: MAGNESIUM HYDROXIDE SUSP 30 ML CUP PO SCH (09:00)
[2017-05-07] MEDS: SODIUM CHLORIDE 0.9% FLUSH 10 ML FLUSH IV FLUSH SCH ×2 (09:00→20:55)
[2017-05-07] MEDS: MULTIVITAMINS/MINERALS THERAPEUTIC TAB PO SCH (09:00)
[2017-05-07] MEDS: AMIODARONE 200 MG TAB PO SCH ×2 (09:23→20:54)
[2017-05-07] MEDS: FERROUS SULFATE 325 MG (65 MG ELEMENTAL IRON) TAB PO SCH ×2 (09:23→20:53)
[2017-05-07] MEDS: ASPIRIN 81 MG CHEW TAB PO SCH (09:23)
[2017-05-07] MEDS: ATORVASTATIN 40 MG TAB PO SCH (09:24)
[2017-05-07] MEDS: CLOPIDOGREL 75 MG TAB PO SCH (09:25)
[2017-05-07] MEDS: LABETALOL HCL 100 MG TAB PO SCH ×2 (09:25→20:53)
[2017-05-07 10:58] LABS: INTERNATIONAL NORMALIZED RATIO 1.1 RATIO
--- NOTE | 2017-05-07 11:07 | PD.CAR.PN ---
CVT Progress Note CVT: POD #: 4 Subjective/Hospital Course: 05/01 pt dx with left lower leg DVT, and PE, on heparin gtt/ no chest pain over the weekend H&H stable at 9.7 tentatively scheduled for surgery on mon on room air 05/02 FEv1 08 yesterday/ rechecked today 1.2 scheduled for surgery in am will need NOAC after surgery and when chest tubes removed 05/03 SURGICAL PROCEDURE 1. Off-pump Coronary Artery Bypass Grafting x 3 with left internal mammary artery (ERNANDEZ) to left anterior descending (LAD), reverse saphenous vein graft to OM2, reverse saphenous vein graft to the RPDA 2. Right Leg Endoscopic Vein [place] 3. Intraoperative Vein Mapping. 05/04 Doing well Transfer [facility] Pulmonary toiletry Beta celi Maintain CT 05/05 Doing well Discharge home 05/06/17 No complaints today, continues on O2 05/07/17 No complaints. On room air now. Heparin drip started by Hematology. Objective: Vital Signs Date Time Temp Pulse Resp B/P Pulse Ox O2 Delivery O2 Flow Rate FiO2 05/07/17 09:30 95 Nasal Cannula 1.00 05/07/17 08:30 99.5 83 22 135/76 98 05/07/17 08:00 Room Air 05/07/17 06:00 77 05/07/17 05:00 76 05/07/17 05:00 99 Nasal Cannula 2.00 05/07/17 04:00 98.7 79 18 138/74 96 05/07/17 04:00 73 05/07/17 03:00 76 05/07/17 02:00 80 05/07/17 01:00 99 Nasal Cannula 2.00 05/07/17 01:00 77 05/07/17 00:00 98.6 81 18 114/69 96 05/07/17 00:00 71 05/06/17 23:00 72 05/06/17 22:00 92 05/06/17 21:00 94 05/06/17 20:08 94 Nasal Cannula 1.00 05/06/17 20:00 98 Nasal Cannula 2.00 05/06/17 20:00 99.1 92 18 154/70 96 05/06/17 20:00 92 05/06/17 19:00 94 05/06/17 18:13 92 Room Air 6/24/17 18:11 92 Room Air 1.00 05/06/17 18:00 76 05/06/17 17:00 80 05/06/17 16:30 92 Room Air 05/06/17 16:16 98.6 82 18 155/70 92 05/06/17 16:00 82 05/06/17 15:00 80 05/06/17 14:00 80 05/06/17 13:00 78 05/06/17 12:00 76 05/06/17 11:30 100 Nasal Cannula 1.00 05/06/17 11:09 98.2 78 18 142/97 Labs: Laboratory Tests Test 05/07/17 05/07/17 05/07/17 01:01 03:25 08:03 Activated Partial 49.2 SEC 51.3 SEC Thromboplast Time (24.3-30.1) (24.3-30.1) White Blood Count 8.7 TH/MM3 (4.0-11.0) Red Blood Count 3.44 MIL/MM3 (4.00-5.30) Hemoglobin 9.1 GM/DL (11.6-15.3) Hematocrit 27.6 % (35.0-46.0) Mean Corpuscular Volume 80.0 FL (80.0-100.0) Mean Corpuscular Hemoglobin 26.5 PG (27.0-34.0) Mean Corpuscular Hemoglobin 33.1 % Concent (32.0-36.0) Red Cell Distribution Width 16.9 % (11.6-17.2) Platelet Count 363 TH/MM3 (150-450) Mean Platelet Volume 8.0 FL (7.0-11.0) Neutrophils (%) (Auto) 69.4 % (16.0-70.0) Lymphocytes (%) (Auto) 15.4 % (9.0-44.0) Monocytes (%) (Auto) 9.5 % (0.0-8.0) Eosinophils (%) (Auto) 5.0 % (0.0-4.0) Basophils (%) (Auto) 0.7 % (0.0-2.0) Neutrophils # (Auto) 6.1 TH/MM3 (1.8-7.7) Lymphocytes # (Auto) 1.3 TH/MM3 (1.0-4.8) Monocytes # (Auto) 0.8 TH/MM3 (0-0.9) Eosinophils # (Auto) 0.4 TH/MM3 (0-0.4) Basophils # (Auto) 0.1 TH/MM3 (0-0.2) CBC Comment DIFF FINAL Differential Comment Result Diagram: 05/07/17 0325 05/05/17 0630 Cardiovascular: RRR Telemetry: NSR Pulmonary: CTA GI/: NABS, NT Incision: dry and intact Plan: Anticoagulation management per Heme. Encourage ambulation OK to d/c to SNF when clear from Hematology. (1) NSTEMI (non-ST elevation myocardial infarction) Plan: awaiting CABG wed -stable and asymptomatic currently, continue present meds (2) Anemia Plan: s/p transfusion, H&H 9.7 >9.4 (3) GAVE (gastric antral vascular ectasia) (4) Hypertension (5) GI bleed Plan: stable , on PPI (6) Hyperlipidemia Plan: on statin, check lipids (7) DVT (deep venous thrombosis) Plan: on Heparin gtt (8) Pulmonary emboli Plan: on Heparin Problem Qualifiers (1) GI bleed: Qualified Code: K92.2 - Gastrointestinal hemorrhage, unspecified gastrointestinal hemorrhage type Lauren Birmingham MD May 07, 2017 11:07
[2017-05-07] MEDS: METOPROLOL TARTRATE 25 MG TAB PO SCH ×2 (12:12→20:53)
[2017-05-07] MEDS: ACETAMINOPHEN/HYDROcodone 325 MG/5 MG TAB PO PRN ×2 (15:12→20:54)
[2017-05-07 16:11] LABS: HEMATOCRIT 28.2 % (35.0-46.0); REVIEW FLAG FINAL
[2017-05-07] MEDS: SENNOSIDES 8.6 MG TAB PO SCH (21:00)
[2017-05-08] VITALS (29 sets, daily range): BP systolic 119–152; BP diastolic 57–75; PULSE 56–84; RESP 18–24; TEMP 97.6–98.7; O2SAT 92–99
[2017-05-08] MEDS: PIPERACIL-TAZO 4.5 GM PREMIX 100 ML IV SCH ×3 (04:46→16:30)
[2017-05-08] MEDS: PANTOPRAZOLE SOD 40 MG DELAYED RELEASE TAB PO SCH (05:29)
[2017-05-08] MEDS: INSULIN ASPART SUPPLEMENTAL SCALE SQ SCH ×4 (05:33→21:09)
[2017-05-08] MEDS: SODIUM CHLORIDE 0.9% FLUSH 10 ML FLUSH IV FLUSH SCH ×2 (08:14→20:55)
[2017-05-08] MEDS: ASPIRIN 81 MG CHEW TAB PO SCH (08:14)
[2017-05-08] MEDS: AMIODARONE 200 MG TAB PO SCH ×2 (08:16→20:54)
[2017-05-08] MEDS: METOPROLOL TARTRATE 25 MG TAB PO SCH ×2 (08:16→20:54)
[2017-05-08] MEDS: ATORVASTATIN 40 MG TAB PO SCH (08:16)
[2017-05-08] MEDS: FERROUS SULFATE 325 MG (65 MG ELEMENTAL IRON) TAB PO SCH ×2 (08:16→20:54)
[2017-05-08] MEDS: MAGNESIUM HYDROXIDE SUSP 30 ML CUP PO SCH (08:17)
[2017-05-08] MEDS: CLOPIDOGREL 75 MG TAB PO SCH (08:17)
[2017-05-08] MEDS: LABETALOL HCL 100 MG TAB PO SCH ×2 (08:17→20:55)
[2017-05-08] MEDS: MULTIVITAMINS/MINERALS THERAPEUTIC TAB PO SCH (08:17)
--- NOTE | 2017-05-08 09:55 | PD.ONC.PN ---
Subjective Subjective Remarks Afebrile overnight. Feeling well today. No complaints. No obvious bleeding. Objective Data Date Time Temp Pulse Resp B/P Pulse Ox O2 Delivery O2 Flow Rate FiO2 05/08/17 08:25 92 Nasal Cannula 0.50 05/08/17 08:20 98.5 80 24 149/70 92 05/08/17 06:00 61 05/08/17 05:00 62 05/08/17 04:30 Nasal Cannula 2.00 05/08/17 04:00 63 05/08/17 04:00 98.4 69 18 146/73 94 05/08/17 03:00 60 05/08/17 02:00 62 05/08/17 01:00 58 05/08/17 00:43 Nasal Cannula 2.00 05/08/17 00:00 56 05/08/17 00:00 98.5 65 18 137/70 98 05/07/17 23:00 62 05/07/17 22:00 74 05/07/17 21:13 94 Nasal Cannula 1.00 05/07/17 21:00 78 05/07/17 20:00 75 05/07/17 20:00 98.4 75 20 153/68 98 05/07/17 19:52 Nasal Cannula 2.00 05/07/17 19:00 74 05/07/17 18:00 72 05/07/17 17:16 20 05/07/17 17:00 98 Room Air 05/07/17 17:00 64 05/07/17 16:00 98.5 93 22 137/67 98 05/07/17 16:00 95 Nasal Cannula 2.00 05/07/17 16:00 68 05/07/17 15:00 72 05/07/17 14:00 76 05/07/17 13:00 76 05/07/17 12:00 78 05/07/17 11:45 98.5 82 20 139/71 94 05/07/17 11:00 84 05/07/17 11:00 94 Room Air 05/07/17 10:00 80 05/08/17 05/08/17 05/08/17 07:00 15:00 23:00 Intake Total 240 ml Output Total 600 ml Balance -360 ml Result Diagram: 05/07/17 1530 05/05/17 0630 Laboratory Results Laboratory Tests Test 05/07/17 15:30 Hemoglobin 9.5 GM/DL Hematocrit 28.2 % Culture Results Microbiology Date/Time Procedure Status Source Growth 05/07/17 15:00 Stool Occult Blood (DANNA) - Final Complete Stool Stool HEMOCCULT POSITIVE Administered Medications Medications (Trade) Dose Ordered Sig/Adilia Route PRN Reason Start Time Stop Time Status Last Admin Dose Admin Labetalol HCl (Trandate) 100 mg BID PO 04/24/17 21:00 05/08/17 08:17 Atorvastatin Calcium 40 mg 40 mg DAILY PO 04/25/17 09:00 05/08/17 08:16 Piperacillin Sod/ Tazobactam Sod (Zosyn 4.5 Gm Premix) 100 ml @ 200 mls/hr Q6H IV 04/25/17 11:00 05/08/17 04:46 Ferrous Sulfate (Ferrous Sulfate) 325 mg BID PO 04/29/17 21:00 05/08/17 08:16 Sodium Chloride (NS Flush) 2 ml BID IV FLUSH 05/03/17 21:00 05/08/17 08:14 Aspirin (Aspirin Chew) 81 mg DAILY PO 05/04/17 09:00 05/08/17 08:14 Clopidogrel Bisulfate (Plavix) 75 mg DAILY PO 05/04/17 09:00 05/08/17 08:17 Pantoprazole Sodium (Protonix) 40 mg DAILY@06 PO 05/04/17 06:00 05/08/17 05:29 Amiodarone HCl (Cordarone) 200 mg Q12HR PO 05/03/17 21:00 05/08/17 08:16 Acetaminophen/ Hydrocodone Bitart 1 tab 1 tab Q3H PRN PO PAIN SCALE 1 TO 5 05/03/17 12:00 05/07/17 20:54 Potassium Chloride (KCl 20 Meq Premix Inj) 100 ml @ 50 mls/hr UNSCH PRN IV SEE LABEL COMMENTS 05/03/17 12:00 05/04/17 06:45 Multivitamins/ Minerals Therapeutic (Theragran M Tab) 1 tab DAILY PO 05/04/17 09:00 05/08/17 08:17 Magnesium Hydroxide (Milk Of Magnesia Liq) 30 ml DAILY PO 05/04/17 09:00 05/04/17 09:08 Insulin Aspart (NovoLOG SUPPLEMENTAL SCALE) 1 ACHS SQ 05/05/17 21:00 05/08/17 05:33 Metoprolol Tartrate (Lopressor) 25 mg Q12HR PO 05/07/17 11:15 05/08/17 08:16 Objective Remarks GENERAL: Middle aged female, sitting up in chair, working with PT SKIN: Warm and dry. wound vac chest wall HEAD: Normocephalic. EYES: No injection or drainage. NECK: Supple, trachea midline. CARDIOVASCULAR: +S1/S2 RESPIRATORY: diminished at bases, anterior vitale clear. GASTROINTESTINAL: Abdomen soft, non-tender, nondistended. EXTREMITIES: No cyanosis NEUROLOGICAL: awake and alert, normal speech. moving all extremities. Assessment/Plan Assessment 66y/o female with CAD, PE, GIB, s/p CABG Plan 1. patient has conflicting needs of PE, CAD and GIB. Discussed with this patient that unfortunately there is no perfect solution. discussed our plan to start her on low dose Eliquis 5mg PO BID and observe in hospital for 48 hours. She does have a positive stool hemoccult but her stool will likely always be positive. her hgb has remained stable and if it continues to remain stable for the next 48 hours, she could be discharged on the Eliquis. 2. If hgb falls an appreciable amount or there is overt bleeding, will have to consider ivc filter placement. 3. patient on ASA and plavix--will need to d/w CTS to see if once of these could be stopped as ASA, Plavix along with Eliquis will increase her bleeding risk. UPDATE: d/w Dr. Franco--ok from CTS standpoint to stop PLAVIX and just continue Eliquis and ASA. Malia Gibbs May 08, 2017 09:54
[2017-05-08 11:46] LABS: AUTOMATED NEUTROPHIL # 6.5 TH/MM3 (1.8-7.7); BASOPHIL % 0.5 % (0.0-2.0); EOSINOPHIL # 0.4 TH/MM3 (0-0.4); EOSINOPHIL % 4.7 % (0.0-4.0); HEMATOCRIT 29.7 % (35.0-46.0); HEMO FLAGS DIFF FINAL; LYMPH % 13.2 % (9.0-44.0); LYMPHOCYTE # 1.2 TH/MM3 (1.0-4.8); MEAN CELL VOLUME 79.9 FL (80.0-100.0); MEAN CORPUSCULAR HEMOGLOBIN 25.8 PG (27.0-34.0); MEAN CORPUSCULAR HGB CONC 32.3 % (32.0-36.0); MONO % 8.1 % (0.0-8.0); NEUT % 73.5 % (16.0-70.0); PLATELET COUNT 446 TH/MM3 (150-450); RED BLOOD COUNT 3.71 MIL/MM3 (4.00-5.30); RED CELL DISTRIBUTION WIDTH 16.9 % (11.6-17.2); WHITE BLOOD COUNT 8.9 TH/MM3 (4.0-11.0)
[2017-05-08] MEDS: APIXABAN 5 MG TABLET PO SCH ×2 (12:06→20:55)
--- NOTE | 2017-05-08 12:46 | PD.CAR.PN ---
CVT Progress Note Subjective/Hospital Course: 05/01 pt dx with left lower leg DVT, and PE, on heparin gtt/ no chest pain over the weekend H&H stable at 9.7 tentatively scheduled for surgery on mon on room air 05/02 FEv1 08 yesterday/ rechecked today 1.2 scheduled for surgery in am will need NOAC after surgery and when chest tubes removed 05/03 SURGICAL PROCEDURE 1. Off-pump Coronary Artery Bypass Grafting x 3 with left internal mammary artery (ERNANDEZ) to left anterior descending (LAD), reverse saphenous vein graft to OM2, reverse saphenous vein graft to the RPDA 2. Right Leg Endoscopic Vein [place] 3. Intraoperative Vein Mapping. 05/04 Doing well Transfer [facility] Pulmonary toiletry Beta celi Maintain CT 05/05 Doing well Discharge home 05/06/17 No complaints today, continues on O2 05/07/17 No complaints. On room air now. Heparin drip started by Hematology. 05/08 Doing well OK to discharge from my standpoint D/C Plavix Eliquis for PE Objective: Vital Signs Date Time Temp Pulse Resp B/P Pulse Ox O2 Delivery O2 Flow Rate FiO2 05/08/17 12:00 84 05/08/17 11:47 97 Room Air 05/08/17 11:45 98.1 72 22 119/57 98 05/08/17 11:00 72 05/08/17 10:49 92 Nasal Cannula 1.00 05/08/17 10:00 82 05/08/17 09:00 82 05/08/17 08:25 92 Nasal Cannula 0.50 05/08/17 08:20 98.5 80 24 149/70 92 05/08/17 08:00 80 05/08/17 07:00 72 05/08/17 06:00 61 05/08/17 05:00 62 05/08/17 04:30 Nasal Cannula 2.00 05/08/17 04:00 63 05/08/17 04:00 98.4 69 18 146/73 94 05/08/17 03:00 60 05/08/17 02:00 62 05/08/17 01:00 58 05/08/17 00:43 Nasal Cannula 2.00 05/08/17 00:00 56 05/08/17 00:00 98.5 65 18 137/70 98 05/07/17 23:00 62 05/07/17 22:00 74 05/07/17 21:13 94 Nasal Cannula 1.00 05/07/17 21:00 78 05/07/17 20:00 75 05/07/17 20:00 98.4 75 20 153/68 98 05/07/17 19:52 Nasal Cannula 2.00 05/07/17 19:00 74 05/07/17 18:00 72 05/07/17 17:16 20 05/07/17 17:00 98 Room Air 05/07/17 17:00 64 05/07/17 16:00 98.5 93 22 137/67 98 05/07/17 16:00 95 Nasal Cannula 2.00 05/07/17 16:00 68 05/07/17 15:00 72 05/07/17 14:00 76 05/07/17 13:00 76 Labs: Laboratory Tests Test 05/08/17 11:23 White Blood Count 8.9 TH/MM3 (4.0-11.0) Red Blood Count 3.71 MIL/MM3 (4.00-5.30) Hemoglobin 9.6 GM/DL (11.6-15.3) Hematocrit 29.7 % (35.0-46.0) Mean Corpuscular Volume 79.9 FL (80.0-100.0) Mean Corpuscular Hemoglobin 25.8 PG (27.0-34.0) Mean Corpuscular Hemoglobin 32.3 % Concent (32.0-36.0) Red Cell Distribution Width 16.9 % (11.6-17.2) Platelet Count 446 TH/MM3 (150-450) Mean Platelet Volume 7.5 FL (7.0-11.0) Neutrophils (%) (Auto) 73.5 % (16.0-70.0) Lymphocytes (%) (Auto) 13.2 % (9.0-44.0) Monocytes (%) (Auto) 8.1 % (0.0-8.0) Eosinophils (%) (Auto) 4.7 % (0.0-4.0) Basophils (%) (Auto) 0.5 % (0.0-2.0) Neutrophils # (Auto) 6.5 TH/MM3 (1.8-7.7) Lymphocytes # (Auto) 1.2 TH/MM3 (1.0-4.8) Monocytes # (Auto) 0.7 TH/MM3 (0-0.9) Eosinophils # (Auto) 0.4 TH/MM3 (0-0.4) Basophils # (Auto) 0.0 TH/MM3 (0-0.2) CBC Comment DIFF FINAL Differential Comment Result Diagram: 05/08/17 1123 05/05/17 0630 (1) NSTEMI (non-ST elevation myocardial infarction) Plan: awaiting CABG wed -stable and asymptomatic currently, continue present meds (2) Anemia Plan: s/p transfusion, H&H 9.7 >9.4 (3) GAVE (gastric antral vascular ectasia) (4) Hypertension (5) GI bleed Plan: stable , on PPI (6) Hyperlipidemia Plan: on statin, check lipids (7) DVT (deep venous thrombosis) Plan: on Heparin gtt (8) Pulmonary emboli Plan: on Heparin Problem Qualifiers (1) GI bleed: Qualified Code: K92.2 - Gastrointestinal hemorrhage, unspecified gastrointestinal hemorrhage type Juan C Franco MD May 08, 2017 12:46
[2017-05-08] MEDS: ACETAMINOPHEN/HYDROcodone 325 MG/5 MG TAB PO PRN (20:55)
[2017-05-08] MEDS: SENNOSIDES 8.6 MG TAB PO SCH (20:55)
[2017-05-09] VITALS (28 sets, daily range): BP systolic 125–155; BP diastolic 63–76; PULSE 56–82; RESP 18–22; TEMP 97.6–99.3; O2SAT 91–100
[2017-05-09] MEDS: PIPERACIL-TAZO 4.5 GM PREMIX 100 ML IV SCH ×2 (01:43→04:03)
[2017-05-09] MEDS: PANTOPRAZOLE SOD 40 MG DELAYED RELEASE TAB PO SCH (05:49)
[2017-05-09] MEDS: INSULIN ASPART SUPPLEMENTAL SCALE SQ SCH (06:07)
[2017-05-09 07:28] LABS: HEMATOCRIT 26.6 % (35.0-46.0); MEAN CORPUSCULAR HEMOGLOBIN 25.9 PG (27.0-34.0); MEAN CORPUSCULAR HGB CONC 32.4 % (32.0-36.0); PLATELET COUNT 365 TH/MM3 (150-450); RED BLOOD COUNT 3.33 MIL/MM3 (4.00-5.30); RED CELL DISTRIBUTION WIDTH 17.2 % (11.6-17.2); REVIEW FLAG FINAL; WHITE BLOOD COUNT 7.5 TH/MM3 (4.0-11.0)
[2017-05-09] MEDS: SODIUM CHLORIDE 0.9% FLUSH 10 ML FLUSH IV FLUSH SCH ×2 (08:25→20:57)
[2017-05-09] MEDS: AMIODARONE 200 MG TAB PO SCH ×2 (08:26→20:57)
[2017-05-09] MEDS: APIXABAN 5 MG TABLET PO SCH ×2 (08:26→20:58)
[2017-05-09] MEDS: ATORVASTATIN 40 MG TAB PO SCH (08:26)
[2017-05-09] MEDS: METOPROLOL TARTRATE 25 MG TAB PO SCH ×2 (08:26→20:58)
[2017-05-09] MEDS: MULTIVITAMINS/MINERALS THERAPEUTIC TAB PO SCH (08:26)
[2017-05-09] MEDS: FERROUS SULFATE 325 MG (65 MG ELEMENTAL IRON) TAB PO SCH ×2 (08:26→20:57)
[2017-05-09] MEDS: ASPIRIN 81 MG CHEW TAB PO SCH (08:26)
[2017-05-09] MEDS: LABETALOL HCL 100 MG TAB PO SCH ×2 (08:27→20:58)
[2017-05-09] MEDS: MAGNESIUM HYDROXIDE SUSP 30 ML CUP PO SCH (08:27)
[2017-05-09] MEDS ORDERED: SODIUM CHLOR 0.9% 250 ML INJ 250 ML IV ONE (08:30)
[2017-05-09] MEDS ORDERED: ACETAMINOPHEN 325 MG TAB PO PRN (08:30)
[2017-05-09] MEDS ORDERED: diphenhydrAMINE HCL 25 MG CAP PO PRN (08:30)
--- NOTE | 2017-05-09 10:21 | PD.CAR.PN ---
CVT Progress Note Subjective/Hospital Course: 05/01 pt dx with left lower leg DVT, and PE, on heparin gtt/ no chest pain over the weekend H&H stable at 9.7 tentatively scheduled for surgery on mon on room air 05/02 FEv1 08 yesterday/ rechecked today 1.2 scheduled for surgery in am will need NOAC after surgery and when chest tubes removed 05/03 SURGICAL PROCEDURE 1. Off-pump Coronary Artery Bypass Grafting x 3 with left internal mammary artery (ERNANDEZ) to left anterior descending (LAD), reverse saphenous vein graft to OM2, reverse saphenous vein graft to the RPDA 2. Right Leg Endoscopic Vein [place] 3. Intraoperative Vein Mapping. 05/04 Doing well Transfer [facility] Pulmonary toiletry Beta celi Maintain CT 05/05 Doing well Discharge home 05/06/17 No complaints today, continues on O2 05/07/17 No complaints. On room air now. Heparin drip started by Hematology. 05/08 Doing well OK to discharge from my standpoint D/C Plavix Eliquis for PE 05/09 D/C Antibiotics Walk test Discharge SNF tomorrow No surgical indications for transfusion Objective: Vital Signs Date Time Temp Pulse Resp B/P Pulse Ox O2 Delivery O2 Flow Rate FiO2 05/09/17 08:00 98.8 74 22 141/76 92 05/09/17 06:21 66 05/09/17 05:07 59 05/09/17 03:25 Nasal Cannula 1.00 60 05/09/17 03:00 98.1 66 141/67 91 05/09/17 03:00 63 05/09/17 02:00 60 05/09/17 01:00 58 05/09/17 00:00 56 05/08/17 23:00 97.6 61 129/63 99 05/08/17 23:00 Nasal Cannula 1.00 60 05/08/17 23:00 59 05/08/17 22:00 64 05/08/17 21:00 78 05/08/17 20:00 70 05/08/17 19:42 95 Nasal Cannula 1.00 05/08/17 19:00 98.3 77 152/75 98 05/08/17 19:00 64 05/08/17 19:00 Nasal Cannula 1.00 60 05/08/17 18:39 76 05/08/17 17:14 94 Room Air 05/08/17 17:00 74 05/08/17 16:00 72 05/08/17 15:30 98.7 73 20 148/62 94 05/08/17 15:00 70 05/08/17 14:00 70 05/08/17 13:00 72 05/08/17 12:00 84 05/08/17 11:47 97 Room Air 05/08/17 11:45 98.1 72 22 119/57 98 05/08/17 11:00 72 05/08/17 10:49 92 Nasal Cannula 1.00 Labs: Laboratory Tests Test 05/09/17 05:46 White Blood Count 7.5 TH/MM3 (4.0-11.0) Red Blood Count 3.33 MIL/MM3 (4.00-5.30) Hemoglobin 8.6 GM/DL (11.6-15.3) Hematocrit 26.6 % (35.0-46.0) Mean Corpuscular Volume 80.0 FL (80.0-100.0) Mean Corpuscular Hemoglobin 25.9 PG (27.0-34.0) Mean Corpuscular Hemoglobin 32.4 % Concent (32.0-36.0) Red Cell Distribution Width 17.2 % (11.6-17.2) Platelet Count 365 TH/MM3 (150-450) Mean Platelet Volume 8.0 FL (7.0-11.0) Result Diagram: 05/09/17 0546 05/05/17 0630 (1) NSTEMI (non-ST elevation myocardial infarction) Plan: awaiting CABG wed -stable and asymptomatic currently, continue present meds (2) Anemia Plan: s/p transfusion, H&H 9.7 >9.4 (3) GAVE (gastric antral vascular ectasia) (4) Hypertension (5) GI bleed Plan: stable , on PPI (6) Hyperlipidemia Plan: on statin, check lipids (7) DVT (deep venous thrombosis) Plan: on Heparin gtt (8) Pulmonary emboli Plan: on Heparin Problem Qualifiers (1) GI bleed: Qualified Code: K92.2 - Gastrointestinal hemorrhage, unspecified gastrointestinal hemorrhage type Juan C Franco MD May 09, 2017 10:20
[2017-05-09] MEDS ORDERED: FUROSEMIDE 40 MG/4 ML VIAL IV PUSH ONE (10:30)
--- NOTE | 2017-05-09 10:39 | PD.ONC.PN ---
Subjective Subjective Remarks Afebrile overnight. Patient resting in bed. Tolerating Eliquis. No obvious bleeding. Objective Data Date Time Temp Pulse Resp B/P Pulse Ox O2 Delivery O2 Flow Rate FiO2 05/09/17 08:00 98.8 74 22 141/76 92 05/09/17 08:00 74 05/09/17 07:00 92 Room Air 05/09/17 07:00 62 05/09/17 06:21 66 05/09/17 05:07 59 05/09/17 03:25 Nasal Cannula 1.00 60 05/09/17 03:00 98.1 66 141/67 91 05/09/17 03:00 63 05/09/17 02:00 60 05/09/17 01:00 58 05/09/17 00:00 56 05/08/17 23:00 97.6 61 129/63 99 05/08/17 23:00 Nasal Cannula 1.00 60 05/08/17 23:00 59 05/08/17 22:00 64 05/08/17 21:00 78 05/08/17 20:00 70 05/08/17 19:42 95 Nasal Cannula 1.00 05/08/17 19:00 98.3 77 152/75 98 05/08/17 19:00 64 05/08/17 19:00 Nasal Cannula 1.00 60 05/08/17 18:39 76 05/08/17 17:14 94 Room Air 05/08/17 17:00 74 05/08/17 16:00 72 05/08/17 15:30 98.7 73 20 148/62 94 05/08/17 15:00 70 05/08/17 14:00 70 05/08/17 13:00 72 05/08/17 12:00 84 05/08/17 11:47 97 Room Air 05/08/17 11:45 98.1 72 22 119/57 98 05/08/17 11:00 72 05/08/17 10:49 92 Nasal Cannula 1.00 05/09/17 05/09/17 05/09/17 07:00 15:00 23:00 Intake Total 240 ml Output Total 400 ml Balance -160 ml Result Diagram: 05/09/17 0546 05/05/17 0630 Laboratory Results Laboratory Tests Test 05/08/17 05/09/17 11:23 05:46 White Blood Count 8.9 TH/MM3 7.5 TH/MM3 Red Blood Count 3.71 MIL/MM3 3.33 MIL/MM3 Hemoglobin 9.6 GM/DL 8.6 GM/DL Hematocrit 29.7 % 26.6 % Mean Corpuscular Volume 79.9 FL 80.0 FL Mean Corpuscular Hemoglobin 25.8 PG 25.9 PG Mean Corpuscular Hemoglobin 32.3 % 32.4 % Concent Red Cell Distribution Width 16.9 % 17.2 % Platelet Count 446 TH/MM3 365 TH/MM3 Mean Platelet Volume 7.5 FL 8.0 FL Neutrophils (%) (Auto) 73.5 % Lymphocytes (%) (Auto) 13.2 % Monocytes (%) (Auto) 8.1 % Eosinophils (%) (Auto) 4.7 % Basophils (%) (Auto) 0.5 % Neutrophils # (Auto) 6.5 TH/MM3 Lymphocytes # (Auto) 1.2 TH/MM3 Monocytes # (Auto) 0.7 TH/MM3 Eosinophils # (Auto) 0.4 TH/MM3 Basophils # (Auto) 0.0 TH/MM3 CBC Comment DIFF FINAL Differential Comment Culture Results Microbiology Date/Time Procedure Status Source Growth 05/07/17 15:00 Stool Occult Blood (DANNA) - Final Complete Stool Stool HEMOCCULT POSITIVE Administered Medications Medications (Trade) Dose Ordered Sig/Adilia Route PRN Reason Start Time Stop Time Status Last Admin Dose Admin Labetalol HCl (Trandate) 100 mg BID PO 04/24/17 21:00 05/09/17 08:27 Atorvastatin Calcium (Lipitor) 40 mg DAILY PO 04/25/17 09:00 05/09/17 08:26 Ferrous Sulfate (Ferrous Sulfate) 325 mg BID PO 04/29/17 21:00 05/09/17 08:26 Sodium Chloride (NS Flush) 2 ml BID IV FLUSH 05/03/17 21:00 05/09/17 08:25 Aspirin (Aspirin Chew) 81 mg DAILY PO 05/04/17 09:00 05/09/17 08:26 Pantoprazole Sodium (Protonix) 40 mg DAILY@06 PO 05/04/17 06:00 05/09/17 05:49 Amiodarone HCl (Cordarone) 200 mg Q12HR PO 05/03/17 21:00 05/09/17 08:26 Acetaminophen/ Hydrocodone Bitart 1 tab 1 tab Q3H PRN PO PAIN SCALE 1 TO 5 05/03/17 12:00 05/08/17 20:55 Potassium Chloride (KCl 20 Meq Premix Inj) 100 ml @ 50 mls/hr UNSCH PRN IV SEE LABEL COMMENTS 05/03/17 12:00 05/04/17 06:45 Multivitamins/ Minerals Therapeutic (Theragran M Tab) 1 tab DAILY PO 05/04/17 09:00 05/09/17 08:26 Magnesium Hydroxide (Milk Of [place]) 30 ml DAILY PO 05/04/17 09:00 05/04/17 09:08 Insulin Aspart (NovoLOG SUPPLEMENTAL SCALE) 1 ACHS SQ 05/05/17 21:00 05/09/17 06:07 Metoprolol Tartrate (Lopressor) 25 mg Q12HR PO 05/07/17 11:15 05/09/17 08:26 Apixaban (Eliquis) 5 mg BID PO 05/08/17 09:00 05/09/17 08:26 Objective Remarks GENERAL: Middle aged female, upright in chair next to bed in nad. SKIN: Warm and dry. chest wall--wound vac in place. HEAD: Normocephalic. EYES: No injection or drainage. NECK: Supple, trachea midline. CARDIOVASCULAR: +S1/S2 RESPIRATORY: diminished at bases, anterior vitale clear. GASTROINTESTINAL: Abdomen soft, non-tender, nondistended. EXTREMITIES: No cyanosis NEUROLOGICAL: aox3. normal speech. moving extremities. Assessment/Plan Assessment 66y/o female with CAD, PE, GIB, s/p CABG Plan 1. continue Eliquis 5mg PO BID 2. CBC shows minor drop in hgb, will give 1 unit pRBC and check CBC again tomorrow 3. fs faxed to new patient referrals for follow up once discharged in clinic with Dr. Tellez Attending Statement The exam, history, and the medical decision-making described in the above note were completed with the assistance of the mid-level provider. I reviewed and agree with the findings presented. I attest that I had a [id number] encounter with the patient on the same day, and personally performed and documented my assessment and findings in the medical record. she is doing well and will require 3 months of anticoagulation for PE/DVT and hopefully she will tolerate the eliquis and aspirin without bleeding. She does not require packed cells for any hemodynamic reason but I am concerned with her reserve if she starts bleeding give her recent hx. Will check cbc in am and hopefully it is stable and she can transfer to rehab center. will follow as outpatient and will ask that she have a weekly cbc plat given her recent hx of bleeding. Above discussed with patient . Malia Gibbs May 09, 2017 10:39 Adal Tellez MD May 09, 2017 20:06
[2017-05-09] MEDS: SENNOSIDES 8.6 MG TAB PO SCH (20:57)
[2017-05-09 21:09] LABS: MEAN CORPUSCULAR HGB CONC 37.9 % (32.0-36.0)
[2017-05-10] VITALS (21 sets, daily range): BP systolic 131–149; BP diastolic 70–75; PULSE 56–74; RESP 16–18; TEMP 97.6–98.6; O2SAT 95–97
[2017-05-10] MEDS: PANTOPRAZOLE SOD 40 MG DELAYED RELEASE TAB PO SCH (05:49)
[2017-05-10 07:17] LABS: AUTOMATED NEUTROPHIL # 7.2 TH/MM3 (1.8-7.7); BASOPHIL # 0.1 TH/MM3 (0-0.2); BASOPHIL % 1.1 % (0.0-2.0); EOSINOPHIL # 0.4 TH/MM3 (0-0.4); HEMATOCRIT 22.3 % (35.0-46.0); LYMPHOCYTE # 1.6 TH/MM3 (1.0-4.8); MEAN CELL VOLUME 81.6 FL (80.0-100.0); MONO % 7.4 % (0.0-8.0); NEUT % 71.5 % (16.0-70.0); PLATELET COUNT 574 TH/MM3 (150-450); RED BLOOD COUNT 2.73 MIL/MM3 (4.00-5.30); RED CELL DISTRIBUTION WIDTH 16.9 % (11.6-17.2); WHITE BLOOD COUNT 10.1 TH/MM3 (4.0-11.0)
[2017-05-10] MEDS: MULTIVITAMINS/MINERALS THERAPEUTIC TAB PO SCH (08:22)
[2017-05-10] MEDS: FERROUS SULFATE 325 MG (65 MG ELEMENTAL IRON) TAB PO SCH (08:22)
[2017-05-10] MEDS: ATORVASTATIN 40 MG TAB PO SCH (08:22)
[2017-05-10] MEDS: METOPROLOL TARTRATE 25 MG TAB PO SCH (08:23)
[2017-05-10] MEDS: AMIODARONE 200 MG TAB PO SCH (08:23)
[2017-05-10] MEDS: ASPIRIN 81 MG CHEW TAB PO SCH (08:23)
[2017-05-10] MEDS: APIXABAN 5 MG TABLET PO SCH (08:23)
[2017-05-10 08:24] LABS: HEMO FLAGS AUTO DIFF
[2017-05-10] MEDS: MAGNESIUM HYDROXIDE SUSP 30 ML CUP PO SCH (08:24)
[2017-05-10] MEDS: LABETALOL HCL 100 MG TAB PO SCH (08:24)
[2017-05-10] MEDS: SODIUM CHLORIDE 0.9% FLUSH 10 ML FLUSH IV FLUSH SCH (08:24)
[2017-05-10 08:26] LABS: BANDS 4 % (0-6); BASOPHILS 1 % (0-2); EOSINOPHILS 2 % (0-4); NEUTROPHIL # MANUAL DIFF 8.1 TH/MM3 (1.8-7.7); PLATELET ESTIMATE SMEAR HIGH (NORMAL); POLYS (SEG NEUTROPHILS) 76 % (16-70); WBC DIFF SAMPLE 100
[2017-05-10 08:27] LABS: PLATELET MORPHOLOGY ENLARGED (NORMAL)
[2017-05-10 08:28] LABS: OVALOCYTES 1+ (NORMAL); SCAN/DIFF FINAL DIFF MANUAL; TEARDROP RBCS 1+ (NORMAL)
--- NOTE | 2017-05-10 09:12 | PD.ONC.PN ---
Subjective Subjective Remarks Afebrile overnight. Patient resting comfortably in room. Feeling well. No obvious bleeding. Objective Data Date Time Temp Pulse Resp B/P Pulse Ox O2 Delivery O2 Flow Rate FiO2 05/10/17 08:00 61 05/10/17 07:00 98.3 65 18 149/70 95 05/10/17 07:00 65 05/10/17 07:00 95 Nasal Cannula 1.00 05/10/17 06:00 61 05/10/17 05:00 60 05/10/17 04:00 61 05/10/17 03:00 65 05/10/17 03:00 95 Nasal Cannula 1.00 05/10/17 03:00 97.8 65 16 135/70 95 05/10/17 02:00 60 05/10/17 01:00 56 05/10/17 00:00 58 05/09/17 23:30 98.6 61 18 125/63 98 05/09/17 23:30 98 Nasal Cannula 1.00 05/09/17 23:00 58 05/09/17 22:00 68 05/09/17 21:00 76 05/09/17 20:30 99.3 76 18 155/71 95 05/09/17 20:00 74 05/09/17 20:00 95 Nasal Cannula 1.00 05/09/17 19:00 72 05/09/17 18:00 73 05/09/17 17:33 94 Nasal Cannula 1.00 05/09/17 17:00 71 05/09/17 16:00 70 05/09/17 15:06 94 Nasal Cannula 1.00 05/09/17 15:05 70 05/09/17 15:04 97.6 71 20 140/64 100 05/09/17 14:02 73 05/09/17 13:00 71 05/09/17 12:00 68 05/09/17 11:30 2.00 05/09/17 11:16 94 Room Air 05/09/17 11:14 97.8 68 20 147/69 94 05/09/17 11:00 70 05/09/17 10:00 82 05/10/17 05/10/17 05/10/17 07:00 15:00 23:00 Intake Total 240 ml Output Total 1000 ml Balance -760 ml Result Diagram: 05/10/17 0524 Laboratory Results Laboratory Tests Test 6/27/17 6/28/17 10:00 05:24 Blood Type A NEGATIVE Antibody Screen NEGATIVE Crossmatch Leukocyte-Reduced Red Blood Cells Blood Bank Comment White Blood Count 10.1 TH/MM3 Red Blood Count 2.73 MIL/MM3 Hemoglobin 8.4 GM/DL Hematocrit 22.3 % Mean Corpuscular Volume 81.6 FL Mean Corpuscular Hemoglobin 31.0 PG Mean Corpuscular Hemoglobin 37.9 % Concent Red Cell Distribution Width 16.9 % Platelet Count 574 TH/MM3 Mean Platelet Volume 8.2 FL Neutrophils (%) (Auto) 71.5 % Lymphocytes (%) (Auto) 16.0 % Monocytes (%) (Auto) 7.4 % Eosinophils (%) (Auto) 4.0 % Basophils (%) (Auto) 1.1 % Neutrophils # (Auto) 7.2 TH/MM3 Lymphocytes # (Auto) 1.6 TH/MM3 Monocytes # (Auto) 0.7 TH/MM3 Eosinophils # (Auto) 0.4 TH/MM3 Basophils # (Auto) 0.1 TH/MM3 CBC Comment AUTO DIFF Differential Total Cells 100 Counted Neutrophils % (Manual) 76 % Band Neutrophils % 4 % Lymphocytes % 10 % Monocytes % 7 % Eosinophils % 2 % Basophils % 1 % Neutrophils # (Manual) 8.1 TH/MM3 Differential Comment FINAL DIFF MANUAL Platelet Estimate HIGH Platelet Morphology Comment ENLARGED Tear Drop Cells 1+ Ovalocytes 1+ Culture Results Microbiology Date/Time Procedure Status Source Growth 05/07/17 15:00 Stool Occult Blood (DANAN) - Final Complete Stool Stool HEMOCCULT POSITIVE Administered Medications Medications (Trade) Dose Ordered Sig/Adilia Route PRN Reason Start Time Stop Time Status Last Admin Dose Admin Labetalol HCl (Trandate) 100 mg BID PO 04/24/17 21:00 05/10/17 08:24 Atorvastatin Calcium (Lipitor) 40 mg DAILY PO 04/25/17 09:00 05/10/17 08:22 Ferrous Sulfate (Ferrous Sulfate) 325 mg BID PO 04/29/17 21:00 05/10/17 08:22 Sodium Chloride (NS Flush) 2 ml BID IV FLUSH 05/03/17 21:00 05/10/17 08:24 Aspirin (Aspirin Chew) 81 mg DAILY PO 05/04/17 09:00 05/10/17 08:23 Pantoprazole Sodium (Protonix) 40 mg DAILY@06 PO 05/04/17 06:00 05/10/17 05:49 Amiodarone HCl (Cordarone) 200 mg Q12HR PO 05/03/17 21:00 05/10/17 08:23 Acetaminophen/ Hydrocodone Bitart 1 tab 1 tab Q3H PRN PO PAIN SCALE 1 TO 5 05/03/17 12:00 05/08/17 20:55 Potassium Chloride (KCl 20 Meq Premix Inj) 100 ml @ 50 mls/hr UNSCH PRN IV SEE LABEL COMMENTS 05/03/17 12:00 05/04/17 06:45 Multivitamins/ Minerals Therapeutic (Theragran M Tab) 1 tab DAILY PO 05/04/17 09:00 05/10/17 08:22 Magnesium Hydroxide (Milk Of [place]) 30 ml DAILY PO 05/04/17 09:00 05/04/17 09:08 Metoprolol Tartrate (Lopressor) 25 mg Q12HR PO 05/07/17 11:15 05/10/17 08:23 Apixaban (Eliquis) 5 mg BID PO 05/08/17 09:00 05/10/17 08:23 Objective Remarks GENERAL: Middle aged female, upright in chair in room in nad. On 1L O2 via NC SKIN: Warm and dry. chest wall wound is healing, no bleeding or oozing. HEAD: Normocephalic. EYES: No injection or drainage. NECK: Supple, trachea midline. CARDIOVASCULAR: +S1/S2 RESPIRATORY: clear to auscultation GASTROINTESTINAL: Abdomen soft, non-tender, nondistended. EXTREMITIES: No cyanosis NEUROLOGICAL: awake and alert. normal speech. Assessment/Plan Assessment 66y/o female with CAD, PE, GIB, s/p CABG Plan 1. continue Eliquis 5mg PO BID 2. clear for discharge--will need weekly CBC at rehab and Dr. Tellez will need to be contacted if the hgb is less than 8. 3. follow up with Dr. Tellez in 1-2weeks. Attending Statement The exam, history, and the medical decision-making described in the above note were completed with the assistance of the mid-level provider. I reviewed and agree with the findings presented. I attest that I had a [id number] encounter with the patient on the same day, and personally performed and documented my assessment and findings in the medical record. she is doing well post op and no obvious bleeding. I gave her a copy of her cbc plat and she understands the necessity of having a weekly cbc plat and contacting me if if the hemoglobin is less then 8. she is to resume 1 iron tablet a day which she has taken in the past. Malia Gibbs May 10, 2017 09:11 Adal Tellez MD May 10, 2017 18:18
[2017-05-10] MEDS ORDERED: HYDR-3516 PO (14:07)
[2017-05-10] MEDS ORDERED: ASPI81CH25 PO (14:07)
[2017-05-10] MEDS ORDERED: ATOR40TA16 PO (14:07)
[2017-05-10] MEDS ORDERED: APIX5TAB PO (14:07)
--- NOTE | 2017-05-10 14:10 | HHI.DS ---
Discharge Summary Admission Date Apr 24, 2017 at 11:52 Discharge Date: May 10, 2017 Admitting Diagnosis GI bleed, NSTEMI, symptomatic anemia (1) GAVE (gastric antral vascular ectasia) (2) Hypertension (3) GI bleed (4) Elevated troponin I level (5) Hypokalemia (6) Anemia Procedures EGD Cardiac Cath CBC/BMP: 05/10/17 0524 Significant Findings Laboratory Tests Test 05/07/17 05/08/17 05/09/17 05/10/17 15:30 11:23 05:46 05:24 Hemoglobin 9.5 GM/DL 9.6 GM/DL 8.6 GM/DL 8.4 GM/DL (11.6-15.3) (11.6-15.3) (11.6-15.3) (11.6-15.3) Hematocrit 28.2 % 29.7 % 26.6 % 22.3 % (35.0-46.0) (35.0-46.0) (35.0-46.0) (35.0-46.0) Red Blood Count 3.71 MIL/MM3 3.33 MIL/MM3 2.73 MIL/MM3 (4.00-5.30) (4.00-5.30) (4.00-5.30) Mean Corpuscular Volume 79.9 FL (80.0-100.0) Mean Corpuscular Hemoglobin 25.8 PG 25.9 PG (27.0-34.0) (27.0-34.0) Neutrophils (%) (Auto) 73.5 % 71.5 % (16.0-70.0) (16.0-70.0) Monocytes (%) (Auto) 8.1 % (0.0-8.0) Eosinophils (%) (Auto) 4.7 % (0.0-4.0) Mean Corpuscular Hemoglobin 37.9 % Concent (32.0-36.0) Platelet Count 574 TH/MM3 (150-450) Neutrophils % (Manual) 76 % (16-70) Neutrophils # (Manual) 8.1 TH/MM3 (1.8-7.7) Platelet Estimate HIGH (NORMAL) Platelet Morphology Comment ENLARGED (NORMAL) Tear Drop Cells 1+ (NORMAL) Ovalocytes 1+ (NORMAL) Hospital Course 05/01 pt dx with left lower leg DVT, and PE, on heparin gtt/ no chest pain over the weekend H&H stable at 9.7 tentatively scheduled for surgery on mon on room air 05/02 FEv1 08 yesterday/ rechecked today 1.2 scheduled for surgery in am will need NOAC after surgery and when chest tubes removed 05/03 SURGICAL PROCEDURE 1. Off-pump Coronary Artery Bypass Grafting x 3 with left internal mammary artery (ERNANDEZ) to left anterior descending (LAD), reverse saphenous vein graft to OM2, reverse saphenous vein graft to the RPDA 2. Right Leg Endoscopic Vein [place] 3. Intraoperative Vein Mapping. 05/04 Doing well Transfer [facility] Pulmonary toiletry Beta celi Maintain CT 05/05 Doing well Discharge home 05/06/17 No complaints today, continues on O2 05/07/17 No complaints. On room air now. Heparin drip started by Hematology. 05/08 Doing well OK to discharge from my standpoint D/C Plavix Eliquis for PE 05/09 D/C Antibiotics Walk test Discharge SNF tomorrow No surgical indications for transfusion 05/10 Discharge SNF Pt Condition on Discharge: Good Discharge Disposition: Discharge to SNF Discharge Instructions DIET: Follow Instructions for: Diabetic Diet Activities you can perform: Full Weight Bearing, Shower Only-No Bath Activities to avoid: Lifting/Bending, Strenuous Activity, Driving Follow up Referrals: Cardiology Oncology - 1 Week with Adal Tellez MD PCP Follow-up Surgical New Medications: Apixaban (Eliquis) 5 Mg Tab 5 MG PO BID z Days 90 TAB Aspirin (Aspirin Low Strength) 81 Mg Chew 81 MG PO DAILY z Days 90 Ref 10 EA Atorvastatin (Atorvastatin) 40 Mg Tab 40 MG PO DAILY Cholesterol Management Days 90 TAB Hydrocodone-Acetaminophen (Hydrocodone-Acetaminophen) 5-325 mg Tab 1 TAB PO Q6HR PRN PAIN SCALE 1 TO 5 #60 TAB Continued Medications: Amlodipine (Amlodipine) 5 Mg Tab 5 MG PO DAILY Blood Pressure Management #30 Ref 0 TAB Ascorbic Acid (Vitamin C) 250 Mg Tab 250 MG PO DAILY Nutritional Supplement Ref 0 TAB Ferrous Sulfate (Feosol) 200 Mg Tab 200 MG PO BIDPC Nutritional Supplement #60 Ref 0 TAB Labetalol (Labetalol) 100 Mg Tab 100 MG PO BID Blood Pressure Management #60 Ref 0 TAB Levocetirizine (Levocetirizine) 5 Mg Tab 5 MG PO DAILY Allergy Management #30 Ref 1 TAB Omeprazole (Omeprazole) 20 Mg Tab 20 MG PO DAILY #90 Ref 0 TAB Juan C Franco MD May 10, 2017 14:10
== END 2017-05-10 18:35 | DRG 233 ==
LOC: PHED 10:08 → PHEDA 11:52 → HIMW 17:05 → N05A 04-27 01:20 → HCIS 04-28 15:55 → HCVR 05-03 12:30 → HCIN 05-04 11:12 → HCIS 05-09 13:33 → HCIN 05-09 13:35
PROVIDERS: ADMIT Thoracic Surgery (Cardiothoracic Vascular Surgery); ATTEND Thoracic Surgery (Cardiothoracic Vascular Surgery)
PROC: 0T9B70Z Drainage of Bladder with Drainage Device, Via Natural or Artificial Opening (ICD-10-PCS; 2017-04-24)
PROC: 30233N1 Transfusion of Nonautologous Red Blood Cells into Peripheral Vein, Percutaneous Approach (ICD-10-PCS; 2017-04-24)
PROC: 0DB38ZX Excision of Lower Esophagus, Via Natural or Artificial Opening Endoscopic, Diagnostic (ICD-10-PCS; 2017-04-25)
PROC: 0W3P8ZZ Control Bleeding in Gastrointestinal Tract, Via Natural or Artificial Opening Endoscopic (ICD-10-PCS; 2017-04-25)
PROC: 5A09357 Assistance with Respiratory Ventilation, Less than 24 Consecutive Hours, Continuous Positive Airway Pressure (ICD-10-PCS; 2017-04-25)
PROC: 4A023N7 Measurement of Cardiac Sampling and Pressure, Left Heart, Percutaneous Approach (ICD-10-PCS; 2017-04-28)
PROC: B2111ZZ Fluoroscopy of Multiple Coronary Arteries using Low Osmolar Contrast (ICD-10-PCS; 2017-04-28)
PROC: B2151ZZ Fluoroscopy of Left Heart using Low Osmolar Contrast (ICD-10-PCS; 2017-04-28)
PROC: 021109W Bypass Coronary Artery, Two Arteries from Aorta with Autologous Venous Tissue, Open Approach (ICD-10-PCS; 2017-05-03)
PROC: 06BP4ZZ Excision of Right Saphenous Vein, Percutaneous Endoscopic Approach (ICD-10-PCS; 2017-05-03)
PROC: 02100Z9 Bypass Coronary Artery, One Artery from Left Internal Mammary, Open Approach (ICD-10-PCS; principal; 2017-05-03 06:56)
DX: I21.4 Non-ST elevation (NSTEMI) myocardial infarction (principal); K31.811 Angiodysplasia of stomach and duodenum with bleeding; I26.99 Other pulmonary embolism without acute cor pulmonale; J96.01 Acute respiratory failure with hypoxia; I50.31 Acute diastolic (congestive) heart failure; I82.402 Acute embolism and thrombosis of unspecified deep veins of left lower extremity; E87.3 Alkalosis; K22.70 Barrett's esophagus without dysplasia; D50.0 Iron deficiency anemia secondary to blood loss (chronic); K21.9 Gastro-esophageal reflux disease without esophagitis; I11.0 Hypertensive heart disease with heart failure; E87.6 Hypokalemia; D53.9 Nutritional anemia, unspecified; F40.240 Claustrophobia; M50.90 Cervical disc disorder, unspecified, unspecified cervical region; I25.10 Atherosclerotic heart disease of native coronary artery without angina pectoris; E78.5 Hyperlipidemia, unspecified; Z82.49 Family history of ischemic heart disease and other diseases of the circulatory system; Z85.828 Personal history of other malignant neoplasm of skin; Z83.6 Family history of other diseases of the respiratory system
CPT/HCPCS: 36430; 36600; 71010; 71275; 76937; 80048; 80053; 80061; 81001; 82272; 82550; 82728; 82805; 82948; 83036; 83540; 83550; 83605; 83735; 83880; 84100; 84484; 85007; 85014; 85018; 85025; 85027; 85610; 85730; 86850; 86900; 86901; 86920; 87040; 87086; 87449; 87493; 87641; 88305; 93005; 93306; 93454; 93880; 93970; 93998; 94002; 94010; 94150; 94620; 94640; 94664; 94667; 94668; 99291; C1768; C1769; C1893; C9113; C9248; J0131; J1644; J1815; J1885; J1940; J2060; J2250; J2270; J2405; J2440; J2543; J2720; J3010; J3370; J3480; J7050; J7120; P9016; Q9967

== ENCOUNTER 2017-05-18 19:08 | Inpatient (IN) | payer MEDICARE ==
[~2017-05-18] VITALS: Ht 160 cm; Wt 70.0 kg
[~2017-05-18 19:08] MED LIST changes: +APIX5TAB PO; +ASPI81CH25 PO; +ATOR40TA16 PO; -CYAN1DRO SL; -FERR1TAB58 PO; +FERR200T PO; -FLUT50SP EACH NARE; +HYDR-3516 PO; -MACR100C2 PO; +VITA250T3 PO; -VITA500C9 CHEW; -ZOSTINJ SQ
[2017-05-18 19:21] VITALS: BP 145/81; PULSE 83; RESP 18; TEMP 98.3; O2SAT 96
[2017-05-18] MEDS ORDERED: SODIUM CHLOR 0.9% 250 ML INJ 250 ML IV ONE (19:45)
--- NOTE | 2017-05-18 19:46 | PD ---
HPI Chief Complaint: Abnormal Results Time Seen by Provider: 19:21 Travel History International Travel<30 days: No Contact w/Intl Traveler<30days: No Traveled to known affect area: No History of Present Illness HPI while at [facility], had routine blood work and found to have hb of 7.4....per patient she is on eliquis, does not have any active complaint. gives h/o triple bypass and d/c last week and had a hb of 8.4 at discharge.... pt denies cp/sob at this time PFSH Past Medical History GERD: Yes Hypertension: Yes Social History Alcohol Use: No Tobacco Use: No Substance Use: No Allergies-Medications (Allergen,Severity, Reaction): Coded Allergies: Sulfa (Verified Allergy, Severe, rash, 05/18/17) Amoxicillin (Verified Allergy, Intermediate, Rash, 05/18/17) Dilaudid (Verified Adverse Reaction, Intermediate, short of breath when given IV push , 05/18/17) Reported Meds & Prescriptions Reported Meds & Active Scripts Active Hydrocodone-Acetaminophen 5-325 mg Tab 1 Tab PO Q6HR PRN Atorvastatin (Atorvastatin Calcium) 40 Mg Tab 40 Mg PO DAILY 90 Days Aspirin Low Strength (Aspirin) 81 Mg Chew 81 Mg PO DAILY 90 Days Eliquis (Apixaban) 5 Mg Tab 5 Mg PO BID 90 Days Levocetirizine 5 Mg Tab 5 Mg PO DAILY Losartan (Losartan Potassium) 100 Mg Tab 100 Mg PO HS needs to call office and speak with provider prior to more refills Omeprazole 20 Mg Tab 20 Mg PO DAILY Labetalol (Labetalol HCl) 100 Mg Tab 100 Mg PO BID Amlodipine (Amlodipine Besylate) 5 Mg Tab 5 Mg PO DAILY Reported Vitamin C (Ascorbic Acid) 250 Mg Tab 250 Mg PO DAILY Feosol (Ferrous Sulfate) 200 Mg Tab 200 Mg PO BIDPC Review of Systems Except as stated in HPI: all other systems reviewed are Neg Physical Exam Narrative GENERAL: SKIN: Warm and dry. HEAD: Atraumatic. Normocephalic. EYES: Pupils equal and round. No scleral icterus. No injection or drainage. ENT: No nasal bleeding or discharge. Mucous membranes pink and moist. NECK: Trachea midline. No JVD. CARDIOVASCULAR: Regular rate and rhythm. well healing midsternotomy scar w/o e/ o cellulitis RESPIRATORY: No accessory muscle use. Clear to auscultation. Breath sounds equal bilaterally. GASTROINTESTINAL: Abdomen soft, non-tender, nondistended. no discolored stool however pos guiaiac on exam MUSCULOSKELETAL: Extremities without clubbing, cyanosis, or edema. No obvious deformities. NEUROLOGICAL: Awake and alert. No obvious cranial nerve deficits. Motor grossly within normal limits. Five out of 5 muscle strength in the arms and legs. Normal speech. PSYCHIATRIC: Appropriate mood and affect; insight and judgment normal. Data Data Last Documented VS Vital Signs Date Time Temp Pulse Resp B/P Pulse Ox O2 Delivery O2 Flow Rate FiO2 05/18/17 19:27 80 18 96 Room Air 05/18/17 19:21 98.3 145/81 Orders Type And Screen (05/18/17 19:35) Blood Product Administration .UPON TRANSFUSION (05/18/17 19:35) Sodium Chlor 0.9% 250 Ml Inj (Ns 250 Ml (05/18/17 19:45) Complete Blood Count With Diff (05/18/17 19:35) Basic Metabolic Panel (Bmp) (05/18/17 19:35) Prothrombin Time / Inr (Pt) (05/18/17 19:35) Act Partial Throm Time (Ptt) (05/18/17 19:35) Electrocardiogram (05/18/17 19:29) Admit Order (Ed Use Only) (05/18/17 22:08) Labs Laboratory Tests Test 05/18/17 19:30 White Blood Count 9.0 TH/MM3 Red Blood Count 3.40 MIL/MM3 Hemoglobin 8.8 GM/DL Hematocrit 26.4 % Mean Corpuscular Volume 77.7 FL Mean Corpuscular Hemoglobin 25.9 PG Mean Corpuscular Hemoglobin 33.3 % Concent Red Cell Distribution Width 17.7 % Platelet Count 491 TH/MM3 Mean Platelet Volume 8.4 FL Neutrophils (%) (Auto) 62.8 % Lymphocytes (%) (Auto) 18.2 % Monocytes (%) (Auto) 9.8 % Eosinophils (%) (Auto) 8.2 % Basophils (%) (Auto) 1.0 % Neutrophils # (Auto) 5.6 TH/MM3 Lymphocytes # (Auto) 1.6 TH/MM3 Monocytes # (Auto) 0.9 TH/MM3 Eosinophils # (Auto) 0.7 TH/MM3 Basophils # (Auto) 0.1 TH/MM3 CBC Comment DIFF FINAL Differential Comment Prothrombin Time 12.5 SEC Prothromb Time International 1.1 RATIO Ratio Activated Partial 25.2 SEC Thromboplast Time Sodium Level 133 MEQ/L Potassium Level 4.2 MEQ/L Chloride Level 98 MEQ/L Carbon Dioxide Level 26.9 MEQ/L Anion Gap 8 MEQ/L Blood Urea Nitrogen 16 MG/DL Creatinine 0.87 MG/DL Estimat Glomerular Filtration 65 ML/MIN Rate Random Glucose 162 MG/DL Calcium Level 9.3 MG/DL Blood Type A NEGATIVE Antibody Screen NEGATIVE MDM Medical Decision Making Medical Screen Exam Complete: Yes Emergency Medical Condition: Yes Medical Record Reviewed: Yes Differential Diagnosis NOTED TO BE ANEMIC AT SC. WILL EVAL FOR GI SOURCE (GAVE). VS ATYPICAL SD V HYPERCOAGULABILITY Narrative Course PATIENT WAS CONFIRMED ANEMIC AT 8, HOWEVER WITH RECENT TRIPLE BYPASS HB SHOULD BE CLOSER TO 10. WILL ADMIT FOR TRANSFUSION AND OBS...ALSO WILL CONTACT GI TO FURTHER EVAL IF THERE'S NEED FOR ADDITIONAL CAUTERY OF GAVE LESION [facility] Point of Care Internal Pos. & Neg. Controls: Passed Fecal Specimen Occult Blood: Positive Diagnosis Primary Impression: anemia with recent triple bypass Additional Impression: gi bleed Admitting Information Admitting Physician Requests: Observation Modesto Hawkins MD May 18, 2017 19:46
[2017-05-18 20:36] LABS: AUTOMATED NEUTROPHIL # 5.6 TH/MM3 (1.8-7.7); BASOPHIL # 0.1 TH/MM3 (0-0.2); EOSINOPHIL # 0.7 TH/MM3 (0-0.4); EOSINOPHIL % 8.2 % (0.0-4.0); HEMATOCRIT 26.4 % (35.0-46.0); HEMO FLAGS DIFF FINAL; LYMPH % 18.2 % (9.0-44.0); LYMPHOCYTE # 1.6 TH/MM3 (1.0-4.8); MEAN CELL VOLUME 77.7 FL (80.0-100.0); MEAN CORPUSCULAR HEMOGLOBIN 25.9 PG (27.0-34.0); MEAN CORPUSCULAR HGB CONC 33.3 % (32.0-36.0); MONO % 9.8 % (0.0-8.0); NEUT % 62.8 % (16.0-70.0); PLATELET COUNT 491 TH/MM3 (150-450); RED CELL DISTRIBUTION WIDTH 17.7 % (11.6-17.2)
[2017-05-18 20:52] LABS: APTT (PATIENT) 25.2 SEC (24.3-30.1); INTERNATIONAL NORMALIZED RATIO 1.1 RATIO; PROTHROMBIN TIME - PATIENT 12.5 SEC (9.8-11.6)
[2017-05-18 20:58] LABS: BICARBONATE 26.9 MEQ/L (21.0-32.0); POTASSIUM 4.2 MEQ/L (3.5-5.1)
[2017-05-18] MEDS ORDERED: ONDANSETRON HCL 4 MG/2 ML VIAL IVP PRN (22:45)
[2017-05-18] MEDS ORDERED: SODIUM CHLORIDE 0.9% FLUSH 10 ML FLUSH IV FLUSH PRN (22:45)
[2017-05-18] MEDS ORDERED: NALOXONE HCL 0.4 MG/ML AMP IV PRN (22:45)
[2017-05-18] MEDS ORDERED: ACETAMINOPHEN/HYDROcodone 325 MG/5 MG TAB PO PRN (22:45)
[2017-05-18 22:46] VITALS: BP 114/65; PULSE 74; RESP 17; O2SAT 99
[2017-05-18 23:50] VITALS: BP 110/68; PULSE 80; RESP 20; TEMP 97.5; O2SAT 98
[2017-05-19] VITALS (26 sets, daily range): BP systolic 128–152; BP diastolic 60–69; PULSE 72–87; RESP 16–18; TEMP 97.7–98.6; O2SAT 96–100
[2017-05-19] MEDS: LEVOCETIRIZINE 5 MG PO SCH (07:56)
[2017-05-19] MEDS: FERROUS SULFATE 300 MG /5ML UDC PO SCH ×2 (07:59→17:11)
[2017-05-19] MEDS: PANTOPRAZOLE SOD 20 MG DELAYED RELEASE TAB PO SCH (07:59)
[2017-05-19] MEDS: ASCORBIC ACID 500 MG TAB PO SCH (07:59)
[2017-05-19] MEDS: amLODIPine BESYLATE 5 MG TAB PO SCH (07:59)
[2017-05-19] MEDS: LABETALOL HCL 100 MG TAB PO SCH ×2 (07:59→20:14)
[2017-05-19] MEDS: SODIUM CHLORIDE 0.9% FLUSH 10 ML FLUSH IV FLUSH SCH ×2 (08:00→20:15)
[2017-05-19] MEDS: ATORVASTATIN 40 MG TAB PO SCH (08:00)
[2017-05-19 08:42] LABS: AUTOMATED NEUTROPHIL # 4.6 TH/MM3 (1.8-7.7); BASOPHIL # 0.1 TH/MM3 (0-0.2); BASOPHIL % 0.9 % (0.0-2.0); EOSINOPHIL # 0.7 TH/MM3 (0-0.4); EOSINOPHIL % 9.7 % (0.0-4.0); HEMATOCRIT 23.8 % (35.0-46.0); HEMO FLAGS DIFF FINAL; LYMPHOCYTE # 1.2 TH/MM3 (1.0-4.8); MEAN CELL VOLUME 78.5 FL (80.0-100.0); MEAN CORPUSCULAR HEMOGLOBIN 24.5 PG (27.0-34.0); MEAN CORPUSCULAR HGB CONC 31.3 % (32.0-36.0); MONO % 9.1 % (0.0-8.0); NEUT % 63.3 % (16.0-70.0); PLATELET COUNT 372 TH/MM3 (150-450); RED BLOOD COUNT 3.03 MIL/MM3 (4.00-5.30); RED CELL DISTRIBUTION WIDTH 17.9 % (11.6-17.2); WHITE BLOOD COUNT 7.2 TH/MM3 (4.0-11.0)
[2017-05-19 09:13] LABS: ANION GAP 8 MEQ/L (5-15); AST (GOT) 22 U/L (15-37); BICARBONATE 27.1 MEQ/L (21.0-32.0); BLOOD UREA NITROGEN 12 MG/DL (7-18); CHLORIDE 100 MEQ/L (98-107); GLOMERULAR FILTRATION RATE 74 ML/MIN (>89); SODIUM (NA) 135 MEQ/L (136-145)
[2017-05-19 09:16] LABS: ALKALINE PHOSPHATASE 78 U/L (45-117); ALT (GPT) 24 U/L (10-53); TOTAL BILIRUBIN ADULT 0.4 MG/DL (0.2-1.0)
--- NOTE | 2017-05-19 10:26 | HHI.HP ---
History of Present Illness Service Family medicine Primary Care Physician ALTA Parisi Admission Diagnosis GI BLEED WITH ANEMIA, ON ELIQUIS S/P RECENT TRIPLE CARDIAC BYPASS Diagnoses: (1) GI bleed Diagnosis: Principal (2) DVT (deep venous thrombosis) Diagnosis: Principal (3) Hypertension Diagnosis: Secondary (4) Anemia Diagnosis: Principal History of Present Illness Patient is a very pleasant 66 year old female admitted to hospital secondary to being found anemic at 7.4 at [facility]. She has had a recent triple bypass surgery at the end of April. Also at the end April had a DVT, PE, and anemia. She is being treated with Eliquis for DVT. Her HGB yesterday at [facility] was found to be 8.8 and this AM 7.4. Stool for occult blood positive. GI and hematology have been consulted for recommendation. Will transfuse 2 units of PRBC for HGB 7.4 and active bleeding. Patient has a past medical history of HTN, GAVE, and GERD. She has also been diagnosed with short segment Grubbs's distal esophagus, bleeding angiectasia gastric antrum with recent EGD. She has not had a colonoscopy in over 5 years. Review of Systems Constitutional: DENIES: Fever, Chills, Dizziness Respiratory: DENIES: Cough, Sputum production, Shortness of breath Cardiovascular: DENIES: Chest pain, Palpitations, Syncope Gastrointestinal: DENIES: Abdominal pain, Bloody stools, Diarrhea Musculoskeletal: DENIES: Joint pain, Stiffness Neurologic: DENIES: Headache, Seizures, Poor Balance Psychiatric: DENIES: Anxiety, Confusion Past Family Social History Allergies: Coded Allergies: Sulfa (Verified Allergy, Severe, rash, 05/18/17) Amoxicillin (Verified Allergy, Intermediate, Rash, 05/18/17) Dilaudid (Verified Adverse Reaction, Intermediate, short of breath when given IV push , 05/18/17) Past Medical History HTN GERD Watermelon stomach Past Surgical History Disc neck surgery Deviated septum surgery Basal cell carcinoma removal on left leg CABG X3 Active Ordered Medications Current Medications Medications (Trade) Dose Ordered Sig/Adilia Route Start Time Stop Time Status Last Admin (NS 250 ml Inj) 250 ml @ 15 mls/hr ONCE ONCE IV 05/18/17 19:45 05/19/17 12:24 (Norvasc) 5 mg DAILY PO 05/19/17 09:00 05/19/17 07:59 (Lipitor) 40 mg DAILY PO 05/19/17 09:00 05/19/17 08:00 (Ferrous Sulfate Liq) 200 mg BIDPC PO 05/19/17 09:00 05/19/17 07:59 ([place] 5-325 Mg) 1 tab Q6HR PRN PO 05/18/17 22:45 (Trandate) 100 mg BID PO 05/19/17 09:00 05/19/17 07:59 (Cozaar) 100 mg HS PO 05/19/17 21:00 (Vitamin C) 250 mg DAILY PO 05/19/17 09:00 05/19/17 07:59 Patient Own Medication PT OWN MED: LEVOCETIRIZINE 5 MG ... 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 SKIN: Cool and dry. Chest incision well approximated NECK: Trachea midline. No JVD. CARDIOVASCULAR: Regular rate and rhythm without murmurs, gallops, or rubs. RESPIRATORY: Clear to auscultation. Breath sounds equal bilaterally. No wheezes , rales, or rhonchi. GASTROINTESTINAL: Abdomen soft, non-tender, nondistended. No hepato-splenomegaly , or palpable masses. No guarding. MUSCULOSKELETAL: Extremities without clubbing, cyanosis, or edema. No joint tenderness, effusion, or edema noted. No calf tenderness. Negative Homans sign bilaterally. NEUROLOGICAL: Awake and alert. Normal speech. Laboratory Laboratory Tests Test 05/18/17 05/19/17 05/19/17 19:30 07:45 09:58 White Blood Count 9.0 7.2 Red Blood Count 3.40 3.03 Hemoglobin 8.8 7.4 Hematocrit 26.4 23.8 Mean Corpuscular Volume 77.7 78.5 Mean Corpuscular Hemoglobin 25.9 24.5 Mean Corpuscular Hemoglobin 33.3 31.3 Concent Red Cell Distribution Width 17.7 17.9 Platelet Count 491 372 Mean Platelet Volume 8.4 7.7 Neutrophils (%) (Auto) 62.8 63.3 Lymphocytes (%) (Auto) 18.2 17.0 Monocytes (%) (Auto) 9.8 9.1 Eosinophils (%) (Auto) 8.2 9.7 Basophils (%) (Auto) 1.0 0.9 Neutrophils # (Auto) 5.6 4.6 Lymphocytes # (Auto) 1.6 1.2 Monocytes # (Auto) 0.9 0.7 Eosinophils # (Auto) 0.7 0.7 Basophils # (Auto) 0.1 0.1 CBC Comment DIFF FINAL DIFF FINAL Differential Comment Prothrombin Time 12.5 Prothromb Time International 1.1 Ratio Activated Partial 25.2 Thromboplast Time Sodium Level 133 135 Potassium Level 4.2 4.0 Chloride Level 98 100 Carbon Dioxide Level 26.9 27.1 Anion Gap 8 8 Blood Urea Nitrogen 16 12 Creatinine 0.87 0.78 Estimat Glomerular Filtration 65 74 Rate Random Glucose 162 135 Calcium Level 9.3 9.0 Blood Type A NEGATIVE A NEGATIVE Antibody Screen NEGATIVE Total Bilirubin 0.4 Aspartate Amino Transf 22 (AST/SGOT) Alanine Aminotransferase 24 (ALT/SGPT) Alkaline Phosphatase 78 Total Protein 6.6 Albumin 2.8 Crossmatch Leukocyte-Reduced Red Blood Cells Blood Bank Comment Result Diagram: 05/19/1745 05/19/17744 Assessment and Plan Problem List: (1) Anemia Status: Acute Plan: Hgb 7.4 today will transfuse 2 units of PRBC secondary to stool being occult blood positive and recent CABG. No obvious signs of bleeding. GI and hematology consulted CBC in AM (2) Hypertension Status: Chronic Plan: B/p well controlled continue current therapy (3) GI bleed Status: Acute Plan: Stool positive for OB. Eliquis is on hold awaiting recommendation from hematology (4) DVT (deep venous thrombosis) Status: Acute Plan: Patient with recent PE and DVT. No swelling noted or SOB Treated with Eliquis which is on hold secondary to anemia awaiting for recommendations from hematology Assessment and Plan Assessment and plan discussed with Dr. Bernal Discussed Condition With Nursing Discharge Planning Plan to discharge to rehab Physician Attestation I and the PROGRAM PROPOSALS COORDINATOR have both examined this patient and reviewed this note and I agree with these findings and plan of care. Yen Thacker. PROGRAM PROPOSALS COORDINATOR May 19, 2017 10:26
[2017-05-19] MEDS ORDERED: SODIUM CHLOR 0.9% 250 ML INJ 250 ML IV ONE (10:30)
[2017-05-19] MEDS ORDERED: FUROSEMIDE 20 MG/2 ML VIAL IV ONE (10:30)
--- NOTE | 2017-05-19 13:38 | EKG ---
Date Performed: 05/18/2017 Time Performed: 19:29:08 PTAGE: 66 years EKG: Sinus rhythm MODERATE T-WAVE ABNORMALITY, CONSIDER ANTEROLATERAL ISCHEMIA ABNORMAL ECG Compared to prior tracing no significant change PREVIOUS TRACING : 05/04/2017 03.47 DOCTOR: Jese Trevino Interpretating Date/Time 05/19/2017 13:33:43
--- NOTE | 2017-05-19 18:29 | PD.CONS ---
HPI History of Present Illness This is a 66 year old female with a history of GAVE, coronary artery disease, left lower extremity DVT, and pulmonary embolism who was recently hospitalized from / for GI bleed, non-STEMI, and symptomatic anemia. She was evaluated with EGD (04/25/17) which revealed 1. There was short segment Grubbs' s esophagus found in the distal esophagus; biopsy was performed 2. Bleeding angioectasia in the gastric antrum 3. Normal duodenal mucosa 4. Retroflexed views revealed no abnormalities. She was then evaluated with a cardiac catheterization on (04/28/17) and this revealed stenosis-95% proximal LAD, mid and distal LAD 30%, diagonal 30%, circumflex 75%, RCA 80%, EF was 55%. 2-D echo revealed grade 1 diastolic dysfunction with mildly dilated left ventricle, no aortic valve stenosis or regurgitation, tricuspid had no stenosis or regurgitation, no pericardial effusion. Cardiovascular surgery was consulted for multivessel disease. Unfortunately, she developed bilateral pulmonary emboli and a LLE DVT. GI was reconsulted with regards to whether it would be safe to start the patient on anticoagulation for her PE/DVT. Dr. Deleon reviewed the records and felt that the benefits of anticoagulation outweighed the risks, given the fact that there had been no prior history of any major bleed and the fact that the pictures of the endoscopy did not reveal any extensive watermelon changes and this was cauterized and at this point the risk of bleeding from watermelon stomach would be minimal. She was started on heparin. She then underwent Off-pump Coronary Artery Bypass Grafting x 3 with left internal mammary artery (ERNANDEZ) to left anterior descending (LAD), reverse saphenous vein graft to OM2, reverse saphenous vein graft to the RPDA, Right Leg Endoscopic Vein [place], and Intraoperative Vein Mapping on (05/03/17) with Dr. Franco. She was then transitioned to Eliquis and discharged on 05/10/17 with an HH of 8.4/22.3. She was then sent back to the hospital for anemia of 8.8/26.4 on 05/18/17. Today, this is 7.4/23.8. Her eliquis was placed on hold and she is being followed by Dr. Tellez with hematology. He has recommended IVC filter and coming off her anticoagulation, but continuing the ASA. GI has been consulted for anemia with her history of anticoagulation and GAVE. She has not seen any active GI bleeding. She denies any nausea, vomiting, abdominal pain, or hematochezia. Her stools are dark, but she attributes this to her iron supplements. The patient tells me that she would really like to avoid endoscopic evaluation if possible. She states that she would like to hold the Eliquis and most likely will decide on IVC, but would like to speak to her sister first. She would like to hold on EGD unless she has active bleeding or significant drop in hgb. Of note, she received 2 units of PRBC. PFSH Past Medical History GAVE, Watermelon stomach Grubbs's esophagus Multivessel coronary artery disease Pulmonary emboli LLE DVT Anemia CHF Hx basal cell carcinoma HTN Past Surgical History CABG Neck surgery Deviated septum surgery Basal cell carcinoma removal from left leg Multiple EGDs with ablation Coded Allergies: Sulfa (Verified Allergy, Severe, rash, 05/18/17) Amoxicillin (Verified Allergy, Intermediate, Rash, 05/18/17) Dilaudid (Verified Adverse Reaction, Intermediate, short of breath when given IV push , 05/18/17) Medications Allergies Coded Allergies Type Severity Reaction Last Updated Verified Sulfa Allergy Severe rash 05/18/17 Yes Amoxicillin Allergy Intermediate Rash 05/18/17 Yes Dilaudid Adverse Reaction Intermediate short of breath when given IV push 05/18 Yes Active Scripts Medications Dose Route/Sig Days Date Category Dose Instructions Hydrocodone-Acetaminophen 5-325 mg Tab 1 Tab PO Q6HR PRN 05/10/17 Rx Atorvastatin (Atorvastatin Calcium) 40 Mg Tab 40 Mg PO DAILY 05/10/17 Rx Aspirin Low Strength (Aspirin) 81 Mg Chew 81 Mg PO DAILY 90 05/10/17 Rx Eliquis (Apixaban) 5 Mg Tab 5 Mg PO BID 90 05/10/17 Rx Vitamin C (Ascorbic Acid) 250 Mg Tab 250 Mg PO DAILY 04/24/17 Reported Feosol (Ferrous Sulfate) 200 Mg Tab 200 Mg PO BIDPC 04/24/17 Reported Levocetirizine 5 Mg Tab 5 Mg PO DAILY 04/19/17 Rx Losartan (Losartan Potassium) 100 Mg Tab 100 Mg PO HS 04/16/17 Rx needs to call office and speak with provider prior to more refills Omeprazole 20 Mg Tab 20 Mg PO DAILY 02/09/17 Rx Labetalol (Labetalol HCl) 100 Mg Tab 100 Mg PO BID 02/07/17 Rx Amlodipine (Amlodipine Besylate) 5 Mg Tab 5 Mg PO DAILY 02/07/17 Rx Family History Father had heart disease and DVT, but states he had multiple leg injuries from war and they felt this was related to his prior injuries (complications for many years) Social History No tobacco, etoh, illicit drug use Review of Systems Constitutional: COMPLAINS OF: Fatigue, DENIES: Fever, Weight loss, Chills, Change in appetite Respiratory: DENIES: Cough Cardiovascular: DENIES: Chest pain Gastrointestinal: COMPLAINS OF: Black stools (dark stool, does not think black , thinks dark from iron), DENIES: Abdominal pain, Bloody stools, Constipation, Diarrhea, Nausea, Vomiting, Swelling of Abdomen, Hematemesis Integumentary: DENIES: Abnormal pigmentation Hematologic/lymphatic: DENIES: Bruising Neurologic: DENIES: Headache Psychiatric: DENIES: Confusion GI Exam Vitals I&O Vital Signs Date Time Temp Pulse Resp B/P Pulse Ox O2 Delivery O2 Flow Rate FiO2 05/19/17 16:00 78 05/19/17 16:00 98.4 79 18 149/69 99 05/19/17 15:00 76 05/19/17 14:00 74 05/19/17 13:00 76 05/19/17 12:00 98.3 77 16 137/66 100 05/19/17 12:00 75 05/19/17 11:15 98.5 76 18 130/64 100 05/19/17 11:00 98.3 76 16 137/66 100 05/19/17 11:00 76 05/19/17 10:00 78 05/19/17 09:00 72 05/19/17 08:00 82 05/19/17 08:00 97.8 84 18 128/60 99 05/19/17 07:00 78 05/19/17 06:00 75 05/19/17 05:00 74 05/19/17 04:00 75 05/19/17 03:00 97.7 74 16 129/65 96 05/19/17 03:00 78 05/19/17 02:00 74 05/19/17 01:00 74 05/19/17 00:00 76 05/18/17 23:50 97.5 80 20 110/68 98 05/18/17 22:46 74 17 114/65 99 Nasal Cannula 1.5 05/18/17 19:27 80 18 96 Room Air 05/18/17 19:21 98.3 83 18 145/81 96 I/O 05/18/17 05/18/17 05/18/17 05/19/17 05/19/17 05/19/17 07:00 15:00 23:00 07:00 15:00 23:00 Intake Total 100 ml 1409 ml Output Total 550 ml 1200 ml Balance -450 ml 209 ml Intake Oral 100 ml 780 ml IV Total 629 ml Output Urine Total 550 ml 1200 ml # Bowel Movements 0 0 Laboratory Test 05/18/17 05/19/17 05/19/17 19:30 07:45 09:58 White Blood Count 9.0 TH/MM3 7.2 TH/MM3 Red Blood Count 3.40 MIL/MM3 3.03 MIL/MM3 Hemoglobin 8.8 GM/DL 7.4 GM/DL Hematocrit 26.4 % 23.8 % Mean Corpuscular Volume 77.7 FL 78.5 FL Mean Corpuscular Hemoglobin 25.9 PG 24.5 PG Mean Corpuscular Hemoglobin 33.3 % 31.3 % Concent Red Cell Distribution Width 17.7 % 17.9 % Platelet Count 491 TH/MM3 372 TH/MM3 Mean Platelet Volume 8.4 FL 7.7 FL Neutrophils (%) (Auto) 62.8 % 63.3 % Lymphocytes (%) (Auto) 18.2 % 17.0 % Monocytes (%) (Auto) 9.8 % 9.1 % Eosinophils (%) (Auto) 8.2 % 9.7 % Basophils (%) (Auto) 1.0 % 0.9 % Neutrophils # (Auto) 5.6 TH/MM3 4.6 TH/MM3 Lymphocytes # (Auto) 1.6 TH/MM3 1.2 TH/MM3 Monocytes # (Auto) 0.9 TH/MM3 0.7 TH/MM3 Eosinophils # (Auto) 0.7 TH/MM3 0.7 TH/MM3 Basophils # (Auto) 0.1 TH/MM3 0.1 TH/MM3 CBC Comment DIFF FINAL DIFF FINAL Differential Comment Prothrombin Time 12.5 SEC Prothromb Time International 1.1 RATIO Ratio Activated Partial 25.2 SEC Thromboplast Time Sodium Level 133 MEQ/L 135 MEQ/L Potassium Level 4.2 MEQ/L 4.0 MEQ/L Chloride Level 98 MEQ/L 100 MEQ/L Carbon Dioxide Level 26.9 MEQ/L 27.1 MEQ/L Anion Gap 8 MEQ/L 8 MEQ/L Blood Urea Nitrogen 16 MG/DL 12 MG/DL Creatinine 0.87 MG/DL 0.78 MG/DL Estimat Glomerular Filtration 65 ML/MIN 74 ML/MIN Rate Random Glucose 162 MG/DL 135 MG/DL Calcium Level 9.3 MG/DL 9.0 MG/DL Blood Type A NEGATIVE A NEGATIVE Antibody Screen NEGATIVE Total Bilirubin 0.4 MG/DL Aspartate Amino Transf 22 U/L (AST/SGOT) Alanine Aminotransferase 24 U/L (ALT/SGPT) Alkaline Phosphatase 78 U/L Total Protein 6.6 GM/DL Albumin 2.8 GM/DL Crossmatch Leukocyte-Reduced Red Blood Cells Blood Bank Comment Physical Examination HEENT: Normocephalic; atraumatic; no jaundice. CHEST: CTA CARDIAC: RRR ABDOMEN: Soft, nondistended, nontender; no hepatosplenomegaly; bowel sounds are present in all four quadrants. EXTREMITIES: No clubbing, cyanosis, or edema. SKIN: Normal; no rash; no jaundice. ONLINE CONTENT COORDINATOR: No focal deficits; alert and oriented times three. Assessment and Plan Plan ASSESSMENT: - Anemia. Pt with complicated hx with GAVE, requiring multiple egd with ablations in past. Recent hospitalization from for GI bleed, non-STEMI, PE, and symptomatic anemia. EGD (04/25/17) which revealed 1. 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 Bleeding angioectasia in the gastric antrum 3. Normal duodenal mucosa 4. Retroflexed views revealed no abnormalities. PPI. HH on 05/10/17 with an HH of 8.4/22.3. This dropped to 7.4/23.8 today. S/P 2 units PRBC. D/W patient possible evaluation with EGD for ablation, but she states that she would most likely want to get the IVC, come off the Eliquis, and then avoid endoscopic evaluation unless there is active bleeding for further drop in hgb. - GAVE. S/P EGD with apc (04/25/17) as above. PPI. - Recent hx of PE/DVT. Has been on Eliquis at rehab center. Came in with drop in Hgb. Hematology following, patient states they have recommended IVC filter so she can come off the Eliquis all together. Pt states she wants to do this, but would like to speak to her sister first. Eliquis is on hold. - Severe multivessel coronary artery disease. Cardiac catheterization on () and this revealed stenosis-95% proximal LAD, mid and distal LAD 30%, diagonal 30%, circumflex 75%, RCA 80%, EF was 55%. S/P CABG x 3 on ( 05/03/17) with Dr. Franco. - HTN. per attending. PLAN: - ERMELINDA - Protonix 40mg po BID - Monitor HH - Transfuse as necessary - D/W patient further evaluation/treatment of GAVE/Anemia with EGD with ablation. She would like to avoid EGD if possible- states she will likely have IVC filter placed and stay off Eliquis and is requesting to hold off on EGD. She understands that if she has active bleeding or drop in Hgb, she may still need to have EGD and states she would be agreeable at that time. - Supportive care - Further recommendations to follow based on results of above - Pt seen and examined by Dr. Felix and myself and this note is written on his behalf Marilee Mcmillan May 19, 2017 18:29
--- NOTE | 2017-05-19 21:03 | MB ---
cc: BREN ARNOLD DATE OF CONSULTATION 05/19/17 REASON FOR CONSULTATION Patient with history of DVT, pulmonary emboli and GI bleeding on apixaban. PATIENT PROFILE The patient is a 66-year white female. She is . She has no children. She lives alone except for her dog. She was born in [place], [place], and has lived in [place] since 1968. 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 She had a part-time job at [employer]. She does not smoke and does not drink. HISTORY OF PRESENT ILLNESS The patient is a 66-year-old female who I originally saw on 04/30/2017. She has a history of chronic GI bleeding due to a watermelon stomach or the other name is GAVE disease. She was hospitalized at [facility] with a GI bleed with hemoglobin of 7.9, white count of 10,000, platelets 352,000. On 04/25/2017, she had upper endoscopy and was found to have bleeding due to angiodysplasia in the gastric antrum. She had I believe cauterization of the vessels and it was felt that there was a reasonable possibility that the bleeding would stop or be limited. At the same time, she had a number of other problems. She was found to have severe coronary artery disease and underwent coronary artery bypass surgery on May 03, [address] Franco. She did well with the surgery. She also was found to have a pulmonary embolus on 04/30/[address] angiogram showing emboli in the distal segmental and subsegmental lower lobe pulmonary arteries bilaterally. The thrombus burden was mild to moderate. She had evidence of venous thrombosis in the left posterior tibial vein. The right lower leg was negative for venous thrombosis. At that time, a decision was made to not place an umbrella but to give her apixaban 5 mg p.o. b.i.d. in the hope that the cauterization would prevent bleeding and she could avoid placement of an IVC filter. She was then discharged to [facility]. I had requested that she have a CBC and platelet count done weekly due to the possibility of continued blood loss. This is precisely what took place. On 05/19 she was found to have a hemoglobin of 7.4 at [facility]. Her stools were black. She was taking oral iron and she was transferred to [facility]. Today, 05/19, the hemoglobin is 7.4, white count 7200, platelets are 372,000. On 05/18, PT is 12.5, PTT is 25. The previous evening she had apixaban 5 mg p.o. b.i.d. and she is also taking one aspirin tablet a day. She is having no chest pain. She has mild exertional shortness of breath. She in fact feels much better now than she did several weeks ago. PAST SURGICAL HISTORY 1. Coronary artery bypass grafting x3 May 03, [address] Franco 2. Deviated septum repair 3. Basal cell cancer removed 4. Cauterization of stomach 5. Cervical spine surgery. PAST MEDICAL HISTORY 1. Coronary artery disease with coronary artery bypass surgery 2. Chronic GI bleeding from "watermelon stomach 3. Congestive heart failure 4. Non STEMI myocardial infarction 5. Anemia secondary to her GI bleeding. MEDICATIONS Prior to admission 1. Amlodipine 2. Eliquis 5 mg p.o. b.i.d. 3. Ascorbic acid 4. Aspirin 81 mg a day, 5. Atorvastatin 6. Iron one tablet twice a day 7. Hydrocodone Acetaminophen 8. Labetalol 9. Losartan 10. Omeprazole 11. Levocetirizine 5 mg daily. ALLERGIES AMOXICILLIN DILAUDID SULFA FAMILY HISTORY Mother at age 85 of cardiac disease. Father age 82. The patient has a sister and brother who are well. REVIEW OF SYSTEMS Covers 12 different areas and is notable for the following things: There has been a gradual increase in strength. She has mild exertional shortness of breath. Stools are black. She is taking oral iron. She is not having any chest pain or abdominal pain. PHYSICAL EXAMINATION GENERAL: A female who does not appear acutely ill. She actually looks stronger than she did when she left the hospital VITAL SIGNS: Blood pressure 140/70, respiratory rate 18, pulse 80, afebrile, O2 sat 99%. HEENT: Head is normocephalic. Sclerae and conjunctivae are normal. No adenopathy. HEART: Regular rhythm. LUNGS: Clear. Chest wall well healed from surgery. ABDOMEN: Without hepatosplenomegaly or masses. EXTREMITIES: Trace edema MUSCULOSKELETAL: No bone pain. NEUROLOGIC: No weakness. Cognition, affect normal. SKIN: Normal. RECTAL: Exam was done and the stool is jet black and I believe to some extent is probably melanotic, although the patient is on oral iron. ASSESSMENT A 66-year-old female who has a history of DVT and pulmonary emboli and currently is on Eliquis 5 mg p.o. b.i.d. and aspirin. I was hopeful that after the recent cauterization we would get away with giving her anticoagulation with apixaban for three months and then could be converted to a lower dose or simply the apixiban could be stopped. Unfortunately, this is not the case. She does appear to be having clinically meaningful bleeding. RECOMMENDATIONS 1. Discontinue apixaban 2. Continue the aspirin because of the recent bypass surgery 3. Transfuse two units since she is at a safe level 4. I would recommend placement of a retrievable IVC filter. At this point, I am uncomfortable giving her full dose anticoagulation with apixaban or a similar medication. I do think that it is worthwhile putting an umbrella given her recent history of DVT and pulmonary emboli. This was discussed with her. I have asked the nurse to write an order to administer 2 units of packed cells and I would wait about 48-72 hours after the apixaban was discontinued and at that point, she should be able to undergo placement of an IVC filter without the increased risk of bleeding associated due to apixaban. MD LALITHA Michaels/ /8:17 PM /8:43 PM KWAME
[2017-05-19] MEDS: LOSARTAN 50 MG TAB PO SCH (21:08)
[2017-05-20] VITALS (28 sets, daily range): BP systolic 110–135; BP diastolic 55–75; PULSE 63–91; RESP 16–18; TEMP 98.2–99; O2SAT 94–99
[2017-05-20 05:38] LABS: AUTOMATED NEUTROPHIL # 5.7 TH/MM3 (1.8-7.7); BASOPHIL # 0.1 TH/MM3 (0-0.2); BASOPHIL % 0.7 % (0.0-2.0); EOSINOPHIL # 0.9 TH/MM3 (0-0.4); EOSINOPHIL % 9.8 % (0.0-4.0); HEMATOCRIT 30.9 % (35.0-46.0); HEMO FLAGS DIFF FINAL; LYMPH % 16.2 % (9.0-44.0); LYMPHOCYTE # 1.4 TH/MM3 (1.0-4.8); MEAN CELL VOLUME 78.7 FL (80.0-100.0); MEAN CORPUSCULAR HEMOGLOBIN 25.2 PG (27.0-34.0); MONO % 9.2 % (0.0-8.0); NEUT % 64.1 % (16.0-70.0); PLATELET COUNT 350 TH/MM3 (150-450); RED BLOOD COUNT 3.92 MIL/MM3 (4.00-5.30); RED CELL DISTRIBUTION WIDTH 17.1 % (11.6-17.2); WHITE BLOOD COUNT 8.8 TH/MM3 (4.0-11.0)
[2017-05-20 06:02] LABS: BICARBONATE 28.1 MEQ/L (21.0-32.0); POTASSIUM 4.3 MEQ/L (3.5-5.1)
[2017-05-20] MEDS: FERROUS SULFATE 300 MG /5ML UDC PO SCH ×2 (08:51→18:11)
[2017-05-20] MEDS: LEVOCETIRIZINE 5 MG PO SCH (08:51)
[2017-05-20] MEDS: ASCORBIC ACID 500 MG TAB PO SCH (08:52)
[2017-05-20] MEDS: ATORVASTATIN 40 MG TAB PO SCH (08:52)
[2017-05-20] MEDS: PANTOPRAZOLE SOD 20 MG DELAYED RELEASE TAB PO SCH (08:53)
[2017-05-20] MEDS: amLODIPine BESYLATE 5 MG TAB PO SCH (08:53)
[2017-05-20] MEDS: SODIUM CHLORIDE 0.9% FLUSH 10 ML FLUSH IV FLUSH SCH ×2 (08:54→20:32)
[2017-05-20] MEDS: LABETALOL HCL 100 MG TAB PO SCH ×2 (08:54→20:32)
--- NOTE | 2017-05-20 09:37 | PD.ONC.PN ---
Subjective Subjective Remarks Afebrile overnight. Patient resting in room in nad. Has not noticed any obvious bleeding. Feels better after blood transfusion yesterday. Objective Data Date Time Temp Pulse Resp B/P Pulse Ox O2 Delivery O2 Flow Rate FiO2 05/20/17 09:00 84 05/20/17 08:00 82 05/20/17 08:00 98.4 88 18 113/60 98 05/20/17 07:00 75 05/20/17 06:00 71 05/20/17 05:00 63 05/20/17 04:59 98.7 91 18 115/59 94 05/20/17 04:00 63 05/20/17 03:00 75 05/20/17 02:00 72 05/20/17 01:51 98.6 81 18 123/75 99 05/20/17 01:00 70 05/20/17 00:00 74 05/19/17 23:00 76 05/19/17 22:00 80 05/19/17 21:00 82 05/19/17 20:18 98.6 84 18 152/65 97 05/19/17 20:00 84 05/19/17 19:00 87 05/19/17 18:00 80 05/19/17 17:00 76 05/19/17 16:00 78 05/19/17 16:00 98.4 79 18 149/69 99 05/19/17 15:00 76 05/19/17 14:00 74 05/19/17 13:00 76 05/19/17 12:00 98.3 77 16 137/66 100 05/19/17 12:00 75 05/19/17 11:15 98.5 76 18 130/64 100 05/19/17 11:00 98.3 76 16 137/66 100 05/19/17 11:00 76 05/19/17 10:00 78 05/20/17 05/20/17 05/20/17 07:00 15:00 23:00 Intake Total 480 ml Output Total 500 ml Balance -20 ml Result Diagram: 05/20/1715 05/20/17514 Laboratory Results Laboratory Tests Test 05/19/17 05/20/17 09:58 05:15 Blood Type A NEGATIVE Crossmatch Leukocyte-Reduced Red Blood Cells Blood Bank Comment White Blood Count 8.8 TH/MM3 Red Blood Count 3.92 MIL/MM3 Hemoglobin 9.9 GM/DL Hematocrit 30.9 % Mean Corpuscular Volume 78.7 FL Mean Corpuscular Hemoglobin 25.2 PG Mean Corpuscular Hemoglobin 32.0 % Concent Red Cell Distribution Width 17.1 % Platelet Count 350 TH/MM3 Mean Platelet Volume 7.5 FL Neutrophils (%) (Auto) 64.1 % Lymphocytes (%) (Auto) 16.2 % Monocytes (%) (Auto) 9.2 % Eosinophils (%) (Auto) 9.8 % Basophils (%) (Auto) 0.7 % Neutrophils # (Auto) 5.7 TH/MM3 Lymphocytes # (Auto) 1.4 TH/MM3 Monocytes # (Auto) 0.8 TH/MM3 Eosinophils # (Auto) 0.9 TH/MM3 Basophils # (Auto) 0.1 TH/MM3 CBC Comment DIFF FINAL Differential Comment Sodium Level 138 MEQ/L Potassium Level 4.3 MEQ/L Chloride Level 101 MEQ/L Carbon Dioxide Level 28.1 MEQ/L Anion Gap 9 MEQ/L Blood Urea Nitrogen 12 MG/DL Creatinine 0.78 MG/DL Estimat Glomerular Filtration 74 ML/MIN Rate Random Glucose 154 MG/DL Calcium Level 9.3 MG/DL Administered Medications Medications (Trade) Dose Ordered Sig/Adilia Route PRN Reason Start Time Stop Time Status Last Admin Dose Admin Amlodipine Besylate (Norvasc) 5 mg DAILY PO 05/19/17 09:00 05/20/17 08:53 Atorvastatin Calcium (Lipitor) 40 mg DAILY PO 05/19/17 09:00 05/20/17 08:52 Ferrous Sulfate (Ferrous Sulfate Liq) 200 mg BIDPC PO 05/19/17 09:00 05/20/17 08:51 Labetalol HCl (Trandate) 100 mg BID PO 05/19/17 09:00 05/20/17 08:54 Losartan Potassium (Cozaar) 100 mg HS PO 05/19/17 21:00 05/19/17 21:08 Ascorbic Acid (Vitamin C) 250 mg DAILY PO NS 05/19/17 09:00 05/20/17 08:52 Pantoprazole Sodium (Protonix) 20 mg DAILY PO 05/19/17 09:00 05/20/17 08:53 Sodium Chloride (NS Flush) 2 ml BID IV FLUSH 05/19/17 09:00 05/20/17 08:54 Objective Remarks GENERAL: Middle aged female, upright in chair next to bed in nad. On 2L O2 via NC SKIN: Warm and dry. healing incision site along chest wall HEAD: Normocephalic. EYES: No scleral icterus. No injection or drainage. NECK: Supple, trachea midline CARDIOVASCULAR: Regular rate and rhythm RESPIRATORY: Breath sounds equal bilaterally. No accessory muscle use. GASTROINTESTINAL: Abdomen soft, non-tender, nondistended. EXTREMITIES: No cyanosis. trace edema in bilateral lower extremities. NEUROLOGICAL: awake and alert, normal speech. moving all extremities Assessment/Plan Assessment 66-year-old female with history of DVT and PE, s/p recent CABG, admitted with falling hemoglobin h/o GIB while on Eliquis. Eliquis was stopped upon admission. Plan 1. monitor H/H 2. plan for IVC placement in IR on Monday 3. continue ASA Attending Statement The exam, history, and the medical decision-making described in the above note were completed with the assistance of the mid-level provider. I reviewed and agree with the findings presented. I attest that I had a [id number] encounter with the patient on the same day, and personally performed and documented my assessment and findings in the medical record. Patient seen and examined, blood work, medications and vital signs were reviewed. Also reviewed her CT angiogram from mid April as well as ultrasound Doppler. It appeared she had some clot burden involving the subsegmental pulmonary artery branches bilaterally, the clot burden was described as mild to moderate. Additionally I did review her ultrasound Doppler of the left lower extremity and she does have a DVT involving the calf (distal to the knee). Plans noted for IVC filter placement early next week. I have requested repeating ultrasound Doppler of the left lower extremity. I would suggest proceeding with the IVC filter placement should she have persistent clot burden and lower extremity. To the clot burden be less or resolved I would recommend reassessing the risks vs benefits of having an IVC filter placed. If an IVC filter is placed I have explained to the patient that she should try her heart is to have this removed whenever removal is a possibility. Malia Gibbs May 20, 2017 09:37 Ulysses Mckenzie MD May 20, 2017 15:06
--- NOTE | 2017-05-20 11:11 | HHI.PR ---
Subjective Remarks resting quietly no further bleeding hgb 9 Objective Vital Signs Date Time Temp Pulse Resp B/P Pulse Ox O2 Delivery O2 Flow Rate FiO2 05/20/17 10:00 78 05/20/17 09:00 84 05/20/17 08:00 82 05/20/17 08:00 98.4 88 18 113/60 98 05/20/17 07:00 75 05/20/17 06:00 71 05/20/17 05:00 63 05/20/17 04:59 98.7 91 18 115/59 94 05/20/17 04:00 63 05/20/17 03:00 75 05/20/17 02:00 72 05/20/17 01:51 98.6 81 18 123/75 99 05/20/17 01:00 70 05/20/17 00:00 74 05/19/17 23:00 76 05/19/17 22:00 80 05/19/17 21:00 82 05/19/17 20:18 98.6 84 18 152/65 97 05/19/17 20:00 84 05/19/17 19:00 87 05/19/17 18:00 80 05/19/17 17:00 76 05/19/17 16:00 78 05/19/17 16:00 98.4 79 18 149/69 99 05/19/17 15:00 76 05/19/17 14:00 74 05/19/17 13:00 76 05/19/17 12:00 98.3 77 16 137/66 100 05/19/17 12:00 75 05/19/17 11:15 98.5 76 18 130/64 100 I/O 05/19/17 05/19/17 05/19/17 05/20/17 05/20/17 05/20/17 07:00 15:00 23:00 07:00 15:00 23:00 Intake Total 100 ml 1409 ml 480 ml Output Total 550 ml 1200 ml 500 ml Balance -450 ml 209 ml -20 ml Intake Oral 100 ml 780 ml 480 ml IV Total 629 ml 0 ml Output Urine Total 550 ml 1200 ml 500 ml # Bowel Movements 0 0 Result Diagram: 05/20/1751405/20/17514 Objective Remarks GENERAL: SKIN: Warm and dry. HEAD: Atraumatic. Normocephalic. EYES: Pupils equal and round. No scleral icterus. No injection or drainage. ENT: No nasal bleeding or discharge. Mucous membranes pink and moist. NECK: Trachea midline. No JVD. CARDIOVASCULAR: Regular rate and rhythm. RESPIRATORY: No accessory muscle use. Clear to auscultation. Breath sounds equal bilaterally. GASTROINTESTINAL: Abdomen soft, non-tender, nondistended. Hepatic and splenic margins not palpable. MUSCULOSKELETAL: Extremities without clubbing, cyanosis, or edema. No obvious deformities. NEUROLOGICAL: Awake and alert. No obvious cranial nerve deficits. Motor grossly within normal limits. Five out of 5 muscle strength in the arms and legs. Normal speech. PSYCHIATRIC: Appropriate mood and affect; insight and judgment normal. Medications and IVs Inpatient Medications Acetaminophen/ Hydrocodone Bitart ([place] 5-325 Mg) 1 tab Q6HR PRN PO PAIN SCALE 1 TO 5; Start 05/18/17 at 22:45 Amlodipine Besylate (Norvasc) 5 mg DAILY PO Last administered on 05/20/17 08:53 ; Start 05/19/17 at 09:00 Ascorbic Acid (Vitamin C) 250 mg DAILY PO NS Last administered on 05/20/17 08:52 ; Start 05/19/17 at 09:00 Atorvastatin Calcium (Lipitor) 40 mg DAILY PO Last administered on 05/20/17 08: 52; Start 05/19/17 at 09:00 Ferrous Sulfate (Ferrous Sulfate Liq) 200 mg BIDPC PO Last administered on 08:51; Start 05/19/17 at 09:00 Furosemide (Lasix Inj) 20 mg ONCE ONCE IV Last administered on 05/19/17 13:32 ; Start 05/19/17 at 10:30; Stop 05/19/17 at 11:02; Status DC Labetalol HCl (Trandate) 100 mg BID PO Last administered on 05/20/17 08:54; Start 05/19/17 at 09:00 Losartan Potassium (Cozaar) 100 mg HS PO Last administered on 05/19/17 21:08; Start 05/19/17 at 21:00 Naloxone HCl 0.4 mg 0.4 mg UNSCH PRN IV SEE LABEL COMMENTS; Start 05/18/17 at 22 :45 Ondansetron HCl (Zofran Inj) 4 mg Q6H PRN IVP NAUSEA OR VOMITING; Start at 22:45 Pantoprazole Sodium (Protonix) 20 mg DAILY PO Last administered on 05/20/17 08: 53; Start 05/19/17 at 09:00 Patient Own Medication PT OWN MED: LEVOCETIRIZINE 5 MG ... DAILY PO ; Start 05/19 at 09:00 Sodium Chloride (NS 250 ml Inj) 250 ml @ 15 mls/hr ONCE ONCE IV Last administered on 05/19/17 10:30; Start 05/19/17 at 10:30; Stop 05/20/17 at 03:09; Status DC Sodium Chloride (NS Flush) 2 ml BID IV FLUSH Last administered on 05/20/17 08: 54; Start 05/19/17 at 09:00 Assessment and Plan Problem List: (1) Anemia Status: Acute Plan: moniter hgb transfuse as necessary (2) GI bleed Status: Acute Plan: pt wishes to avoid endoscopy for now no current bleeding (3) Pulmonary emboli Status: Acute Plan: pt has had dvt and PE will need protection after discussion with heme pt agrees to IVC filter will need 72 hours off eliquis hopefully we can schedule this for monday will consult German Ann DO May 20, 2017 11:11
--- NOTE | 2017-05-20 16:47 | HHI.GIFU ---
Subjective Remarks Patient is sitting up in chair, states, she is doing great today, she even took a walk with out O2. Denies any obvious bleeding. Still would like to wait on having EGD pending blood count tomorrow and the decision of IVC filter (Asael Alvarado) Objective Vitals I&O Vital Signs Date Time Temp Pulse Resp B/P Pulse Ox O2 Delivery O2 Flow Rate FiO2 05/20/17 16:00 99.0 88 18 134/64 98 05/20/17 16:00 75 05/20/17 15:00 79 05/20/17 14:00 75 05/20/17 13:00 78 05/20/17 12:00 78 05/20/17 11:10 98.2 88 18 110/62 98 05/20/17 11:00 73 05/20/17 10:00 78 05/20/17 09:00 84 05/20/17 08:00 82 05/20/17 08:00 98.4 88 18 113/60 98 05/20/17 07:00 75 05/20/17 06:00 71 05/20/17 05:00 63 05/20/17 04:59 98.7 91 18 115/59 94 05/20/17 04:00 63 05/20/17 03:00 75 05/20/17 02:00 72 05/20/17 01:51 98.6 81 18 123/75 99 05/20/17 01:00 70 05/20/17 00:00 74 05/19/17 23:00 76 05/19/17 22:00 80 05/19/17 21:00 82 05/19/17 20:18 98.6 84 18 152/65 97 05/19/17 20:00 84 05/19/17 19:00 87 05/19/17 18:00 80 05/19/17 17:00 76 I/O 05/19/17 05/19/17 05/19/17 05/20/17 05/20/17 05/20/17 07:00 15:00 23:00 07:00 15:00 23:00 Intake Total 100 ml 1409 ml 480 ml Output Total 550 ml 1200 ml 500 ml Balance -450 ml 209 ml -20 ml Intake Oral 100 ml 780 ml 480 ml IV Total 629 ml 0 ml Output Urine Total 550 ml 1200 ml 500 ml # Bowel Movements 0 0 Laboratory Laboratory Tests Test 05/20/17 05:15 White Blood Count 8.8 Red Blood Count 3.92 Hemoglobin 9.9 Hematocrit 30.9 Mean Corpuscular Volume 78.7 Mean Corpuscular Hemoglobin 25.2 Mean Corpuscular Hemoglobin 32.0 Concent Red Cell Distribution Width 17.1 Platelet Count 350 Mean Platelet Volume 7.5 Neutrophils (%) (Auto) 64.1 Lymphocytes (%) (Auto) 16.2 Monocytes (%) (Auto) 9.2 Eosinophils (%) (Auto) 9.8 Basophils (%) (Auto) 0.7 Neutrophils # (Auto) 5.7 Lymphocytes # (Auto) 1.4 Monocytes # (Auto) 0.8 Eosinophils # (Auto) 0.9 Basophils # (Auto) 0.1 CBC Comment DIFF FINAL Differential Comment Sodium Level 138 Potassium Level 4.3 Chloride Level 101 Carbon Dioxide Level 28.1 Anion Gap 9 Blood Urea Nitrogen 12 Creatinine 0.78 Estimat Glomerular Filtration 74 Rate Random Glucose 154 Calcium Level 9.3 Physical Exam HEENT:normocephalic; atraumatic; no jaundice. Throat is clear. CHEST: Chest is clear to auscultation and percussion. CARDIAC: Regular rate and rhythm with no murmur gallop or rubs. ABDOMEN: Soft, nondistended, nontender; no hepatosplenomegaly; bowel sounds are present in all four quadrants. EXTREMITIES: No clubbing, cyanosis, or edema. SKIN: Normal; no rash; no jaundice. RIBBON TIER: No focal deficits; alert and oriented times three. (Asael Alvarado) Assessment and Plan Plan ASSESSMENT: - Anemia. Pt with complicated hx with GAVE, requiring multiple egd with ablations in past. Recent hospitalization from for GI bleed, non-STEMI, PE, and symptomatic anemia. EGD (04/25/17) which revealed 1. 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 Bleeding angioectasia in the gastric antrum 3. Normal duodenal mucosa 4. Retroflexed views revealed no abnormalities. PPI. HH on 05/10/17 with an HH of 8.4/22.3. This dropped to 7.4/23.8 today. S/P 2 units PRBC. D/W patient possible evaluation with EGD for ablation, but she states that she would most likely want to get the IVC, come off the Eliquis, and then avoid endoscopic evaluation unless there is active bleeding for further drop in hgb. - GAVE. S/P EGD with [facility] (04/25/17) as above. PPI. - Recent hx of PE/DVT. Has been on Eliquis at rehab center. Came in with drop in Hgb. Hematology following, patient states they have recommended IVC filter so she can come off the Eliquis all together. Pt states she wants to do this, but would like to speak to her sister first. Eliquis is on hold. - Severe multivessel coronary artery disease. Cardiac catheterization on () and this revealed stenosis-95% proximal LAD, mid and distal LAD 30%, diagonal 30%, circumflex 75%, RCA 80%, EF was 55%. S/P CABG x 3 on ( 05/03/17) with Dr. Franco. - HTN. per attending. 05-20-17- Denies bleeding. hh went up today s/p 2 units of blood. would like to hold off on having EGD done pending blood count in the am and decision of IVC filter placement, she will consider if there is a drop in hgb PLAN: - ERMELINDA - Protonix 40mg po BID - Monitor HH - Transfuse as necessary - Supportive care - Further recommendations to follow based on results of above - Pt seen and examined by Dr. Linder and myself (Asael Alvarado) Asael Alvarado May 20, 2017 16:47 Iveth Linder MD May 20, 2017 18:14
--- NOTE | 2017-05-20 18:54 | RADRPT ---
EXAM DATE/TIME: 05/20/2017 18:05 [facility] COMPARISON: US LEG BILATERAL VENOUS DOPPLER, April 28, 2017, 21:55. INDICATIONS : Follow up DVT. MEDICAL HISTORY : Gastroesophageal reflux disease. Hypercholesterolemia. Hypertension. Gastric antral vascular ectas ia. Anemia. Skin cancer. Blood transfusion. SURGICAL HISTORY : Hysterectomy. CABG Deviated septum repair. C-spine disc replacement. Skin cancer removal. ENCOUNTER: Subsequent ACUITY: 3 weeks PAIN SCORE: 3/10 LOCATION: Left leg. TECHNIQUE: Venous ultrasound of the leg was performed from the inguinal ligament to the proximal calf. Real-neo e, color Doppler and spectral tracing, compression and augmentation techniques were used. FINDINGS: There is normal compressibility of the deep venous system from the inguinal region to the proximal ca lf. No echogenic clot is seen in the lumen of the common femoral, femoral, and popliteal veins. Ther e is a normal response of the venous system to proximal and distal augmentation and respiration in th hany vessels. There is continued nonocclusive thrombus in the left posterior tibial vein. CONCLUSION: Continued nonocclusive thrombus in the left posterior tibial vein. The other veins ar e patent. Kelton Millre MD on May 20, 2017 at 18:51 Board Certified Radiologist. This report was verified electronically.
[2017-05-20] MEDS: LOSARTAN 50 MG TAB PO SCH (20:32)
[2017-05-21] VITALS (29 sets, daily range): BP systolic 128–155; BP diastolic 64–71; PULSE 71–92; RESP 16; TEMP 97.7–98.7; O2SAT 96–100
--- NOTE | 2017-05-21 08:37 | HHI.PR ---
Subjective Remarks resting quietly no further bleeding hgb 9 anticipate IVC tomorrow Objective Vital Signs Date Time Temp Pulse Resp B/P Pulse Ox O2 Delivery O2 Flow Rate FiO2 05/21/17 08:00 77 05/21/17 08:00 98.3 77 16 134/71 97 05/21/17 07:00 74 05/21/17 06:00 78 05/21/17 05:00 75 05/21/17 04:00 77 05/21/17 03:26 71 05/21/17 03:00 98.7 78 16 132/66 100 05/21/17 02:00 76 05/21/17 01:00 78 05/21/17 00:00 80 05/20/17 23:26 98.4 82 16 124/60 96 05/20/17 23:23 71 05/20/17 22:00 78 05/20/17 21:00 75 05/20/17 20:00 76 05/20/17 20:00 98.4 79 16 135/55 96 05/20/17 19:33 80 05/20/17 18:00 78 05/20/17 17:00 74 05/20/17 16:00 99.0 88 18 134/64 98 05/20/17 16:00 75 05/20/17 15:00 79 05/20/17 14:00 75 05/20/17 13:00 78 05/20/17 12:00 78 05/20/17 11:10 98.2 88 18 110/62 98 05/20/17 11:00 73 05/20/17 10:00 78 05/20/17 09:00 84 I/O 05/20/17 05/20/17 05/20/17 05/21/17 05/21/17 05/21/17 07:00 15:00 23:00 07:00 15:00 23:00 Intake Total 480 ml 725 ml 360 ml Output Total 500 ml 850 ml 600 ml Balance -20 ml -125 ml -240 ml Intake Oral 480 ml 725 ml 360 ml IV Total 0 ml Output Urine Total 500 ml 850 ml 600 ml # Bowel Movements 1 Result Diagram: 05/20/17 0515 05/20/1715 Objective Remarks GENERAL: SKIN: Warm and dry. HEAD: Atraumatic. Normocephalic. EYES: Pupils equal and round. No scleral icterus. No injection or drainage. ENT: No nasal bleeding or discharge. Mucous membranes pink and moist. NECK: Trachea midline. No JVD. CARDIOVASCULAR: Regular rate and rhythm. RESPIRATORY: No accessory muscle use. Clear to auscultation. Breath sounds equal bilaterally. GASTROINTESTINAL: Abdomen soft, non-tender, nondistended. Hepatic and splenic margins not palpable. MUSCULOSKELETAL: Extremities without clubbing, cyanosis, or edema. No obvious deformities. NEUROLOGICAL: Awake and alert. No obvious cranial nerve deficits. Motor grossly within normal limits. Five out of 5 muscle strength in the arms and legs. Normal speech. PSYCHIATRIC: Appropriate mood and affect; insight and judgment normal. Medications and IVs Inpatient Medications Acetaminophen/ Hydrocodone Bitart ([place] 5-325 Mg) 1 tab Q6HR PRN PO PAIN SCALE 1 TO 5; Start 05/18/17 at 22:45 Amlodipine Besylate (Norvasc) 5 mg DAILY PO Last administered on 05/20/17 08:53 ; Start 05/19/17 at 09:00 Ascorbic Acid (Vitamin C) 250 mg DAILY PO NS Last administered on 05/20/17 08:52 ; Start 05/19/17 at 09:00 Atorvastatin Calcium (Lipitor) 40 mg DAILY PO Last administered on 05/20/17 08: 52; Start 05/19/17 at 09:00 Ferrous Sulfate (Ferrous Sulfate Liq) 200 mg BIDPC PO Last administered on 18:11; Start 05/19/17 at 09:00 Furosemide (Lasix Inj) 20 mg ONCE ONCE IV Last administered on 05/19/17 13:32 ; Start 05/19/17 at 10:30; Stop 05/19/17 at 11:02; Status DC Labetalol HCl (Trandate) 100 mg BID PO Last administered on 05/20/17 20:32; Start 05/19/17 at 09:00 Losartan Potassium (Cozaar) 100 mg HS PO Last administered on 05/20/17 20:32; Start 05/19/17 at 21:00 Naloxone HCl 0.4 mg 0.4 mg UNSCH PRN IV SEE LABEL COMMENTS; Start 05/18/17 at 22 :45 Ondansetron HCl (Zofran Inj) 4 mg Q6H PRN IVP NAUSEA OR VOMITING; Start at 22:45 Pantoprazole Sodium (Protonix) 20 mg DAILY PO Last administered on 05/20/17 08: 53; Start 05/19/17 at 09:00 Patient Own Medication PT OWN MED: LEVOCETIRIZINE 5 MG ... DAILY PO ; Start 05/19 at 09:00 Sodium Chloride (NS 250 ml Inj) 250 ml @ 15 mls/hr ONCE ONCE IV Last administered on 05/19/17 10:30; Start 05/19/17 at 10:30; Stop 05/20/17 at 03:09; Status DC Sodium Chloride (NS Flush) 2 ml BID IV FLUSH Last administered on 05/20/17 20: 32; Start 05/19/17 at 09:00 Assessment and Plan Problem List: (1) Anemia Status: Acute Plan: moniter hgb transfuse as necessary (2) GI bleed Status: Acute Plan: pt wishes to avoid endoscopy for now no current bleeding (3) Pulmonary emboli Status: Acute Plan: pt has had dvt and PE will need protection after discussion with heme pt agrees to IVC filter will need 72 hours off eliquis hopefully we can schedule this for monday will consult IR Assessment and Plan discussed filter with patient she will go with DR Albert recomendations anticipate IR placement tomorrow Discussed Condition With patient Discharge Planning German Loza DO May 21, 2017 08:36
[2017-05-21 08:52] LABS: HEMATOCRIT 36.3 % (35.0-46.0); MEAN CELL VOLUME 80.2 FL (80.0-100.0); MEAN CORPUSCULAR HEMOGLOBIN 24.9 PG (27.0-34.0); MEAN CORPUSCULAR HGB CONC 31.1 % (32.0-36.0); PLATELET COUNT 402 TH/MM3 (150-450); RED BLOOD COUNT 4.53 MIL/MM3 (4.00-5.30); RED CELL DISTRIBUTION WIDTH 17.7 % (11.6-17.2); REVIEW FLAG FINAL; WHITE BLOOD COUNT 9.2 TH/MM3 (4.0-11.0)
[2017-05-21] MEDS: LEVOCETIRIZINE 5 MG PO SCH (09:00)
[2017-05-21 09:08] LABS: BICARBONATE 27.2 MEQ/L (21.0-32.0); POTASSIUM 4.2 MEQ/L (3.5-5.1)
[2017-05-21] MEDS: SODIUM CHLORIDE 0.9% FLUSH 10 ML FLUSH IV FLUSH SCH ×2 (09:28→21:00)
[2017-05-21] MEDS: ATORVASTATIN 40 MG TAB PO SCH (09:29)
[2017-05-21] MEDS: ASCORBIC ACID 500 MG TAB PO SCH (09:29)
[2017-05-21] MEDS: FERROUS SULFATE 300 MG /5ML UDC PO SCH ×2 (09:29→17:19)
[2017-05-21] MEDS: amLODIPine BESYLATE 5 MG TAB PO SCH (09:29)
[2017-05-21] MEDS: LABETALOL HCL 100 MG TAB PO SCH ×2 (09:29→21:34)
[2017-05-21] MEDS: PANTOPRAZOLE SOD 20 MG DELAYED RELEASE TAB PO SCH (09:29)
--- NOTE | 2017-05-21 09:32 | PD.ONC.PN ---
Subjective Subjective Remarks Afebrile overnight. Patient resting in room in nad. She is anxious about the IVC filter placement. She's thinking she may want to put it off. She is unsure if she should have temporary or permanent IVC filter. Objective Data Date Time Temp Pulse Resp B/P Pulse Ox O2 Delivery O2 Flow Rate FiO2 05/21/17 08:00 77 05/21/17 08:00 98.3 77 16 134/71 97 05/21/17 07:00 74 05/21/17 06:00 78 05/21/17 05:00 75 05/21/17 04:00 77 05/21/17 03:26 71 05/21/17 03:00 98.7 78 16 132/66 100 05/21/17 02:00 76 05/21/17 01:00 78 05/21/17 00:00 80 05/20/17 23:26 98.4 82 16 124/60 96 05/20/17 23:23 71 05/20/17 22:00 78 05/20/17 21:00 75 05/20/17 20:00 76 05/20/17 20:00 98.4 79 16 135/55 96 05/20/17 19:33 80 05/20/17 18:00 78 05/20/17 17:00 74 05/20/17 16:00 99.0 88 18 134/64 98 05/20/17 16:00 75 05/20/17 15:00 79 05/20/17 14:00 75 05/20/17 13:00 78 05/20/17 12:00 78 05/20/17 11:10 98.2 88 18 110/62 98 05/20/17 11:00 73 05/20/17 10:00 78 05/21/17 05/21/17 05/21/17 07:00 15:00 23:00 Intake Total 360 ml Output Total 600 ml Balance -240 ml Result Diagram: 05/21/1743 05/21/17742 Laboratory Results Laboratory Tests Test 05/21/17 07:43 White Blood Count 9.2 TH/MM3 Red Blood Count 4.53 MIL/MM3 Hemoglobin 11.3 GM/DL Hematocrit 36.3 % Mean Corpuscular Volume 80.2 FL Mean Corpuscular Hemoglobin 24.9 PG Mean Corpuscular Hemoglobin 31.1 % Concent Red Cell Distribution Width 17.7 % Platelet Count 402 TH/MM3 Mean Platelet Volume 7.6 FL Sodium Level 137 MEQ/L Potassium Level 4.2 MEQ/L Chloride Level 101 MEQ/L Carbon Dioxide Level 27.2 MEQ/L Anion Gap 9 MEQ/L Blood Urea Nitrogen 14 MG/DL Creatinine 0.69 MG/DL Estimat Glomerular Filtration 85 ML/MIN Rate Random Glucose 143 MG/DL Calcium Level 9.4 MG/DL Administered Medications Medications (Trade) Dose Ordered Sig/Adilia Route PRN Reason Start Time Stop Time Status Last Admin Dose Admin Amlodipine Besylate (Norvasc) 5 mg DAILY PO 05/19/17 09:00 05/20/17 08:53 Atorvastatin Calcium (Lipitor) 40 mg DAILY PO 05/19/17 09:00 05/20/17 08:52 Ferrous Sulfate (Ferrous Sulfate Liq) 200 mg BIDPC PO 05/19/17 09:00 05/20/17 18:11 Labetalol HCl (Trandate) 100 mg BID PO 05/19/17 09:00 05/20/17 20:32 Losartan Potassium (Cozaar) 100 mg HS PO 05/19/17 21:00 05/20/17 20:32 Ascorbic Acid (Vitamin C) 250 mg DAILY PO NS 05/19/17 09:00 05/20/17 08:52 Pantoprazole Sodium (Protonix) 20 mg DAILY PO 05/19/17 09:00 05/20/17 08:53 Sodium Chloride (NS Flush) 2 ml BID IV FLUSH 05/19/17 09:00 05/20/17 20:32 Objective Remarks GENERAL: Middle aged female upright in chair in nad SKIN: Warm and dry. healing incision site along chest, no bleeding. HEAD: Normocephalic. EYES: No scleral icterus. No injection or drainage. NECK: Supple, trachea midline. CARDIOVASCULAR: +S1/S2 RESPIRATORY: Breath sounds equal bilaterally. No accessory muscle use. GASTROINTESTINAL: Abdomen soft, non-tender, nondistended. EXTREMITIES: No cyanosis NEUROLOGICAL: No obvious focal deficit. Awake, alert, and oriented x3. Assessment/Plan Assessment 66-year-old female with history of DVT and PE, s/p recent CABG, admitted with falling hemoglobin h/o GIB while on Eliquis. Eliquis was stopped upon admission. Plan 1. monitor H/H 2. continue ASA 3. U/S results reviewed with patient, she is still deciding whether to proceed with IVC filter placement Malia Gibbs May 21, 2017 09:32
--- NOTE | 2017-05-21 16:31 | HHI.GIFU ---
GI Follow-up Note Consult Follow-up Subjective: Patient laying in bed comfortably, trying to decide about IVC filter.Still some black stools, but she is on iron supplements . Denies nausea, vomiting , abdominal pain Objective: PHYSICAL EXAMINATION: Vitals signs stable No fever Vital Signs Date Time Temp Pulse Resp B/P Pulse Ox O2 Delivery O2 Flow Rate FiO2 05/21/17 16:00 78 05/21/17 15:12 98.4 77 16 134/68 97 05/21/17 15:00 82 05/21/17 14:00 78 05/21/17 13:00 82 05/21/17 12:00 77 05/21/17 11:53 98.7 78 16 128/64 100 05/21/17 11:00 79 05/21/17 10:00 81 05/21/17 09:00 75 HEENT: Pupils round and reactive to light; normocephalic; atraumatic; no jaundice. Throat is clear. NECK: Neck is supple, no JVD, no lymphadenopathy. CHEST: Chest is clear to auscultation and percussion. CARDIAC: Regular rate and rhythm with no murmur gallop or rubs. ABDOMEN: Soft, nondistended, nontender; no hepatosplenomegaly; bowel sounds are present in all four quadrants. EXTREMITIES: No clubbing, cyanosis, edema. SKIN: Normal; no rash; no jaundice. SILK FINISHER: No focal deficits; alert and oriented times three. Available Data (labs, X- Rays, Procedues) : Laboratory Tests Test 05/20/17 05/21/17 05:15 07:43 White Blood Count 8.8 TH/MM3 9.2 TH/MM3 Red Blood Count 3.92 MIL/MM3 4.53 MIL/MM3 Hemoglobin 9.9 GM/DL 11.3 GM/DL Hematocrit 30.9 % 36.3 % Mean Corpuscular Volume 78.7 FL 80.2 FL Mean Corpuscular Hemoglobin 25.2 PG 24.9 PG Mean Corpuscular Hemoglobin 32.0 % 31.1 % Concent Red Cell Distribution Width 17.1 % 17.7 % Platelet Count 350 TH/MM3 402 TH/MM3 Mean Platelet Volume 7.5 FL 7.6 FL Neutrophils (%) (Auto) 64.1 % Lymphocytes (%) (Auto) 16.2 % Monocytes (%) (Auto) 9.2 % Eosinophils (%) (Auto) 9.8 % Basophils (%) (Auto) 0.7 % Neutrophils # (Auto) 5.7 TH/MM3 Lymphocytes # (Auto) 1.4 TH/MM3 Monocytes # (Auto) 0.8 TH/MM3 Eosinophils # (Auto) 0.9 TH/MM3 Basophils # (Auto) 0.1 TH/MM3 CBC Comment DIFF FINAL Differential Comment Sodium Level 138 MEQ/L 137 MEQ/L Potassium Level 4.3 MEQ/L 4.2 MEQ/L Chloride Level 101 MEQ/L 101 MEQ/L Carbon Dioxide Level 28.1 MEQ/L 27.2 MEQ/L Anion Gap 9 MEQ/L 9 MEQ/L Blood Urea Nitrogen 12 MG/DL 14 MG/DL Creatinine 0.78 MG/DL 0.69 MG/DL Estimat Glomerular Filtration 74 ML/MIN 85 ML/MIN Rate Random Glucose 154 MG/DL 143 MG/DL Calcium Level 9.3 MG/DL 9.4 MG/DL ASSESSMENT/PLAN: melena history of GAVE, hb stable , no active bleeding Recommendations egd with ablation if agrees , at this time not interested monitor hb/ht closely ppi continue iron supplements gi will sign off call us if she changes her mind or active bleeding fu office in 2-4 weeks It was a pleasure seeing Rosi Severino. Thank you for this consult. Entered by: Iveth Daley MD May 21, 2017 16:31
[2017-05-21] MEDS: LOSARTAN 50 MG TAB PO SCH (21:34)
[2017-05-22] VITALS (26 sets, daily range): BP systolic 110–152; BP diastolic 64–75; PULSE 71–102; RESP 16–20; TEMP 97.9–98.6; O2SAT 94–98
[2017-05-22 06:36] LABS: AUTOMATED NEUTROPHIL # 5.5 TH/MM3 (1.8-7.7); BASOPHIL # 0.1 TH/MM3 (0-0.2); BASOPHIL % 0.7 % (0.0-2.0); EOSINOPHIL # 0.9 TH/MM3 (0-0.4); EOSINOPHIL % 10.4 % (0.0-4.0); HEMATOCRIT 32.1 % (35.0-46.0); HEMO FLAGS DIFF FINAL; LYMPH % 15.8 % (9.0-44.0); LYMPHOCYTE # 1.3 TH/MM3 (1.0-4.8); MEAN CELL VOLUME 78.6 FL (80.0-100.0); MEAN CORPUSCULAR HEMOGLOBIN 25.3 PG (27.0-34.0); MEAN CORPUSCULAR HGB CONC 32.1 % (32.0-36.0); MONO % 6.7 % (0.0-8.0); NEUT % 66.4 % (16.0-70.0); PLATELET COUNT 388 TH/MM3 (150-450); RED BLOOD COUNT 4.09 MIL/MM3 (4.00-5.30); RED CELL DISTRIBUTION WIDTH 17.6 % (11.6-17.2); WHITE BLOOD COUNT 8.4 TH/MM3 (4.0-11.0)
[2017-05-22 07:02] LABS: BICARBONATE 26.8 MEQ/L (21.0-32.0); POTASSIUM 3.8 MEQ/L (3.5-5.1)
--- NOTE | 2017-05-22 08:17 | HHI.PR ---
Subjective Remarks Denies any chest pain, abdominal pain or SOB. Patient has many questions about IVC filter and still is undecided about placement Objective Vital Signs Date Time Temp Pulse Resp B/P Pulse Ox O2 Delivery O2 Flow Rate FiO2 05/22/17 05:05 85 05/22/17 04:20 75 05/22/17 03:40 97.9 82 16 152/75 96 05/22/17 03:00 80 05/22/17 02:00 76 05/22/17 01:00 77 05/22/17 00:00 80 05/21/17 23:32 97.7 72 16 139/69 100 05/21/17 23:00 76 05/21/17 22:00 78 05/21/17 21:00 84 05/21/17 20:00 82 05/21/17 19:30 98.2 90 16 155/66 96 05/21/17 19:27 89 05/21/17 18:00 82 05/21/17 17:00 92 05/21/17 16:00 78 05/21/17 15:12 98.4 77 16 134/68 97 05/21/17 15:00 82 05/21/17 14:00 78 05/21/17 13:00 82 05/21/17 12:00 77 05/21/17 11:53 98.7 78 16 128/64 100 05/21/17 11:00 79 05/21/17 10:00 81 05/21/17 09:00 75 I/O 05/21/17 05/21/17 05/21/17 05/22/17 05/22/17 05/22/17 07:00 15:00 23:00 07:00 15:00 23:00 Intake Total 360 ml 975 ml 480 ml Output Total 600 ml 750 ml 500 ml Balance -240 ml 225 ml -20 ml Intake Oral 360 ml 975 ml 480 ml Output Urine Total 600 ml 750 ml 500 ml # Bowel Movements 0 2 Result Diagram: 05/22/17 0554 05/22/17 0554 Imaging Last 72 hours Impressions Lower Extremity Ultrasound 05/20/17 0000 Signed Impressions: Service Date/Time: Saturday, May 20, 2017 18:05 - CONCLUSION: Continued nonocclusive thrombus in the left posterior tibial vein. The other veins are patent. Kelton Miller MD Objective Remarks GENERAL: Alert and cooperative SKIN: Warm and dry. Incision on well approximated on chest HEAD: Normocephalic. EYES: No scleral icterus. No injection or drainage. NECK: Supple, trachea midline. No JVD or lymphadenopathy. CARDIOVASCULAR: Regular rate and rhythm without murmurs, gallops, or rubs. RESPIRATORY: Breath sounds equal bilaterally. No accessory muscle use. GASTROINTESTINAL: Abdomen soft, non-tender, nondistended. MUSCULOSKELETAL: No cyanosis, or edema. BACK: Nontender without obvious deformity. No CVA tenderness. Medications and IVs Current Medications Medications (Trade) Dose Ordered Sig/Adilia Route Start Time Stop Time Status Last Admin (Norvasc) 5 mg DAILY PO 05/19/17 09:00 05/21/17 09:29 (Lipitor) 40 mg DAILY PO 05/19/17 09:00 05/21/17 09:29 (Ferrous Sulfate Liq) 200 mg BIDPC PO 05/19/17 09:00 05/21/17 17:19 ([place] 5-325 Mg) 1 tab Q6HR PRN PO 05/18/17 22:45 (Trandate) 100 mg BID PO 05/19/17 09:00 05/21/17 21:34 (Cozaar) 100 mg HS PO 05/19/17 21:00 05/21/17 21:34 (Vitamin C) 250 mg DAILY PO 05/19/17 09:00 05/21/17 09:29 Patient Own Medication PT OWN MED: LEVOCETIRIZINE 5 MG ... DAILY PO 05/19/17 09:00 (Protonix) 20 mg DAILY PO 05/19/17 09:00 05/21/17 09:29 (NS Flush) 2 ml UNSCH PRN IV FLUSH 05/18/17 22:45 (NS Flush) 2 ml BID IV FLUSH 05/19/17 09:00 05/21/17 21:00 (Zofran Inj) 4 mg Q6H PRN IVP 05/18/17 22:45 (Narcan Inj) 0.4 mg UNSCH PRN IV 05/18/17 22:45 Assessment and Plan Problem List: (1) Anemia Status: Acute Plan: Hgb 10.3 today. Patient received 2 units of PRBC on admission. No obvious signs of bleeding. Eliquis stopped. GI and hematology consulted (2) Hypertension Status: Chronic Plan: B/p 152/72 will increase amlodipine if remains consistently elevated. (3) GI bleed Status: Acute Plan: Stool positive for OB. Recommended per hematology to discontinue Eliquis and recommends a retrievable IVC filter. (4) DVT (deep venous thrombosis) Status: Acute Plan: Patient with recent PE and DVT. No swelling noted or SOB Plan is for IVC filter patient is not decided on filter yet and would like to talk to hematology. 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 Discussed having a EGD with ablation with Patient however currently she does not want a EGD unless her HGB drops. Will reconsult if needed. Assessment and Plan Assessment and plan discussed with Dr. Bernal Discussed Condition With Nursing Discharge Planning [facility] Physician Attestation I and the APPAREL DESIGNER have both examined this patient and reviewed this note and I agree with these findings and plan of care. Yen Thacker. [facility] May 22, 2017 08:17
--- NOTE | 2017-05-22 08:38 | PD.ONC.PN ---
Subjective Subjective Remarks Afebrile overnight. Anxious about having IVC filter--still unsure if that's what she wants. She would like to speak with one of the invasive radiologists to understand more about the procedure. Objective Data Date Time Temp Pulse Resp B/P Pulse Ox O2 Delivery O2 Flow Rate FiO2 05/22/17 05:05 85 05/22/17 04:20 75 05/22/17 03:40 97.9 82 16 152/75 96 05/22/17 03:00 80 05/22/17 02:00 76 05/22/17 01:00 77 05/22/17 00:00 80 05/21/17 23:32 97.7 72 16 139/69 100 05/21/17 23:00 76 05/21/17 22:00 78 05/21/17 21:00 84 05/21/17 20:00 82 05/21/17 19:30 98.2 90 16 155/66 96 05/21/17 19:27 89 05/21/17 18:00 82 05/21/17 17:00 92 05/21/17 16:00 78 05/21/17 15:12 98.4 77 16 134/68 97 05/21/17 15:00 82 05/21/17 14:00 78 05/21/17 13:00 82 05/21/17 12:00 77 05/21/17 11:53 98.7 78 16 128/64 100 05/21/17 11:00 79 05/21/17 10:00 81 05/21/17 09:00 75 05/22/17 05/22/17 05/22/17 07:00 15:00 23:00 Intake Total 480 ml Output Total 500 ml Balance -20 ml Result Diagram: 05/22/17 0554 05/22/17 0554 Laboratory Results Laboratory Tests Test 05/22/17 05:54 White Blood Count 8.4 TH/MM3 Red Blood Count 4.09 MIL/MM3 Hemoglobin 10.3 GM/DL Hematocrit 32.1 % Mean Corpuscular Volume 78.6 FL Mean Corpuscular Hemoglobin 25.3 PG Mean Corpuscular Hemoglobin 32.1 % Concent Red Cell Distribution Width 17.6 % Platelet Count 388 TH/MM3 Mean Platelet Volume 7.9 FL Neutrophils (%) (Auto) 66.4 % Lymphocytes (%) (Auto) 15.8 % Monocytes (%) (Auto) 6.7 % Eosinophils (%) (Auto) 10.4 % Basophils (%) (Auto) 0.7 % Neutrophils # (Auto) 5.5 TH/MM3 Lymphocytes # (Auto) 1.3 TH/MM3 Monocytes # (Auto) 0.6 TH/MM3 Eosinophils # (Auto) 0.9 TH/MM3 Basophils # (Auto) 0.1 TH/MM3 CBC Comment DIFF FINAL Differential Comment Sodium Level 138 MEQ/L Potassium Level 3.8 MEQ/L Chloride Level 100 MEQ/L Carbon Dioxide Level 26.8 MEQ/L Anion Gap 11 MEQ/L Blood Urea Nitrogen 15 MG/DL Creatinine 0.65 MG/DL Estimat Glomerular Filtration 91 ML/MIN Rate Random Glucose 158 MG/DL Calcium Level 9.0 MG/DL Administered Medications Medications (Trade) Dose Ordered Sig/Adilia Route PRN Reason Start Time Stop Time Status Last Admin Dose Admin Amlodipine Besylate (Norvasc) 5 mg DAILY PO 05/19/17 09:00 05/21/17 09:29 Atorvastatin Calcium (Lipitor) 40 mg DAILY PO 05/19/17 09:00 05/21/17 09:29 Ferrous Sulfate (Ferrous Sulfate Liq) 200 mg BIDPC PO 05/19/17 09:00 05/21/17 17:19 Labetalol HCl (Trandate) 100 mg BID PO 05/19/17 09:00 05/21/17 21:34 Losartan Potassium (Cozaar) 100 mg HS PO 05/19/17 21:00 05/21/17 21:34 Ascorbic Acid (Vitamin C) 250 mg DAILY PO NS 05/19/17 09:00 05/21/17 09:29 Pantoprazole Sodium (Protonix) 20 mg DAILY PO 05/19/17 09:00 05/21/17 09:29 Sodium Chloride (NS Flush) 2 ml BID IV FLUSH 05/19/17 09:00 05/21/17 21:00 Objective Remarks GENERAL: Middle aged female sitting up in chair next to bed in [facility]. SKIN: Warm and dry. HEAD: Normocephalic. EYES: No scleral icterus. No injection or drainage. NECK: Supple, trachea midline. CARDIOVASCULAR: +S1/S2 RESPIRATORY: Breath sounds equal bilaterally. No accessory muscle use. GASTROINTESTINAL: Abdomen soft, non-tender, nondistended. EXTREMITIES: No cyanosis NEUROLOGICAL: awake and alert, normal speech. moving all extremities. Assessment/Plan Assessment 66-year-old female s/p recent CABG, admitted with falling hemoglobin h/o GIB while on Eliquis. history of DVT and PE Plan 1. patient still unsure whether she wants to proceed with IVC filter placement. she would like to speak with one of the invasive radiologists who would be performing the procedure to better understand the procedure, risks and benefits of procedure. -->I spoken with invasive radiology and they will try to send one the nurses up to speak with the patient today. 2. As an alternative, if the patient will not proceed with IVC filter placement , would recommend placing on Eliquis 2.5mg PO BID along with the Aspirin she already takes. the incidence of bleeding with the 2.5mg Eliquis is not greater than the incidence of bleeding with ASA alone. I did explain to the patient that she will have an increased risk of venous thromboembolic events as this is not the standard dose or standard of care. Malia Gibbs May 22, 2017 08:38
[2017-05-22] MEDS: amLODIPine BESYLATE 5 MG TAB PO SCH (08:54)
[2017-05-22] MEDS: ATORVASTATIN 40 MG TAB PO SCH (08:54)
[2017-05-22] MEDS: FERROUS SULFATE 300 MG /5ML UDC PO SCH ×2 (08:54→18:09)
[2017-05-22] MEDS: PANTOPRAZOLE SOD 20 MG DELAYED RELEASE TAB PO SCH (08:54)
[2017-05-22] MEDS: ASCORBIC ACID 500 MG TAB PO SCH (08:55)
[2017-05-22] MEDS: SODIUM CHLORIDE 0.9% FLUSH 10 ML FLUSH IV FLUSH SCH ×2 (08:56→20:48)
[2017-05-22] MEDS: LEVOCETIRIZINE 5 MG PO SCH (09:00)
[2017-05-22] MEDS: LABETALOL HCL 100 MG TAB PO SCH ×2 (10:28→20:47)
[2017-05-22] MEDS: LOSARTAN 50 MG TAB PO SCH (20:47)
[2017-05-23] VITALS (30 sets, daily range): BP systolic 131–149; BP diastolic 62–73; PULSE 68–95; RESP 12–16; TEMP 97.6–98.7; O2SAT 94–98
[2017-05-23 05:53] LABS: AUTOMATED NEUTROPHIL # 5.3 TH/MM3 (1.8-7.7); BASOPHIL % 0.5 % (0.0-2.0); EOSINOPHIL # 0.9 TH/MM3 (0-0.4); EOSINOPHIL % 11.1 % (0.0-4.0); HEMATOCRIT 32.5 % (35.0-46.0); HEMO FLAGS DIFF FINAL; LYMPH % 19.1 % (9.0-44.0); LYMPHOCYTE # 1.6 TH/MM3 (1.0-4.8); MEAN CELL VOLUME 79.4 FL (80.0-100.0); MEAN CORPUSCULAR HEMOGLOBIN 24.6 PG (27.0-34.0); MONO % 6.7 % (0.0-8.0); NEUT % 62.6 % (16.0-70.0); PLATELET COUNT 344 TH/MM3 (150-450); RED BLOOD COUNT 4.09 MIL/MM3 (4.00-5.30); RED CELL DISTRIBUTION WIDTH 17.7 % (11.6-17.2); WHITE BLOOD COUNT 8.5 TH/MM3 (4.0-11.0)
[2017-05-23 06:05] LABS: BICARBONATE 29.2 MEQ/L (21.0-32.0); POTASSIUM 3.9 MEQ/L (3.5-5.1)
--- NOTE | 2017-05-23 08:12 | HHI.PR ---
Subjective Remarks Denies any chest pain, abdominal pain or SOB. Patient has decided on getting the IVC filter however wants to talk to Dr. Tellez first. Objective Vital Signs Date Time Temp Pulse Resp B/P Pulse Ox O2 Delivery O2 Flow Rate FiO2 05/23/17 07:42 98.3 90 14 146/70 94 05/23/17 07:24 68 05/23/17 06:00 72 05/23/17 05:00 87 05/23/17 04:00 72 05/23/17 03:00 68 05/23/17 03:00 97.6 85 16 144/72 98 05/23/17 02:00 76 05/23/17 01:00 74 05/23/17 00:00 72 05/22/17 23:00 98.6 81 20 141/70 98 05/22/17 23:00 78 05/22/17 22:00 78 05/22/17 21:00 84 05/22/17 20:00 98.4 90 16 148/73 98 05/22/17 20:00 81 05/22/17 19:00 86 05/22/17 18:06 84 05/22/17 17:00 82 05/22/17 16:00 82 05/22/17 15:55 98.4 81 16 130/70 98 05/22/17 15:55 81 05/22/17 15:00 82 05/22/17 14:00 80 05/22/17 13:00 80 05/22/17 12:00 88 05/22/17 11:37 93 05/22/17 11:37 98.2 93 18 110/64 94 05/22/17 11:00 102 05/22/17 10:00 92 05/22/17 09:00 90 I/O 05/22/17 05/22/17 05/22/17 05/23/17 05/23/17 05/23/17 07:00 15:00 23:00 07:00 15:00 23:00 Intake Total 480 ml 1000 ml 720 ml Output Total 500 ml 1100 ml 500 ml Balance -20 ml -100 ml 220 ml Intake Oral 480 ml 1000 ml 720 ml Output Urine Total 500 ml 1100 ml 500 ml # Bowel Movements 2 2 0 Result Diagram: 05/23/17 0454 05/23/17 0454 Objective Remarks GENERAL: Alert and cooperative SKIN: Warm and dry. Incision on well approximated on chest HEAD: Normocephalic. EYES: No scleral icterus. No injection or drainage. NECK: Supple, trachea midline. No JVD or lymphadenopathy. CARDIOVASCULAR: Regular rate and rhythm without murmurs, gallops, or rubs. RESPIRATORY: Breath sounds equal bilaterally. No accessory muscle use. GASTROINTESTINAL: Abdomen soft, non-tender, nondistended. MUSCULOSKELETAL: No cyanosis, or edema. BACK: Nontender without obvious deformity. No CVA tenderness. Medications and IVs Current Medications Medications (Trade) Dose Ordered Sig/Adilia Route Start Time Stop Time Status Last Admin (Norvasc) 5 mg DAILY PO 05/19/17 09:00 05/22/17 08:54 (Lipitor) 40 mg DAILY PO 05/19/17 09:00 05/22/17 08:54 (Ferrous Sulfate Liq) 200 mg BIDPC PO 05/19/17 09:00 05/22/17 18:09 ([place] 5-325 Mg) 1 tab Q6HR PRN PO 05/18/17 22:45 (Trandate) 100 mg BID PO 05/19/17 09:00 05/22/17 20:47 (Cozaar) 100 mg HS PO 05/19/17 21:00 05/22/17 20:47 (Vitamin C) 250 mg DAILY PO 05/19/17 09:00 05/22/17 08:55 Patient Own Medication PT OWN MED: LEVOCETIRIZINE 5 MG ... DAILY PO 05/19/17 09:00 (Protonix) 20 mg DAILY PO 05/19/17 09:00 05/22/17 08:54 (NS Flush) 2 ml UNSCH PRN IV FLUSH 05/18/17 22:45 (NS Flush) 2 ml BID IV FLUSH 05/19/17 09:00 05/22/17 20:48 (Zofran Inj) 4 mg Q6H PRN IVP 05/18/17 22:45 (Narcan Inj) 0.4 mg UNSCH PRN IV 05/18/17 22:45 Assessment and Plan Problem List: (1) Anemia Status: Acute Plan: Hgb 10.1 today. Patient received 2 units of PRBC on admission. No obvious signs of bleeding. Eliquis stopped. GI and hematology consulted plan is to obtain a IVC filter (2) Hypertension Status: Chronic Plan: B/p 144/72 will continue amlodipine, losartan, and labetalol (3) GI bleed Status: Acute Plan: Stool positive for OB. Recommended per hematology to discontinue Eliquis and recommends a retrievable IVC filter. Plan is for today for placement (4) DVT (deep venous thrombosis) Status: Acute Plan: Patient with recent PE and DVT. No swelling noted or SOB Plan is for IVC filter would like to Dr. Tellez first. 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 Discussed having a EGD with ablation with Patient however currently she does not want a EGD unless her HGB drops. Will reconsult if needed. Assessment and Plan Assessment and plan discussed with Dr. Bernal Discharge Planning [facility] Physician Attestation I and the HAND ETCHER have both examined this patient and reviewed this note and I agree with these findings and plan of care. Yen Thacker [facility] May 23, 2017 08:12
[2017-05-23] MEDS: LEVOCETIRIZINE 5 MG PO SCH (09:00)
[2017-05-23] MEDS: SODIUM CHLORIDE 0.9% FLUSH 10 ML FLUSH IV FLUSH SCH ×2 (09:05→22:56)
[2017-05-23] MEDS: PANTOPRAZOLE SOD 20 MG DELAYED RELEASE TAB PO SCH (09:05)
[2017-05-23] MEDS: amLODIPine BESYLATE 5 MG TAB PO SCH (09:05)
[2017-05-23] MEDS: LABETALOL HCL 100 MG TAB PO SCH ×2 (09:05→22:55)
--- NOTE | 2017-05-23 09:08 | PD.ONC.PN ---
Subjective Subjective Remarks Afebrile overnight. Patient resting in room. She states she has decided to proceed with IVC filter after much thought and contemplation. She spoke with a nurse from invasive radiology yesterday who explained the procedure to her, as well as risks and benefits. She has also decided to proceed with the permanent IVC filter rather then the temporary. Objective Data Date Time Temp Pulse Resp B/P Pulse Ox O2 Delivery O2 Flow Rate FiO2 05/23/17 07:42 98.3 90 14 146/70 94 05/23/17 07:24 68 05/23/17 06:00 72 05/23/17 05:00 87 05/23/17 04:00 72 05/23/17 03:00 68 05/23/17 03:00 97.6 85 16 144/72 98 05/23/17 02:00 76 05/23/17 01:00 74 05/23/17 00:00 72 05/22/17 23:00 98.6 81 20 141/70 98 05/22/17 23:00 78 05/22/17 22:00 78 05/22/17 21:00 84 05/22/17 20:00 98.4 90 16 148/73 98 05/22/17 20:00 81 05/22/17 19:00 86 05/22/17 18:06 84 05/22/17 17:00 82 05/22/17 16:00 82 05/22/17 15:55 98.4 81 16 130/70 98 05/22/17 15:55 81 05/22/17 15:00 82 05/22/17 14:00 80 05/22/17 13:00 80 05/22/17 12:00 88 05/22/17 11:37 93 05/22/17 11:37 98.2 93 18 110/64 94 05/22/17 11:00 102 05/22/17 10:00 92 05/23/17 05/23/17 05/23/17 07:00 15:00 23:00 Intake Total 720 ml Output Total 500 ml Balance 220 ml Result Diagram: 05/23/17 0454 05/23/17 0454 Laboratory Results Laboratory Tests Test 05/23/17 04:54 White Blood Count 8.5 TH/MM3 Red Blood Count 4.09 MIL/MM3 Hemoglobin 10.1 GM/DL Hematocrit 32.5 % Mean Corpuscular Volume 79.4 FL Mean Corpuscular Hemoglobin 24.6 PG Mean Corpuscular Hemoglobin 31.0 % Concent Red Cell Distribution Width 17.7 % Platelet Count 344 TH/MM3 Mean Platelet Volume 7.9 FL Neutrophils (%) (Auto) 62.6 % Lymphocytes (%) (Auto) 19.1 % Monocytes (%) (Auto) 6.7 % Eosinophils (%) (Auto) 11.1 % Basophils (%) (Auto) 0.5 % Neutrophils # (Auto) 5.3 TH/MM3 Lymphocytes # (Auto) 1.6 TH/MM3 Monocytes # (Auto) 0.6 TH/MM3 Eosinophils # (Auto) 0.9 TH/MM3 Basophils # (Auto) 0.0 TH/MM3 CBC Comment DIFF FINAL Differential Comment Sodium Level 138 MEQ/L Potassium Level 3.9 MEQ/L Chloride Level 102 MEQ/L Carbon Dioxide Level 29.2 MEQ/L Anion Gap 7 MEQ/L Blood Urea Nitrogen 16 MG/DL Creatinine 0.67 MG/DL Estimat Glomerular Filtration 88 ML/MIN Rate Random Glucose 152 MG/DL Calcium Level 9.0 MG/DL Administered Medications Medications (Trade) Dose Ordered Sig/Adilia Route PRN Reason Start Time Stop Time Status Last Admin Dose Admin Amlodipine Besylate (Norvasc) 5 mg DAILY PO 05/19/17 09:00 05/22/17 08:54 Atorvastatin Calcium (Lipitor) 40 mg DAILY PO 05/19/17 09:00 05/22/17 08:54 Ferrous Sulfate (Ferrous Sulfate Liq) 200 mg BIDPC PO 05/19/17 09:00 05/22/17 18:09 Labetalol HCl (Trandate) 100 mg BID PO 05/19/17 09:00 05/22/17 20:47 Losartan Potassium (Cozaar) 100 mg HS PO 05/19/17 21:00 05/22/17 20:47 Ascorbic Acid (Vitamin C) 250 mg DAILY PO NS 05/19/17 09:00 05/22/17 08:55 Pantoprazole Sodium (Protonix) 20 mg DAILY PO 05/19/17 09:00 05/22/17 08:54 Sodium Chloride (NS Flush) 2 ml BID IV FLUSH 05/19/17 09:00 05/22/17 20:48 Objective Remarks GENERAL: Pleasant female upright in chair, in nad. SKIN: Warm and dry. chest wall incision site clean. HEAD: Normocephalic. EYES: No scleral icterus. No injection or drainage. NECK: Supple, trachea midline. CARDIOVASCULAR: +S1/S2 RESPIRATORY: Breath sounds equal bilaterally. No accessory muscle use. GASTROINTESTINAL: Abdomen soft, non-tender, nondistended. EXTREMITIES: No cyanosis NEUROLOGICAL: awake and alert, normal speech. moving all extremities. Assessment/Plan Assessment 66-year-old female admitted with anemia d/t GIB while on Eliquis history of DVT and PE Plan 1. will order permanent IVC filter placement through Invasive radiology 2. monitor CBC 3. continue ASA Attending Statement The exam, history, and the medical decision-making described in the above note were completed with the assistance of the mid-level provider. I reviewed and agree with the findings presented. I attest that I had a [id number] encounter with the patient on the same day, and personally performed and documented my assessment and findings in the medical record. lungs are clear and trace edema lower extremities. patient doing well post umbrella placement. At this point would treat with aspirin given bypass surgery and not resume apixaban. She can return to rehab center and would recommend - aspirin daily -iron sulfate 325 mg 1 pill daily naresh urbina ever 2 weeks -apt to see me in 6 weeks at [facility] office with naresh urbina and visit - terminal gauger follow up with GI for future cauterizations. -she is to remain active to prevent DVT Malia Gibbs May 23, 2017 09:08 Adal Tellez MD May 23, 2017 19:48
[2017-05-23] MEDS ORDERED: MIDAZOLAM HCL 5 MG/5 ML VIAL ONE (10:36)
[2017-05-23] MEDS ORDERED: fentaNYL CITRATE 250 MCG/5 ML AMP ONE (10:37)
[2017-05-23] MEDS ORDERED: IOHEXOL 350 MG/ML 50 ML BTL (for RAD DIAG) IV ONE (11:17)
--- NOTE | 2017-05-23 11:22 | PD.RAD ---
Post Procedure Progress Note Pre Procedure Diagnosis: (1) DVT (deep venous thrombosis) (2) Pulmonary emboli (3) GI bleed Post Procedure Diagnosis: (1) DVT (deep venous thrombosis) (2) Pulmonary emboli (3) GI bleed Procedure Date: May 23, 2017 Supervising Radiologist: Roc Hagen Proceduralist/Assist: Elvis Washington, RT(R), Coy Musa, RT(R) Anesthesia: Local, Conscious Sedation Plan of Activity Patient to Unit: ROPU Patient Condition: Good See PACS Report for procedural detail/treatment Vascular-Venous Procedure Procedure 1 Procedure(s): Permanent IVC Filter Access Access Site(s): Right Jugular Vein Closure Site(s): Right manual pressure Additional Detail: Brown Vena-Tech Roc Hagen MD May 23, 2017 11:22
[2017-05-23] MEDS: FERROUS SULFATE 300 MG /5ML UDC PO SCH ×2 (14:37→18:20)
[2017-05-23] MEDS: ATORVASTATIN 40 MG TAB PO SCH (14:37)
[2017-05-23] MEDS: ASCORBIC ACID 500 MG TAB PO SCH (14:37)
--- NOTE | 2017-05-23 17:28 | RADRPT ---
EXAM DATE/TIME: 05/23/2017 10:46 [place] COMPARISON: No previous studies available for comparison. INDICATIONS : Patient with history of DVT in need of IVC filter placement. MEDICAL HISTORY : 1.HTN 2.GERD 3.Watermelon stomach SURGICAL HISTORY : 1.Disc neck surgery 2.Deviated septum surgery 3.Basal cell carcinoma removal on left leg 4.CABG x 3 ENCOUNTER: Initial ACUITY: 4 - 6 days PAIN SCORE: 0/10 FLUORO TIME: 1.1 minutes IMAGE SERIES: 1 SEDATION TIME: 30 minutes CONTRAST: 15 cc Omnipaque (iohexol) 350 MEDICATION(S): 1.) 1 mgmidazolam (Versed) IV 2.) 50 mcgfentanyl (Sublimaze) IV ACCESS: Right Internal Jugular Vein DEVICE(S): 1.) Vena-Tech PROCEDURE : 1. Ultrasound-guided venipuncture. 2. Inferior venacavogram. 3. Inferior vena cava filter placement. 4. Conscious sedation with continuous EKG and oximetry monitoring. The risks, benefits and alternatives to the procedure were explained and verbal and written consent w as obtained. The site was prepped in sterile fashion. Full sterile technique was used, including ca p, mask, sterile gloves and gown and a large sterile sheet. Hand hygiene and 2% chlorhexidine and/or betadine/alcohol prep was utilized per protocol for cutaneous antisepsis. The skin and subcutaneous tissues were infiltrated with local anesthetic solution. With ultrasound and fluoroscopic guidance the targeted vein was punctured and a vascular sheath was p laced. Inferior venacavogram was performed to demonstrate level of renal veins. No caval thrombus was identified. The prescribed filter was deployed in the infrarenal inferior vena cava. Following deplo yment the filter was identified in good position. Conscious sedation was performed with the prescribed dosages and duration as above in the presence of an independent trained radiology nurse to assist in the monitoring of the patient. EKG and oximetry remained stable throughout the procedure. The patient tolerated the procedure well and there were n o complications. The patient was sent to post anesthesia recovery in stable condition. CONCLUSION: Uncomplicated inferior vena cava filter placement as above. Roc Hagen MD on May 23, 2017 at 17:25 Board Certified Radiologist. This report was verified electronically.
[2017-05-23] MEDS: LOSARTAN 50 MG TAB PO SCH (22:55)
[2017-05-24] VITALS (12 sets, daily range): BP systolic 127–149; BP diastolic 64–78; PULSE 68–90; RESP 16–18; TEMP 97.8–98.4; O2SAT 97–98
[2017-05-24 07:12] LABS: AUTOMATED NEUTROPHIL # 5.4 TH/MM3 (1.8-7.7); BASOPHIL % 0.6 % (0.0-2.0); EOSINOPHIL # 0.8 TH/MM3 (0-0.4); EOSINOPHIL % 9.7 % (0.0-4.0); HEMATOCRIT 31.9 % (35.0-46.0); HEMO FLAGS DIFF FINAL; LYMPH % 16.1 % (9.0-44.0); LYMPHOCYTE # 1.3 TH/MM3 (1.0-4.8); MEAN CELL VOLUME 79.3 FL (80.0-100.0); MEAN CORPUSCULAR HEMOGLOBIN 24.7 PG (27.0-34.0); MEAN CORPUSCULAR HGB CONC 31.1 % (32.0-36.0); MONO % 6.3 % (0.0-8.0); NEUT % 67.3 % (16.0-70.0); PLATELET COUNT 286 TH/MM3 (150-450); RED BLOOD COUNT 4.02 MIL/MM3 (4.00-5.30); RED CELL DISTRIBUTION WIDTH 17.5 % (11.6-17.2)
[2017-05-24 07:27] LABS: BICARBONATE 26.8 MEQ/L (21.0-32.0); POTASSIUM 3.8 MEQ/L (3.5-5.1)
[2017-05-24] MEDS: SODIUM CHLORIDE 0.9% FLUSH 10 ML FLUSH IV FLUSH SCH (09:00)
[2017-05-24] MEDS: ASCORBIC ACID 500 MG TAB PO SCH (09:00)
[2017-05-24] MEDS: LEVOCETIRIZINE 5 MG PO SCH (09:00)
[2017-05-24] MEDS: LABETALOL HCL 100 MG TAB PO SCH (09:09)
[2017-05-24] MEDS: ATORVASTATIN 40 MG TAB PO SCH (09:09)
[2017-05-24] MEDS: amLODIPine BESYLATE 5 MG TAB PO SCH (09:09)
[2017-05-24] MEDS: FERROUS SULFATE 300 MG /5ML UDC PO SCH (09:09)
[2017-05-24] MEDS: PANTOPRAZOLE SOD 20 MG DELAYED RELEASE TAB PO SCH (09:09)
--- NOTE | 2017-05-24 09:57 | HHI.DS ---
Discharge Summary Admission Date May 18, 2017 at 22:10 Discharge Date: May 24, 2017 Admitting Diagnosis GI BLEED WITH ANEMIA, ON ELIQUIS S/P RECENT TRIPLE CARDIAC BYPASS (1) Anemia (2) GAVE (gastric antral vascular ectasia) (3) Pulmonary emboli (4) Hypertension (5) GI bleed (6) DVT (deep venous thrombosis) Brief History Patient is a very pleasant 66 year old female admitted to hospital secondary to being [facility] an[facility] at 7.[facility]. She has had a recent triple bypass surgery at the end of April. Also at the end April had a DVT, PE, and anemia. She is being treated with Eliquis for DVT. Her HGB yesterday at Sun was found to be 8.8 and this AM 7.4. Stool for occult blood positive. GI and hematology have been consulted for recommendation. Will transfuse 2 units of PRBC for HGB 7.4 and active bleeding. Patient has a past medical history of HTN, GAVE, and GERD. She has also been diagnosed with short segment Grubbs's distal esophagus, bleeding angiectasia gastric antrum with recent EGD. She has not had a colonoscopy in over 5 years. CBC/BMP: 05/24/17 0631 05/24/17 0631 Significant Findings Laboratory Tests Test 05/22/17 05/23/17 05/24/17 05:54 04:54 06:31 Hemoglobin 10.3 GM/DL 10.1 GM/DL 9.9 GM/DL (11.6-15.3) (11.6-15.3) (11.6-15.3) Hematocrit 32.1 % 32.5 % 31.9 % (35.0-46.0) (35.0-46.0) (35.0-46.0) Mean Corpuscular Volume 78.6 FL 79.4 FL 79.3 FL (80.0-100.0) (80.0-100.0) (80.0-100.0) Mean Corpuscular Hemoglobin 25.3 PG 24.6 PG 24.7 PG (27.0-34.0) (27.0-34.0) (27.0-34.0) Red Cell Distribution Width 17.6 % 17.7 % 17.5 % (11.6-17.2) (11.6-17.2) (11.6-17.2) Eosinophils (%) (Auto) 10.4 % 11.1 % 9.7 % (0.0-4.0) (0.0-4.0) (0.0-4.0) Eosinophils # (Auto) 0.9 TH/MM3 0.9 TH/MM3 0.8 TH/MM3 (0-0.4) (0-0.4) (0-0.4) Random Glucose 158 MG/DL 152 MG/DL 160 MG/DL (74-106) (74-106) (74-106) Mean Corpuscular Hemoglobin 31.0 % 31.1 % Concent (32.0-36.0) (32.0-36.0) Estimat Glomerular Filtration 88 ML/MIN (>89) Rate PE at Discharge GENERAL: Alert and cooperative SKIN: Warm and dry. Incision on well approximated on chest HEAD: Normocephalic. EYES: No scleral icterus. No injection or drainage. NECK: Supple, trachea midline. No JVD or lymphadenopathy. CARDIOVASCULAR: Regular rate and rhythm without murmurs, gallops, or rubs. RESPIRATORY: Breath sounds equal bilaterally. No accessory muscle use. GASTROINTESTINAL: Abdomen soft, non-tender, nondistended. MUSCULOSKELETAL: No cyanosis, or edema. BACK: Nontender without obvious deformity. No CVA tenderness. Hospital Course Patient is a very pleasant 66 year old female admitted to hospital secondary to being found anemic at 7.4 at [facility]. She has had a recent triple bypass surgery at the end of April. Also at the end April had a DVT, PE, and anemia. Transfused 2 units of PRBC for HGB 7.4 and active bleeding during her hospitalization. She was followed by GI and hematology during her stay. Eliquis was discontinued and a IVC filter was placed instead secondary to patient not being able to tolerate Eliquis with her past medical history of GAVE. IVC placement went uneventful and drg is applied to right neck region. Hemoglobin is stable at discharge. She will be discharged on ASA only with recent triple bypass surgery. She will continue rehab at [place]. Pt Condition on Discharge: Good Discharge Disposition: Discharge to SNF Discharge Instructions DIET: Follow Instructions for: Heart Healthy Diet Activities you can perform: Regular-No Restrictions Follow up Referrals: PCP Follow-up Continued Medications: Amlodipine (Amlodipine) 5 Mg Tab 5 MG PO DAILY Blood Pressure Management #30 Ref 0 TAB Ascorbic Acid (Vitamin C) 250 Mg Tab 250 MG PO DAILY Nutritional Supplement Ref 0 TAB Aspirin (Aspirin Low Strength) 81 Mg Chew 81 MG PO DAILY z Days 90 Ref 10 EA Atorvastatin (Atorvastatin) 40 Mg Tab 40 MG PO DAILY Cholesterol Management Days 90 TAB Ferrous Sulfate (Feosol) 200 Mg Tab 200 MG PO BIDPC Nutritional Supplement #60 Ref 0 TAB Labetalol (Labetalol) 100 Mg Tab 100 MG PO BID Blood Pressure Management #60 Ref 0 TAB Levocetirizine (Levocetirizine) 5 Mg Tab 5 MG PO DAILY Allergy Management #30 Ref 1 TAB Losartan (Losartan) 100 Mg Tab 100 MG PO HS needs to call office and speak with provider prior to more refills Blood Pressure Management #30 Ref 0 TAB Omeprazole (Omeprazole) 20 Mg Tab 20 MG PO DAILY #90 Ref 0 TAB Discontinued Medications: Apixaban (Eliquis) 5 Mg Tab 5 MG PO BID z Days 90 TAB Hydrocodone-Acetaminophen (Hydrocodone-Acetaminophen) 5-325 mg Tab 1 TAB PO Q6HR PRN PAIN SCALE 1 TO 5 #60 TAB Yen Mccoy May 24, 2017 09:57
== END 2017-05-24 12:58 | DRG 802 ==
LOC: NEPC 19:08 → NEDA 22:10 → HCIN 23:39
PROVIDERS: ADMIT Family Medicine; ATTEND Family Medicine
PROC: 30233N1 Transfusion of Nonautologous Red Blood Cells into Peripheral Vein, Percutaneous Approach (ICD-10-PCS; 2017-05-19)
PROC: 06H03DZ Insertion of Intraluminal Device into Inferior Vena Cava, Percutaneous Approach (ICD-10-PCS; principal; 2017-05-23)
PROC: B5191ZZ Fluoroscopy of Inferior Vena Cava using Low Osmolar Contrast (ICD-10-PCS; 2017-05-23)
DX: D64.9 Anemia, unspecified (principal); I21.4 Non-ST elevation (NSTEMI) myocardial infarction; I11.0 Hypertensive heart disease with heart failure; I50.9 Heart failure, unspecified; K92.1 Melena; I82.542 Chronic embolism and thrombosis of left tibial vein; K22.70 Barrett's esophagus without dysplasia; I25.10 Atherosclerotic heart disease of native coronary artery without angina pectoris; K31.819 Angiodysplasia of stomach and duodenum without bleeding; K21.9 Gastro-esophageal reflux disease without esophagitis; Z95.1 Presence of aortocoronary bypass graft; Z79.82 Long term (current) use of aspirin; Z79.01 Long term (current) use of anticoagulants; Z86.711 Personal history of pulmonary embolism; Z86.718 Personal history of other venous thrombosis and embolism; Z85.828 Personal history of other malignant neoplasm of skin
CPT/HCPCS: 36430; 37191; 80048; 80053; 85025; 85027; 85610; 85730; 86850; 86900; 86901; 86920; 93005; 93971; 99152; 99153; C1769; C1880; J1940; J2250; J3010; J7050; P9016; Q9967